=== PATIENT | female | born 1940 | race Caucasian/White ===

== ENCOUNTER → 2018-05-04 17:39 | Outpatient (CLI) | payer MEDICARE, SELFPAY | PROVIDERS: Family Provider Internal Medicine; PCP Internal Medicine; Visit Provider Podiatrist | DX: L97.529 Non-pressure chronic ulcer of other part of left foot with unspecified severity (principal) | CPT/HCPCS: 87070; 87075; 87077; 87186; 87205 ==

== ENCOUNTER 2018-05-08 15:26 | Emergency (ER) | payer MEDICARE, SELFPAY ==
[2018-05-08 15:27] VITALS: BP 144/56; PULSE 60; RESP 16; TEMP 36.9; O2SAT 96; BMI 29.9
[2018-05-08 15:47] VITALS: BP 144/56; PULSE 60; RESP 16; TEMP 36.9; O2SAT 96
--- NOTE | 2018-05-08 16:20 | RAD_ITS ---
STUDY: X-RAY - LEFT FOOT CLINICAL: Female, 77 years old. Pain and swelling TECHNIQUE: 3 view(s) of the foot. COMPARISON: None. FINDINGS: Normal talus, calcaneus, and tarsal bones. Normal visualized subtalar, talonavicular, calcaneocuboid, tarsal and tarsometatarsal articulations. Normal metatarsi. There is degenerative arthrosis of the metatarsophalangeal joint of the hallux . Normal tibial and fibular sesamoid bones. Normal interphalangeal joint of the great toe. Normal phalanges of the great toe. Normal second through fifth metatarsophalangeal joints. PIP and DIP joint arthrosis The soft tissue structures are unremarkable. RAD/Foot min 3 Views IMPRESSION: Degenerative arthrosis Electronically Signed: Scooter Weiner MD at 17:01 EST , Service support ,
[2018-05-08 16:24] LABS: Absolute Lymphocyte Count 3.02 X10^3/ul (0.83-4.51); Absolute Neutrophil Count 4.9 X10^3/uL (2.0-7.7); Basophil# 0.08 X10^3/uL; Basophil% 0.9 % (0-1); Eosinophil# 0.19 X10^3/uL; Eosinophils% 2.1 % (0-5); Hematocrit 37.6 % (37-47); Hemoglobin 11.6 g/dl (12.0-15.0); Lymphocyte # 3.02 X10^3/ul (4.0); Lymphocyte % 34.1 % (19-41); Mean Corp Hgb Conc 30.9 g/gl (32-36); Mean Corpuscular Hgb 28.2 pg (27.0-32.0); Mean Corpuscular Volume 91.3 fL (81-99); Mean Platelet Vol. 11.5 fl (6.2-12.0); Monocyte# 0.64 X10^3/uL; Monocyte% 7.2 % (0-10); Neutrophil # 4.91 X10^3/uL (2.7-7.7); Neutrophil % 55.6 % (47-70); Platelet Count 170 K/mm3 (150-450); RBC Distribution Width CV 14.9 % (11.6-14.6); RBC Distribution Width SD 49.7 fl (35.1-43.9); Red Blood Count 4.12 M/mm3 (4.2-5.4); White Blood Count 8.9 K/mm3 (4.4-11.0)
[2018-05-08 16:33] LABS: POSITIVE COUNT NO; POSITIVE DIFFERENTIAL NO; POSITIVE MORPHOLOGY NO
[2018-05-08 16:36] LABS: Anion Gap 11 (5-15); BUN 24 mg/dL (7-18); BUN/Creat Ratio 22.9 RATIO (10-20); Chloride 98 mmol/L (98-107); Creatinine, Serum 1.05 mg/dL (0.55-1.02); EST Glomerular Filtration Rate 54 mL/min (>60); Est Glom Filt Rate - Afr Amer 65 mL/min (>60); Estimated Creatinine Clearance 39.73 ml/min; Glucose 331 mg/dL (74-106); Potassium 5.2 mmol/L (3.5-5.1); Sodium Level 136 mmol/L (136-145)
--- NOTE | 2018-05-08 16:39 | ED.VISSUMM ---
- ER Visit Summary Date of Service: 05/08/18 Chief Complaint: Left foot wound History of Present Illness: The patient is a 77 F who presents with left foot wound that has been gradually getting worse over the past few weeks. Patient has been seeing a pediatric dermatologist who put a dressing on it that is supposed to help it heal faster. Family states it appears to be getting worse. Patient denies any fevers or chills. Patient admits to some mild drainage from the area. Patient denies any pain over the area. Patient denies any paresthesias or weakness. Physical Examination: Vital signs are stable. Patient is afebrile. Patient is in no acute distress. Skin is warm and dry. There is a 1 cm x 0.5 cm ulceration over the medial aspect of the first MTP joint of the left foot. There is no bleeding noted. There is no discharge or drainage. Is no fluctuance noted. There is good range of motion of the first MTP joint. Sensation was intact to light touch in all digits. Capillary refill was less than 2 seconds in all digits. There is no ankle or calf tenderness. Heart was regular rate and rhythm. Lungs are clear and equal bilateral. Abdomen is soft and nontender. The remaining physical exam is within normal limits. Test Results: CBC was normal. Metabolic profile was essentially within normal limits. X-rays of the left foot were obtained. There is no evidence of osteomyelitis. Emergency Department Course and Treatment: Patient was given a dose of Unasyn here in the emergency department. I discussed the case with the patient's pediatric dermatologist. He called in a prescription for Bactroban cream and doxycycline. Patient was instructed to stop taking the cefadroxil and start taking doxycycline instead. Patient has an appoint with her pediatric dermatologist in 4 days. Patient was instructed to continue that appointment. Patient was instructed on signs and symptoms that should prompt return to the emergency department. Patient and family understood and were agreeable with the plan. All questions were answered. Disposition: Discharge home Impression: Left foot ulceration This note was generated with [employer] dictation software. It may contain incorrect words, spelling, and punctuation that were not noted in review of the chart prior to signing ED Disposition - Plan for ED Patient: Disposition: Home or Assisted Living Diagnosis: Foot ulcer, left Instructions: ED Wound Care Referrals: Malini Dumont MD [Primary Care Provider] -
--- NOTE | 2018-05-08 16:42 | ED.DCSUM_ITS ---
- ER Visit Summary Date of Service: 05/08/18 Chief Complaint: Left foot wound History of Present Illness: The patient is a 77 F who presents with left foot wound that has been gradually getting worse over the past few weeks. Patient has been seeing a dispatcher refinery who put a dressing on it that is supposed to help it heal faster. Family states it appears to be getting worse. Patient denies any fevers or chills. Patient admits to some mild drainage from the area. Patient denies any pain over the area. Patient denies any paresthesias or weakness. Physical Examination: Vital signs are stable. Patient is afebrile. Patient is in no acute distress. Skin is warm and dry. There is a 1 cm x 0.5 cm ulceration over the medial aspect of the first MTP joint of the left foot. There is no bleeding noted. There is no discharge or drainage. Is no fluctuance noted. There is good range of motion of the first MTP joint. Sensation was intact to light touch in all digits. Capillary refill was less than 2 seconds in all digits. There is no ankle or calf tenderness. Heart was regular rate and rhythm. Lungs are clear and equal bilateral. Abdomen is soft and nontender. The remaining physical exam is within normal limits. Test Results: CBC was normal. Metabolic profile was essentially within normal limits. X-rays of the left foot were obtained. There is no evidence of osteomyelitis. Emergency Department Course and Treatment: Patient was given a dose of Unasyn here in the emergency department. I discussed the case with the patient's dispatcher refinery. He called in a prescription for Bactroban cream and doxycycline. Patient was instructed to stop taking the cefadroxil and start taking doxycycline instead. Patient has an appoint with her dispatcher refinery in 4 days. Patient was instructed to continue that appointment. Patient was instructed on signs and symptoms that should prompt return to the emergency department. Patient and family understood and were agreeable with the plan. All questions were answered. Disposition: Discharge home Impression: Left foot ulceration This note was generated with [employer] dictation software. It may contain incorrect words, spelling, and punctuation that were not noted in review of the chart prior to signing ED Disposition - Plan for ED Patient: Disposition: Home or Assisted Living Diagnosis: Foot ulcer, left Instructions: ED Wound Care Referrals: Malini Dumont MD [Primary Care Provider] -
[2018-05-08 17:35] VITALS: BP 148/64; PULSE 62; PULSE 64; RESP 16; O2SAT 94
== END 2018-05-08 18:01 | disposition home or self-care (01) ==
PROVIDERS: Emergency Provider Emergency Medicine; Family Provider Internal Medicine; PCP Internal Medicine
DX: E11.621 Type 2 diabetes mellitus with foot ulcer (principal); L97.529 Non-pressure chronic ulcer of other part of left foot with unspecified severity; F03.90 Unspecified dementia, unspecified severity, without behavioral disturbance, psychotic disturbance, mood disturbance, and anxiety; Z79.4 Long term (current) use of insulin; Z79.82 Long term (current) use of aspirin; Z79.899 Other long term (current) drug therapy
CPT/HCPCS: 73630; 80048; 85025; 96365; 99284; J7050; A4216; J0295

== ENCOUNTER → 2018-10-01 14:15 | Outpatient (CLI) | payer MEDICARE, SELFPAY ==
--- NOTE | 2018-10-01 15:02 | VDLE_ITS ---
Reason For Study: DVT/Calf pain RIGHT GSV is normal. CFV is compressible, spontaneous, phasic, competent and demonstrates normal augmentation. FV is compressible, spontaneous, phasic, competent and demonstrates normal augmentation. POP V is compressible, spontaneous, phasic, competent and demonstrates normal augmentation. T/P Trunk is compressible. PTV is compressible. RT PerV is compressible. Procedure Exam performed in department. A preliminary report was called and/or faxed to [facility]. Interpretation Summary Deep veins of the right lower extremity are patent and compressible segmentally. There is no evidence of right lower extremity deep vein thrombosis. Valvular competence appears intact within the proximal deep venous system on the right . The right greater saphenous vein appears patent and compressible segmentally. Ordering Physician: Siva Ruiz Referring Physician: Malini Dumont M.D. Performed By: Alida Hernandez RVT
== END ==
PROVIDERS: Family Provider Internal Medicine; PCP Internal Medicine; Referring Provider Podiatrist; Visit Provider Podiatrist
DX: M79.661 Pain in right lower leg (principal); I82.4Z1 Acute embolism and thrombosis of unspecified deep veins of right distal lower extremity
CPT/HCPCS: 93971

== ENCOUNTER → 2018-10-14 | Outpatient (CLI) | payer MEDICARE, SELFPAY ==
--- NOTE | 2018-10-14 10:49 | ART_ITS ---
Reason For Study: Foot Ulcer Procedure A bilateral lower extremity continuous wave Doppler with analog waveform analysis,segmental pressures,and ankle brachial indexes without exercise. Left Segmental Pressures Left brachial= 158mmHg. Left posterior tibial artery = 200mmHg. Left dorsalis pedis artery = 185mmHg. Left digit = 151 mmHg. Right Segmental Pressures Right brachial= 162mmHg. Right posterior tibial artery = 194mmHg. Right dorsalis pedis artery = 182mmHg. Right digit = 138 mmHg. Indices The right ankle brachial index by the posterior tibial artery is 1.20. The right ankle brachial index by the dorsalis pedis is 1.12. The right digital-brachial index is 0.85. The left ankle brachial index by the posterior tibial artery is 1.23. The left ankle brachial index by the dorsalis pedis is 1.14. The left digital-brachial index is 0.93. Interpretation Summary Triphasic Doppler waveforms are noted at ankle level bilaterally. Pulse-volume recording waveform amplitudes are satisfactory at all levels bilaterally, including low-thigh, calf, ankle, and digital levels. Resting ankle-brachial indices are normal bilaterally. Digital-brachial indices are normal bilaterally. There is no evidence of significant arterial occlusive disease in the lower extremities bilaterally. Ordering Physician: Siva Ruiz Referring Physician: Siva Ruiz Performed By: Suzette Camara RDCS/RVT
== END | disposition home or self-care (01) ==
LOC: CVS 10:46
PROVIDERS: Family Provider Internal Medicine; PCP Internal Medicine; Referring Provider Podiatrist; Visit Provider Podiatrist
DX: E11.621 Type 2 diabetes mellitus with foot ulcer (principal); L97.529 Non-pressure chronic ulcer of other part of left foot with unspecified severity; I73.9 Peripheral vascular disease, unspecified
CPT/HCPCS: 93923

== ENCOUNTER 2019-01-15 12:25 | Observation (INO) | payer MEDICARE, SELFPAY ==
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
[2019-01-15] VITALS (10 sets, daily range): BP systolic 161–185; BP diastolic 70–84; PULSE 63–82; RESP 16; TEMP 36.1–36.7; O2SAT 93–98; BMI 33.0
[2019-01-15] MEDS: Lactated Ringers 1,000 ML 100 ML IV ×2 (09:38→15:35)
[2019-01-15 09:46] LABS: Bedside Glucose 152 mg/dL (70-110)
--- NOTE | 2019-01-15 10:10 | BON_PTH ---
PATIENT: CASSIE SUÁREZ LOC: [facility] U#:[id number] AGE/SX: 78/F ROOM: DC320 RE01/15/[address]: GUDELIA KnightM : 1940 BED: 1 DIS: 01/15/2019 SPEC #: [id number] RECD: 01/18/19 07:25 STATUS: REJI MILADIS #: [id number] LAMBERT: 01/15/19 10:[address]: Siva Ruiz DEPT: SURGICAL PATHOLOGY RECD BY: Siddhartha Bansal ENTERED: 01/18/19 08:44 SP TYPE: Bone OTHR DR: DO Dr. Malini Son MD Tissues: Bone of foot, NOS Procedures: Decalcification bone/plaque Surgery Specimen Level III HEADER OPERATION: Ulcer debridement with simple bunionectomy, bone removal PRE-OP DIAGNOSIS: Chronic diabetic ulcer with bunion deformity TISSUE SUBMITTED: Bone, left foot MICROSCOPIC DIAGNOSIS Bone, left foot: Pieces of bone with reactive changes, clinically bunion. VALERIO:marcelina 01/21/19 MICROSCOPIC DESCRIPTION Slides are reviewed. GROSS DESCRIPTION Received in fixative is one container labeled with the patient's name and designated bone left foot. The specimen consists of multiple pieces of bone that in aggregate measure 4 x 3.5 x 0.5 cm. The entire specimen is submitted in two cassettes after decalcification. / VALERIO:marcelina 01/18/19 TC:5 CPT: 10576, 62301
--- NOTE | 2019-01-15 11:00 | RAD_ITS ---
STUDY: X-RAY - LEFT FOOT CLINICAL: Female, 78 years old. Postop TECHNIQUE: 3 view(s) of the foot. COMPARISON: 05/08/2018 FINDINGS: Bunionectomy changes are present. Postoperative changes in the soft tissues. No acute fractures or osteolytic lesions. RAD/Foot 2 Views IMPRESSION: Bunionectomy changes are present. Electronically Signed: Manny Sahu MD at 17:21 EDT Tel , Service support ,
[2019-01-15] MEDS: Bupivacaine Mpf 0.5% 30 ML VIAL (11:32)
[2019-01-15] MEDS: Cefazolin 2 GM in 0.9% Normal Saline 100 ML IV (11:41)
--- NOTE | 2019-01-15 12:19 | CASEMGMT ---
Social Work Note SW spoke with [employer] who states pt is not up on floor yet. SW spoke with PT/OT and informed them on plan for SNF and that this worker will call them when pt arrives to floor to do PT/OT with pt so pre-cert can be submitted. Plan: TCU pending pre-cert Alida Gongora [employer] F[employer]ION DEVELOPER, INFUSION THERAPY NURSE
--- NOTE | 2019-01-15 12:29 | RAD_ITS ---
STUDY: X-RAY - LEFT FOOT CLINICAL: Female, 78 years old. Postop TECHNIQUE: 3 view(s) of the foot. COMPARISON: 05/08/2018 FINDINGS: Bunionectomy changes are present. Postoperative changes in the soft tissues. No acute fractures or osteolytic lesions. RAD/Foot min 3 Views IMPRESSION: Bunionectomy changes are present. Electronically Signed: Manny Sahu MD at 17:21 EDT Tel , Service support ,
[2019-01-15 12:50] LABS: Bedside Glucose 102 mg/dL (70-110)
--- NOTE | 2019-01-15 14:44 | PCM.OPRPT ---
Report of Operation Date of Procedure: 01/15/19 Pre-Operative Diagnosis: Ulceration left foot medial 1st metatarsal phalangeal joint. Hallux Valgus bunion, left foot. Diabetes with neuropathy Post-Operative Diagnosis: Same Surgery/Procedure Performed:: Bunionectomy left 1st metatarsal phalangeal joint Type of Anesthesia:: Local, MAC Specimen's removed: Bunion from left 1st metatarsal head sent to pathology and microbiology Estimated Blood Loss (mL): 1mL Description of Procedure: Indications: This is a 78 year old female with history of diabetes with peripheral neuropathy as well as dementia who has chronic on and off ulceration to the medial aspect of the left 1st metatarsal phalangeal joint at the bunion site. She has been overall nonadherent with care, but she does have dementia. We have got the ulceration healed on several occasions but keeps coming back as she does not wear her offloading shoe, and she has bunion which keeps rubbing causing break down of the skin. She has diabetic neuropathy. Patient also has a right drop foot and wears an AFO. Due to the chronic nature of this ulceration we discussed bunionectomy to remove the zaid prominence to keep with offloading. This was discussed with the patient as well as with her daughter Marline in great detail. Due to patient's dementia, home situation, as well as peripheral neuropathy and drop foot patient will need to be admitted post op for nursing facility placement. Patient and patient's daughter agreed with this plan. All of the possible benefits vs risks, goals, expectations and estimated healing time was discussed with them in detail. The consent forms were reviewed with them and they were freely signed. All of their questions were answered. No guarentees were given nor implied. Operative Procedure: The patient was brought back to the operating room and was placed on the operating room table in the supine position. Patient was carefully secured to the operating room table with a safety belt around her waist. The patient received 2 grams of intravenous Cephazolin for antibiotic prophylaxis. A timeout was performed and the patient was properly identified and the surgical plan was confirmed. A well padded pneumatic tourniquet was applied around the patient's left ankle. The patient received anesthesia per the anesthesia team. A 1st ray nerve block was given using 10mL of Bupivacaine plain after the overlying skin was cleansed with 70% Isopropyl alcohol. The left foot was scrubbed, prepped, and draped in the usual aseptic fashion. Further attention was directed to the left foot, there was healed ulceration but there was dry flaking skin present at the ulcer site. There was a hallux valgus bunion prominence/eminence present at the ulceration site. There was no evidence of abscess, necrosis, cellulitis, streaking or drainage at this time. The left foot was elevated for 3 minutes and the left ankle pneumatic tourniquet was inflated to 250mmHg. A linea longitudinal skin incision was made overlying the dorsal medial aspect of the 1st metatarsal phalangeal joint, medial to the extensor hallucis longus tendon. The incision was carefully deepened to the dorsal 1st metatarsal phalangeal joint capsule, which was incised and partially reflected exposing the medial 1st metatarsal head and medial aspect of the base of the hallux proximal phalanx which was prominent as well. It was also noted the tibial sesamoid was prominent contributing to the prominence causing the ulceration. The joint was visualized and there was some degenerative changes consistent with osteoarthritis. There was no purulence, no abscess, no necrosis or erosion to the bone or joint at this level. he medial eminence of the 1st metatarsal head as well as the prominent medial condyle of the hallux proximal phalanx were resected using a powered sagittal saw. The prominent tibial sesamoid was resected. The bone was a little soft consistent with patient's age, but no clear or obvious evidence of bone or joint infection. The resected bone was sent to pathology as well as microbiology for further evaluation. The ulcer site was now properly decompressed. The site was flushed out with copious amounts of normal saline solution. The capsule was reapproximated using 4-0 Vicryl, the subcutaneous tissue and skin were reapproximated using 4-0 Vicryl and 4-0 Monocryl. The edges of the skin incision were painted with Cavilon and steristrips were applied across the sutured skin incision. A dressing was applied which consisted of Adaptic, 4x4 gauze, Kerlix and antoinette bandage. The pneumatic tourniquet was deflated (total tourniquet time was 37 minutes) and there was noted to be immediate return of warmth and perfusion to the left foot with CFT < 2 seconds to all toes with normal temperature. The patient tolerated the above procedure well and the anesthesia well with no complications. The patient was transported from the operating room to the recovery room with vital signs stable and in good condition. Post op orders were placed. The patient will be admitted for nursing facility placement. I spoke with Dr. Cheung from the medicine team for medical management. Post operative xrays were obtained and reviewed of the left foot which confirmed bunionectomy as noted above. No complications or other acute findings noted. Grafts/Implants Used: None - Complications None
--- NOTE | 2019-01-15 15:02 | CON.PCM_ITS ---
Reason for Consult Date of Consultation: 01/15/19 Reason for Consultation: Consult requested by Dr. Ruiz for medical mgmt. History of Present Illness: The patient is a 78 year old F who underwent ulcer surgery on her left foot today by Dr. ziegler. Postoperatively, patient feels well. Has no active malaise at this time. [] Past Medical History Past Medical History (Chronic Problems): Chronic Problems Chronic back pain (Chronic) Chronic pain of right lower extremity (Chronic) radicular Type II diabetes mellitus (Chronic) HLD (hyperlipidemia) (Chronic) Foot drop, right foot (Chronic) Dementia (Chronic) Muscle paresis (Chronic) R leg Allergies Iodine and Iodide Containing Produc Allergy (Verified 01/15/19 09:16) Rash venom-honey bee [bee venom (honey bee)] Allergy (Verified 01/15/19 09:16) Swelling Home Medications: Ambulatory Orders Medication Instructions Recorded Ergocalciferol [Vitamin D] 50,000 unit PO SUWE 06/28/14 Simvastatin 20 mg PO QHS 06/28/14 Duloxetine Hcl [Cymbalta] 40 mg PO LUNCH 01/11/19 Hydrocodone/Acetaminophen 1 tab PO TID 01/11/19 [Hydrocodone-Acetamin 10-325 mg] Insulin Degludec [Tresiba] 50 unit SQ DAILY 01/11/19 Levothyroxine [Synthroid] 75 mcg PO DAILY@0600 01/11/19 Metformin HCl 500 mg PO BID 01/11/19 Metoprolol Tartrate [Lopressor 25 mg PO 1200,1800 01/11/19 (beta blayne)] Pregabalin [Lyrica] 50 mg PO 4X/DAY 01/11/19 Quetiapine Fumarate [Seroquel] 25 mg PO QHS 01/11/19 Smoking Status: Never smoker Tobacco Use: Non-smoker - *Family History Paternal History Items: No pertinent history Sibling History Items: Diabetes Review of Systems Constitutional: Denies: Anorexia, Chills, Fever Eyes: Denies: Blurred vision, Conjunctivae Inflammation HEENT: Denies: Head Aches, Sinus Congestion, Sinus Drainage Cardiovascular: Denies: Chest Pain, Palpitations Respiratory: Denies: Cough, Shortness of breath at rest, Sputum production Gastrointestinal: Denies: Abdominal Pain, Nausea, Vomiting Genitourinary: Denies: Dysuria Musculoskeletal: Denies: Joint Pain, Joint Tenderness Skin: Reports: Wounds. Denies: Rash Neurological: Reports: - - Neuropathy in her feet. Denies: Focal weakness, Numbness, Tingling Psychiatric: Denies: Anxiety, Depression Endocrine: Denies: Change in Body Habitus Hematologic/ Lymphatic: Denies: Easy Bruising, Easy Bleeding, Hx of blood clot Comment: All review systems are otherwise negative except for as mentioned above and in the HPI. - Physical Exam Vitals/I&O's: Vital Signs Temp Pulse Resp BP Pulse Ox 36.4 C L 64 16 173/82 H 97 01/15/19 14:05 01/15/19 14:10 01/15/19 14:05 01/15/19 14:05 01/15/19 14:05 Oxygen Delivery Method Room Air Weight: 90.083 kg Body Mass Index (BMI) 33.0 Intake and Output for Last 24 Hours 01/13/19 01/14/19 01/15/19 23:59 23:59 23:59 Intake Total 110 / 110 Balance 110 / 110 General: Alert, No apparent distress HEENT: Atraumatic, Normocephalic Oral: Moist Mucosa, No Gingival or Mucosal Lesions/ Ulcerations Neck: No Nodes, Thyroid Normal Size and Texture Lungs: Clear to auscultation, Normal air movement, No rhonchi, No wheeze, No rales Cardiovascular: Regular rate, Regular Rhythm, Normal S1, Normal S2, No murmurs Abdomen: Bowel Sounds Present, Soft, Non Tender, Non-Distended, No Hepato- splenomegaly Extremities: No edema, No Calf Tenderness, - - left foot wrapped, did not remove. Neurological: - - moves all extremities spontaneously. Psych/Mental Status: Normal Affect, Appropriate Laboratory Results 01/15/19 09:20: POC Glucose 152 H 01/15/19 12:48: POC Glucose 102 Current Medications Hydrocodone Bitart/Acetaminophen ([place] 5mg-325mg) 1 - 2 tablet PO Q6H PRN PRN PRN Reason: Pain Score 1-10/10 Dextrose (D50w Syringe) 0 gm IV X1 PRN; Protocol PRN Reason: Hypoglycemia Duloxetine HCl (Cymbalta) 40 mg PO LUNCH LOR Enoxaparin Sodium (Lovenox) 40 mg SC DAILY@0600 LOR Ergocalciferol (Vitamin D) 50,000 unit PO SUWE [facility] Glucagon () 1 mg IM .X1 PRN PRN Reason: Hypoglycemia Lactated Ringer's () 1,000 mls @ 100 mls/hr IV .Q10H [facility] Last Admin: 01/15/19 09:38 Dose: 100 mls/hr Documented by: Insulin Human Lispro (Humalog Kwikpen (Bkc)) 0 unit SC TIDAC [facility]; Protocol Levothyroxine Sodium (Synthroid) 75 mcg PO DAILY@0600 [facility] Metformin HCl (Glucophage) 500 mg PO BID [facility] Metoprolol Tartrate (Lopressor (Beta Blayne)) 25 mg PO 1200,1800 [facility] Non-Formulary Medication (Insulin Degludec [Tresiba]) 50 unit SQ DAILY [facility] Non-Formulary Medication (Simvastatin) 20 mg PO QHS [facility] Non-Formulary Medication (Hydrocodone/Acetaminophen [Hydrocodone-Acetamin 10-325 Mg]) 1 tab PO TID [facility] Ondansetron HCl (Zofran) 4 mg IV Q8H PRN PRN PRN Reason: Nausea Pregabalin (Lyrica) 50 mg PO 4X/DAY [facility] Quetiapine Fumarate (Seroquel) 25 mg PO QHS [facility] Sodium Chloride () 10 - 40 ml IV UD PRN PRN Reason: SALINE FLUSH Assessment/Plan All Active Problems Syncope and collapse (Acute) Urinary tract infection with pyuria (Acute) Hypothyroidism (Acute) 1. DM2 * continue basal insulin and metformin * add SSI coverage * monitor 2. HTN, accelerated * resume metoprolol and monitor 3. Left foot ulcer * s/p debridement * mgmt per podiatry 4. VTE prophylaxis: LMWH You for the consult. The hospitalist service will continue to follow along during this patient's hospitalization. Code Visit Inpatient E&M: 47745 Init Hosp L2
--- NOTE | 2019-01-15 15:03 | HP.PCM_ITS ---
History of Present Illness Date of Admission: 01/15/19 Chief Complaint: Post op left foot bunionectomy This is a 78 year old female with history of diabetes with peripheral neuropathy as well as dementia who has chronic on and off ulceration to the medial aspect of the left 1st metatarsal phalangeal joint at the bunion site. She has been overall nonadherent with care, but she does have dementia. We have got the ulceration healed on several occasions but keeps coming back as she does not wear her offloading shoe, and she has bunion which keeps rubbing causing break down of the skin. She has diabetic neuropathy. Patient also has a right drop foot and wears an AFO which causes more difficulty with gait. Due to the chronic nature of this ulceration we discussed bunionectomy to remove the zaid prominence to keep with offloading. This was discussed with the patient as well as with her daughter Marline in great detail. Due to patient's dementia, home situation, as well as peripheral neuropathy and drop foot patient will need to be admitted post op for nursing facility placement. The patient had surgery this morning without complication. Past Medical History Past Medical History (Chronic Problems): Chronic Problems Chronic back pain (Chronic) Chronic pain of right lower extremity (Chronic) radicular Type II diabetes mellitus (Chronic) HLD (hyperlipidemia) (Chronic) Foot drop, right foot (Chronic) Dementia (Chronic) Muscle paresis (Chronic) R leg Allergies Iodine and Iodide Containing Produc Allergy (Verified 01/15/19 09:16) Rash venom-honey bee [bee venom (honey bee)] Allergy (Verified 01/15/19 09:16) Swelling Home Medications: Ambulatory Orders Medication Instructions Recorded Ergocalciferol [Vitamin D] 50,000 unit PO SUWE 06/28/14 Simvastatin 20 mg PO QHS 06/28/14 Duloxetine Hcl [Cymbalta] 40 mg PO LUNCH 01/11/19 Hydrocodone/Acetaminophen 1 tab PO TID 01/11/19 [Hydrocodone-Acetamin 10-325 mg] Insulin Degludec [Tresiba] 50 unit SQ DAILY 01/11/19 Levothyroxine [Synthroid] 75 mcg PO DAILY@0600 01/11/19 Metformin HCl 500 mg PO BID 01/11/19 Metoprolol Tartrate [Lopressor 25 mg PO 1200,1800 01/11/19 (beta blayne)] Pregabalin [Lyrica] 50 mg PO 4X/DAY 01/11/19 Quetiapine Fumarate [Seroquel] 25 mg PO QHS 01/11/19 Smoking Status: Never smoker Tobacco Use: Non-smoker - *Family History Paternal History Items: No pertinent history VTE Information - Inpt Only VTE Present on Admission: No - Physical Exam Vitals/I&O's: Vital Signs Temp Pulse Resp BP Pulse Ox 97.5 F L 64 16 173/82 H 97 01/15/19 14:05 01/15/19 14:10 01/15/19 14:05 01/15/19 14:05 01/15/19 14:05 Oxygen Delivery Method Room Air Weight: 90.083 kg Body Mass Index (BMI) 33.0 Intake and Output for Last 24 Hours 01/13/19 01/14/19 01/15/19 23:59 23:59 23:59 Intake Total 110 / 110 Balance 110 / 110 General: Alert, Oriented x3, Cooperative, No apparent distress Extremities: Capillary Refill Less than 3 Seconds, - - Dressing clean, dry and intact to the left foot. Laboratory Results 01/15/19 09:20: POC Glucose 152 H 01/15/19 12:48: POC Glucose 102 Current Medications Hydrocodone Bitart/Acetaminophen (Dyer 5mg-325mg) 1 - 2 tablet PO Q6H PRN PRN PRN Reason: Pain Score 1-10/10 Dextrose (D50w Syringe) 0 gm IV X1 PRN; Protocol PRN Reason: Hypoglycemia Duloxetine HCl (Cymbalta) 40 mg PO LUNCH [facility] Enoxaparin Sodium (Lovenox) 40 mg SC DAILY@0600 [facility] Ergocalciferol (Vitamin D) 50,000 unit PO SUWE [facility] Glucagon () 1 mg IM .X1 PRN PRN Reason: Hypoglycemia Lactated Ringer's () 1,000 mls @ 100 mls/hr IV .Q10H [facility] Last Admin: 01/15/19 09:38 Dose: 100 mls/hr Documented by: Insulin Human Lispro (Humalog Kwikpen (Bkc)) 0 unit SC TIDAC [facility]; Protocol Levothyroxine Sodium (Synthroid) 75 mcg PO DAILY@0600 [facility] Metformin HCl (Glucophage) 500 mg PO BID [facility] Metoprolol Tartrate (Lopressor (Beta Blayne)) 25 mg PO 1200,1800 [facility] Non-Formulary Medication (Insulin Degludec [Tresiba]) 50 unit SQ DAILY [facility] Non-Formulary Medication (Simvastatin) 20 mg PO QHS [facility] Non-Formulary Medication (Hydrocodone/Acetaminophen [Hydrocodone-Acetamin 10-325 Mg]) 1 tab PO TID LOR Ondansetron HCl (Zofran) 4 mg IV Q8H PRN PRN PRN Reason: Nausea Pregabalin (Lyrica) 50 mg PO 4X/DAY LOR Quetiapine Fumarate (Seroquel) 25 mg PO QHS [facility] Sodium Chloride () 10 - 40 ml IV UD PRN PRN Reason: SALINE FLUSH Assessment/Plan All Active Problems Syncope and collapse (Acute) Urinary tract infection with pyuria (Acute) Hypothyroidism (Acute) Chronic on and off ulceration 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 She was admitted for post op monitoring and nursing facility placement. Keep dressing left foot clean, dry and intact. Ok to weightbear on left heel with assistance very short distances, no weight on left forefoot Keep left foot elevated for at least 50 minutes per hour. Pain control: Dyer 5/325mg, 1-2 tabs PO q 6 hours prn pain Medicine team has been consulted for diabetes and further management management. DVT Prophylaxis: Lovenox 40mg subc starting tomorrow am, SCDs.
--- NOTE | 2019-01-15 15:27 | CASEMGMT ---
Addendum entered by Alida Gongora 01/15/19 15:47: PARIS spoke with Dr. Ruiz and informed him that pt can discharge to TCU. Dr. Ruiz states pt is medically cleared for discharge to TCU. PARIS updated Dr. Ruzi that hospitalist was asked to complete discharge paperwork but stated to defer discharge to Dr. Ruiz. PARIS informed Dr. Ruiz of the needed documents (transfer to extended care facility, signed medication list and any scripts). Dr. Ruiz states he is not sure how to complete paperwork. SW asked if this worker could fax transfer to extended care and Dr. Ruiz states he is not around a fax machine. Dr. Aguirre is currently on floor and this worker asked if he would be willing to talk Dr. Ruiz on the phone to complete discharge paperwork. Domonique Aguirre states he will assist with discharge. PARIS placed a call to Marina in TCU and left her a message that pt will be discharged to TCU today. PARIS placed call to pt's daughter and HCPJESSI Mendez and updated her on approval to TCU and discharge today to TCU. Plan: TCU today Original Note: Social Work Note PARIS spoke with PT/OT who are recommending SNF for pt. PARIS placed a call to [facility] and [place] ([phone]) is out of the office today and Friday. PARIS was directed to call Luiza ([phone]). PARIS placed a call to Luiza at [facility] and provided referral. Luiza approved referral for pt to be admitted to TCU and asked for clinicals to be faxed. PARIS faxed clinicals. PARIS placed a call to Marina in TCU and updated her on approval for TCU. Physician updated. PARIS waiting to hear if pt will discharge to TCU today or tomorrow. Plan: TCU once medically cleared Alida Gongora MOTHER SUPERIOR, [employer] BACKING [employer]ENCIL[employer]
--- NOTE | 2019-01-15 15:38 | PCM.TXEXTCAR ---
- Diet 01/15/19 14:55 Diet: Calorie Controlled Is pt able to select menu?: No How many daily calories?: 1800 calorie - Wound(s) LT FOOT Wound Type: Surgical Incision Dressing Change: Keep dressing left foot clean, dry and intact - Therapies Weight Bearing: Partial weight bearing - No weightbearing left toes or forefoot, ok to weight - Allergies/Procedures Done in Hospital Allergies/Adverse Reactions: Allergies Iodine and Iodide Containing Produc Allergy (Verified 01/15/19 09:16) Rash venom-honey bee [bee venom (honey bee)] Allergy (Verified 01/15/19 09:16) Swelling - Dietary and Speech Recommendations Dietitian Recommendations/Changes: Rec CLOVIS to CHO Control Cardiac as medically able. Rec Bull bid to help w/ L foot wound healing if indicated - Follow Up Care Primary Care Physician: Malini Dumont MD [Primary Care Provider] -
--- NOTE | 2019-01-15 15:49 | PCM.TXEXTCAR ---
- Diet 01/15/19 14:55 Diet: Calorie Controlled Is pt able to select menu?: No How many daily calories?: 1800 calorie - Routine Orders/Code Status Routine Lab Work: - - fingerstick blood sugars [facility]-coverage with Humalog SQ per protocol: 200-250: 5 units, 251-300: 8 units, 301-350: 12 units - Wound(s) LT FOOT Wound Type: Surgical Incision Dressing Change: Keep dressing left foot clean, dry and intact - Therapies Weight Bearing: Partial weight bearing - No weightbearing left toes or forefoot, ok to weightbear on left heel with assistance Physical Therapy: Eval and Treat Occupational Therapy: Eval and Treat - Problem/Diagnosis (1) Neuropathic foot ulcer Status: Acute Current Visit: Yes (2) Chronic pain of right lower extremity Status: Chronic Comment: radicular Current Visit: No (3) Type II diabetes mellitus Status: Chronic Current Visit: No (4) Foot drop, right foot Status: Chronic Current Visit: No (5) Dementia Status: Chronic Current Visit: No - Allergies/Procedures Done in Hospital Allergies/Adverse Reactions: Allergies Iodine and Iodide Containing Produc Allergy (Verified 01/15/19 09:16) Rash venom-honey bee [bee venom (honey bee)] Allergy (Verified 01/15/19 09:16) Swelling Procedures: - - bunionectomy left foot - Type of Care/Length of Stay Estimated LOS: Convalescent Care Less Than 30 days Type of Care Needed: Skilled Rehab Potential: Good Prognosis: Good - Additional Orders/Day of Discharge H&P will serve as current which was dated: 01/07/19 Day of Discharge: 01/15/19 - Dietary and Speech Recommendations Dietitian Recommendations/Changes: Rec CLOVIS to CHO Control Cardiac as medically able. Rec Bull bid to help w/ L foot wound healing if indicated - Follow Up Care Primary Care Physician: Malini Dumont MD [Primary Care Provider] - Please Follow Up With: Siva Ruiz DPM When: as directed
[2019-01-15 16:35] LABS: Bedside Glucose 120 mg/dL (70-110)
[2019-01-15] MEDS: Metoprolol Tartrate 25 MG Tablet PO (16:48)
[2019-01-15] MEDS: HYDROcodone Bitartrate/Apap 5/325 Tablet PO (16:48)
[2019-01-15] MEDS: Pregabalin 50 MG Capsule PO (16:49)
[2019-01-15] MEDS: metFORMIN HCl 500 MG Tablet PO (16:49)
== END 2019-01-15 18:05 | disposition skilled nursing facility (03) ==
LOC: SDC 14:01
PROVIDERS: Admitting Provider Podiatrist; Family Provider Internal Medicine; PCP Internal Medicine; Referring Provider Podiatrist; Visit Provider Podiatrist
PROC: (CPT 28292; principal; 2019-01-15 09:55)
DX: M20.12 Hallux valgus (acquired), left foot (principal); M21.612 Bunion of left foot; E11.621 Type 2 diabetes mellitus with foot ulcer; L97.529 Non-pressure chronic ulcer of other part of left foot with unspecified severity; E78.2 Mixed hyperlipidemia; E11.42 Type 2 diabetes mellitus with diabetic polyneuropathy; Z79.899 Other long term (current) drug therapy; Z79.4 Long term (current) use of insulin; M21.371 Foot drop, right foot; F03.90 Unspecified dementia, unspecified severity, without behavioral disturbance, psychotic disturbance, mood disturbance, and anxiety; G89.29 Other chronic pain; E03.9 Hypothyroidism, unspecified; I10 Essential (primary) hypertension
CPT/HCPCS: 28292; 73620; 73630; 76000; 82962; 87015; 87070; 87075; 87102; 87116; 87176; 87205; 87206; 88304; 88305; 88311; 96360; 96361; 97162; 97166; J7120; J2405

== ENCOUNTER 2019-01-15 18:24 | Inpatient (IN) | payer MEDICARE, SELFPAY ==
[2019-01-15 14:09] VITALS: BMI 33.0
[2019-01-15 18:40] VITALS: BP 149/67; PULSE 63; RESP 20; TEMP 36.8; O2SAT 91
--- NOTE | 2019-01-15 20:00 | HP.PCM_ITS ---
Problem List (1) Debility Status: Acute (2) Alzheimer disease Status: Chronic (3) Diabetic foot ulcer Status: Chronic (4) Type II diabetes mellitus Status: Chronic (5) Body mass index (bmi) 33.0-33.9, adult Status: Chronic (6) Bunion, left Status: Chronic (7) Diabetic polyneuropathy Status: Chronic (8) Hypertension Status: Chronic (9) Late onset Alzheimer's disease with behavioral disturbance Status: Chronic (10) Vitamin D deficiency Status: Chronic (11) Chronic pain Status: Chronic (12) Opioid dependence Status: Chronic (13) HLD (hyperlipidemia) Status: Chronic (14) Hypothyroidism Status: Chronic History of Present Illness Date of Admission: 01/15/19 Chief Complaint: Here for rehabilitation, strengthening, prior to discharge home with . The patient is a 78 year old Female with below past medical history with followin EKG Sinus rhythm, right bundle branch block. 01/15/2019 Dr. Ruiz performed bunionectomy left 1st metatarsal phalangeal joint. Okay to bear weight on left heel with assistance very short distances. Due to Alzheimer's Disease, non-compliance, patient will need shelter facility after surgery. 01/15/2019 Admit to TCU with debility, here for rehabilitation, strengthening, prior to discharge home with . Past Medical History Past Medical History (Chronic Problems): Chronic Problems Alzheimer disease (Chronic) Diabetic foot ulcer (Chronic) Body mass index (bmi) 33.0-33.9, adult (Chronic) Bunion, left (Chronic) Diabetic polyneuropathy (Chronic) Hypertension (Chronic) 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) Vitamin D deficiency (Chronic) Chronic pain (Chronic) Opioid dependence (Chronic) Chronic back pain (Chronic) Chronic pain of right lower extremity (Chronic) radicular Type II diabetes mellitus (Chronic) HLD (hyperlipidemia) (Chronic) Foot drop, right foot (Chronic) Hypothyroidism (Chronic) Dementia (Chronic) Muscle paresis (Chronic) R leg Allergies Iodine and Iodide Containing Produc Allergy (Verified 01/15/19 09:16) Rash venom-honey bee [bee venom (honey bee)] Allergy (Verified 01/15/19 09:16) Swelling Home Medications: Ambulatory Orders Medication Instructions Recorded Ergocalciferol [Vitamin D] 50,000 unit PO SUWE 06/28/14 Simvastatin 20 mg PO QHS 06/28/14 Duloxetine Hcl [Cymbalta] 40 mg PO LUNCH 01/11/19 Insulin Degludec [Tresiba] 50 unit SQ DAILY 01/11/19 Levothyroxine [Synthroid] 75 mcg PO DAILY@0600 01/11/19 Metformin HCl 500 mg PO BID 01/11/19 Metoprolol Tartrate [Lopressor 25 mg PO 1200,1800 01/11/19 (beta blayne)] Quetiapine Fumarate [Seroquel] 25 mg PO QHS 01/11/19 Hydrocodone Bitart/Apap 5-325 1 tab PO Q4H PRN PRN 7 Days #15 tab 01/15/19 [Dundas 5/325] Pregabalin [Lyrica] 50 mg PO 4X/DAY 4 Days #14 cap 01/15/19 Surgical History: - - Left bunionectomy. Psychiatric History: Depression POSTAL SORTING OFFICER History: No pertinent POSTAL SORTING OFFICER history Lives: Spouse/ Significant Other Smoking Status: Never smoker Tobacco Use: Non-smoker Alcohol: None Drugs: None - *Family History Sibling History Items: Diabetes Paternal History Items: No pertinent history Review of Systems Constitutional: Denies: Chills, Fever, Weight Change HEENT: Denies: Head Aches, Sinus Congestion, Sinus Drainage Cardiovascular: Denies: Chest Pain, Palpitations Respiratory: Denies: Cough, Shortness of breath at rest, Sputum production Gastrointestinal: Denies: Abdominal Pain, Nausea, Vomiting Genitourinary: Denies: Dysuria Musculoskeletal: Denies: Joint Pain, Joint Tenderness Skin: Denies: Rash, Wounds Neurological: Denies: Numbness, Tingling, Focal weakness Psychiatric: Denies: Anxiety, Depression, Homicidal Ideations, Suicidal Ideations Hematologic/ Lymphatic: Denies: Easy Bruising, Easy Bleeding VTE Information - Inpt Only VTE Present on Admission: No VTE Mechan Device Prophylaxis: Knee High CHANCE Hose VTE Pharm Prophylaxis ordered?: Yes Patient Problems: Active and Suspected Problems Debility (Acute) - Physical Exam Vitals/I&O's: Vital Signs Temp Pulse Resp BP Pulse Ox 98.3 F 63 20 H 149/67 H 91 01/15/19 18:40 01/15/19 18:40 01/15/19 18:40 01/15/19 18:40 01/15/19 18:40 Oxygen Delivery Method Room Air Body Mass Index (BMI) 33.0 General: Alert, Oriented x3, Cooperative HEENT: Atraumatic, PERRLA, EOMI, Normocephalic Neck: Supple, No JVD, Negative Carotid Bruits Lungs: Clear to auscultation, Normal air movement Cardiovascular: Regular rate, No murmurs Abdomen: Bowel Sounds Present, Soft, Non Tender Extremities: No edema, Capillary Refill Less than 3 Seconds, - - Left lower extremity dressed. Skin: No rashes, No breakdown Musculoskeletal: No Tenderness to Palpation of Joints or Extremities Neurological: Cranial nerves II-XII grossly intact Psych/Mental Status: Normal Affect, Appropriate Current Medications Hydrocodone Bitart/Acetaminophen (Dundas 5mg-325mg) 1 tablet PO Q4H PRN PRN PRN Reason: Pain Score 1-10/10 Duloxetine HCl (Cymbalta) 40 mg PO LUNCH [facility] Ergocalciferol (Vitamin D) 50,000 unit PO SUWE [facility] Insulin Human Lispro (Humalog Kwikpen (Bkc)) 0 unit SC [facility]; Protocol Levothyroxine Sodium (Synthroid) 75 mcg PO DAILY@0600 [facility] Metformin HCl (Glucophage) 500 mg PO BIDCM [facility] Metoprolol Tartrate (Lopressor (Beta Blayne)) 25 mg PO 1200,1800 [facility] Non-Formulary Medication (Insulin Degludec [Tresiba]) 50 unit SQ DAILY [facility] Non-Formulary Medication (Simvastatin) 20 mg PO QHS [facility] Nutritional Formula (Bull - Hotevilla Flavor) 1 packet PO BIDCM [facility] Pregabalin (Lyrica) 50 mg PO 4X/DAY [facility] Quetiapine Fumarate (Seroquel) 25 mg PO QHS [facility] Tuberculin PPD (Tubersol, Aplisol, Ppd) 5 tu ID X1 ONE Stop: 01/16/19 10:01 Tuberculin PPD (Tubersol, Aplisol, Ppd) 5 tu ID X1 ONE Stop: 01/23/19 10:01 Assessment/Plan All Active Problems Neuropathic foot ulcer (Acute) Debility (Acute) Syncope and collapse (Acute) Urinary tract infection with pyuria (Acute) 78 year old female with below past medical history hospitalized for bunionectomy left first metatarsal phalangeal joint 01/15/[address] Ruiz, admitted to TCU with debility, here for rehabilitation, strengthening, prior to discharge home with . * Debility - PT/OT. * Pain - Tylenol 1000MG Q6H PRN pain (1-3), Tramadol 50MG Q6H PRN pain (4-5), Oxycodone 5MG Q4H PRN pain (6-10) * Bowel - Miralax 17GM daily, Senna/colace 2 tablets BID, Dulcolax 10MG daily PRN, Magnesium citrate 300ML PO x 1 dose. * Adult immunization - Prevnar 13, Pneumovax 23, Flu vaccination as necessary. * DVT prophylaxis - Lovenox 40MG SC daily. * Diabetic polyneuropathy - Lyrica 50MG 4x/day, Duloxetine 40MG daily. * Vitamin D deficiency - D2 50,000 units 2x/week. * Diabetes Mellitus II - Metformin 500MG BID, Lantus 50 units QHS, add mealtime insulin as needed. * Hypothyroidism - Levothyroxine 50MCG daily. * Hypertension - Metoprolol 25MG BID. * Nutrition - Bull 1 packet BID. * Alzheimer Disease with behavioral disturbance - Seroquel 25MG QHS. * Hyperlipidemia - Atorvastatin 20MG QHS.
[2019-01-15 20:10] VITALS: BMI 32.8
[2019-01-15 20:22] VITALS: BMI 32.8
[2019-01-15 21:31] LABS: Bedside Glucose 223 mg/dL (70-110)
[2019-01-15] MEDS: oxyCODONE 5 MG Tablet PO (22:24)
[2019-01-15] MEDS: QUEtiapine 25 MG Tablet PO (22:29)
[2019-01-15] MEDS: Pregabalin 50 MG Capsule PO (22:29)
[2019-01-15] MEDS: Atorvastatin Calcium 20 MG Tablet PO (22:29)
[2019-01-16] MEDS: Glucerna Shake 120 ML LIQUID PO ×4 (04:18→22:28)
[2019-01-16] MEDS: Magnesium Citrate 300 ML PO (04:19)
[2019-01-16] MEDS: oxyCODONE 5 MG Tablet PO ×3 (04:19→17:17)
[2019-01-16] MEDS: Levothyroxine 75 MCG Tablet PO (04:19)
[2019-01-16] MEDS: Pregabalin 50 MG Capsule PO ×4 (04:19→22:26)
[2019-01-16] MEDS: Senna/Docusate Sodium 1 Tablet 2 TABLET PO ×2 (04:20→16:24)
[2019-01-16] MEDS: Polyethylene Glycol 3350 17 GM PACKET PO (04:20)
[2019-01-16 06:36] LABS: Bedside Glucose 204 mg/dL (70-110)
[2019-01-16 07:04] LABS: Absolute Lymphocyte Count 3.56 X10^3/uL (0.83-4.51); Absolute Neutrophil Count 10.4 X10^3/uL (2.0-7.7); Basophil# 0.09 X10^3/uL; Basophil% 0.6 % (0-1); Eosinophil# 0.06 X10^3/uL; Eosinophils% 0.4 % (0-5); Hematocrit 39.4 % (37-47); Hemoglobin 12.1 g/dL (12.0-15.0); Lymphocyte # 3.56 X10^3/ul (4.0); Lymphocyte % 23.4 % (19-41); Mean Corp Hgb Conc 30.7 g/dL (32-36); Mean Corpuscular Hgb 27.8 pg (27.0-32.0); Mean Corpuscular Volume 90.4 fL (81-99); Mean Platelet Vol. 11.8 fl (6.2-12.0); Monocyte# 1.07 X10^3/uL; NRBC Flagged by Analyzer 0 % (0-5); Neutrophil # 10.38 X10^3/uL (2.7-7.7); Neutrophil % 68.2 % (47-70); Platelet Count 195 K/mm3 (150-450); RBC Distribution Width CV 15.1 % (11.6-14.6); RBC Distribution Width SD 49.9 fl (35.1-43.9); Red Blood Count 4.36 M/mm3 (4.2-5.4); White Blood Count 15.2 K/mm3 (4.4-11.0)
[2019-01-16 07:18] LABS: Anion Gap 9 (5-15); BUN 18 mg/dL (7-18); BUN/Creat Ratio 15.9 RATIO (10-20); Calcium,Total 9.6 mg/dL (8.5-10.1); Chloride 103 mmol/L (98-107); Creatinine, Serum 1.13 mg/dL (0.55-1.02); EST Glomerular Filtration Rate 49 mL/min (>60); Est Glom Filt Rate - Afr Amer 60 mL/min (>60); Estimated Creatinine Clearance 34.86 ml/min; Glucose 200 mg/dL (74-106); Potassium 3.9 mmol/L (3.5-5.1); Sodium Level 137 mmol/L (136-145)
[2019-01-16] MEDS: metFORMIN HCl 500 MG Tablet PO ×2 (07:57→16:25)
[2019-01-16] MEDS: traMADol 50 MG Tablet PO (07:59)
[2019-01-16] MEDS: Enoxaparin 40 MG/0.4 ML Syringe SC (08:00)
[2019-01-16] MEDS: DULoxetine Hcl 20 MG Capsule 40 MG PO (11:11)
[2019-01-16 11:13] VITALS: PULSE 25
[2019-01-16] MEDS: Metoprolol Tartrate 25 MG Tablet PO ×2 (11:13→16:25)
[2019-01-16 11:16] LABS: Bedside Glucose 334 mg/dL (70-110)
[2019-01-16] MEDS: Tuberculin,Purif.prot.deriv. 50 TU/ML Vial 5 ML ID (11:35)
[2019-01-16 15:27] VITALS: BP 128/60; PULSE 67; RESP 18; TEMP 36.8; O2SAT 93
[2019-01-16 16:25] VITALS: PULSE 68
[2019-01-16] MEDS: Acetaminophen 500 MG Tablet 1000 MG PO (17:17)
[2019-01-16 21:15] LABS: Bedside Glucose 274 mg/dL (70-110)
[2019-01-16] MEDS: Atorvastatin Calcium 20 MG Tablet PO (22:16)
[2019-01-16] MEDS: QUEtiapine 25 MG Tablet PO (22:29)
[2019-01-16 22:30] VITALS: PULSE 76; RESP 16; O2SAT 96
[2019-01-16] MEDS: 0.9% Saline Lock 10 ML Syringe IV (22:32)
[2019-01-17] MEDS: Levothyroxine 75 MCG Tablet PO (05:31)
[2019-01-17] MEDS: Senna/Docusate Sodium 1 Tablet 2 TABLET PO ×2 (05:31→17:30)
[2019-01-17] MEDS: Polyethylene Glycol 3350 17 GM PACKET PO (05:31)
[2019-01-17] MEDS: Enoxaparin 40 MG/0.4 ML Syringe SC (05:31)
[2019-01-17] MEDS: Glucerna Shake 120 ML LIQUID PO ×2 (05:40→21:45)
[2019-01-17] MEDS: Pregabalin 50 MG Capsule PO ×4 (05:40→21:24)
[2019-01-17] MEDS: Bisacodyl 5 MG Tablet 10 MG PO (05:41)
[2019-01-17] MEDS: 0.9% Saline Lock 10 ML Syringe IV ×2 (05:42→21:27)
[2019-01-17 06:31] LABS: Bedside Glucose 214 mg/dL (70-110)
[2019-01-17] MEDS: metFORMIN HCl 500 MG Tablet PO ×2 (07:52→17:30)
[2019-01-17] MEDS: oxyCODONE 5 MG Tablet PO ×2 (09:54→23:38)
[2019-01-17] MEDS: Acetaminophen 500 MG Tablet 1000 MG PO ×2 (11:02→23:38)
[2019-01-17] MEDS: traMADol 50 MG Tablet PO (11:03)
[2019-01-17 11:04] VITALS: PULSE 96
[2019-01-17] MEDS: DULoxetine Hcl 20 MG Capsule 40 MG PO (11:04)
[2019-01-17] MEDS: Metoprolol Tartrate 25 MG Tablet PO ×2 (11:04→17:30)
[2019-01-17 16:00] VITALS: BP 161/71; PULSE 65; RESP 18; TEMP 36.4; O2SAT 93
[2019-01-17 16:41] LABS: Bedside Glucose 310 mg/dL (70-110)
[2019-01-17 17:30] VITALS: BP 161/71; PULSE 65
[2019-01-17 21:06] LABS: Bedside Glucose 428 mg/dL (70-110)
[2019-01-17] MEDS: Atorvastatin Calcium 20 MG Tablet PO (21:25)
[2019-01-17] MEDS: QUEtiapine 25 MG Tablet PO (21:26)
[2019-01-17] MEDS: Insulin Lispro 100 UNIT/ML INSULN.PEN 10 UNIT SC (21:46)
--- NOTE | 2019-01-17 21:57 | NURSING ---
Dr Mcknight aware of blood sugar 428, N.O. x1 Humalog.
[2019-01-18 04:06] LABS: Bedside Glucose 211 mg/dL (70-110)
[2019-01-18] MEDS: Pregabalin 50 MG Capsule PO ×4 (04:48→20:49)
[2019-01-18] MEDS: Senna/Docusate Sodium 1 Tablet 2 TABLET PO ×2 (04:48→17:45)
[2019-01-18] MEDS: Levothyroxine 75 MCG Tablet PO (04:48)
[2019-01-18] MEDS: Glucerna Shake 120 ML LIQUID PO ×4 (04:48→20:49)
[2019-01-18] MEDS: Enoxaparin 40 MG/0.4 ML Syringe SC (04:49)
[2019-01-18 06:26] LABS: Bedside Glucose 198 mg/dL (70-110)
[2019-01-18] MEDS: metFORMIN HCl 500 MG Tablet PO ×2 (08:07→17:38)
[2019-01-18] MEDS: Insulin Lispro 100 UNIT/ML INSULN.PEN 10 UNIT SC ×3 (08:08→17:48)
[2019-01-18] MEDS: oxyCODONE 5 MG Tablet PO ×3 (10:21→20:46)
[2019-01-18] MEDS: 0.9% Saline Lock 10 ML Syringe IV (10:25)
[2019-01-18 11:00] LABS: Bedside Glucose 195 mg/dL (70-110)
[2019-01-18 11:32] VITALS: BP 167/78; PULSE 79
[2019-01-18] MEDS: Metoprolol Tartrate 25 MG Tablet PO ×2 (11:32→17:39)
[2019-01-18] MEDS: DULoxetine Hcl 20 MG Capsule 40 MG PO (11:33)
[2019-01-18 11:39] VITALS: BP 167/78; PULSE 79
[2019-01-18 13:00] VITALS: PULSE 74; RESP 18; O2SAT 95
--- NOTE | 2019-01-18 13:21 | NURSING ---
FINE CRACKLES TO PT LEFT LOWER POST LOBE. I.S GIVEN. WILL CONTINUE TO MONITOR. REPORTED TO MEETA TONEY
--- NOTE | 2019-01-18 15:04 | CASEMGMT ---
Social Work Met with patient for initial assessment. Pt lives at home with whom has Dementia. Pt hires [employer] M-F from 8-10 am to assist with morning personal care and bathing as needed. Pt and have MOW M-F for lunch, and states they have a sandwich or other things for dinner and on the weekend. Dtr [facility], but pt reports does not assist with meals; however, does assist with transportation. [employer] assists with laundry and card assembler. Pt has [facility] where a nurse comes to the house to set up medications on a weekly basis. Pt also has CCN and SW aware of admission. All services will be restarted at discharge. Pt reports to having depression for the past several years and some suicidal thoughts, but that medications are helping. Pt stated she went to counseling about 4-5 years ago for depression, and it helped while in the session, but once she left, everything went back to normal, so she stopped and not interested in restarting. Pt explained son committed suicide 10 years ago, which triggered her depression. Pt was able to recount the last conversation with her son verbatim. Provided supportive listening. Inquired what typically helps pt, i.e. talking about feelings, keeping them to herself, etc. Pt stated she usually keeps her feelings to herself, but at home, she finds it helpful to go into her son's bedroom and talk to him through his pictures. Often she expresses her disappointment with his decision, but ends every conversation with I love you. Inquired about pt's suicide plan. Pt explained after my would go to bed, I would go into the garage, start the car engine and wait. Discussed how she feels with her son's decision, and how her would feel if she completed suicide. Pt stated that is what stops me because I know it would kill him. Inquired about pt's jacquie and helping her with these feelings. Pt stated she is involved with her uatsdin, although she does not go anymore, the Deacons visit her once a week, and have visited her while in the hospital. Her jacquie helps tremendously, and knows she will be able to see her son again. Pt also stated her 's father committed suicide, so she knows she cannot complete it, again because it would be hard for her . Redirected to patient's goals while in TCU and pt has hope for rehabilitation. Provided emotional support throughout conversation, and pt very appreciative. Offered follow up visits and reassured pt does not need to express feelings if she does not want to. Pt grateful and agreed to visits along with providing pt with SW name and extension to reach out if she feels discouraged or needs anything. Explained SW will assist with ensuring pt has a safe discharge plan. Will continue to follow. Marisela Diaz, SUPERVISING BROKER [employer]RE[employer] TRUCKER
--- NOTE | 2019-01-18 15:25 | PHA.CONS_ITS ---
<Suzette Hall M - Last Filed: 01/18/19 15:25> Progress Note - Pharmacy Subjective: TCU ADMISSION Objective: Allergies Iodine and Iodide Containing Produc Allergy (Verified 01/15/19 09:16) Rash venom-honey bee [bee venom (honey bee)] Allergy (Verified 01/15/19 09:16) Swelling Current Medications Generic Name Dose Route Start Last Admin Trade Name Freq PRN Reason Stop Dose Admin Acetaminophen 1,000 mg 01/15/19 20:21 01/17/19 23:38 Tylenol PO 1,000 mg Q6H PRN PRN Administration Pain Score 1-3/10 Atorvastatin Calcium 20 mg 01/15/19 22:00 01/17/19 21:25 Lipitor PO 20 mg QHS LOR Administration Bisacodyl 10 mg 01/15/19 20:22 01/17/19 05:41 Dulcolax PO 10 mg DAILY PRN Administration Constipation Calamine/Phenol 1 applic 01/18/19 22:00 Calmoseptine Ointment TOPICAL 0600,2200 [facility] Protocol Duloxetine HCl 40 mg 01/16/19 12:00 01/18/19 11:33 Cymbalta PO 40 mg LUNCH LOR Administration Enoxaparin Sodium 40 mg 01/16/19 08:00 01/18/19 04:49 Lovenox SC 40 mg DAILY@0600 [facility] Administration Ergocalciferol 50,000 unit 01/17/19 10:00 01/17/19 07:52 Vitamin D PO 50,000 unit SUWE LOR Administration Insulin Glargine 50 units 01/15/19 22:00 01/17/19 21:25 Lantus (Bkc) SC 50 u QHS LOR Administration Insulin Human Lispro 10 unit 01/18/19 06:45 01/18/19 11:32 Humalog Kwikpen (Bkc) SC 10 u TIDAC [facility] Administration Levothyroxine Sodium 75 mcg 01/16/19 06:00 01/18/19 04:48 Synthroid PO 75 mcg DAILY@0600 [facility] Administration Metformin HCl 500 mg 01/16/19 08:00 01/18/19 08:07 Glucophage PO 500 mg BIDCM LOR Administration Metoprolol Tartrate 25 mg 01/16/19 12:00 01/18/19 11:32 Lopressor (Beta Blayne) PO 25 mg 1200,1800 LOR Administration Nutritional Formula 1 packet 01/16/19 08:00 01/18/19 08:08 Bull - [place] Flavor PO 1 packet BIDCM LOR Administration Nutritional Formula (Lactose Free) 120 ml 01/16/19 06:00 01/18/19 11:31 Glucerna Shake PO 120 ml 4X/DAY LOR Administration Oxycodone HCl 5 mg 01/15/19 20:22 01/18/19 10:21 Oxyir PO 5 mg Q4H PRN PRN Administration Pain Score 6-10/10 Polyethylene Glycol 17 gm 01/16/19 06:00 01/18/19 04:48 Miralax PO Not Given DAILY LOR Pregabalin 50 mg 01/15/19 22:00 01/18/19 11:37 Lyrica PO 50 mg 4X/DAY LOR Administration Quetiapine Fumarate 25 mg 01/15/19 22:00 01/17/19 21:26 Seroquel PO 25 mg QHS LOR Administration Senna/Docusate Sodium 2 tablet 01/16/19 06:00 01/18/19 04:48 Senokot-S, Desi-Colace PO 2 tablet BID LOR Administration Sodium Chloride 10 - 40 ml 01/15/19 20:21 01/18/19 10:25 IV 10 ml UD PRN Administration SALINE FLUSH Tramadol HCl 50 mg 01/15/19 20:21 01/17/19 11:03 Ultram PO 50 mg Q6H PRN PRN Administration Pain Score 4-5/10 Tuberculin PPD 5 tu 01/23/19 10:00 Tubersol, Aplisol, Ppd ID 01/23/19 10:01 X1 ONE Problem List Debility (Acute) Alzheimer disease (Chronic) Diabetic foot ulcer (Chronic) Body mass index (bmi) 33.0-33.9, adult (Chronic) Bunion, left (Chronic) Diabetic polyneuropathy (Chronic) Hypertension (Chronic) 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) Vitamin D deficiency (Chronic) Chronic pain (Chronic) Opioid dependence (Chronic) Vital Signs Temp Pulse Resp BP Pulse Ox 97.6 F L 74 18 167/78 H 95 01/17/19 16:00 01/18/19 13:00 01/18/19 13:00 01/18/19 11:39 01/18/19 13:00 Oxygen Delivery Method Room Air Weight: 89.3 kg Body Mass Index (BMI) 32.8 Sodium 137 mmol/L (136-145) 01/16/19 06:34 Potassium 3.9 mmol/L (3.5-5.1) 01/16/19 06:34 Chloride 103 mmol/L (98-107) 01/16/19 06:34 Carbon Dioxide 25.0 mmol/L (21.0-32.0) 01/16/19 06:34 Anion Gap 9 (5-15) 01/16/19 06:34 BUN 18 mg/dL (7-18) 01/16/19 06:34 Creatinine 1.13 mg/dL (0.55-1.02) H 01/16/19 06:34 Est GFR (MDRD) Af Amer 60 mL/min (>60) 01/16/19 06:34 Est GFR (MDRD) Non-Af 49 mL/min (>60) L 01/16/19 06:34 BUN/Creatinine Ratio 15.9 RATIO (10-20) 01/16/19 06:34 Glucose 200 mg/dL (74-106) H 01/16/19 06:34 Assessment/Plan: 1. Pain: Tylenol 1000mg PO Q6H PRN pain (1-3), Tramadol 50mg PO Q6H PRN pain (4- 5), Oxycodone 5mg PO Q4H PRN pain (6-10). Please continue to monitor for PRN use, increased/decreased symptoms of pain 2. DVT prophylaxis: Lovenox 40mg SC daily. Please continue to monitor for bleeding, bruising, and renal function 3. Vitamin D deficiency: Ergocalciferol 50,000 units PO 2x/week. Please continue to monitor vitamin d levels as clinically indicated 4. Diabetes Mellitus II: Metformin 500mg PO BID, Lantus 50 units SC QHS, Humalog 10 units SC TIDCM. Please continue to monitor BG, A1C, and for S/S of hyper/hypoglycemia 5. Hypothyroidism: Levothyroxine 50mcg PO daily. Please continue to monitor for S/S hyper/hypothyroidism and Thyroid panel labs as clinically indicated 6. Hypertension: Metoprolol Tartrate 25mg PO BID. Please continue to monitor BP and pulse 7. Hyperlipidemia: Atorvastatin 20mg PO QHS. Please continue to monitor lipid panels as clinically indicated Psychotropic Medications: 1. Alzheimer Disease with behavioral disturbance - Seroquel 25mg PO QHS. Per H/P, pt stable, GDR clinically contraindicated *2. Diabetic polyneuropathy: Lyrica 50mg PO 4x/day, Duloxetine 40mg PO daily. Please consider a GDR by 07/2019 if clinically appropriate Unnecessary Medications: None Bowel Regimen: Miralax 17g PO daily, Senna/Docusate 2 tablets PO BID, Dulcolax 10mg PO daily PRN. Please continue to monitor PRN use, and for S/S of constipation and/or diarrhea Date of Note:: 01/18/19 - Provider Comments Provider responsibility: Provider responsible to enter orders to implement recommendations <Demetrio Mcknight Chi - Last Filed: 01/18/19 17:46> Progress Note - Pharmacy Subjective: [] Objective: Allergies Iodine and Iodide Containing Produc Allergy (Verified 01/15/19 09:16) Rash venom-honey bee [bee venom (honey bee)] Allergy (Verified 01/15/19 09:16) Swelling Current Medications Generic Name Dose Route Start Last Admin Trade Name Freq PRN Reason Stop Dose Admin Acetaminophen 1,000 mg 01/15/19 20:21 01/17/19 23:38 Tylenol PO 1,000 mg Q6H PRN PRN Administration Pain Score 1-3/10 Atorvastatin Calcium 20 mg 01/15/19 22:00 01/17/19 21:25 Lipitor PO 20 mg QHS LOR Administration Bisacodyl 10 mg 01/15/19 20:22 01/17/19 05:41 Dulcolax PO 10 mg DAILY PRN Administration Constipation Calamine/Phenol 1 applic 01/18/19 22:00 Calmoseptine Ointment TOPICAL 0600,2200 [facility] Protocol Duloxetine HCl 40 mg 01/16/19 12:00 01/18/19 11:33 Cymbalta PO 40 mg LUNCH LOR Administration Enoxaparin Sodium 40 mg 01/16/19 08:00 01/18/19 04:49 Lovenox SC 40 mg DAILY@0600 LOR Administration Ergocalciferol 50,000 unit 01/17/19 10:00 01/17/19 07:52 Vitamin D PO 50,000 unit SUWE LOR Administration Insulin Glargine 50 units 01/15/19 22:00 11/03/19 21:25 Lantus ([facility]) SC 50 u QHS [facility] Administration Insulin Human Lispro 10 unit 01/18/19 06:45 01/18/19 11:32 Humalog Kwikpen ([facility]) SC 10 u TIDAC [facility] Administration Levothyroxine Sodium 75 mcg 01/16/19 06:00 01/18/19 04:48 Synthroid PO 75 mcg DAILY@0600 [facility] Administration Metformin HCl 500 mg 01/16/19 08:00 01/18/19 08:07 Glucophage PO 500 mg BIDCM [facility] Administration Metoprolol Tartrate 25 mg 01/16/19 12:00 01/18/19 11:32 Lopressor (Beta Blayne) PO 25 mg 1200,1800 [facility] Administration Nutritional Formula 1 packet 01/16/19 08:00 01/18/19 08:08 Bull - [place] Flavor PO 1 packet BIDCM [facility] Administration Nutritional Formula (Lactose Free) 120 ml 01/16/19 06:00 01/18/19 11:31 Glucerna Shake PO 120 ml 4X/DAY [facility] Administration Oxycodone HCl 5 mg 01/15/19 20:22 01/18/19 16:13 Oxyir PO 5 mg Q4H PRN PRN Administration Pain Score 6-10/10 Polyethylene Glycol 17 gm 01/16/19 06:00 01/18/19 04:48 Miralax PO Not Given DAILY [facility] Pregabalin 50 mg 01/15/19 22:00 01/18/19 11:37 Lyrica PO 50 mg 4X/DAY [facility] Administration Quetiapine Fumarate 25 mg 01/15/19 22:00 01/17/19 21:26 Seroquel PO 25 mg QHS [facility] Administration Senna/Docusate Sodium 2 tablet 01/16/19 06:00 01/18/19 04:48 Senokot-S, Desi-Colace PO 2 tablet BID [facility] Administration Sodium Chloride 10 - 40 ml 01/15/19 20:21 01/18/19 10:25 IV 10 ml UD PRN Administration SALINE FLUSH Tramadol HCl 50 mg 01/15/19 20:21 01/17/19 11:03 Ultram PO 50 mg Q6H PRN PRN Administration Pain Score 4-5/10 Tuberculin PPD 5 tu 01/23/19 10:00 Tubersol, Aplisol, Ppd ID 01/23/19 10:01 X1 ONE Problem List Debility (Acute) Alzheimer disease (Chronic) Diabetic foot ulcer (Chronic) Body mass index (bmi) 33.0-33.9, adult (Chronic) Bunion, left (Chronic) Diabetic polyneuropathy (Chronic) Hypertension (Chronic) 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) Vitamin D deficiency (Chronic) Chronic pain (Chronic) Opioid dependence (Chronic) Vital Signs Temp Pulse Resp BP Pulse Ox 98.2 F 74 16 185/61 H 92 01/18/19 15:38 01/18/19 15:38 01/18/19 15:38 01/18/19 15:38 01/18/19 15:38 Oxygen Delivery Method Room Air Weight: 89.3 kg Body Mass Index (BMI) 32.8 Sodium 137 mmol/L (136-145) 01/16/19 06:34 Potassium 3.9 mmol/L (3.5-5.1) 01/16/19 06:34 Chloride 103 mmol/L (98-107) 01/16/19 06:34 Carbon Dioxide 25.0 mmol/L (21.0-32.0) 01/16/19 06:34 Anion Gap 9 (5-15) 01/16/19 06:34 BUN 18 mg/dL (7-18) 01/16/19 06:34 Creatinine 1.13 mg/dL (0.55-1.02) H 01/16/19 06:34 Est GFR (MDRD) Af Amer 60 mL/min (>60) 01/16/19 06:34 Est GFR (MDRD) Non-Af 49 mL/min (>60) L 01/16/19 06:34 BUN/Creatinine Ratio 15.9 RATIO (10-20) 01/16/19 06:34 Glucose 200 mg/dL (74-106) H 01/16/19 06:34 Assessment/Plan: Psychotropic Medications: Unnecessary Medications: Bowel Regimen: - Provider Comments Provider responsibility: Provider responsible to enter orders to implement recommendations Provider Comments to Recommendations by Pharmacy: Agree
--- NOTE | 2019-01-18 15:25 | CHAPLAIN ---
brief introduction and offer of support; patient had visitors
[2019-01-18 15:38] VITALS: BP 185/61; PULSE 74; RESP 16; TEMP 36.8; O2SAT 92
[2019-01-18 17:39] VITALS: BP 185/61; PULSE 74
[2019-01-18 17:46] LABS: Bedside Glucose 123 mg/dL (70-110)
[2019-01-18] MEDS: QUEtiapine 25 MG Tablet PO (20:50)
[2019-01-18] MEDS: Atorvastatin Calcium 20 MG Tablet PO (20:50)
[2019-01-18] MEDS: Menthol/Lanolin/Calamine/Znox 113 GM Tube 1 APPLIC TOPICAL (20:51)
[2019-01-18 21:21] LABS: Bedside Glucose 226 mg/dL (70-110)
[2019-01-19] MEDS: Menthol/Lanolin/Calamine/Znox 113 GM Tube 1 APPLIC TOPICAL ×2 (04:02→19:59)
[2019-01-19] MEDS: Acetaminophen 500 MG Tablet 1000 MG PO ×2 (04:02→22:22)
[2019-01-19] MEDS: Enoxaparin 40 MG/0.4 ML Syringe SC (04:03)
[2019-01-19] MEDS: Polyethylene Glycol 3350 17 GM PACKET PO (04:04)
[2019-01-19] MEDS: Senna/Docusate Sodium 1 Tablet 2 TABLET PO ×2 (04:04→16:57)
[2019-01-19] MEDS: Levothyroxine 75 MCG Tablet PO (04:04)
[2019-01-19] MEDS: Glucerna Shake 120 ML LIQUID PO ×4 (04:07→20:00)
[2019-01-19] MEDS: Pregabalin 50 MG Capsule PO ×4 (04:07→20:01)
[2019-01-19 06:30] LABS: Bedside Glucose 137 mg/dL (70-110)
[2019-01-19] MEDS: Insulin Lispro 100 UNIT/ML INSULN.PEN 10 UNIT SC ×3 (08:28→16:58)
[2019-01-19] MEDS: metFORMIN HCl 500 MG Tablet PO ×2 (08:28→16:57)
[2019-01-19 08:30] VITALS: BP 148/77; PULSE 77; RESP 16; O2SAT 93
[2019-01-19 08:46] LABS: Bedside Glucose 199 mg/dL (70-110)
--- NOTE | 2019-01-19 09:17 | PN_ITS ---
Patient Problems: Active and Suspected Problems Debility (Acute) Subjective: Patient was seen this morning for follow up on left foot, s/p bunionectomy. She was resting in bed. She relates she is tired, didn't sleep well last night. She does not relate to any fever, chills, nausea or vomiting. She does not complain of pain to the foot. - Physical Exam Vitals/I&O's: Vital Signs Temp Pulse Resp BP Pulse Ox 98.2 F 74 16 185/61 H 92 01/18/19 15:38 01/18/19 17:39 01/18/19 15:38 01/18/19 17:39 01/18/19 15:38 Oxygen Delivery Method Room Air Weight: 89.3 kg Body Mass Index (BMI) 32.8 Intake and Output for Last 24 Hours 01/17/19 01/18/19 01/19/19 23:59 23:59 23:59 Intake Total 1140 / 1140 240 / 240 Balance 1140 / 1140 240 / 240 Extremities: Capillary Refill Less than 3 Seconds, No Calf Tenderness, Peripheral Pulses Normal, - - s/p bunionectomy left foot with incision site healing, sutures intact, no drainage, no cellulitis, no erythema, no visible abscess, no evidence of infection, there is some ecchymosis and some edema c/w normal post op course. No open lesions or tissue break down to the left foot. No POP or pain on ROM to the left foot or ankle. Laboratory Results 01/18/19 10:48: POC Glucose 195 H 01/18/19 17:37: POC Glucose 123 H 01/18/19 21:03: POC Glucose 226 H 01/19/19 06:23: POC Glucose 137 H 01/19/19 08:39: POC Glucose 199 H Current Medications Acetaminophen (Tylenol) 1,000 mg PO Q6H PRN PRN PRN Reason: Pain Score 1-3/10 Last Admin: 01/19/19 04:02 Dose: 1,000 mg Documented by: Atorvastatin Calcium (Lipitor) 20 mg PO QHS LOR Last Admin: 01/18/19 20:50 Dose: 20 mg Documented by: Bisacodyl (Dulcolax) 10 mg PO DAILY PRN PRN Reason: Constipation Last Admin: 01/17/19 05:41 Dose: 10 mg Documented by: Calamine/Phenol (Calmoseptine Ointment) 1 applic TOPICAL 0600,2200 [facility]; Protocol Last Admin: 01/19/19 04:02 Dose: 1 applicatio Documented by: Duloxetine HCl (Cymbalta) 40 mg PO LUNCH [facility] Last Admin: 01/18/19 11:33 Dose: 40 mg Documented by: Enoxaparin Sodium (Lovenox) 40 mg SC DAILY@0600 [facility] Last Admin: 01/19/19 04:03 Dose: 40 mg Documented by: Ergocalciferol (Vitamin D) 50,000 unit PO SUWE [facility] Last Admin: 01/17/19 07:52 Dose: 50,000 unit Documented by: Insulin Glargine (Lantus ([facility])) 50 units SC QHS [facility] Last Admin: 01/18/19 21:06 Dose: 50 u Documented by: Insulin Human Lispro (Humalog Kwikpen ([facility])) 10 unit SC TIDAC [facility] Last Admin: 01/19/19 08:28 Dose: 10 u Documented by: Levothyroxine Sodium (Synthroid) 75 mcg PO DAILY@0600 [facility] Last Admin: 01/19/19 04:04 Dose: 75 mcg Documented by: Metformin HCl (Glucophage) 500 mg PO BIDCM [facility] Last Admin: 01/19/19 08:28 Dose: 500 mg Documented by: Metoprolol Tartrate (Lopressor (Beta Blayne)) 25 mg PO 1200,1800 [facility] Last Admin: 01/18/19 17:39 Dose: 25 mg Documented by: Nutritional Formula (Bull - [place] Flavor) 1 packet PO BIDCM [facility] Last Admin: 01/19/19 08:27 Dose: 1 packet Documented by: Nutritional Formula (Lactose Free) (Glucerna Shake) 120 ml PO 4X/DAY [facility] Last Admin: 01/19/19 04:07 Dose: 120 ml Documented by: Oxycodone HCl (Oxyir) 5 mg PO Q4H PRN PRN PRN Reason: Pain Score 6-10/10 Last Admin: 01/18/19 20:46 Dose: 5 mg Documented by: Polyethylene Glycol (Miralax) 17 gm PO DAILY [facility] Last Admin: 01/19/19 04:04 Dose: 17 gm Documented by: Pregabalin (Lyrica) 50 mg PO 4X/DAY [facility] Last Admin: 01/19/19 04:07 Dose: 50 mg Documented by: Quetiapine Fumarate (Seroquel) 25 mg PO QHS [facility] Last Admin: 01/18/19 20:50 Dose: 25 mg Documented by: Senna/Docusate Sodium (Senokot-S, Desi-Colace) 2 tablet PO BID [facility] Last Admin: 01/19/19 04:04 Dose: 2 tablet Documented by: Sodium Chloride () 10 - 40 ml IV UD PRN PRN Reason: SALINE FLUSH Last Admin: 01/18/19 10:25 Dose: 10 ml Documented by: Tramadol HCl (Ultram) 50 mg PO Q6H PRN PRN PRN Reason: Pain Score 4-5/10 Last Admin: 01/17/19 11:03 Dose: 50 mg Documented by: Tuberculin PPD (Tubersol, Aplisol, Ppd) 5 tu ID X1 ONE Stop: 01/23/19 10:01 Medical Necessity - Tobacco Use Smoking Status: Never smoker Tobacco Use: Non-smoker Assessment/Plan All Active Problems Neuropathic foot ulcer (Acute) Debility (Acute) Syncope and collapse (Acute) Urinary tract infection with pyuria (Acute) s/p bunionectomy left foot due to recurrent ulceration Diabetes with peripheral neuropathy Changed dressing today. Applied new steristrips, with overlying gauze, kerlix and antoinette bandage. Keep clean, dry and intact. Ok to weightbear on left foot, no weightbearing on left forefoot. Keep foot elevated as well. Diabetes and other medical management per Dr. Mcknight. Podiatry will follow up with 1-2 times weekly, please call sooner if needed.
--- NOTE | 2019-01-19 09:45 | NURSING ---
THIS NURSE INTO PT ROOM AND FOUND PT WITH FOOD IN MOUTH AND SLEEPING. GOT PT AWAKE AND FOOD OUT OF MOUTH. PT FELL BACK TO SLEEP,TALKING TO PT AND PT CAN BARELY STAY AWAKE. PT CAN NOT TELL ME WEAR SHE WAS JUST STATED SHE WAS SO SLEEPY. ASKED PT IF SHE GOT ANY REST LAST NIGHT PT STATED SHE COULDN'T REMEMBER. VITALS DONE AND BLOOD SUGAR. INTO CHANGE PT DRESSING TO FOOT AND PT DIDNT EVEN KNOW WAS THERE CONTINUE TO SLEEP. CALLED MEETA TENA TO ROOM.
--- NOTE | 2019-01-19 09:57 | NURSING ---
Addendum entered by Maya Maria 01/19/19 19:01: dr godwin updated, bacitracin ordered. seroquel dc'd d/t lethargy this AM. Original Note: SORES TO PT CORNERS OF MOUTH. REPORTED TO MEETA TENA
[2019-01-19 11:06] LABS: Bedside Glucose 252 mg/dL (70-110)
[2019-01-19] MEDS: DULoxetine Hcl 20 MG Capsule 40 MG PO (11:52)
[2019-01-19 11:55] VITALS: BP 153/77; PULSE 85
[2019-01-19] MEDS: Metoprolol Tartrate 25 MG Tablet PO ×2 (11:55→17:00)
[2019-01-19 11:57] VITALS: BP 153/77; PULSE 85
[2019-01-19 15:52] VITALS: BP 171/69; PULSE 70; RESP 18; TEMP 37.1; O2SAT 95
[2019-01-19] MEDS: oxyCODONE 5 MG Tablet PO ×2 (16:55→22:22)
[2019-01-19 16:56] LABS: Bedside Glucose 244 mg/dL (70-110)
[2019-01-19 17:00] VITALS: BP 171/69; PULSE 70
--- NOTE | 2019-01-19 17:18 | NURSING ---
dr Ruiz in this AM and changed drsg to LT foot
[2019-01-19] MEDS: BACITRACIN 15 GM Tube 1 APPLIC TOPICAL (19:57)
[2019-01-19] MEDS: Atorvastatin Calcium 20 MG Tablet PO (20:00)
[2019-01-19 21:36] LABS: Bedside Glucose 238 mg/dL (70-110)
[2019-01-20] MEDS: Levothyroxine 75 MCG Tablet PO (05:29)
[2019-01-20] MEDS: BACITRACIN 15 GM Tube 1 APPLIC TOPICAL ×2 (05:29→17:16)
[2019-01-20] MEDS: Senna/Docusate Sodium 1 Tablet 2 TABLET PO ×2 (05:29→17:15)
[2019-01-20] MEDS: Enoxaparin 40 MG/0.4 ML Syringe SC (05:29)
[2019-01-20] MEDS: Glucerna Shake 120 ML LIQUID PO ×4 (05:30→21:37)
[2019-01-20] MEDS: Polyethylene Glycol 3350 17 GM PACKET PO (05:30)
[2019-01-20] MEDS: Pregabalin 50 MG Capsule PO ×4 (05:31→22:34)
[2019-01-20] MEDS: Menthol/Lanolin/Calamine/Znox 113 GM Tube 1 APPLIC TOPICAL ×2 (05:34→21:40)
[2019-01-20 06:41] LABS: Bedside Glucose 164 mg/dL (70-110)
--- NOTE | 2019-01-20 07:25 | NURSING ---
Dressing to right foot was changed by Dr. Ruiz but when aide took acewrap off last night noticed blood on the dressing. Pt has a moderated amount of sanguineous drainage on the dressing. Rn was made aware and a outline was made around drainage. Drainage remains the same size as of last night and continue to monitor
[2019-01-20] MEDS: metFORMIN HCl 500 MG Tablet PO ×2 (07:41→17:14)
[2019-01-20] MEDS: Insulin Lispro 100 UNIT/ML INSULN.PEN 10 UNIT SC ×3 (07:41→17:13)
--- NOTE | 2019-01-20 10:44 | CASEMGMT ---
Social Work IDT met with patient, daughter and for care plan meeting. Discussed patient's progress in therapy. Pt is mod assist for transfers, doing modified toilet transfers at mod assist, SBA for UE ADLs, max assist bathing and LE ADLs. Pt is drinking Bull for foot healing. Appetite good. Discussed patient's discharge - pt needs to toilet self and no transfer assistance to safely return home. Inquired about increasing times aides are at the house. IDT stressed safety concerns and requiring assistance and reminders at home as pt has a high fall risk. Dtr and goal is pt returning home and will see where pt is physically closer to discharge. Explained insurance update is 02/01, approved through 02/[address] in [address]. Will continue to follow. SONDRA Casper
[2019-01-20 11:00] LABS: Bedside Glucose 248 mg/dL (70-110)
[2019-01-20 11:37] VITALS: BP 157/71; PULSE 79
[2019-01-20] MEDS: DULoxetine Hcl 20 MG Capsule 40 MG PO (11:37)
[2019-01-20] MEDS: Metoprolol Tartrate 25 MG Tablet PO ×2 (11:37→17:48)
--- NOTE | 2019-01-20 13:07 | NURSING ---
more drng present to lt foot drsp to plantar and to dorsum of foot. fifty cent sized extension obs. 2 4x4 covered and reinforced with kurlex. pt rosana well. more awake and alert at this time and converses with nurse and joking. no other needs at this time
[2019-01-20] MEDS: Acetaminophen 500 MG Tablet 1000 MG PO ×2 (14:10→21:39)
[2019-01-20 16:00] VITALS: BP 154/61; PULSE 68; RESP 18; TEMP 36.6; O2SAT 97
--- NOTE | 2019-01-20 16:05 | CHAPLAIN ---
Type of Pastoral Visit ___ Initial Visit _x__ Follow-up Visit ___ On-call Visit ___ General Patient Visit ___ Spiritual Assessment ___ Family Conference ___ Bereavement ___ Rapid Response ___ Code Blue ___ Other (describe below) Pastoral Care Referral From _x__ Patient ___ Family ___ Nurse ___ Physician ___ Inventory Control Coordinator ___ Chief Engineer Waterworks ___ Other (describe below) Sacrament/Intervention _x__ Active listening ___ Anointing ___ Muslim ___ Bereavement ___ Communion _x__ Cele exploration ___ _x__ Life review _x__ Prayer ___ Reconciliation ___ Sacrament of Sick _x__ Supportive presence ___ Wedding ___ Other (describe below) Pastoral Comments patient has strong spiritual interest and sees her judaism family as her greatest source of support; pt spoke of her son's and how she has come through that experience of 10 years ago
[2019-01-20 17:06] LABS: Bedside Glucose 249 mg/dL (70-110)
[2019-01-20 17:48] VITALS: BP 154/61; PULSE 68
[2019-01-20] MEDS: traMADol 50 MG Tablet PO (18:13)
[2019-01-20 19:04] LABS: Bacteria 0 SEEN /hpf (None Seen); Mucous, Urine 0 SEEN /hpf (<or=2+); Red Blood Cells-Urine 0 SEEN /hpf (0-5); Squamous Epithelial Cells - UA 0 SEEN /hpf (5-10); White Blood Cells 0 SEEN /hpf (0-5)
[2019-01-20 20:09] LABS: Color, Urine Yellow (Yellow); Glucose, Dipstick 1000 mg/dl (Normal); Ketone-Dipstick 15 mg/dl (Negative); Leukocyte Esterase-Dipstick Negative /ul (Negative); Nitrite-Dipstick Negative (Negative); Occult Blood-Urine 10 /ul (Negative); Protein-Dipstick 100 mg/dl (Negative); Urine Bilirubin Dipstick Negative (Negative); Urine Clarity Clear (Clear); Urine Urobilinogen Normal (Normal)
[2019-01-20 21:10] LABS: Bedside Glucose 220 mg/dL (70-110)
[2019-01-20] MEDS: oxyCODONE 5 MG Tablet 2.5 MG PO (21:38)
[2019-01-20] MEDS: Atorvastatin Calcium 20 MG Tablet PO (21:41)
--- NOTE | 2019-01-20 22:18 | NURSING ---
Dr Mcknight aware of UA results, NNO
[2019-01-21] MEDS: traMADol 50 MG Tablet PO ×2 (00:48→20:00)
[2019-01-21] MEDS: Polyethylene Glycol 3350 17 GM PACKET PO (06:04)
[2019-01-21] MEDS: Levothyroxine 75 MCG Tablet PO (06:07)
[2019-01-21] MEDS: Pregabalin 50 MG Capsule PO ×4 (06:07→19:57)
[2019-01-21] MEDS: Enoxaparin 40 MG/0.4 ML Syringe SC (06:07)
[2019-01-21] MEDS: Menthol/Lanolin/Calamine/Znox 113 GM Tube 1 APPLIC TOPICAL ×2 (06:07→20:05)
[2019-01-21] MEDS: Senna/Docusate Sodium 1 Tablet 2 TABLET PO ×2 (06:07→17:44)
[2019-01-21] MEDS: Glucerna Shake 120 ML LIQUID PO ×4 (06:07→20:01)
[2019-01-21] MEDS: BACITRACIN 15 GM Tube 1 APPLIC TOPICAL ×2 (06:08→18:32)
[2019-01-21 06:31] LABS: Bedside Glucose 121 mg/dL (70-110)
[2019-01-21] MEDS: metFORMIN HCl 500 MG Tablet PO ×2 (08:37→17:43)
[2019-01-21] MEDS: Insulin Lispro 100 UNIT/ML INSULN.PEN 10 UNIT SC ×3 (08:38→17:41)
[2019-01-21 10:15] VITALS: PULSE 78; RESP 18; O2SAT 97
[2019-01-21 10:41] LABS: Bedside Glucose 318 mg/dL (70-110)
[2019-01-21] MEDS: DULoxetine Hcl 20 MG Capsule 40 MG PO (11:26)
[2019-01-21 11:29] VITALS: BP 141/72; PULSE 77
[2019-01-21] MEDS: Metoprolol Tartrate 25 MG Tablet PO ×2 (11:29→17:43)
[2019-01-21 11:35] VITALS: BP 141/72; PULSE 77
--- NOTE | 2019-01-21 13:04 | CASEMGMT ---
Social Work Met with patient to follow up. Pt appeared in good spirits. Inquired about patient's mood - pt laughed and stated I don't think you want me to answer that question. Assured pt she does not need to talk about anything if seh doesn't want to, just was following up. Pt thanked SW for the offer, but she is doesn't need to talk right now. Inquired about how therapy was going and if that was still pts goals - pt responded Oh yes, it is going real well. Pt stated she felt safe and had no thoughts of self harm. Will continue to follow. Marisela Diaz, PAVING CONTRACTOR SNOW REMOVAL SUPERVISOR
--- NOTE | 2019-01-21 15:18 | NURSING ---
Addendum entered by Estevan Amador 01/21/19 15:32: CORRECTION, LEFT FOOT Original Note: AT 10;15 THIS MORNING THIS NURSE MARKED ON DRESSING AREA OF DRAINAGE ON RIGHT FOOT, WILL CONTINUE TO MONITOR. REPORTED TO MEETA GEORGE
--- NOTE | 2019-01-21 15:27 | NURSING ---
FINE CRACKLES TO PT RIGHT LOWER POST LOBE. REPORTED TO MEETA GEORGE
[2019-01-21] MEDS: Acetaminophen 500 MG Tablet 1000 MG PO (15:41)
[2019-01-21] MEDS: oxyCODONE 5 MG Tablet 2.5 MG PO (15:41)
[2019-01-21 15:43] VITALS: BP 140/60; PULSE 69; RESP 18; TEMP 36.9; O2SAT 95
[2019-01-21 17:01] LABS: Bedside Glucose 234 mg/dL (70-110)
[2019-01-21 17:43] VITALS: BP 140/60; PULSE 69
[2019-01-21] MEDS: Atorvastatin Calcium 20 MG Tablet PO (19:54)
--- NOTE | 2019-01-21 20:45 | NURSING ---
Patient noted to have increased drainage in left foot since Dr. Ruiz came in and changed dressing on 01/19. Dr. Villalpando notified of this. Orders given to change dressing with dry sterile dressing and Kerlix. They will be in to look at foot tomorrow. Dressing changed at this time. No active drainage noted to be coming out of wound at this time. No signs or symptoms of infection noted to foot.
[2019-01-21 20:50] LABS: Bedside Glucose 270 mg/dL (70-110)
[2019-01-21] MEDS: LORazepam 0.5 MG Tablet PO (22:21)
[2019-01-22] MEDS: Acetaminophen 500 MG Tablet 1000 MG PO ×2 (03:47→21:13)
[2019-01-22] MEDS: Enoxaparin 40 MG/0.4 ML Syringe SC (05:10)
[2019-01-22] MEDS: Menthol/Lanolin/Calamine/Znox 113 GM Tube 1 APPLIC TOPICAL ×2 (05:10→20:02)
[2019-01-22] MEDS: Glucerna Shake 120 ML LIQUID PO ×4 (05:10→20:06)
[2019-01-22] MEDS: Senna/Docusate Sodium 1 Tablet 2 TABLET PO ×2 (05:12→17:23)
[2019-01-22] MEDS: Pregabalin 50 MG Capsule PO ×4 (05:12→20:05)
[2019-01-22] MEDS: Polyethylene Glycol 3350 17 GM PACKET PO (05:12)
[2019-01-22] MEDS: Levothyroxine 75 MCG Tablet PO (05:12)
[2019-01-22] MEDS: BACITRACIN 15 GM Tube 1 APPLIC TOPICAL ×2 (05:15→17:22)
[2019-01-22 06:31] LABS: Bedside Glucose 164 mg/dL (70-110)
[2019-01-22] MEDS: Insulin Lispro 100 UNIT/ML INSULN.PEN 10 UNIT SC ×3 (08:03→17:22)
[2019-01-22] MEDS: metFORMIN HCl 500 MG Tablet PO ×2 (08:04→17:24)
[2019-01-22 10:46] LABS: Bedside Glucose 331 mg/dL (70-110)
[2019-01-22 11:26] VITALS: PULSE 76
[2019-01-22] MEDS: Metoprolol Tartrate 25 MG Tablet PO ×2 (11:26→17:23)
[2019-01-22] MEDS: DULoxetine Hcl 20 MG Capsule 40 MG PO (11:26)
--- NOTE | 2019-01-22 13:31 | PCM.PROGNOTE ---
Patient Problems: Active and Suspected Problems Debility (Acute) Subjective: Patient was seen this afternoon for follow up on left foot, s/p bunionectomy performed on 01/15/2019. She was resting in bed. She does not relate to any fever, chills, nausea, vomiting, shortness of breath, chest pain, foot odor. She does not complain of pain to the foot at this time however reports it gets up to 8 out of 10 at worst which is consistent with her presurgical status. Is noted she has neuropathy. I was contacted yesterday evening in regards to some continued drainage and the dressing was reinforced yesterday evening. She is in bed with her surgical shoe in place. - Physical Exam Vitals/I&O's: Vital Signs Temp Pulse Resp BP Pulse Ox 98.4 F 76 18 140/60 H 95 01/21/19 15:43 01/22/19 11:26 01/21/19 15:43 01/21/19 17:43 01/21/19 15:43 Oxygen Delivery Method Room Air Weight: 87.317 kg Body Mass Index (BMI) 32.8 Intake and Output for Last 24 Hours 01/20/19 01/21/19 01/22/19 23:59 23:59 23:59 Intake Total 540 / 540 1190 / 1190 720 / 720 Balance 540 / 540 1190 / 1190 720 / 720 General: Alert, Oriented x3, Cooperative HEENT: Atraumatic Extremities: No cyanosis, Capillary Refill Less than 3 Seconds, No Calf Tenderness - Negative Dora and Morris sign right, Edema - Mild, - - Status post bunionectomy with rectus hallux right. Compartment soft to palpate right lower extremity. No pain on palpation to surgical site Skin: Incision - This incision is for the most part well aligned without any erythema, streaking, purulence, odor, necrosis. The distal aspect of the incision has some minor dehiscence with some subcutaneous granular tissue noted this was reapproximated well with Steri-Strips. Her skin is hairless and atrophic and there are no other open ulcers or interdigital maceration noted Musculoskeletal: No Tenderness to Palpation of Joints or Extremities, Muscle Wasting Neurological: - - Lack of normal epicritic sensation light touch Psych/Mental Status: Normal Affect, Appropriate Microbiology Past 72 Hours 01/20/19 19:00 Urine Catheter - Catheter Urine Culture - Preliminary Culture exhibits no growth. Laboratory Results 01/21/19 16:52: POC Glucose 234 H 01/21/19 20:38: POC Glucose 270 H 01/22/19 06:25: POC Glucose 164 H 01/22/19 10:32: POC Glucose 331 H Current Medications Acetaminophen (Tylenol) 1,000 mg PO Q6H PRN PRN PRN Reason: Pain Score 1-3/10 Last Admin: 01/22/19 03:47 Dose: 1,000 mg Documented by: Atorvastatin Calcium (Lipitor) 20 mg PO QHS [facility] Last Admin: 01/21/19 19:54 Dose: 20 mg Documented by: Bacitracin (Bacitracin Ointment) 1 applic TOPICAL BID [facility]; Protocol Stop: 01/26/19 18:01 Last Admin: 01/22/19 05:15 Dose: 1 applicatio Documented by: Bisacodyl (Dulcolax) 10 mg PO DAILY PRN PRN Reason: Constipation Last Admin: 01/17/19 05:41 Dose: 10 mg Documented by: Calamine/Phenol (Calmoseptine Ointment) 1 applic TOPICAL 0600,2200 [facility]; Protocol Last Admin: 01/22/19 05:10 Dose: 1 applicatio Documented by: Duloxetine HCl (Cymbalta) 40 mg PO LUNCH [facility] Last Admin: 01/22/19 11:26 Dose: 40 mg Documented by: Enoxaparin Sodium (Lovenox) 40 mg SC DAILY@0600 [facility] Last Admin: 01/22/19 05:10 Dose: 40 mg Documented by: Ergocalciferol (Vitamin D) 50,000 unit PO SUWE [facility] Last Admin: 01/20/19 11:37 Dose: 50,000 unit Documented by: Insulin Glargine (Lantus (Bkc)) 50 units SC QHS [facility] Last Admin: 01/21/19 22:21 Dose: 50 u Documented by: Insulin Human Lispro (Humalog Kwikpen (Bk)) 10 unit SC TIDAC [facility] Last Admin: 01/22/19 11:27 Dose: 10 u Documented by: Levothyroxine Sodium (Synthroid) 75 mcg PO DAILY@0600 [facility] Last Admin: 01/22/19 05:12 Dose: 75 mcg Documented by: Lorazepam (Ativan) 0.5 mg PO Q4H PRN PRN PRN Reason: ANXIETY Last Admin: 01/21/19 22:21 Dose: 0.5 mg Documented by: Metformin HCl (Glucophage) 500 mg PO BIDCM [facility] Last Admin: 01/22/19 08:04 Dose: 500 mg Documented by: Metoprolol Tartrate (Lopressor (Beta Blayne)) 25 mg PO 1200,1800 [facility] Last Admin: 01/22/19 11:26 Dose: 25 mg Documented by: Nutritional Formula (Bull - [place] Flavor) 1 packet PO BIDCM [facility] Last Admin: 01/22/19 08:04 Dose: 1 packet Documented by: Nutritional Formula (Lactose Free) (Glucerna Shake) 120 ml PO 4X/DAY [facility] Last Admin: 01/22/19 11:25 Dose: 120 ml Documented by: Oxycodone HCl (Oxyir) 2.5 mg PO Q4H PRN PRN PRN Reason: Pain Score 6-10/10 Last Admin: 01/21/19 15:41 Dose: 2.5 mg Documented by: Polyethylene Glycol (Miralax) 17 gm PO DAILY [facility] Last Admin: 01/22/19 05:12 Dose: 17 gm Documented by: Pregabalin (Lyrica) 50 mg PO 4X/DAY [facility] Last Admin: 01/22/19 11:25 Dose: 50 mg Documented by: Senna/Docusate Sodium (Senokot-S, Desi-Colace) 2 tablet PO BID [facility] Last Admin: 01/22/19 05:12 Dose: 2 tablet Documented by: Sodium Chloride () 10 - 40 ml IV UD PRN PRN Reason: SALINE FLUSH Last Admin: 01/18/19 10:25 Dose: 10 ml Documented by: Tramadol HCl (Ultram) 50 mg PO Q6H PRN PRN PRN Reason: Pain Score 4-5/10 Last Admin: 01/21/19 20:00 Dose: 50 mg Documented by: Tuberculin PPD (Tubersol, Aplisol, Ppd) 5 tu ID [id number] ONE Stop: 01/23/19 10:01 Medical Necessity - Tobacco Use Smoking Status: Never smoker Tobacco Use: Non-smoker Assessment/Plan All Active Problems Neuropathic foot ulcer (Acute) Debility (Acute) Syncope and collapse (Acute) Urinary tract infection with pyuria (Acute) s/p bunionectomy left foot due to recurrent ulceration (DOS 01/15/2019) Diabetes with peripheral neuropathy I reviewed her case via chart review and discussed her progress today. She is afebrile and her vital signs remained stable. She did not have leukocytosis earlier this week with lab check in order she have any clinical or systemic signs of infection. Her pathology specimen was also negative for osteomyelitis and was consistent with reactive bunion changes. The dressing of the right foot was changed today. Applied new steri strips, with overlying gauze, kerlix and antoinette bandage. Keep clean, dry and intact until her next postoperative podiatry visit while in the transitional care unit within the next week. Ok to weightbear on left foot, no weightbearing on left forefoot. Keep foot elevated as well. To continue surgical shoe. Diabetes and other medical management per Dr. Mcknight is appreciated. Podiatry will follow up with 1 time weekly, please call sooner if needed. Sherin Villalpando DPM, [facility] [phone]
[2019-01-22] MEDS: oxyCODONE 5 MG Tablet 2.5 MG PO ×2 (13:58→21:11)
[2019-01-22 15:30] VITALS: BP 165/68; PULSE 66; RESP 19; TEMP 36.1; O2SAT 95
[2019-01-22 16:46] LABS: Bedside Glucose 222 mg/dL (70-110)
[2019-01-22 17:23] VITALS: PULSE 66
[2019-01-22] MEDS: LORazepam 0.5 MG Tablet PO (19:59)
[2019-01-22] MEDS: Atorvastatin Calcium 20 MG Tablet PO (20:05)
--- NOTE | 2019-01-22 20:10 | NURSING ---
Addendum entered by Tiny Walters 01/22/19 22:46: VM left SW Addendum entered by Tiny Walters 01/22/19 22:46: Late entry 01/22/20197. Medical hx and medication list reviewed with Dr Mcknight. Addendum entered by Tiny Walters 01/22/19 22:17: Dr Mcknight aware. Dr Mcknight notified of increase pain unresolved. N.O. entered Original Note: Pt seeming down this evening, RN spkoe with pt about depression. Pt stated, I am very depressed. Pt informed RN her favorite nephew committed suicide three weeks ago. Pt reported to RN her son 10 years ago from suicide and this is causing a lot of emotion. Will update Dr Mcknight.
[2019-01-22 20:55] LABS: Bedside Glucose 278 mg/dL (70-110)
[2019-01-22] MEDS: DOXEPIN HCL 50 MG CAPSULE PO (22:40)
--- NOTE | 2019-01-23 01:27 | NURSING ---
Pt alarm going off. This nurse promptly into room. Pt requesting to use to the restroom. Pt stand pivot to [facility]. This nurse informed pt numerous times to only apply weight to left heel. Pt noncompliant and refusing to listen to direction. Pt was assisted back into bed with alarm on and call light in place.
[2019-01-23] MEDS: Enoxaparin 40 MG/0.4 ML Syringe SC (06:25)
[2019-01-23] MEDS: Menthol/Lanolin/Calamine/Znox 113 GM Tube 1 APPLIC TOPICAL ×2 (06:25→19:53)
[2019-01-23] MEDS: Glucerna Shake 120 ML LIQUID PO ×4 (06:25→19:46)
[2019-01-23] MEDS: Senna/Docusate Sodium 1 Tablet 2 TABLET PO ×2 (06:25→17:20)
[2019-01-23] MEDS: Levothyroxine 75 MCG Tablet PO (06:25)
[2019-01-23] MEDS: Polyethylene Glycol 3350 17 GM PACKET PO (06:25)
[2019-01-23 06:30] LABS: Bedside Glucose 109 mg/dL (70-110)
[2019-01-23] MEDS: Pregabalin 50 MG Capsule PO ×4 (06:33→21:12)
[2019-01-23 06:37] LABS: Absolute Lymphocyte Count 3.05 X10^3/uL (0.83-4.51); Absolute Neutrophil Count 6.2 X10^3/uL (2.0-7.7); Eosinophil# 0.21 X10^3/uL; Hematocrit 39.8 % (37-47); Hemoglobin 12.4 g/dL (12.0-15.0); Lymphocyte # 3.05 X10^3/ul (4.0); Lymphocyte % 29.1 % (19-41); Mean Corp Hgb Conc 31.2 g/dL (32-36); Mean Corpuscular Hgb 27.9 pg (27.0-32.0); Mean Corpuscular Volume 89.6 fL (81-99); Mean Platelet Vol. 11.5 fl (6.2-12.0); Monocyte# 0.87 X10^3/uL; Monocyte% 8.3 % (0-10); NRBC Flagged by Analyzer 0 % (0-5); Platelet Count 182 K/mm3 (150-450); RBC Distribution Width CV 14.8 % (11.6-14.6); RBC Distribution Width SD 47.9 fl (35.1-43.9); Red Blood Count 4.44 M/mm3 (4.2-5.4); White Blood Count 10.5 K/mm3 (4.4-11.0)
[2019-01-23 06:54] LABS: Anion Gap 5 (5-15); BUN 33 mg/dL (7-18); BUN/Creat Ratio 40.2 RATIO (10-20); Calcium,Total 9.7 mg/dL (8.5-10.1); Chloride 109 mmol/L (98-107); Creatinine, Serum 0.82 mg/dL (0.55-1.02); EST Glomerular Filtration Rate 71 mL/min (>60); Est Glom Filt Rate - Afr Amer 86 mL/min (>60); Estimated Creatinine Clearance 48.04 ml/min; Glucose 124 mg/dL (74-106); Potassium 3.8 mmol/L (3.5-5.1); Sodium Level 140 mmol/L (136-145)
[2019-01-23] MEDS: BACITRACIN 15 GM Tube 1 APPLIC TOPICAL ×2 (06:59→17:20)
[2019-01-23] MEDS: metFORMIN HCl 500 MG Tablet PO ×2 (09:01→17:19)
[2019-01-23] MEDS: Insulin Lispro 100 UNIT/ML INSULN.PEN 10 UNIT SC ×3 (09:01→17:17)
[2019-01-23 10:36] LABS: Bedside Glucose 185 mg/dL (70-110)
[2019-01-23] MEDS: Tuberculin,Purif.prot.deriv. 50 TU/ML Vial 5 ML ID (12:15)
[2019-01-23] MEDS: DULoxetine Hcl 20 MG Capsule 40 MG PO (12:15)
[2019-01-23 14:14] VITALS: BP 142/75; PULSE 91
[2019-01-23] MEDS: Metoprolol Tartrate 25 MG Tablet PO ×2 (14:14→17:22)
[2019-01-23] MEDS: oxyCODONE 5 MG Tablet 2.5 MG PO ×2 (14:17→19:10)
[2019-01-23 15:13] VITALS: BP 137/51; PULSE 62; RESP 16; TEMP 36.6; O2SAT 99
[2019-01-23 15:25] VITALS: BP 116/77; PULSE 84; RESP 16; TEMP 36.6; O2SAT 92
[2019-01-23 17:00] LABS: Bedside Glucose 182 mg/dL (70-110)
[2019-01-23 17:22] VITALS: BP 116/77; PULSE 84
[2019-01-23] MEDS: Atorvastatin Calcium 20 MG Tablet PO (19:46)
[2019-01-23] MEDS: DOXEPIN HCL 50 MG CAPSULE PO (19:46)
[2019-01-23 21:01] LABS: Bedside Glucose 172 mg/dL (70-110)
[2019-01-24] MEDS: Polyethylene Glycol 3350 17 GM PACKET PO (05:57)
[2019-01-24] MEDS: Senna/Docusate Sodium 1 Tablet 2 TABLET PO (05:57)
[2019-01-24] MEDS: BACITRACIN 15 GM Tube 1 APPLIC TOPICAL ×2 (05:57→16:53)
[2019-01-24] MEDS: Enoxaparin 40 MG/0.4 ML Syringe SC (05:58)
[2019-01-24] MEDS: Menthol/Lanolin/Calamine/Znox 113 GM Tube 1 APPLIC TOPICAL ×2 (05:58→19:26)
[2019-01-24] MEDS: Glucerna Shake 120 ML LIQUID PO ×4 (05:58→19:26)
[2019-01-24] MEDS: Levothyroxine 75 MCG Tablet PO (05:58)
[2019-01-24] MEDS: Pregabalin 50 MG Capsule PO ×4 (06:02→21:30)
[2019-01-24 06:46] LABS: Bedside Glucose 128 mg/dL (70-110)
[2019-01-24] MEDS: metFORMIN HCl 500 MG Tablet PO ×2 (08:22→16:52)
[2019-01-24 10:45] LABS: Bedside Glucose 229 mg/dL (70-110)
[2019-01-24 11:28] VITALS: BP 148/65; PULSE 79; RESP 18; TEMP 36.8; O2SAT 96
[2019-01-24 11:34] VITALS: BP 148/65; PULSE 79
[2019-01-24] MEDS: DULoxetine Hcl 20 MG Capsule 40 MG PO (11:34)
[2019-01-24] MEDS: Metoprolol Tartrate 25 MG Tablet PO ×2 (11:34→16:53)
[2019-01-24] MEDS: Insulin Lispro 100 UNIT/ML INSULN.PEN 10 UNIT SC ×2 (11:35→17:52)
[2019-01-24] MEDS: traMADol 50 MG Tablet PO (12:46)
[2019-01-24 14:57] VITALS: BP 114/59; PULSE 69; RESP 16; TEMP 36.8; O2SAT 98
[2019-01-24 16:50] LABS: Bedside Glucose 255 mg/dL (70-110)
[2019-01-24 16:53] VITALS: BP 114/59; PULSE 69
[2019-01-24] MEDS: oxyCODONE 5 MG Tablet 2.5 MG PO (19:24)
[2019-01-24] MEDS: Acetaminophen 500 MG Tablet 1000 MG PO (19:25)
[2019-01-24 21:26] LABS: Bedside Glucose 261 mg/dL (70-110)
[2019-01-24] MEDS: Atorvastatin Calcium 20 MG Tablet PO (21:30)
[2019-01-24] MEDS: DOXEPIN HCL 50 MG CAPSULE PO (21:30)
[2019-01-25] MEDS: BACITRACIN 15 GM Tube 1 APPLIC TOPICAL ×2 (05:17→17:07)
[2019-01-25] MEDS: Senna/Docusate Sodium 1 Tablet 2 TABLET PO ×2 (05:18→17:04)
[2019-01-25] MEDS: Levothyroxine 75 MCG Tablet PO (05:18)
[2019-01-25] MEDS: Polyethylene Glycol 3350 17 GM PACKET PO (05:18)
[2019-01-25] MEDS: Glucerna Shake 120 ML LIQUID PO ×4 (05:18→20:46)
[2019-01-25] MEDS: Menthol/Lanolin/Calamine/Znox 113 GM Tube 1 APPLIC TOPICAL ×2 (05:18→20:44)
[2019-01-25] MEDS: Pregabalin 50 MG Capsule PO ×4 (05:21→20:45)
[2019-01-25] MEDS: Enoxaparin 40 MG/0.4 ML Syringe SC (05:21)
[2019-01-25 06:31] LABS: Bedside Glucose 196 mg/dL (70-110)
[2019-01-25] MEDS: metFORMIN HCl 500 MG Tablet PO ×2 (07:45→17:03)
[2019-01-25] MEDS: Insulin Lispro 100 UNIT/ML INSULN.PEN 10 UNIT SC ×3 (07:46→17:05)
--- NOTE | 2019-01-25 08:03 | CASEMGMT ---
Social Work Received nursing VM about pt. SW has continuously been providing emotional and verbal support as pt allows since admission. Will continue to follow and ensure safe discharge. Marisela Diaz, PAPER CONSERVATOR [employer]IEF [employer]RARIAN [facility]
[2019-01-25 11:35] LABS: Bedside Glucose 271 mg/dL (70-110)
[2019-01-25 12:13] VITALS: BP 155/81; PULSE 76
[2019-01-25] MEDS: Metoprolol Tartrate 25 MG Tablet PO ×2 (12:13→17:04)
[2019-01-25] MEDS: DULoxetine Hcl 20 MG Capsule 40 MG PO (12:14)
[2019-01-25] MEDS: oxyCODONE 5 MG Tablet 2.5 MG PO ×2 (13:32→20:44)
[2019-01-25] MEDS: Acetaminophen 500 MG Tablet 1000 MG PO (13:32)
[2019-01-25 15:28] VITALS: BP 125/64; PULSE 63; RESP 18; TEMP 36.8; O2SAT 96
[2019-01-25 17:01] LABS: Bedside Glucose 211 mg/dL (70-110)
[2019-01-25 17:04] VITALS: BP 125/64; PULSE 63
[2019-01-25] MEDS: Atorvastatin Calcium 20 MG Tablet PO (20:47)
[2019-01-25] MEDS: DOXEPIN HCL 50 MG CAPSULE PO (20:48)
[2019-01-25 21:21] LABS: Bedside Glucose 234 mg/dL (70-110)
[2019-01-26] MEDS: Acetaminophen 500 MG Tablet 1000 MG PO ×2 (01:30→14:18)
[2019-01-26] MEDS: Menthol/Lanolin/Calamine/Znox 113 GM Tube 1 APPLIC TOPICAL ×2 (05:36→19:59)
[2019-01-26] MEDS: BACITRACIN 15 GM Tube 1 APPLIC TOPICAL ×2 (05:36→17:51)
[2019-01-26] MEDS: Enoxaparin 40 MG/0.4 ML Syringe SC (05:37)
[2019-01-26] MEDS: Levothyroxine 75 MCG Tablet PO (05:37)
[2019-01-26] MEDS: Senna/Docusate Sodium 1 Tablet 2 TABLET PO ×2 (05:37→17:50)
[2019-01-26] MEDS: Glucerna Shake 120 ML LIQUID PO ×4 (05:43→19:56)
[2019-01-26] MEDS: Pregabalin 50 MG Capsule PO ×4 (05:43→19:56)
[2019-01-26 06:41] LABS: Bedside Glucose 168 mg/dL (70-110)
[2019-01-26] MEDS: metFORMIN HCl 500 MG Tablet PO ×2 (07:59→17:49)
[2019-01-26] MEDS: Insulin Lispro 100 UNIT/ML INSULN.PEN 10 UNIT SC ×3 (08:00→17:50)
[2019-01-26 09:35] VITALS: PULSE 82; RESP 18; O2SAT 96
[2019-01-26 11:06] LABS: Bedside Glucose 268 mg/dL (70-110)
[2019-01-26] MEDS: DULoxetine Hcl 20 MG Capsule 40 MG PO (11:31)
[2019-01-26 11:34] VITALS: BP 154/77; PULSE 84
[2019-01-26] MEDS: Metoprolol Tartrate 25 MG Tablet PO ×2 (11:34→17:51)
[2019-01-26 11:36] VITALS: BP 154/77; PULSE 84
[2019-01-26 15:24] VITALS: BP 159/74; PULSE 72; RESP 18; TEMP 37.1; O2SAT 95
[2019-01-26 16:51] LABS: Bedside Glucose 143 mg/dL (70-110)
[2019-01-26 17:51] VITALS: BP 159/74; PULSE 72
[2019-01-26] MEDS: DOXEPIN HCL 50 MG CAPSULE PO (19:58)
[2019-01-26] MEDS: Atorvastatin Calcium 20 MG Tablet PO (19:59)
[2019-01-26] MEDS: LORazepam 0.5 MG Tablet PO (20:02)
--- NOTE | 2019-01-26 20:03 | NURSING ---
Nurse went into pt room to give nighttime med and asked pt how was her day today she stated, my anxiety is bothering me. The nurse asked what's going on today she stated, I will tell you but my nephew committed suicided almost a month ago and I was on the phone when he did it. I don't know how to handle it and I lost a son 10 years ago from the same thing and this has brought up emotions again .This nurse asked if she has talked with anyone about her thoughts and feeling she stated, yes I saw the air crew member here it did help me to talk with him. I listened to the patient as she expressed her thoughts and feeling there was no talk of harm to herself or anyone else during this time. Pt thanked me for listening to her during this time. She requested something for anxiety given PRN ativan at this time. Will continue to monitor and make RN aware.
[2019-01-26 21:45] LABS: Bedside Glucose 235 mg/dL (70-110)
[2019-01-27] MEDS: traMADol 50 MG Tablet PO ×2 (02:05→17:32)
[2019-01-27] MEDS: Menthol/Lanolin/Calamine/Znox 113 GM Tube 1 APPLIC TOPICAL ×2 (06:22→21:22)
[2019-01-27] MEDS: Enoxaparin 40 MG/0.4 ML Syringe SC (06:23)
[2019-01-27] MEDS: Levothyroxine 75 MCG Tablet PO (06:28)
[2019-01-27] MEDS: Senna/Docusate Sodium 1 Tablet 2 TABLET PO ×2 (06:28→17:32)
[2019-01-27] MEDS: Pregabalin 50 MG Capsule PO ×4 (06:28→21:19)
[2019-01-27] MEDS: Polyethylene Glycol 3350 17 GM PACKET PO (06:29)
[2019-01-27 06:31] LABS: Bedside Glucose 159 mg/dL (70-110)
[2019-01-27] MEDS: Glucerna Shake 120 ML LIQUID PO (06:34)
[2019-01-27] MEDS: metFORMIN HCl 500 MG Tablet PO ×2 (08:03→17:32)
[2019-01-27] MEDS: Insulin Lispro 100 UNIT/ML INSULN.PEN 10 UNIT SC ×3 (08:03→17:38)
[2019-01-27] MEDS: Acetaminophen 500 MG Tablet 1000 MG PO ×2 (08:07→22:45)
[2019-01-27 11:20] LABS: Bedside Glucose 262 mg/dL (70-110)
[2019-01-27 11:33] VITALS: BP 145/63; PULSE 80
[2019-01-27] MEDS: Metoprolol Tartrate 25 MG Tablet PO ×2 (11:33→17:32)
[2019-01-27 11:42] VITALS: BP 145/63; PULSE 80
[2019-01-27] MEDS: DULoxetine Hcl 60 MG Capsule PO (13:10)
[2019-01-27 15:24] VITALS: BP 135/63; PULSE 68; RESP 18; TEMP 36.6; O2SAT 98
--- NOTE | 2019-01-27 15:47 | PCA ---
This wash oil pump operator helper noticed patient has had increased confusion since admission. Upon hearing chair alarm, patient was found walking around room. When asked what she needed her response was 'Im not quite sure what i need This wash oil pump operator helper helped patient back into her chair and reminded her to use call light when needing help. Call light was placed in reach. Nurse was notified.
[2019-01-27 16:55] LABS: Bedside Glucose 175 mg/dL (70-110)
[2019-01-27 17:32] VITALS: BP 135/63; PULSE 68
[2019-01-27 21:06] LABS: Bedside Glucose 183 mg/dL (70-110)
[2019-01-27] MEDS: DOXEPIN HCL 50 MG CAPSULE PO (21:21)
[2019-01-27] MEDS: Atorvastatin Calcium 20 MG Tablet PO (21:21)
[2019-01-28 06:26] LABS: Bedside Glucose 107 mg/dL (70-110)
[2019-01-28] MEDS: Polyethylene Glycol 3350 17 GM PACKET PO (06:33)
[2019-01-28] MEDS: Pregabalin 50 MG Capsule PO ×4 (06:36→21:24)
[2019-01-28] MEDS: Levothyroxine 75 MCG Tablet PO (06:37)
[2019-01-28] MEDS: Senna/Docusate Sodium 1 Tablet 2 TABLET PO ×2 (06:37→16:42)
[2019-01-28] MEDS: Menthol/Lanolin/Calamine/Znox 113 GM Tube 1 APPLIC TOPICAL ×2 (06:37→21:25)
[2019-01-28] MEDS: Nystatin Powder 15gm Bottle 1 APPLIC TOPICAL ×2 (06:38→21:25)
[2019-01-28] MEDS: Enoxaparin 40 MG/0.4 ML Syringe SC (06:42)
--- NOTE | 2019-01-28 07:16 | MDS.RN ---
Information for the mds was obtained from review of the clinical record, interview of resident, staff, and direct observation of resident's care.
--- NOTE | 2019-01-28 08:45 | NURSING ---
Held humalog this AM Blood sugar 107. dr Mcknight updated and adjusted HS lantus.
[2019-01-28] MEDS: metFORMIN HCl 500 MG Tablet PO ×2 (08:48→16:42)
[2019-01-28] MEDS: traMADol 50 MG Tablet PO (09:21)
[2019-01-28 10:31] LABS: Bedside Glucose 261 mg/dL (70-110)
--- NOTE | 2019-01-28 12:09 | CASEMGMT ---
Social Work Left message with daughter to discuss discharge plans. Insurance update 02/01 and continued stay is not guaranteed. Will await return phone call. Marisela Diaz MSW RUBBER SPLICER
[2019-01-28 12:36] VITALS: BP 132/66; PULSE 82
[2019-01-28] MEDS: DULoxetine Hcl 60 MG Capsule PO (12:36)
[2019-01-28] MEDS: Metoprolol Tartrate 25 MG Tablet PO ×2 (12:36→16:44)
[2019-01-28] MEDS: Insulin Lispro 100 UNIT/ML INSULN.PEN 10 UNIT SC ×2 (12:37→16:44)
[2019-01-28 15:13] VITALS: BP 112/54; PULSE 67; RESP 16; TEMP 37; O2SAT 95
[2019-01-28 16:44] VITALS: PULSE 67
[2019-01-28 16:51] LABS: Bedside Glucose 209 mg/dL (70-110)
[2019-01-28] MEDS: Acetaminophen 500 MG Tablet 1000 MG PO (19:25)
[2019-01-28 21:21] LABS: Bedside Glucose 171 mg/dL (70-110)
[2019-01-28] MEDS: Atorvastatin Calcium 20 MG Tablet PO (21:25)
[2019-01-28] MEDS: DOXEPIN HCL 50 MG CAPSULE PO (21:25)
[2019-01-29] MEDS: Senna/Docusate Sodium 1 Tablet 2 TABLET PO ×2 (05:45→17:17)
[2019-01-29] MEDS: Menthol/Lanolin/Calamine/Znox 113 GM Tube 1 APPLIC TOPICAL ×2 (05:45→22:10)
[2019-01-29] MEDS: Nystatin Powder 15gm Bottle 1 APPLIC TOPICAL ×2 (05:45→22:09)
[2019-01-29] MEDS: Levothyroxine 75 MCG Tablet PO (05:45)
[2019-01-29] MEDS: Polyethylene Glycol 3350 17 GM PACKET PO (05:46)
[2019-01-29] MEDS: Enoxaparin 40 MG/0.4 ML Syringe SC (05:46)
[2019-01-29] MEDS: Pregabalin 50 MG Capsule PO ×4 (05:49→22:12)
[2019-01-29] MEDS: traMADol 50 MG Tablet PO ×2 (05:52→22:09)
[2019-01-29 06:35] LABS: Bedside Glucose 131 mg/dL (70-110)
[2019-01-29] MEDS: metFORMIN HCl 500 MG Tablet PO ×2 (08:32→17:17)
[2019-01-29] MEDS: Insulin Lispro 100 UNIT/ML INSULN.PEN 10 UNIT SC ×2 (08:32→12:21)
[2019-01-29 10:31] LABS: Bedside Glucose 246 mg/dL (70-110)
[2019-01-29 12:19] VITALS: BP 125/71; PULSE 87; RESP 18; TEMP 36.7; O2SAT 96
[2019-01-29 12:22] VITALS: PULSE 87
[2019-01-29] MEDS: Metoprolol Tartrate 25 MG Tablet PO ×2 (12:22→17:16)
[2019-01-29] MEDS: DULoxetine Hcl 60 MG Capsule PO (12:22)
[2019-01-29 15:33] VITALS: BP 141/67; PULSE 75; RESP 18; TEMP 37; O2SAT 96
--- NOTE | 2019-01-29 15:35 | RAD_ITS ---
STUDY: X-RAY - LEFT FOOT CLINICAL: Female, 78 years old. Left foot deformity, ulcer TECHNIQUE: 3 view(s) of the foot. COMPARISON: Prior left foot exam of January 15, 2019, January 15, 2019 and May 08, 2018. FINDINGS: Normal talus, calcaneus, and tarsal bones. Normal visualized subtalar, talonavicular, calcaneocuboid, tarsal and tarsometatarsal articulations. She is status post bunionectomy/removal of bone from the medial aspect of the head of the first metatarsal and removal of the tibial sesamoid. According to the postoperative radiographs of January 15, 2019 there was no removal of bone from the base of the proximal phalanx of the great toe. However, on the postoperative films of the same day there does appear to be loss of the clear cortical edge at the medial side of the base of the first phalanx of the great toe. There is increase in hallux valgus angulation . The fibular sesamoid remains laterally displaced. Mild degenerative changes of the interphalangeal joint of the great toe. There is loss of bone density at the base of the proximal phalanx on the medial side. Normal second through fifth metatarsophalangeal joints. Normal interphalangeal joints and phalanges of the lesser toes. The soft tissue structures are unremarkable. Negative for soft tissue air. RAD/Foot min 3 Views IMPRESSION: Status post bunionectomy including removal of the tibial sesamoid. Increased hallux valgus since preoperative exam. The surgical site of the medial surface of the distal first metatarsal appears to be generally healing without an osteolytic lesion. There is loss of bone density of the medial base of the proximal phalanx of the great toe which appears to be at least partially present on the postoperative radiographs of January 15. Osteolysis versus postsurgical changes. Correlate with known surgical procedure. Electronically Signed: Kaleigh Tyson MD at 16:02 EST , Service support ,
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
[2019-01-29 17:01] LABS: Bedside Glucose 79 mg/dL (70-110)
[2019-01-29 17:16] VITALS: PULSE 71
[2019-01-29 20:51] LABS: Bedside Glucose 219 mg/dL (70-110)
[2019-01-29] MEDS: Atorvastatin Calcium 20 MG Tablet PO (22:11)
[2019-01-29] MEDS: DOXEPIN HCL 50 MG CAPSULE PO (22:11)
[2019-01-30] MEDS: Nystatin Powder 15gm Bottle 1 APPLIC TOPICAL ×2 (05:21→21:19)
[2019-01-30] MEDS: Pregabalin 50 MG Capsule PO ×4 (05:21→21:19)
[2019-01-30] MEDS: Senna/Docusate Sodium 1 Tablet 2 TABLET PO ×2 (05:22→16:57)
[2019-01-30] MEDS: Polyethylene Glycol 3350 17 GM PACKET PO (05:22)
[2019-01-30] MEDS: Enoxaparin 40 MG/0.4 ML Syringe SC (05:22)
[2019-01-30] MEDS: Menthol/Lanolin/Calamine/Znox 113 GM Tube 1 APPLIC TOPICAL ×2 (05:22→21:24)
[2019-01-30] MEDS: Levothyroxine 75 MCG Tablet PO (05:22)
--- NOTE | 2019-01-30 05:29 | NURSING ---
0500- pt up to restroom with RN assist. Attends was wet and falling off of pt and pt leaked urine while ambulating getting some urine on dressing to L foot. Outer ISAURO wrap and Kerlix wrap changed. Dressing underneath dry and intact to be changed by podiatry.
[2019-01-30 06:55] LABS: Bedside Glucose 131 mg/dL (70-110)
[2019-01-30 07:36] LABS: Absolute Lymphocyte Count 2.98 X10^3/uL (0.83-4.51); Absolute Neutrophil Count 6.2 X10^3/uL (2.0-7.7); Basophil# 0.07 X10^3/uL; Basophil% 0.7 % (0-1); Eosinophil# 0.15 X10^3/uL; Eosinophils% 1.5 % (0-5); Hematocrit 37.4 % (37-47); Hemoglobin 11.8 g/dL (12.0-15.0); Lymphocyte # 2.98 X10^3/ul (4.0); Lymphocyte % 29.2 % (19-41); Mean Corp Hgb Conc 31.6 g/dL (32-36); Mean Corpuscular Hgb 28.2 pg (27.0-32.0); Mean Corpuscular Volume 89.3 fL (81-99); Mean Platelet Vol. 11.9 fl (6.2-12.0); Monocyte# 0.79 X10^3/uL; Monocyte% 7.7 % (0-10); NRBC Flagged by Analyzer 0 % (0-5); Neutrophil # 6.16 X10^3/uL (2.7-7.7); Neutrophil % 60.4 % (47-70); Platelet Count 205 K/mm3 (150-450); RBC Distribution Width CV 15.1 % (11.6-14.6); RBC Distribution Width SD 48.7 fl (35.1-43.9); Red Blood Count 4.19 M/mm3 (4.2-5.4); White Blood Count 10.2 K/mm3 (4.4-11.0)
--- NOTE | 2019-01-30 07:54 | PN_ITS ---
Patient Problems: Active and Suspected Problems Bunion, right foot (Acute) Debility (Acute) Subjective: This pleasant 78-year-old female patient was seen this morning for follow up on left foot, s/p bunionectomy performed on 01/15/2019 as a curative procedure to reduce current ulceration formation. She does not relate to any fever, chills, nausea, vomiting, shortness of breath, chest pain, foot odor, or foot pain. She has continued painful rest sensations consistent with her known neuropathy. She has been elevating. Her dressing has been kept clean and intact until this last nursing shift when urine soaked the outer dressing; therefore this was changed. Also, yesterday afternoon or early evening nursing staff noted her toe was in a different position compared to prior days and primary service physician ordered an x-ray. The patient denies any known injury such as stubbing the toe or disrupting it while in bed. She relates her memory is impaired and she would likely not recall any type of injury or event regardless. After speaking with nursing staff from yesterday evening and this morning, there was no known injuries that were identified. - Physical Exam Vitals/I&O's: Vital Signs Temp Pulse Resp BP Pulse Ox 98.6 F 71 18 141/67 H 96 01/29/19 15:33 01/29/19 17:16 01/29/19 15:33 01/29/19 15:33 01/29/19 15:33 Oxygen Delivery Method Room Air Weight: 87.713 kg Body Mass Index (BMI) 32.8 Intake and Output for Last 24 Hours 01/28/19 01/29/19 01/30/19 23:59 23:59 23:59 Intake Total 720 / 720 590 / 590 Balance 720 / 720 590 / 590 General: Alert, Oriented x3, Cooperative HEENT: Atraumatic Extremities: No cyanosis, Capillary Refill Less than 3 Seconds - All digits left foot, No Calf Tenderness - Negative Dora and Morris sign bilateral, Diminished Peripheral Pulses, Edema Skin: Incision - Well aligned and coapted with sutures intact and Steri-Strips. There is no gapping, purulence, erythema, streaking, odor, or infection. There is mild serosanguineous drainage noted on the inner layers of the dressing. Her peripheral skin is hairless and atrophic. Her initial foot ulcer has healed. There is no interdigital maceration or eschar. Musculoskeletal: No Tenderness to Palpation of Joints or Extremities, Muscle Wasting, - - Compartment soft to palpate left foot. There is a new status change with the left hallux position which is now deviating laterally and overlapping the second toe. She has normal hallux dorsiflexion plantarflexion strength. Neurological: - - Lack of normal epicritic sensation light touch foot Psych/Mental Status: Normal Affect, Appropriate Laboratory Results 01/29/19 10:26: POC Glucose 246 H 01/29/19 16:58: POC Glucose 79 01/29/19 20:47: POC Glucose 219 H 01/30/19 05:53: POC Glucose 131 H 01/30/19 06:53: WBC 10.2, RBC 4.19 L, Hgb 11.8 L, Hct 37.4, MCV 89.3, MCH 28.2, MCHC 31.6 L, RDW Std Deviation 48.7 H, RDW Coeff of Sukhwinder 15.1 H, Plt Count 205, MPV 11.9, Immature Gran % (Auto) 0.500, Neut % (Auto) 60.4, Lymph % (Auto) 29.2, [place] % (Auto) 7.7, Eos % (Auto) 1.5, Baso % (Auto) 0.7, Absolute Neuts (auto) 6.2, Absolute Lymphs (auto) 2.98, Nucleated RBC % 0 01/30/19 06:53: Sodium Pending, Potassium Pending, Chloride Pending, Carbon Dioxide Pending, Anion Gap Pending, BUN Pending, Creatinine Pending, Est GFR (MDRD) Af Amer Pending, Est GFR (MDRD) Non-Af Pending, BUN/Creatinine Ratio Pending, Glucose Pending, Calcium Pending Current Medications Acetaminophen (Tylenol) 1,000 mg PO Q6H PRN PRN PRN Reason: Pain Score 1-3/10 Last Admin: 01/28/19 19:25 Dose: 1,000 mg Documented by: Atorvastatin Calcium (Lipitor) 20 mg PO QHS [facility] Last Admin: 01/29/19 22:11 Dose: 20 mg Documented by: Bisacodyl (Dulcolax) 10 mg PO DAILY PRN PRN Reason: Constipation Last Admin: 01/17/19 05:41 Dose: 10 mg Documented by: Calamine/Phenol (Calmoseptine Ointment) 1 applic TOPICAL 0600,2200 [facility]; Protocol Last Admin: 01/30/19 05:22 Dose: 1 applicatio Documented by: Dextrose (D50w Syringe) 0 gm IV X1 PRN; Protocol PRN Reason: Hypoglycemia Doxepin HCl (Doxepin Hcl) 50 mg PO QHS [facility] Last Admin: 01/29/19 22:11 Dose: 50 mg Documented by: Duloxetine HCl (Cymbalta) 60 mg PO LUNCH [facility] Last Admin: 01/29/19 12:22 Dose: 60 mg Documented by: Enoxaparin Sodium (Lovenox) 40 mg SC DAILY@0600 [facility] Last Admin: 01/30/19 05:22 Dose: 40 mg Documented by: Ergocalciferol (Vitamin D) 50,000 unit PO SUWE [facility] Last Admin: 01/27/19 09:08 Dose: 50,000 unit Documented by: Glucagon () 1 mg IM .X1 PRN PRN Reason: Hypoglycemia Insulin Glargine (Lantus (Bk)) 40 units SC QHS [facility] Last Admin: 01/29/19 22:11 Dose: 40 units Documented by: Insulin Human Lispro (Humalog Kwikpen ([facility])) 10 unit SC TIDAC [facility] Last Admin: 01/29/19 17:09 Dose: Not Given Documented by: Levothyroxine Sodium (Synthroid) 75 mcg PO DAILY@0600 [facility] Last Admin: 01/30/19 05:22 Dose: 75 mcg Documented by: Lorazepam (Ativan) 0.5 mg PO Q4H PRN PRN PRN Reason: ANXIETY Last Admin: 01/26/19 20:02 Dose: 0.5 mg Documented by: Metformin HCl (Glucophage) 500 mg PO BIDCM [facility] Last Admin: 01/29/19 17:17 Dose: 500 mg Documented by: Metoprolol Tartrate (Lopressor (Beta Blayne)) 25 mg PO 1200,1800 [facility] Last Admin: 01/29/19 17:16 Dose: 25 mg Documented by: Non-Formulary ( Meloxicam/Lidocaine/Lamotrigine/Prilocaine) 1 applicatio TOPICAL 4X/DAY PRN PRN PRN Reason: leg pain Last Admin: 01/27/19 21:29 Dose: 1 applicatio Documented by: Nutritional Formula (Bull - [place] Flavor) 1 packet PO BIDCM [facility] Last Admin: 01/29/19 17:17 Dose: 1 packet Documented by: Nystatin (Mycostatin Powder) 1 applic TOPICAL 0600,2200 [facility]; Protocol Last Admin: 01/30/19 05:21 Dose: 1 applicatio Documented by: Oxycodone HCl (Oxyir) 2.5 mg PO Q4H PRN PRN PRN Reason: Pain Score 6-10/10 Last Admin: 01/25/19 20:44 Dose: 2.5 mg Documented by: Polyethylene Glycol (Miralax) 17 gm PO DAILY [facility] Last Admin: 01/30/19 05:22 Dose: 17 gm Documented by: Pregabalin (Lyrica) 50 mg PO 4X/DAY [facility] Last Admin: 01/30/19 05:21 Dose: 50 mg Documented by: Senna/Docusate Sodium (Senokot-S, Desi-Colace) 2 tablet PO BID [facility] Last Admin: 01/30/19 05:22 Dose: 2 tablet Documented by: Sodium Chloride () 10 - 40 ml IV UD PRN PRN Reason: SALINE FLUSH Last Admin: 01/18/19 10:25 Dose: 10 ml Documented by: Tramadol HCl (Ultram) 50 mg PO Q6H PRN PRN PRN Reason: Pain Score 4-5/10 Last Admin: 01/29/19 22:09 Dose: 50 mg Documented by: Medical Necessity - Tobacco Use Smoking Status: Never smoker Tobacco Use: Non-smoker Assessment/Plan All Active Problems Bunion, right foot (Acute) Neuropathic foot ulcer (Acute) Debility (Acute) Syncope and collapse (Acute) Urinary tract infection with pyuria (Acute) s/p bunionectomy left foot due to recurrent ulceration (DOS 01/15/2019; Dr. Ruiz), new recurrence noted with potential injury Diabetes with peripheral neuropathy I reviewed her case and discussed her progress today. She is afebrile and her vital signs remained stable. She did not have leukocytosis; white blood cell count 10.2. Her intraoperative pathology specimen was consistent with resected bone unit and there was no evidence of osteomyelitis. There are no systemic or local signs of infection noted today. There is no disruption to the incision site and the Steri-Strips remain intact with a healing incision site without gapping. The dressing of the right foot was changed today with a bolstered gauze and Elijah wrap. An Yves wrap was also applied. I am concerned about her recurrent bunion deformity status this morning. It is unclear if she sustained another injury while transporting or while even in bed. Her memory is impaired. We discussed the potential need for revisional surgery including additional tendon balancing work and potential additional osseous correction to achieve the goal of maintained deformity reduction. This is necessary to prevent continued ulcer formation and to lend her to wear appropriate daily shoe gear. This ballard rgical intervention will be considered next week. Her daughter will be contacted to review this treatment recommendation and option. She was advised to keep weight only on her heel with minimal ambulation. She was also advised to keep the surgical foot elevated as well. I answered all of her questions Diabetes and other medical management per Dr. Mcknigth is appreciated. Please do not hesitate to call if you have any questions. Sherin Villalpando DPM, [facility] [phone]
[2019-01-30 08:00] LABS: Anion Gap 9 (5-15); BUN 37 mg/dL (7-18); BUN/Creat Ratio 38.1 RATIO (10-20); Calcium,Total 9.7 mg/dL (8.5-10.1); Chloride 104 mmol/L (98-107); Creatinine, Serum 0.97 mg/dL (0.55-1.02); EST Glomerular Filtration Rate 59 mL/min (>60); Est Glom Filt Rate - Afr Amer 71 mL/min (>60); Estimated Creatinine Clearance 40.61 ml/min; Glucose 133 mg/dL (74-106); Potassium 3.7 mmol/L (3.5-5.1); Sodium Level 138 mmol/L (136-145)
[2019-01-30] MEDS: metFORMIN HCl 500 MG Tablet PO ×2 (08:21→16:57)
[2019-01-30] MEDS: Insulin Lispro 100 UNIT/ML INSULN.PEN 10 UNIT SC ×3 (08:22→18:02)
--- NOTE | 2019-01-30 08:28 | NURSING ---
DR LUCAS IN TO CHANGE PT DRESSING TO FOOT.
[2019-01-30] MEDS: traMADol 50 MG Tablet PO (08:47)
[2019-01-30 11:21] VITALS: BP 122/61; PULSE 77
[2019-01-30] MEDS: Metoprolol Tartrate 25 MG Tablet PO ×2 (11:21→16:57)
[2019-01-30] MEDS: DULoxetine Hcl 60 MG Capsule PO (11:22)
[2019-01-30 11:25] VITALS: BP 122/61; PULSE 77
[2019-01-30 11:46] LABS: Bedside Glucose 233 mg/dL (70-110)
[2019-01-30 15:34] VITALS: BP 130/58; PULSE 68; RESP 16; TEMP 36.8; O2SAT 95
[2019-01-30 16:57] VITALS: BP 130/58; PULSE 68
[2019-01-30 17:00] VITALS: TEMP 36.9
[2019-01-30 17:00] LABS: Bedside Glucose 165 mg/dL (70-110)
[2019-01-30] MEDS: Atorvastatin Calcium 20 MG Tablet PO (21:19)
[2019-01-30] MEDS: DOXEPIN HCL 50 MG CAPSULE PO (21:19)
[2019-01-30 21:30] LABS: Bedside Glucose 185 mg/dL (70-110)
[2019-01-31] MEDS: Nystatin Powder 15gm Bottle 1 APPLIC TOPICAL ×2 (04:43→22:13)
[2019-01-31] MEDS: Polyethylene Glycol 3350 17 GM PACKET PO (04:44)
[2019-01-31] MEDS: Menthol/Lanolin/Calamine/Znox 113 GM Tube 1 APPLIC TOPICAL ×2 (04:44→20:45)
[2019-01-31] MEDS: Enoxaparin 40 MG/0.4 ML Syringe SC (04:44)
[2019-01-31] MEDS: Senna/Docusate Sodium 1 Tablet 2 TABLET PO ×2 (04:44→17:33)
[2019-01-31] MEDS: Levothyroxine 75 MCG Tablet PO (04:44)
[2019-01-31] MEDS: Pregabalin 50 MG Capsule PO ×4 (04:45→20:47)
[2019-01-31 06:36] LABS: Bedside Glucose 128 mg/dL (70-110)
[2019-01-31] MEDS: metFORMIN HCl 500 MG Tablet PO ×2 (08:05→17:32)
[2019-01-31] MEDS: Insulin Lispro 100 UNIT/ML INSULN.PEN 10 UNIT SC ×3 (08:05→17:33)
[2019-01-31] MEDS: traMADol 50 MG Tablet PO ×2 (08:10→22:12)
[2019-01-31] MEDS: Acetaminophen 500 MG Tablet 1000 MG PO ×2 (08:11→22:12)
[2019-01-31 10:50] VITALS: PULSE 81; RESP 18; O2SAT 96
[2019-01-31 11:37] VITALS: BP 126/58; PULSE 75
[2019-01-31] MEDS: Metoprolol Tartrate 25 MG Tablet PO ×2 (11:37→17:32)
[2019-01-31] MEDS: DULoxetine Hcl 60 MG Capsule PO (11:37)
[2019-01-31 11:40] VITALS: BP 126/58; PULSE 75
[2019-01-31 12:00] LABS: Bedside Glucose 248 mg/dL (70-110)
[2019-01-31 15:37] VITALS: BP 138/54; PULSE 75; RESP 16; TEMP 36.8; O2SAT 97
[2019-01-31 17:15] LABS: Bedside Glucose 219 mg/dL (70-110)
[2019-01-31 17:32] VITALS: BP 138/54; PULSE 75
[2019-01-31] MEDS: Atorvastatin Calcium 20 MG Tablet PO (20:44)
[2019-01-31] MEDS: DOXEPIN HCL 50 MG CAPSULE PO (20:45)
[2019-01-31] MEDS: oxyCODONE 5 MG Tablet 2.5 MG PO (20:48)
[2019-01-31 21:21] LABS: Bedside Glucose 187 mg/dL (70-110)
[2019-02-01 06:31] LABS: Bedside Glucose 135 mg/dL (70-110)
[2019-02-01] MEDS: Enoxaparin 40 MG/0.4 ML Syringe SC (06:59)
[2019-02-01] MEDS: Polyethylene Glycol 3350 17 GM PACKET PO (06:59)
[2019-02-01] MEDS: Menthol/Lanolin/Calamine/Znox 113 GM Tube 1 APPLIC TOPICAL ×2 (06:59→21:45)
[2019-02-01] MEDS: Senna/Docusate Sodium 1 Tablet 2 TABLET PO ×2 (07:00→17:58)
[2019-02-01] MEDS: Levothyroxine 75 MCG Tablet PO (07:00)
[2019-02-01] MEDS: Nystatin Powder 15gm Bottle 1 APPLIC TOPICAL ×2 (07:01→21:44)
[2019-02-01] MEDS: Insulin Lispro 100 UNIT/ML INSULN.PEN 10 UNIT SC ×3 (07:03→17:58)
[2019-02-01] MEDS: Pregabalin 50 MG Capsule PO ×4 (07:05→21:41)
[2019-02-01] MEDS: metFORMIN HCl 500 MG Tablet PO ×2 (08:07→17:58)
[2019-02-01] MEDS: Acetaminophen 500 MG Tablet 1000 MG PO ×2 (08:12→16:00)
[2019-02-01] MEDS: oxyCODONE 5 MG Tablet 2.5 MG PO ×3 (08:13→21:41)
[2019-02-01 11:21] LABS: Bedside Glucose 248 mg/dL (70-110)
[2019-02-01] MEDS: DULoxetine Hcl 60 MG Capsule PO (11:43)
[2019-02-01 11:45] VITALS: BP 126/59; PULSE 76
[2019-02-01] MEDS: Metoprolol Tartrate 25 MG Tablet PO ×2 (11:45→17:58)
[2019-02-01 15:45] VITALS: BP 114/49; PULSE 69; RESP 16; TEMP 37.1; O2SAT 96
[2019-02-01 16:20] LABS: Thyroid Stim Hormone (TSH) 2.89 uIU/mL (0.358-3.74)
[2019-02-01 16:22] LABS: Hemoglobin A1c 9.1 % (4.2-6.3)
[2019-02-01 17:10] LABS: Bedside Glucose 181 mg/dL (70-110)
[2019-02-01 17:58] VITALS: PULSE 69
[2019-02-01 21:16] LABS: Bedside Glucose 235 mg/dL (70-110)
[2019-02-01] MEDS: Atorvastatin Calcium 20 MG Tablet PO (21:42)
[2019-02-01] MEDS: DOXEPIN HCL 50 MG CAPSULE PO (21:42)
[2019-02-02] MEDS: traMADol 50 MG Tablet PO (01:16)
--- NOTE | 2019-02-02 01:20 | NURSING ---
Assisted pt from BSC to bed. Reminded pt several times she is heel weight bearing only to LT foot. Pt non-compliant.
[2019-02-02] MEDS: Pregabalin 50 MG Capsule PO ×3 (05:55→21:06)
[2019-02-02] MEDS: Levothyroxine 75 MCG Tablet PO (05:55)
[2019-02-02 06:21] LABS: Bedside Glucose 132 mg/dL (70-110)
[2019-02-02 11:06] LABS: Bedside Glucose 201 mg/dL (70-110)
[2019-02-02 11:54] VITALS: BP 131/62; PULSE 74
[2019-02-02] MEDS: Metoprolol Tartrate 25 MG Tablet PO ×2 (11:54→18:08)
--- NOTE | 2019-02-02 13:00 | NURSING ---
pt off unit to surgery at this time via bed.
[2019-02-02 16:00] VITALS: BP 159/75; PULSE 79; RESP 16; TEMP 36.9; O2SAT 95
--- NOTE | 2019-02-02 17:52 | NURSING ---
PACU called report, pt will return shortly. pt denies pain or nausea. NWB, keep drsg clean & dry. DR kent will follow on TCU
--- NOTE | 2019-02-02 17:55 | NURSING ---
PT back to floor via bed.
[2019-02-02 18:08] VITALS: BP 159/75; PULSE 79
[2019-02-02] MEDS: Senna/Docusate Sodium 1 Tablet 2 TABLET PO (18:08)
[2019-02-02] MEDS: DULoxetine Hcl 60 MG Capsule PO (18:08)
[2019-02-02] MEDS: metFORMIN HCl 500 MG Tablet PO (18:09)
[2019-02-02] MEDS: Atorvastatin Calcium 20 MG Tablet PO (20:56)
[2019-02-02] MEDS: Nystatin Powder 15gm Bottle 1 APPLIC TOPICAL (20:56)
[2019-02-02] MEDS: DOXEPIN HCL 50 MG CAPSULE PO (20:56)
[2019-02-02] MEDS: Menthol/Lanolin/Calamine/Znox 113 GM Tube 1 APPLIC TOPICAL (20:56)
[2019-02-02] MEDS: oxyCODONE 5 MG Tablet 2.5 MG PO (21:06)
[2019-02-02 21:16] LABS: Bedside Glucose 265 mg/dL (70-110)
--- NOTE | 2019-02-02 21:28 | PCA ---
This DOOR CAPTAIN offered pm care and to wash up patient. She stated I have been through too much today and would like to be left alone. Desi care and skin care was completed.
[2019-02-03] MEDS: Senna/Docusate Sodium 1 Tablet 2 TABLET PO ×2 (03:57→17:39)
[2019-02-03] MEDS: traMADol 50 MG Tablet PO ×3 (03:57→21:24)
[2019-02-03] MEDS: Polyethylene Glycol 3350 17 GM PACKET PO (03:57)
[2019-02-03] MEDS: Nystatin Powder 15gm Bottle 1 APPLIC TOPICAL ×2 (03:58→21:26)
[2019-02-03] MEDS: Menthol/Lanolin/Calamine/Znox 113 GM Tube 1 APPLIC TOPICAL ×2 (03:58→21:26)
[2019-02-03] MEDS: Enoxaparin 40 MG/0.4 ML Syringe SC (04:03)
[2019-02-03] MEDS: Pregabalin 50 MG Capsule PO ×4 (04:03→21:24)
[2019-02-03] MEDS: Levothyroxine 75 MCG Tablet PO (04:05)
[2019-02-03 06:31] LABS: Bedside Glucose 218 mg/dL (70-110)
[2019-02-03] MEDS: metFORMIN HCl 500 MG Tablet PO ×2 (08:54→17:41)
[2019-02-03] MEDS: oxyCODONE 5 MG Tablet 2.5 MG PO (08:54)
[2019-02-03] MEDS: Insulin Lispro 100 UNIT/ML INSULN.PEN 10 UNIT SC ×3 (08:57→17:38)
[2019-02-03 10:00] VITALS: PULSE 86; O2SAT 95
[2019-02-03 11:25] LABS: Bedside Glucose 267 mg/dL (70-110)
[2019-02-03 12:46] VITALS: BP 131/68; PULSE 87
[2019-02-03] MEDS: DULoxetine Hcl 60 MG Capsule PO (12:46)
[2019-02-03] MEDS: Metoprolol Tartrate 25 MG Tablet PO ×2 (12:46→17:39)
[2019-02-03 15:24] VITALS: BP 146/64; PULSE 74; RESP 16; TEMP 37.6; O2SAT 94
[2019-02-03 16:51] LABS: Bedside Glucose 244 mg/dL (70-110)
[2019-02-03 17:39] VITALS: BP 146/64; PULSE 74
[2019-02-03 21:06] LABS: Bedside Glucose 260 mg/dL (70-110)
[2019-02-03] MEDS: DOXEPIN HCL 50 MG CAPSULE PO (21:25)
[2019-02-03] MEDS: Atorvastatin Calcium 20 MG Tablet PO (21:25)
[2019-02-04] MEDS: Pregabalin 50 MG Capsule PO ×4 (05:17→21:48)
[2019-02-04] MEDS: Levothyroxine 75 MCG Tablet PO (05:17)
[2019-02-04] MEDS: Senna/Docusate Sodium 1 Tablet 2 TABLET PO ×2 (05:17→18:00)
[2019-02-04] MEDS: Nystatin Powder 15gm Bottle 1 APPLIC TOPICAL ×2 (05:18→21:49)
[2019-02-04] MEDS: Menthol/Lanolin/Calamine/Znox 113 GM Tube 1 APPLIC TOPICAL ×2 (05:18→21:49)
[2019-02-04] MEDS: Enoxaparin 40 MG/0.4 ML Syringe SC (05:18)
[2019-02-04 06:51] LABS: Bedside Glucose 148 mg/dL (70-110)
[2019-02-04] MEDS: metFORMIN HCl 500 MG Tablet PO ×2 (08:22→17:59)
[2019-02-04] MEDS: Insulin Lispro 100 UNIT/ML INSULN.PEN 10 UNIT SC ×3 (08:22→17:57)
[2019-02-04] MEDS: 0.9% Saline Lock 10 ML Syringe IV (09:27)
--- NOTE | 2019-02-04 09:35 | NURSING ---
PT COMPLAINED OF HER RIGHT EAR HURTING. SEEN HER EAR WAS RED. ASKED PT ABOUT IT AND PT STATED SHE ALWAYS LIES WITH HER HEAD TURNED TO RIGHT. PLACED DUODERM TO AREA. IV FLUSHED, PT TOLERATED WELL. REPORTED TO MEETA GEORGE
[2019-02-04] MEDS: traMADol 50 MG Tablet PO (10:36)
[2019-02-04 10:56] LABS: Bedside Glucose 203 mg/dL (70-110)
[2019-02-04 11:53] VITALS: BP 128/66; PULSE 80
[2019-02-04] MEDS: Metoprolol Tartrate 25 MG Tablet PO ×2 (11:53→18:00)
[2019-02-04] MEDS: DULoxetine Hcl 60 MG Capsule PO (11:56)
[2019-02-04 15:55] VITALS: BP 150/73; PULSE 76; RESP 16; TEMP 36.9; O2SAT 96
[2019-02-04 16:50] LABS: Bedside Glucose 158 mg/dL (70-110)
[2019-02-04 18:00] VITALS: BP 150/73; PULSE 76
[2019-02-04 21:41] LABS: Bedside Glucose 162 mg/dL (70-110)
[2019-02-04] MEDS: DOXEPIN HCL 50 MG CAPSULE PO (21:48)
[2019-02-04] MEDS: Atorvastatin Calcium 20 MG Tablet PO (21:48)
--- NOTE | 2019-02-04 21:55 | NURSING ---
Dr. Mcknight updated on blood sugar being 162 and order for 40 units of Lantus to be given. New order to decrease Lantus to 30units QHS.
[2019-02-05] MEDS: Menthol/Lanolin/Calamine/Znox 113 GM Tube 1 APPLIC TOPICAL ×2 (04:58→21:32)
[2019-02-05] MEDS: Senna/Docusate Sodium 1 Tablet 2 TABLET PO ×2 (04:59→17:32)
[2019-02-05] MEDS: Nystatin Powder 15gm Bottle 1 APPLIC TOPICAL ×2 (04:59→21:37)
[2019-02-05] MEDS: Enoxaparin 40 MG/0.4 ML Syringe SC (04:59)
[2019-02-05] MEDS: Levothyroxine 75 MCG Tablet PO (04:59)
[2019-02-05] MEDS: Pregabalin 50 MG Capsule PO ×4 (05:05→21:40)
[2019-02-05 06:31] LABS: Bedside Glucose 183 mg/dL (70-110)
[2019-02-05] MEDS: Insulin Lispro 100 UNIT/ML INSULN.PEN 10 UNIT SC ×3 (08:41→17:33)
[2019-02-05] MEDS: metFORMIN HCl 500 MG Tablet PO ×2 (08:43→17:33)
[2019-02-05] MEDS: traMADol 50 MG Tablet PO (08:54)
[2019-02-05] MEDS: Acetaminophen 500 MG Tablet 1000 MG PO (08:54)
[2019-02-05 10:30] VITALS: PULSE 82; RESP 18; O2SAT 94
[2019-02-05 11:01] LABS: Bedside Glucose 309 mg/dL (70-110)
[2019-02-05] MEDS: DULoxetine Hcl 60 MG Capsule PO (11:12)
[2019-02-05 11:19] VITALS: BP 139/65; PULSE 80
[2019-02-05] MEDS: Metoprolol Tartrate 25 MG Tablet PO ×2 (11:19→17:32)
[2019-02-05 11:20] VITALS: BP 139/65; PULSE 80
--- NOTE | 2019-02-05 14:50 | PN_ITS ---
Subjective: Resident seen in room. She is sitting with her legs elevated. She feels well and is happy with her progress. She has low back pain, but her pain medications are helpful. She had 1st metatarsal phalangeal joint arthroplasty left foot 02/02/[address] Ruiz. She may need further surgery next week. Vitals/I&O's: Vital Signs Temp Pulse Resp BP Pulse Ox 98.4 F 80 18 139/65 H 94 02/04/19 15:55 02/05/19 11:20 02/05/19 10:30 02/05/19 11:20 02/05/19 10:30 Oxygen Delivery Method Room Air Weight: 87.713 kg Body Mass Index (BMI) 32.8 Intake and Output for Last 24 Hours 02/03/19 02/04/19 02/05/19 23:59 23:59 23:59 Intake Total 840 / 840 870 / 870 510 / 510 Balance 840 / 840 870 / 870 510 / 510 Laboratory Results 02/04/19 16:42: POC Glucose 158 H 02/04/19 21:36: POC Glucose 162 H 02/05/19 06:25: POC Glucose 183 H 02/05/19 10:56: POC Glucose 309 H Past Medical History Past Medical History (Chronic Problems): Chronic Problems Alzheimer disease (Chronic) Diabetic foot ulcer (Chronic) Body mass index (bmi) 33.0-33.9, adult (Chronic) Bunion, left (Chronic) Diabetic polyneuropathy (Chronic) Hypertension (Chronic) 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) Vitamin D deficiency (Chronic) Chronic pain (Chronic) Opioid dependence (Chronic) Chronic back pain (Chronic) Chronic pain of right lower extremity (Chronic) radicular Type II diabetes mellitus (Chronic) HLD (hyperlipidemia) (Chronic) Foot drop, right foot (Chronic) Hypothyroidism (Chronic) Dementia (Chronic) Muscle paresis (Chronic) R leg Allergies Iodine and Iodide Containing Produc Allergy (Verified 02/02/19 14:09) Rash venom-honey bee [bee venom (honey bee)] Allergy (Verified 02/02/19 14:09) Swelling Home Medications: Ambulatory Orders Medication Instructions Recorded Ergocalciferol [Vitamin D] 50,000 unit PO SUWE 06/28/14 Simvastatin 20 mg PO QHS 06/28/14 Duloxetine Hcl [Cymbalta] 40 mg PO LUNCH 01/11/19 Insulin Degludec [Tresiba] 50 unit SQ DAILY 01/11/19 Levothyroxine [Synthroid] 75 mcg PO DAILY@0600 01/11/19 Metformin HCl 500 mg PO BID 01/11/19 Metoprolol Tartrate [Lopressor 25 mg PO 1200,1800 01/11/19 (beta blayne)] Quetiapine Fumarate [Seroquel] 25 mg PO QHS 01/11/19 Pregabalin [Lyrica] 50 mg PO 4X/DAY 4 Days #14 cap 01/15/19 Surgical History: - - Left bunionectomy. 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 Lives: Spouse/ Significant Other Smoking Status: Never smoker Tobacco Use: Non-smoker Alcohol: None Drugs: None - *Family History Paternal History Items: No pertinent history Sibling History Items: Diabetes Capacity - Capacity Assessment Tool Can the patient make a choice & communicate that choice?: Yes Can the patient understand benefits, risks and alternatives?: Yes Can the patient make a logical, rational choice?: Yes Is the choice the patient makes consistent w/ their values?: Yes Is there an impending, emergent risk to the patient?: No Does the patient have an Advance Directive?: Yes Is there a Surrogate Available?: Yes i.e. HCPOA: Yes i.e. close relative (spouse, child, parent, sibling)?: Yes Review of Systems Constitutional: Denies: Chills, Fever, Weight Change HEENT: Denies: Head Aches, Sinus Congestion, Sinus Drainage Cardiovascular: Denies: Chest Pain, Palpitations Respiratory: Denies: Cough, Shortness of breath at rest, Sputum production Gastrointestinal: Denies: Abdominal Pain, Nausea, Vomiting Genitourinary: Denies: Dysuria Musculoskeletal: Denies: Joint Pain, Joint Tenderness Skin: Denies: Rash, Wounds Neurological: Denies: Numbness, Tingling, Focal weakness Psychiatric: Denies: Anxiety, Depression, Homicidal Ideations, Suicidal Ideations Hematologic/ Lymphatic: Denies: Easy Bruising, Easy Bleeding Patient Problems: Active and Suspected Problems Bunion, right foot (Acute) Debility (Acute) - Physical Exam Vitals/I&O's: Vital Signs Temp Pulse Resp BP Pulse Ox 98.4 F 80 18 139/65 H 94 02/04/19 15:55 02/05/19 11:20 02/05/19 10:30 02/05/19 11:20 02/05/19 10:30 Oxygen Delivery Method Room Air Weight: 87.713 kg Body Mass Index (BMI) 32.8 Intake and Output for Last 24 Hours 02/03/19 02/04/19 02/05/19 23:59 23:59 23:59 Intake Total 840 / 840 870 / 870 510 / 510 Balance 840 / 840 870 / 870 510 / 510 General: Alert, Oriented x3, Cooperative HEENT: Atraumatic, PERRLA, EOMI, Normocephalic Neck: Supple, No JVD, Negative Carotid Bruits Lungs: Clear to auscultation, Normal air movement Cardiovascular: Regular rate, No murmurs Abdomen: Bowel Sounds Present, Soft, Non Tender Extremities: No edema, Capillary Refill Less than 3 Seconds, - - Left lower extremity dressed. Skin: No rashes, No breakdown Musculoskeletal: No Tenderness to Palpation of Joints or Extremities Neurological: Cranial nerves II-XII grossly intact Psych/Mental Status: Normal Affect, Appropriate Laboratory Results 02/04/19 16:42: POC Glucose 158 H 02/04/19 21:36: POC Glucose 162 H 02/05/19 06:25: POC Glucose 183 H 02/05/19 10:56: POC Glucose 309 H Current Medications Acetaminophen (Tylenol) 1,000 mg PO Q6H PRN PRN PRN Reason: Pain Score 1-3/10 Last Admin: 02/05/19 08:54 Dose: 1,000 mg Documented by: Atorvastatin Calcium (Lipitor) 20 mg PO QHS LOR Last Admin: 02/04/19 21:48 Dose: 20 mg Documented by: Bisacodyl (Dulcolax) 10 mg PO DAILY PRN PRN Reason: Constipation Last Admin: 01/17/19 05:41 Dose: 10 mg Documented by: Calamine/Phenol (Calmoseptine Ointment) 1 applic TOPICAL 0600,2200 [facility]; Protocol Last Admin: 02/05/19 04:58 Dose: 1 applicatio Documented by: Dextrose (D50w Syringe) 0 gm IV X1 PRN; Protocol PRN Reason: Hypoglycemia Doxepin HCl (Doxepin Hcl) 50 mg PO QHS [facility] Last Admin: 02/04/19 21:48 Dose: 50 mg Documented by: Duloxetine HCl (Cymbalta) 60 mg PO LUNCH [facility] Last Admin: 02/05/19 11:12 Dose: 60 mg Documented by: Enoxaparin Sodium (Lovenox) 40 mg SC DAILY@0600 [facility] Last Admin: 02/05/19 04:59 Dose: 40 mg Documented by: Ergocalciferol (Vitamin D) 50,000 unit PO SUWE [facility] Last Admin: 02/03/19 11:57 Dose: 50,000 unit Documented by: Glucagon () 1 mg IM .X1 PRN PRN Reason: Hypoglycemia Insulin Glargine (Lantus (Bkc)) 40 units SC QHS [facility] Insulin Human Lispro (Humalog Kwikpen (Bk)) 10 unit SC TIDAC [facility] Last Admin: 02/05/19 11:12 Dose: 10 u Documented by: Levothyroxine Sodium (Synthroid) 75 mcg PO DAILY@0600 [facility] Last Admin: 02/05/19 04:59 Dose: 75 mcg Documented by: Lorazepam (Ativan) 0.5 mg PO Q4H PRN PRN PRN Reason: ANXIETY Last Admin: 01/26/19 20:02 Dose: 0.5 mg Documented by: Metformin HCl (Glucophage) 500 mg PO BIDCM [facility] Last Admin: 02/05/19 08:43 Dose: 500 mg Documented by: Metoprolol Tartrate (Lopressor (Beta Blayne)) 25 mg PO 1200,1800 [facility] Last Admin: 02/05/19 11:19 Dose: 25 mg Documented by: Non-Formulary ( Meloxicam/Lidocaine/Lamotrigine/Prilocaine) 1 applicatio TOPICAL 4X/DAY PRN PRN PRN Reason: leg pain Last Admin: 01/27/19 21:29 Dose: 1 applicatio Documented by: Nutritional Formula (Bull - [place] Flavor) 1 packet PO BIDCM [facility] Last Admin: 02/05/19 08:45 Dose: 1 packet Documented by: Nystatin (Mycostatin Powder) 1 applic TOPICAL 0600,2200 [facility]; Protocol Last Admin: 02/05/19 04:59 Dose: 1 applicatio Documented by: Oxycodone HCl (Oxyir) 2.5 mg PO Q4H PRN PRN PRN Reason: Pain Score 6-10/10 Last Admin: 02/03/19 08:54 Dose: 2.5 mg Documented by: Polyethylene Glycol (Miralax) 17 gm PO DAILY [facility] Last Admin: 02/05/19 04:59 Dose: Not Given Documented by: Pregabalin (Lyrica) 50 mg PO 4X/DAY [facility] Last Admin: 02/05/19 11:16 Dose: 50 mg Documented by: Senna/Docusate Sodium (Senokot-S, Desi-Colace) 2 tablet PO BID [facility] Last Admin: 02/05/19 04:59 Dose: 2 tablet Documented by: Sodium Chloride () 10 - 40 ml IV UD PRN PRN Reason: SALINE FLUSH Last Admin: 02/04/19 09:27 Dose: 10 ml Documented by: Tramadol HCl (Ultram) 50 mg PO Q6H PRN PRN PRN Reason: Pain Score 4-5/10 Last Admin: 02/05/19 08:54 Dose: 50 mg Documented by: Assessment/Plan All Active Problems Bunion, right foot (Acute) Neuropathic foot ulcer (Acute) Debility (Acute) Syncope and collapse (Acute) Urinary tract infection with pyuria (Acute) 78 year old female with below past medical history hospitalized for bunionectomy left first metatarsal phalangeal joint 01/15/[address] Ruiz, admitted to TCU with debility, here for rehabilitation, strengthening, prior to discharge home with . * Debility - PT/OT. * Pain - Tylenol 1000MG Q6H PRN pain (1-3), Tramadol 50MG Q6H PRN pain (4-5), Oxycodone 2.5MG Q4H PRN pain (6-10) * Bowel - Miralax 17GM daily, Senna/colace 2 tablets BID, Dulcolax 10MG daily PRN. * Adult immunization - Prevnar 13, Pneumovax 23, Flu vaccination as necessary. * DVT prophylaxis - Lovenox 40MG SC daily. * Diabetic polyneuropathy - Lyrica 50MG 4x/day, Duloxetine 40MG daily, Meloxicam/Lidocaine topical 4x/day PRN. * Vitamin D deficiency - D2 50,000 units 2x/week. * Diabetes Mellitus II - Metformin 500MG BID, Lantus 40 units QHS, Humalog 10 units TIDAC. * Hypothyroidism - Levothyroxine 75MCG daily. * Hypertension - Metoprolol 25MG BID. * Nutrition - Bull 1 packet BID. * Hyperlipidemia - Atorvastatin 20MG QHS. * Insomnia - Doxepin 50MG QHS. * Skin irritation - Calmoseptine BID. * Tinea Corporis - Nystatin powder.
[2019-02-05 15:42] VITALS: BP 123/63; PULSE 64; RESP 16; TEMP 36.6; O2SAT 95
[2019-02-05 16:56] LABS: Bedside Glucose 195 mg/dL (70-110)
[2019-02-05 17:32] VITALS: BP 123/63; PULSE 64
[2019-02-05] MEDS: oxyCODONE 5 MG Tablet 2.5 MG PO (17:34)
--- NOTE | 2019-02-05 17:45 | NURSING ---
Dr Ruiz here olesya, changed mago.
--- NOTE | 2019-02-05 19:25 | NURSING ---
Report recieved from Maya TIM. Pt in bed resting with eyes closed. No s/s distress.
--- NOTE | 2019-02-05 19:37 | PCM.PROGNOTE ---
Patient Problems: Active and Suspected Problems Bunion, right foot (Acute) Debility (Acute) Subjective: Patient was seen today for follow up on left foot. She was sitting up in chair with feet elevated. No complaints of pain to the foot. - Physical Exam Vitals/I&O's: Vital Signs Temp Pulse Resp BP Pulse Ox 97.9 F 64 16 123/63 H 95 02/05/19 15:42 02/05/19 17:32 02/05/19 15:42 02/05/19 17:32 02/05/19 15:42 Oxygen Delivery Method Room Air Weight: 87.713 kg Body Mass Index (BMI) 32.8 Intake and Output for Last 24 Hours 02/03/19 02/04/19 02/05/19 23:59 23:59 23:59 Intake Total 840 / 840 870 / 870 660 / 660 Balance 840 / 840 870 / 870 660 / 660 General: Alert, Cooperative, No apparent distress Extremities: - - Left foot s/p bunionectomy and 1st MTPJ arthroplasty with pin intact, incision site healing well with sutures intact, no evidence of complication, no evidence of infection. There is some ecchymosis and edema to the left foot c/w normal post op course. No evidence of pin loosening or failure. Hallux in rectus position. Vascular status intact to the left foot/ankle. Laboratory Results 02/04/19 21:36: POC Glucose 162 H 02/05/19 06:25: POC Glucose 183 H 02/05/19 10:56: POC Glucose 309 H 02/05/19 16:51: POC Glucose 195 H Current Medications Acetaminophen (Tylenol) 1,000 mg PO Q6H PRN PRN PRN Reason: Pain Score 1-3/10 Last Admin: 02/05/19 08:54 Dose: 1,000 mg Documented by: Atorvastatin Calcium (Lipitor) 20 mg PO QHS LOR Last Admin: 02/04/19 21:48 Dose: 20 mg Documented by: Bisacodyl (Dulcolax) 10 mg PO DAILY PRN PRN Reason: Constipation Last Admin: 01/17/19 05:41 Dose: 10 mg Documented by: Calamine/Phenol (Calmoseptine Ointment) 1 applic TOPICAL 0600,2200 [facility]; Protocol Last Admin: 02/05/19 04:58 Dose: 1 applicatio Documented by: Dextrose (D50w Syringe) 0 gm IV X1 PRN; Protocol PRN Reason: Hypoglycemia Doxepin HCl (Doxepin Hcl) 50 mg PO QHS [facility] Last Admin: 02/04/19 21:48 Dose: 50 mg Documented by: Duloxetine HCl (Cymbalta) 60 mg PO LUNCH [facility] Last Admin: 02/05/19 11:12 Dose: 60 mg Documented by: Enoxaparin Sodium (Lovenox) 40 mg SC DAILY@0600 [facility] Last Admin: 02/05/19 04:59 Dose: 40 mg Documented by: Ergocalciferol (Vitamin D) 50,000 unit PO SUWE [facility] Last Admin: 02/03/19 11:57 Dose: 50,000 unit Documented by: Glucagon () 1 mg IM .X1 PRN PRN Reason: Hypoglycemia Insulin Glargine (Lantus (Bkc)) 40 units SC QHS [facility] Insulin Human Lispro (Humalog Kwikpen ([facility])) 10 unit SC TIDAC [facility] Last Admin: 02/05/19 17:33 Dose: 10 u Documented by: Levothyroxine Sodium (Synthroid) 75 mcg PO DAILY@0600 [facility] Last Admin: 02/05/19 04:59 Dose: 75 mcg Documented by: Metformin HCl (Glucophage) 500 mg PO BIDCM [facility] Last Admin: 02/05/19 17:33 Dose: 500 mg Documented by: Metoprolol Tartrate (Lopressor (Beta Blayne)) 25 mg PO 1200,1800 [facility] Last Admin: 02/05/19 17:32 Dose: 25 mg Documented by: Non-Formulary ( Meloxicam/Lidocaine/Lamotrigine/Prilocaine) 1 applicatio TOPICAL 4X/DAY PRN PRN PRN Reason: leg pain Last Admin: 01/27/19 21:29 Dose: 1 applicatio Documented by: Nutritional Formula (Bull - [place] Flavor) 1 packet PO BIDCM [facility] Last Admin: 02/05/19 17:32 Dose: 1 packet Documented by: Nystatin (Mycostatin Powder) 1 applic TOPICAL 0600,2200 [facility]; Protocol Last Admin: 02/05/19 04:59 Dose: 1 applicatio Documented by: Oxycodone HCl (Oxyir) 2.5 mg PO Q4H PRN PRN PRN Reason: Pain Score 6-10/10 Last Admin: 02/05/19 17:34 Dose: 2.5 mg Documented by: Polyethylene Glycol (Miralax) 17 gm PO DAILY [facility] Last Admin: 02/05/19 04:59 Dose: Not Given Documented by: Pregabalin (Lyrica) 50 mg PO 4X/DAY [facility] Last Admin: 02/05/19 17:33 Dose: 50 mg Documented by: Senna/Docusate Sodium (Senokot-S, Desi-Colace) 2 tablet PO BID [facility] Last Admin: 02/05/19 17:32 Dose: 2 tablet Documented by: Sodium Chloride () 10 - 40 ml IV UD PRN PRN Reason: SALINE FLUSH Last Admin: 02/04/19 09:27 Dose: 10 ml Documented by: Tramadol HCl (Ultram) 50 mg PO Q6H PRN PRN PRN Reason: Pain Score 4-5/10 Last Admin: 02/05/19 08:54 Dose: 50 mg Documented by: Medical Necessity - Tobacco Use Smoking Status: Never smoker Tobacco Use: Non-smoker Assessment/Plan All Active Problems Bunion, right foot (Acute) Neuropathic foot ulcer (Acute) Debility (Acute) Syncope and collapse (Acute) Urinary tract infection with pyuria (Acute) s/p bunionectomy left foot due to recurrent ulceration, then revision bunionectomy arthroplasty due to toe contracture deformity Diabetes with peripheral neuropathy Changed dressing today. Site healing well, no evidence of complications. Cleansed pin with 70% isopropyl alcohol. Applied gauze, kerlix and antoinette bandage. Keep clean, dry and intact. No weightbearing on left forefoot. Keep foot elevated as well. Diabetes and other medical management per Dr. Mcknight. Podiatry will follow up with 1-2 times weekly, please call sooner if needed.
[2019-02-05 20:56] LABS: Bedside Glucose 213 mg/dL (70-110)
[2019-02-05] MEDS: Atorvastatin Calcium 20 MG Tablet PO (21:37)
[2019-02-05] MEDS: DOXEPIN HCL 50 MG CAPSULE PO (21:37)
[2019-02-06] MEDS: Menthol/Lanolin/Calamine/Znox 113 GM Tube 1 APPLIC TOPICAL ×2 (05:50→20:52)
[2019-02-06] MEDS: Pregabalin 50 MG Capsule PO ×4 (05:50→20:50)
[2019-02-06] MEDS: Enoxaparin 40 MG/0.4 ML Syringe SC (05:50)
[2019-02-06] MEDS: Levothyroxine 75 MCG Tablet PO (05:50)
[2019-02-06] MEDS: Nystatin Powder 15gm Bottle 1 APPLIC TOPICAL ×2 (05:52→20:52)
[2019-02-06 06:31] LABS: Bedside Glucose 144 mg/dL (70-110)
[2019-02-06] MEDS: Insulin Lispro 100 UNIT/ML INSULN.PEN 10 UNIT SC ×3 (08:45→17:47)
[2019-02-06] MEDS: metFORMIN HCl 500 MG Tablet PO ×2 (08:46→17:46)
[2019-02-06 11:35] LABS: Bedside Glucose 232 mg/dL (70-110)
[2019-02-06 11:56] VITALS: BP 147/70; PULSE 81
[2019-02-06] MEDS: Metoprolol Tartrate 25 MG Tablet PO ×2 (11:56→17:46)
[2019-02-06] MEDS: DULoxetine Hcl 60 MG Capsule PO (11:56)
[2019-02-06] MEDS: Acetaminophen 500 MG Tablet 1000 MG PO ×2 (11:57→17:58)
[2019-02-06 16:00] VITALS: BP 131/65; PULSE 72; RESP 16; TEMP 36.1; O2SAT 93
[2019-02-06] MEDS: traMADol 50 MG Tablet PO (16:06)
[2019-02-06 16:41] LABS: Bedside Glucose 246 mg/dL (70-110)
[2019-02-06 17:46] VITALS: BP 131/65; PULSE 72
[2019-02-06] MEDS: DOXEPIN HCL 50 MG CAPSULE PO (20:50)
[2019-02-06] MEDS: Atorvastatin Calcium 20 MG Tablet PO (20:51)
[2019-02-06 20:55] VITALS: PULSE 80; RESP 16; O2SAT 95
[2019-02-06 20:56] LABS: Bedside Glucose 207 mg/dL (70-110)
[2019-02-07] MEDS: Menthol/Lanolin/Calamine/Znox 113 GM Tube 1 APPLIC TOPICAL ×2 (05:09→19:38)
[2019-02-07] MEDS: Pregabalin 50 MG Capsule PO ×4 (05:09→19:35)
[2019-02-07] MEDS: Nystatin Powder 15gm Bottle 1 APPLIC TOPICAL ×2 (05:09→19:39)
[2019-02-07] MEDS: Enoxaparin 40 MG/0.4 ML Syringe SC (05:10)
[2019-02-07] MEDS: Senna/Docusate Sodium 1 Tablet 2 TABLET PO ×2 (05:10→17:14)
[2019-02-07] MEDS: Levothyroxine 75 MCG Tablet PO (05:10)
[2019-02-07 06:30] LABS: Bedside Glucose 156 mg/dL (70-110)
[2019-02-07] MEDS: Insulin Lispro 100 UNIT/ML INSULN.PEN 10 UNIT SC ×3 (08:46→17:59)
[2019-02-07] MEDS: metFORMIN HCl 500 MG Tablet PO ×2 (08:46→17:14)
[2019-02-07] MEDS: Acetaminophen 500 MG Tablet 1000 MG PO (08:51)
[2019-02-07 10:00] VITALS: O2SAT 95
[2019-02-07 11:01] LABS: Bedside Glucose 276 mg/dL (70-110)
[2019-02-07 11:54] VITALS: BP 151/75; PULSE 76
[2019-02-07] MEDS: DULoxetine Hcl 60 MG Capsule PO (11:54)
[2019-02-07] MEDS: Metoprolol Tartrate 25 MG Tablet PO ×2 (11:54→17:14)
[2019-02-07] MEDS: traMADol 50 MG Tablet PO (12:56)
[2019-02-07] MEDS: oxyCODONE 5 MG Tablet 2.5 MG PO (14:22)
--- NOTE | 2019-02-07 14:43 | NURSING ---
Pt c/o increased pain in right leg. States she has pain shooting from back of knee down to toes. Pt states it feels like something is chewing on her toes. No redness noted. Reported to both RN's on the unit. Jaylin TIM and Claudia RN in to assess pt.
[2019-02-07 15:03] VITALS: BP 142/64; PULSE 70; RESP 16; TEMP 36.6; O2SAT 96
[2019-02-07 17:05] LABS: Bedside Glucose 162 mg/dL (70-110)
[2019-02-07 17:14] VITALS: BP 142/64; PULSE 70
[2019-02-07] MEDS: DOXEPIN HCL 50 MG CAPSULE PO (19:35)
[2019-02-07] MEDS: Atorvastatin Calcium 20 MG Tablet PO (19:36)
[2019-02-07 21:21] LABS: Bedside Glucose 209 mg/dL (70-110)
[2019-02-08] MEDS: Acetaminophen 500 MG Tablet 1000 MG PO ×2 (00:06→15:51)
[2019-02-08] MEDS: oxyCODONE 5 MG Tablet 2.5 MG PO (00:07)
[2019-02-08] MEDS: Menthol/Lanolin/Calamine/Znox 113 GM Tube 1 APPLIC TOPICAL ×2 (05:34→20:09)
[2019-02-08] MEDS: Levothyroxine 75 MCG Tablet PO (05:35)
[2019-02-08] MEDS: Nystatin Powder 15gm Bottle 1 APPLIC TOPICAL ×2 (05:35→20:10)
[2019-02-08] MEDS: Pregabalin 50 MG Capsule PO ×4 (05:35→20:00)
[2019-02-08] MEDS: Senna/Docusate Sodium 1 Tablet 2 TABLET PO ×2 (05:35→17:07)
[2019-02-08 05:43] VITALS: PULSE 68; RESP 16; O2SAT 96
[2019-02-08 06:36] LABS: Bedside Glucose 123 mg/dL (70-110)
[2019-02-08] MEDS: Enoxaparin 40 MG/0.4 ML Syringe SC (06:45)
[2019-02-08] MEDS: traMADol 50 MG Tablet PO (07:49)
[2019-02-08] MEDS: metFORMIN HCl 500 MG Tablet PO ×2 (07:49→17:07)
[2019-02-08] MEDS: Insulin Lispro 100 UNIT/ML INSULN.PEN 10 UNIT SC ×3 (07:50→17:27)
[2019-02-08 10:19] LABS: Mucous, Urine 0 SEEN /hpf (<or=2+); Red Blood Cells-Urine 0 SEEN /hpf (0-5)
[2019-02-08 10:21] LABS: Color, Urine Yellow (Yellow); Glucose, Dipstick Normal (Normal); Ketone-Dipstick Negative (Negative); Leukocyte Esterase-Dipstick 25 /ul (Negative); Nitrite-Dipstick Negative (Negative); Occult Blood-Urine Negative /ul (Negative); Protein-Dipstick 30 mg/dl (Negative); Urine Bilirubin Dipstick Negative (Negative); Urine Clarity Sl. Cloudy (Clear); Urine Urobilinogen Normal (Normal)
[2019-02-08 10:28] LABS: Bacteria 1+ /hpf (None Seen); Squamous Epithelial Cells - UA 0-5 SEEN /hpf (5-10); White Blood Cells 0-5 SEEN /hpf (0-5)
[2019-02-08 11:10] LABS: Bedside Glucose 161 mg/dL (70-110)
[2019-02-08] MEDS: DULoxetine Hcl 60 MG Capsule PO (11:27)
[2019-02-08 11:28] VITALS: BP 135/57; PULSE 80
[2019-02-08] MEDS: Metoprolol Tartrate 25 MG Tablet PO ×2 (11:28→17:07)
[2019-02-08 11:32] VITALS: BP 135/57; PULSE 80
[2019-02-08 15:28] VITALS: BP 145/68; PULSE 67; RESP 16; TEMP 37; O2SAT 95
[2019-02-08 16:45] LABS: Bedside Glucose 138 mg/dL (70-110)
[2019-02-08 17:07] VITALS: BP 145/68; PULSE 67
[2019-02-08] MEDS: DOXEPIN HCL 50 MG CAPSULE PO (20:00)
[2019-02-08] MEDS: Atorvastatin Calcium 20 MG Tablet PO (20:00)
[2019-02-08 21:10] LABS: Bedside Glucose 155 mg/dL (70-110)
[2019-02-09] MEDS: oxyCODONE 5 MG Tablet 2.5 MG PO ×2 (02:28→22:08)
[2019-02-09] MEDS: Acetaminophen 500 MG Tablet 1000 MG PO ×2 (02:29→16:32)
[2019-02-09] MEDS: Pregabalin 50 MG Capsule PO ×4 (04:49→19:49)
[2019-02-09] MEDS: Enoxaparin 40 MG/0.4 ML Syringe SC (04:49)
[2019-02-09] MEDS: Senna/Docusate Sodium 1 Tablet 2 TABLET PO ×2 (04:49→18:06)
[2019-02-09] MEDS: Levothyroxine 75 MCG Tablet PO (04:49)
[2019-02-09] MEDS: Nystatin Powder 15gm Bottle 1 APPLIC TOPICAL ×2 (04:52→19:52)
[2019-02-09] MEDS: Menthol/Lanolin/Calamine/Znox 113 GM Tube 1 APPLIC TOPICAL ×2 (04:52→19:51)
[2019-02-09 06:30] LABS: Bedside Glucose 177 mg/dL (70-110)
[2019-02-09] MEDS: Insulin Lispro 100 UNIT/ML INSULN.PEN 10 UNIT SC ×3 (08:05→16:50)
[2019-02-09] MEDS: metFORMIN HCl 500 MG Tablet PO ×2 (08:05→16:51)
[2019-02-09 10:30] VITALS: PULSE 82; RESP 18; O2SAT 96
[2019-02-09 11:11] LABS: Bedside Glucose 279 mg/dL (70-110)
--- NOTE | 2019-02-09 11:23 | NURSING ---
Duoderm applied to right ear for reddened area.
[2019-02-09] MEDS: DULoxetine Hcl 60 MG Capsule PO (11:26)
[2019-02-09 11:27] VITALS: BP 129/72; PULSE 87
[2019-02-09] MEDS: Metoprolol Tartrate 25 MG Tablet PO ×2 (11:27→18:06)
[2019-02-09] MEDS: traMADol 50 MG Tablet PO (11:32)
--- NOTE | 2019-02-09 15:27 | CASEMGMT ---
Social Work Spoke with patient's daughter to follow up on discharge plans and provide assistance. Spoke at length with dtr as she was noticeably overwhelmed with the idea and expressed blame from her parents of putting them in a intermediate. Provided active listening and emotional support. Referenced previous conversation and tools to assist dtr in having these difficulty conversations. Discussed the cognitive impairment of pt and and the impact on the conversations and decision-making. Discussed pts current health condition as pt is a alaina lift and cannot return home at this time in that state. Offered to set up a meeting with pt, and dtr with physician and/or SW to assist in education of LTP. Dtr agreed. Will speak with physician. Dtr provided facilities for SW to refer to. Insurance update 02/15 and continued stay is not guaranteed. Discussed financial liability at a SNF - private pay or Medicaid. Dtr stated pt would not be eligible for Medicaid and would be pay privately. Referrals made to [place] and [facility]. Will continue to follow. SONDRA CasperW
[2019-02-09 15:50] VITALS: BP 149/80; PULSE 69; RESP 18; TEMP 36.6; O2SAT 96
[2019-02-09 16:45] LABS: Bedside Glucose 186 mg/dL (70-110)
[2019-02-09 18:06] VITALS: BP 130/63; PULSE 74
[2019-02-09] MEDS: Atorvastatin Calcium 20 MG Tablet PO (19:50)
[2019-02-09] MEDS: DOXEPIN HCL 50 MG CAPSULE PO (19:50)
[2019-02-09 22:05] LABS: Bedside Glucose 144 mg/dL (70-110)
[2019-02-10] MEDS: Senna/Docusate Sodium 1 Tablet 2 TABLET PO ×2 (05:34→17:07)
[2019-02-10] MEDS: Pregabalin 50 MG Capsule PO ×4 (05:34→21:32)
[2019-02-10] MEDS: Levothyroxine 75 MCG Tablet PO (05:34)
[2019-02-10] MEDS: Enoxaparin 40 MG/0.4 ML Syringe SC (05:34)
[2019-02-10] MEDS: Menthol/Lanolin/Calamine/Znox 113 GM Tube 1 APPLIC TOPICAL ×2 (05:37→21:35)
[2019-02-10] MEDS: Nystatin Powder 15gm Bottle 1 APPLIC TOPICAL ×2 (05:37→21:35)
[2019-02-10 05:51] LABS: Absolute Lymphocyte Count 3.27 X10^3/uL (0.83-4.51); Absolute Neutrophil Count 5.5 X10^3/uL (2.0-7.7); Eosinophil# 0.32 X10^3/uL; Eosinophils% 3.2 % (0-5); Hematocrit 36.2 % (37-47); Hemoglobin 11.4 g/dL (12.0-15.0); Lymphocyte # 3.27 X10^3/ul (4.0); Lymphocyte % 32.8 % (19-41); Mean Corp Hgb Conc 31.5 g/dL (32-36); Mean Corpuscular Hgb 27.7 pg (27.0-32.0); Mean Corpuscular Volume 87.9 fL (81-99); Mean Platelet Vol. 11.2 fl (6.2-12.0); Monocyte# 0.74 X10^3/uL; Monocyte% 7.4 % (0-10); NRBC Flagged by Analyzer 0 % (0-5); Neutrophil # 5.48 X10^3/uL (2.7-7.7); Neutrophil % 55.1 % (47-70); Platelet Count 233 K/mm3 (150-450); RBC Distribution Width CV 14.6 % (11.6-14.6); Red Blood Count 4.12 M/mm3 (4.2-5.4)
[2019-02-10 06:20] LABS: Anion Gap 6 (5-15); BUN 31 mg/dL (7-18); BUN/Creat Ratio 36.6 RATIO (10-20); Calcium,Total 9.8 mg/dL (8.5-10.1); Chloride 107 mmol/L (98-107); Creatinine, Serum 0.85 mg/dL (0.55-1.02); EST Glomerular Filtration Rate 69 mL/min (>60); Est Glom Filt Rate - Afr Amer 83 mL/min (>60); Estimated Creatinine Clearance 46.34 ml/min; Glucose 134 mg/dL (74-106); Sodium Level 138 mmol/L (136-145)
[2019-02-10 06:31] LABS: Bedside Glucose 148 mg/dL (70-110)
[2019-02-10] MEDS: metFORMIN HCl 500 MG Tablet PO ×2 (07:57→17:07)
[2019-02-10] MEDS: Insulin Lispro 100 UNIT/ML INSULN.PEN 10 UNIT SC ×3 (08:30→17:50)
[2019-02-10] MEDS: traMADol 50 MG Tablet PO (11:04)
[2019-02-10 11:26] LABS: Bedside Glucose 282 mg/dL (70-110)
[2019-02-10 12:15] VITALS: BP 152/79; PULSE 82
[2019-02-10] MEDS: Metoprolol Tartrate 25 MG Tablet PO ×2 (12:15→17:08)
[2019-02-10] MEDS: DULoxetine Hcl 60 MG Capsule PO (12:16)
--- NOTE | 2019-02-10 13:48 | CASEMGMT ---
Social Work [facility] does not have availability, [facility] reviewed referral but dtr requested secure Dementia unit for pt and and will eventually need [facility] - [facility] does not have Medicaid secure Dementia Unit. Spoke with dtr whom requested referrals to [facility] and [facility]. Referrals made. Physician meeting with dtr, pt and 02/15 at 6 pm. SONDRA Casper
[2019-02-10] MEDS: oxyCODONE 5 MG Tablet 2.5 MG PO ×2 (14:58→22:58)
[2019-02-10 15:32] VITALS: BP 141/93; PULSE 85; RESP 16; TEMP 36.4; O2SAT 95
[2019-02-10 16:45] LABS: Bedside Glucose 185 mg/dL (70-110)
[2019-02-10 17:08] VITALS: BP 141/93; PULSE 85
[2019-02-10 21:05] LABS: Bedside Glucose 211 mg/dL (70-110)
[2019-02-10] MEDS: DOXEPIN HCL 50 MG CAPSULE PO (21:32)
[2019-02-10] MEDS: Atorvastatin Calcium 20 MG Tablet PO (21:32)
[2019-02-11] MEDS: Enoxaparin 40 MG/0.4 ML Syringe SC (05:00)
[2019-02-11] MEDS: Levothyroxine 75 MCG Tablet PO (05:00)
[2019-02-11] MEDS: Pregabalin 50 MG Capsule PO ×4 (05:00→20:46)
[2019-02-11] MEDS: Menthol/Lanolin/Calamine/Znox 113 GM Tube 1 APPLIC TOPICAL ×2 (05:00→20:45)
[2019-02-11] MEDS: Nystatin Powder 15gm Bottle 1 APPLIC TOPICAL ×2 (05:01→20:47)
[2019-02-11 06:21] LABS: Bedside Glucose 199 mg/dL (70-110)
[2019-02-11] MEDS: Insulin Lispro 100 UNIT/ML INSULN.PEN 10 UNIT SC ×3 (07:55→17:12)
[2019-02-11] MEDS: metFORMIN HCl 500 MG Tablet PO ×2 (07:55→17:12)
[2019-02-11] MEDS: Acetaminophen 500 MG Tablet 1000 MG PO (07:57)
[2019-02-11] MEDS: traMADol 50 MG Tablet PO ×2 (07:57→17:15)
[2019-02-11 09:45] VITALS: PULSE 86; RESP 18; O2SAT 96
[2019-02-11 11:15] LABS: Bedside Glucose 254 mg/dL (70-110)
[2019-02-11] MEDS: DULoxetine Hcl 60 MG Capsule PO (11:23)
[2019-02-11 11:24] VITALS: BP 126/75; PULSE 85
[2019-02-11] MEDS: Metoprolol Tartrate 25 MG Tablet PO ×2 (11:24→17:12)
[2019-02-11 11:27] VITALS: BP 126/75; PULSE 85
[2019-02-11 15:42] VITALS: BP 127/58; PULSE 64; RESP 16; TEMP 36.4; O2SAT 95
[2019-02-11 16:50] LABS: Bedside Glucose 202 mg/dL (70-110)
[2019-02-11] MEDS: Senna/Docusate Sodium 1 Tablet 2 TABLET PO (17:11)
[2019-02-11 17:12] VITALS: BP 127/58; PULSE 64
[2019-02-11] MEDS: DOXEPIN HCL 50 MG CAPSULE PO (20:46)
[2019-02-11] MEDS: Atorvastatin Calcium 20 MG Tablet PO (20:46)
[2019-02-11 21:05] LABS: Bedside Glucose 287 mg/dL (70-110)
[2019-02-12] MEDS: oxyCODONE 5 MG Tablet 2.5 MG PO (00:29)
[2019-02-12] MEDS: Menthol/Lanolin/Calamine/Znox 113 GM Tube 1 APPLIC TOPICAL ×2 (05:50→20:14)
[2019-02-12] MEDS: Enoxaparin 40 MG/0.4 ML Syringe SC (05:50)
[2019-02-12] MEDS: Nystatin Powder 15gm Bottle 1 APPLIC TOPICAL ×2 (05:51→20:23)
[2019-02-12] MEDS: Pregabalin 50 MG Capsule PO ×4 (05:51→21:25)
[2019-02-12] MEDS: Levothyroxine 75 MCG Tablet PO (05:52)
[2019-02-12 06:45] LABS: Bedside Glucose 227 mg/dL (70-110)
[2019-02-12] MEDS: Insulin Lispro 100 UNIT/ML INSULN.PEN 10 UNIT SC ×3 (08:17→17:40)
[2019-02-12] MEDS: metFORMIN HCl 500 MG Tablet PO ×2 (08:18→17:40)
[2019-02-12] MEDS: traMADol 50 MG Tablet PO ×2 (10:37→20:14)
[2019-02-12 10:46] LABS: Bedside Glucose 272 mg/dL (70-110)
[2019-02-12 12:28] VITALS: BP 158/75; PULSE 86
[2019-02-12] MEDS: Metoprolol Tartrate 25 MG Tablet PO ×2 (12:28→17:40)
[2019-02-12] MEDS: DULoxetine Hcl 60 MG Capsule PO (12:28)
--- NOTE | 2019-02-12 14:03 | NURSING ---
Dr Ruiz in at this time and changed dressing to left foot.
[2019-02-12 16:00] VITALS: BP 128/59; PULSE 64; RESP 16; TEMP 36.8; O2SAT 95
--- NOTE | 2019-02-12 16:20 | PCM.PROGNOTE ---
Patient Problems: Active and Suspected Problems Bunion, right foot (Acute) Debility (Acute) Subjective: Patient was seen today for follow up on left foot. She has no complaints. She was resting comfortably in bed. - Physical Exam Vitals/I&O's: Vital Signs Temp Pulse Resp BP Pulse Ox 97.5 F L 86 16 158/75 H 95 02/11/19 15:42 02/12/19 12:28 02/11/19 15:42 02/12/19 12:28 02/11/19 15:42 Oxygen Delivery Method Room Air Weight: 86.239 kg Body Mass Index (BMI) 32.8 Intake and Output for Last 24 Hours 02/10/19 02/11/19 02/12/19 23:59 23:59 23:59 Intake Total 1020 / 1020 960 / 960 600 / 600 Balance 1020 / 1020 960 / 960 600 / 600 General: Alert, Oriented x3, Cooperative, No apparent distress Extremities: Capillary Refill Less than 3 Seconds, No Calf Tenderness, - - Left foot s/p bunionectomy and 1st MTPJ arthroplasty with pin intact, incision site healing well with sutures intact, no evidence of complication, no evidence of infection, resoled ecchymosis and minimal edema to the left foot c/w normal post op course. No evidence of pin loosening or failure. Hallux in rectus position. Vascular status intact to the left foot/ankle. Microbiology Past 72 Hours 02/08/19 10:05 Urine Catheter - Catheter Urine Culture - Final Aerococcus viridans. Yeast Like Organism Laboratory Results 02/11/19 16:32: POC Glucose 202 H 02/11/19 20:53: POC Glucose 287 H 02/12/19 06:20: POC Glucose 227 H 02/12/19 10:32: POC Glucose 272 H Current Medications Acetaminophen (Tylenol) 1,000 mg PO Q6H PRN PRN PRN Reason: Pain Score 1-3/10 Last Admin: 02/11/19 07:57 Dose: 1,000 mg Documented by: Atorvastatin Calcium (Lipitor) 20 mg PO QHS LOR Last Admin: 02/11/19 20:46 Dose: 20 mg Documented by: Bisacodyl (Dulcolax) 10 mg PO DAILY PRN PRN Reason: Constipation Last Admin: 01/17/19 05:41 Dose: 10 mg Documented by: Calamine/Phenol (Calmoseptine Ointment) 1 applic TOPICAL 0600,2200 [facility]; Protocol Last Admin: 02/12/19 05:50 Dose: 1 applicatio Documented by: Dextrose (D50w Syringe) 0 gm IV X1 PRN; Protocol PRN Reason: Hypoglycemia Doxepin HCl (Doxepin Hcl) 50 mg PO QHS [facility] Last Admin: 02/11/19 20:46 Dose: 50 mg Documented by: Duloxetine HCl (Cymbalta) 60 mg PO LUNCH [facility] Last Admin: 02/12/19 12:28 Dose: 60 mg Documented by: Enoxaparin Sodium (Lovenox) 40 mg SC DAILY@0600 [facility] Last Admin: 02/12/19 05:50 Dose: 40 mg Documented by: Ergocalciferol (Vitamin D) 50,000 unit PO SUWE [facility] Last Admin: 02/10/19 11:02 Dose: 50,000 unit Documented by: Glucagon () 1 mg IM .X1 PRN PRN Reason: Hypoglycemia Insulin Glargine (Lantus (Bkc)) 30 units SC QHS [facility] Last Admin: 02/11/19 20:53 Dose: 30 units Documented by: Insulin Human Lispro (Humalog Kwikpen (Bkc)) 10 unit SC TIDAC [facility] Last Admin: 02/12/19 12:27 Dose: 10 u Documented by: Levothyroxine Sodium (Synthroid) 75 mcg PO DAILY@0600 [facility] Last Admin: 02/12/19 05:52 Dose: 75 mcg Documented by: Metformin HCl (Glucophage) 500 mg PO BIDCM [facility] Last Admin: 02/12/19 08:18 Dose: 500 mg Documented by: Metoprolol Tartrate (Lopressor (Beta Blayne)) 25 mg PO 1200,1800 [facility] Last Admin: 02/12/19 12:28 Dose: 25 mg Documented by: Non-Formulary ( Meloxicam/Lidocaine/Lamotrigine/Prilocaine) 1 applicatio TOPICAL 4X/DAY PRN PRN PRN Reason: leg pain Last Admin: 02/12/19 12:32 Dose: 1 applicatio Documented by: Nystatin (Mycostatin Powder) 1 applic TOPICAL 0600,2200 [facility]; Protocol Last Admin: 02/12/19 05:51 Dose: 1 applicatio Documented by: Oxycodone HCl (Oxyir) 2.5 mg PO Q4H PRN PRN PRN Reason: Pain Score 6-10/10 Last Admin: 02/12/19 00:29 Dose: 2.5 mg Documented by: Polyethylene Glycol (Miralax) 17 gm PO DAILY [facility] Last Admin: 02/12/19 05:52 Dose: Not Given Documented by: Pregabalin (Lyrica) 50 mg PO 4X/DAY [facility] Last Admin: 02/12/19 12:27 Dose: 50 mg Documented by: Senna/Docusate Sodium (Senokot-S, Desi-Colace) 2 tablet PO BID [facility] Last Admin: 02/12/19 05:52 Dose: Not Given Documented by: Sodium Chloride () 10 - 40 ml IV UD PRN PRN Reason: SALINE FLUSH Last Admin: 02/04/19 09:27 Dose: 10 ml Documented by: Tramadol HCl (Ultram) 50 mg PO Q6H PRN PRN PRN Reason: Pain Score 4-5/10 Last Admin: 02/12/19 10:37 Dose: 50 mg Documented by: Medical Necessity - Tobacco Use Smoking Status: Never smoker Tobacco Use: Non-smoker Assessment/Plan All Active Problems Bunion, right foot (Acute) Neuropathic foot ulcer (Acute) Debility (Acute) Syncope and collapse (Acute) Urinary tract infection with pyuria (Acute) s/p bunionectomy left foot due to recurrent ulceration, then revision bunionectomy arthroplasty due to toe contracture deformity Diabetes with peripheral neuropathy Changed dressing today. Site continues to heal well, no evidence of complications. Cleansed pin with 70% isopropyl alcohol. Applied gauze, kerlix and antoinette bandage. Keep clean, dry and intact. No weightbearing on left forefoot, but ok to start putting weight on left heel next week. Keep foot elevated as well. Diabetes and other medical management per Dr. Mcknight. Podiatry will follow up weekly, please call sooner if needed.
[2019-02-12 17:11] LABS: Bedside Glucose 209 mg/dL (70-110)
[2019-02-12 17:40] VITALS: BP 128/59; PULSE 64
[2019-02-12] MEDS: Senna/Docusate Sodium 1 Tablet 2 TABLET PO (17:41)
[2019-02-12] MEDS: DOXEPIN HCL 50 MG CAPSULE PO (20:15)
[2019-02-12] MEDS: Atorvastatin Calcium 20 MG Tablet PO (20:15)
[2019-02-12 20:45] LABS: Bedside Glucose 181 mg/dL (70-110)
[2019-02-13] MEDS: Nystatin Powder 15gm Bottle 1 APPLIC TOPICAL ×2 (06:00→20:23)
[2019-02-13] MEDS: Menthol/Lanolin/Calamine/Znox 113 GM Tube 1 APPLIC TOPICAL ×2 (06:00→20:23)
[2019-02-13] MEDS: Pregabalin 50 MG Capsule PO ×4 (06:00→20:24)
[2019-02-13] MEDS: Senna/Docusate Sodium 1 Tablet 2 TABLET PO (06:00)
[2019-02-13] MEDS: traMADol 50 MG Tablet PO ×2 (06:00→14:51)
[2019-02-13] MEDS: Levothyroxine 75 MCG Tablet PO (06:00)
[2019-02-13] MEDS: Enoxaparin 40 MG/0.4 ML Syringe SC (06:01)
[2019-02-13 07:25] LABS: Bedside Glucose 134 mg/dL (70-110)
[2019-02-13] MEDS: Insulin Lispro 100 UNIT/ML INSULN.PEN 10 UNIT SC ×3 (08:23→17:59)
[2019-02-13] MEDS: metFORMIN HCl 500 MG Tablet PO ×2 (08:23→18:00)
[2019-02-13 11:15] LABS: Bedside Glucose 186 mg/dL (70-110)
[2019-02-13] MEDS: DULoxetine Hcl 60 MG Capsule PO (11:49)
[2019-02-13 11:51] VITALS: BP 131/62; PULSE 74
[2019-02-13] MEDS: Metoprolol Tartrate 25 MG Tablet PO ×2 (11:51→18:00)
[2019-02-13 15:17] VITALS: BP 127/61; PULSE 69; RESP 18; TEMP 36.9; O2SAT 95
[2019-02-13] MEDS: Calcium Carbonate 500 MG Tablet 1000 MG PO (16:07)
[2019-02-13 17:05] LABS: Bedside Glucose 141 mg/dL (70-110)
[2019-02-13 18:00] VITALS: BP 127/61; PULSE 69
[2019-02-13] MEDS: Acetaminophen 500 MG Tablet 1000 MG PO (18:04)
[2019-02-13] MEDS: Atorvastatin Calcium 20 MG Tablet PO (20:23)
[2019-02-13] MEDS: DOXEPIN HCL 50 MG CAPSULE PO (20:23)
[2019-02-13 20:51] LABS: Bedside Glucose 179 mg/dL (70-110)
[2019-02-14] MEDS: traMADol 50 MG Tablet PO ×2 (03:14→20:55)
[2019-02-14] MEDS: Senna/Docusate Sodium 1 Tablet 2 TABLET PO ×2 (04:48→17:36)
[2019-02-14] MEDS: Pregabalin 50 MG Capsule PO ×4 (04:48→20:56)
[2019-02-14] MEDS: Nystatin Powder 15gm Bottle 1 APPLIC TOPICAL ×2 (04:48→20:56)
[2019-02-14] MEDS: Menthol/Lanolin/Calamine/Znox 113 GM Tube 1 APPLIC TOPICAL ×2 (04:48→20:55)
[2019-02-14] MEDS: Levothyroxine 75 MCG Tablet PO (04:48)
[2019-02-14] MEDS: Enoxaparin 40 MG/0.4 ML Syringe SC (04:49)
[2019-02-14 06:31] LABS: Bedside Glucose 103 mg/dL (70-110)
[2019-02-14] MEDS: metFORMIN HCl 500 MG Tablet PO ×2 (08:06→17:37)
[2019-02-14] MEDS: Insulin Lispro 100 UNIT/ML INSULN.PEN 10 UNIT SC ×3 (08:06→17:37)
[2019-02-14] MEDS: Acetaminophen 500 MG Tablet 1000 MG PO ×2 (08:10→22:20)
[2019-02-14 10:15] VITALS: PULSE 79; RESP 18; O2SAT 94
[2019-02-14 11:04] VITALS: BP 123/66; PULSE 72
[2019-02-14] MEDS: Metoprolol Tartrate 25 MG Tablet PO ×2 (11:04→17:37)
[2019-02-14] MEDS: DULoxetine Hcl 60 MG Capsule PO (11:04)
[2019-02-14 11:11] LABS: Bedside Glucose 204 mg/dL (70-110)
[2019-02-14 15:26] VITALS: BP 136/72; PULSE 63; RESP 16; TEMP 37.3; O2SAT 97
[2019-02-14 16:46] LABS: Bedside Glucose 127 mg/dL (70-110)
[2019-02-14 17:37] VITALS: BP 136/72; PULSE 63
[2019-02-14] MEDS: DOXEPIN HCL 50 MG CAPSULE PO (20:56)
[2019-02-14] MEDS: Atorvastatin Calcium 20 MG Tablet PO (20:56)
[2019-02-14 21:06] LABS: Bedside Glucose 253 mg/dL (70-110)
[2019-02-14] MEDS: oxyCODONE 5 MG Tablet 2.5 MG PO (22:20)
[2019-02-15] MEDS: Pregabalin 50 MG Capsule PO ×4 (04:42→23:18)
[2019-02-15] MEDS: Enoxaparin 40 MG/0.4 ML Syringe SC (04:43)
[2019-02-15] MEDS: Levothyroxine 75 MCG Tablet PO (04:43)
[2019-02-15] MEDS: Senna/Docusate Sodium 1 Tablet 2 TABLET PO ×2 (04:43→17:37)
[2019-02-15] MEDS: Nystatin Powder 15gm Bottle 1 APPLIC TOPICAL ×2 (04:46→23:18)
[2019-02-15] MEDS: Menthol/Lanolin/Calamine/Znox 113 GM Tube 1 APPLIC TOPICAL ×2 (04:46→23:18)
[2019-02-15 06:26] LABS: Bedside Glucose 129 mg/dL (70-110)
[2019-02-15] MEDS: Insulin Lispro 100 UNIT/ML INSULN.PEN 10 UNIT SC ×3 (08:30→17:36)
[2019-02-15] MEDS: Acetaminophen 500 MG Tablet 1000 MG PO ×2 (08:31→18:02)
[2019-02-15] MEDS: oxyCODONE 5 MG Tablet 2.5 MG PO ×2 (08:31→18:02)
[2019-02-15] MEDS: metFORMIN HCl 500 MG Tablet PO ×2 (08:31→17:37)
[2019-02-15 11:15] LABS: Bedside Glucose 234 mg/dL (70-110)
[2019-02-15 11:51] VITALS: BP 130/66; PULSE 84
[2019-02-15] MEDS: Metoprolol Tartrate 25 MG Tablet PO ×2 (11:51→17:37)
[2019-02-15] MEDS: DULoxetine Hcl 60 MG Capsule PO (11:51)
[2019-02-15 15:32] VITALS: BP 126/69; PULSE 66; RESP 16; TEMP 36.7; O2SAT 96
[2019-02-15] MEDS: traMADol 50 MG Tablet PO (16:22)
[2019-02-15 17:10] LABS: Bedside Glucose 181 mg/dL (70-110)
[2019-02-15 17:37] VITALS: BP 126/69; PULSE 66
[2019-02-15 21:11] LABS: Bedside Glucose 236 mg/dL (70-110)
[2019-02-15] MEDS: DOXEPIN HCL 50 MG CAPSULE PO (23:20)
[2019-02-15] MEDS: Atorvastatin Calcium 20 MG Tablet PO (23:20)
[2019-02-16] MEDS: Enoxaparin 40 MG/0.4 ML Syringe SC (05:18)
[2019-02-16] MEDS: Menthol/Lanolin/Calamine/Znox 113 GM Tube 1 APPLIC TOPICAL ×2 (05:18→21:14)
[2019-02-16] MEDS: Nystatin Powder 15gm Bottle 1 APPLIC TOPICAL ×2 (05:19→21:14)
[2019-02-16] MEDS: Pregabalin 50 MG Capsule PO ×4 (05:20→21:13)
[2019-02-16] MEDS: Levothyroxine 75 MCG Tablet PO (05:20)
[2019-02-16] MEDS: Senna/Docusate Sodium 1 Tablet 2 TABLET PO ×2 (05:20→17:19)
[2019-02-16] MEDS: Acetaminophen 500 MG Tablet 1000 MG PO (05:20)
[2019-02-16 06:31] LABS: Bedside Glucose 149 mg/dL (70-110)
[2019-02-16] MEDS: Insulin Lispro 100 UNIT/ML INSULN.PEN 10 UNIT SC ×3 (08:58→17:44)
[2019-02-16] MEDS: metFORMIN HCl 500 MG Tablet PO ×2 (09:01→17:18)
[2019-02-16] MEDS: traMADol 50 MG Tablet PO (09:36)
[2019-02-16 09:40] VITALS: PULSE 91; RESP 18; O2SAT 97
[2019-02-16 11:00] LABS: Bedside Glucose 249 mg/dL (70-110)
[2019-02-16 11:09] VITALS: BP 127/59; PULSE 87
[2019-02-16] MEDS: Metoprolol Tartrate 25 MG Tablet PO ×2 (11:09→17:19)
[2019-02-16] MEDS: DULoxetine Hcl 60 MG Capsule PO (11:10)
[2019-02-16 11:15] VITALS: BP 127/59; PULSE 87
--- NOTE | 2019-02-16 14:04 | NURSING ---
DR. LUCAS IN TO SEE PT AND CHANGE DRESSING TO LEFT FOOT.
--- NOTE | 2019-02-16 14:24 | PN_ITS ---
Patient Problems: Active and Suspected Problems Bunion, right foot (Acute) Debility (Acute) Subjective: This 78-year-old female with multiple comorbidities was seen this afternoon in the transitional care unit status post left foot bunionectomy as a curative procedure for an adjacent delayed healing ulcer. Her surgical intervention was performed on February 02, [address] Ruiz. She denies surgical site pain, fever, chill, nausea, vomiting, calf pain, shortness of breath, chest pain. Her pain is consistent with her previous neuropathy in his general extremities. He denies new injuries. She is resting comfortably bedside and is talking with her health academic coach. - Physical Exam Vitals/I&O's: Vital Signs Temp Pulse Resp BP Pulse Ox 98.0 F 87 16 127/59 H 96 02/15/19 15:32 02/16/19 11:15 02/15/19 15:32 02/16/19 11:15 02/15/19 15:32 Oxygen Delivery Method Room Air Weight: 86.239 kg Body Mass Index (BMI) 32.8 Intake and Output for Last 24 Hours 02/14/19 02/15/19 02/16/19 23:59 23:59 23:59 Intake Total 920 / 920 1210 / 1210 480 / 480 Balance 920 / 920 1210 / 1210 480 / 480 General: Alert, Oriented x3, Cooperative HEENT: Atraumatic Extremities: No cyanosis, No edema, Capillary Refill Less than 3 Seconds - All digits left foot, No Calf Tenderness - Negative Homans. Bilateral, Peripheral Pulses Normal Skin: Incision - Well aligned and coapted to the dorsal medial first ray site. There is no necrosis, infection, gapping, erythema, streaking, or signs of infection or maceration. The K wire is in the desired position without any loosening or active drainage. The hallux remains in a rectus Musculoskeletal: No Tenderness to Palpation of Joints or Extremities, Muscle Wasting, - - No pain on palpation to the surgical site Neurological: Sensory exam intact to light touch and pain Psych/Mental Status: Normal Affect, Appropriate Laboratory Results 02/15/19 16:54: POC Glucose 181 H 02/15/19 21:05: POC Glucose 236 H 02/16/19 06:24: POC Glucose 149 H 02/16/19 10:44: POC Glucose 249 H Current Medications Acetaminophen (Tylenol) 1,000 mg PO Q6H PRN PRN PRN Reason: Pain Score 1-3/10 Last Admin: 02/16/19 05:20 Dose: 1,000 mg Documented by: Atorvastatin Calcium (Lipitor) 20 mg PO QHS [facility] Last Admin: 02/15/19 23:20 Dose: 20 mg Documented by: Bisacodyl (Dulcolax) 10 mg PO DAILY PRN PRN Reason: Constipation Last Admin: 01/17/19 05:41 Dose: 10 mg Documented by: Calamine/Phenol (Calmoseptine Ointment) 1 applic TOPICAL 0600,2200 [facility]; Protocol Last Admin: 02/16/19 05:18 Dose: 1 applicatio Documented by: Calcium Carbonate (Tums) 1,000 mg PO Q4H PRN PRN PRN Reason: INDIGESTION Last Admin: 02/13/19 16:07 Dose: 1,000 mg Documented by: Dextrose (D50w Syringe) 0 gm IV X1 PRN; Protocol PRN Reason: Hypoglycemia Doxepin HCl (Doxepin Hcl) 50 mg PO QHS [facility] Last Admin: 02/15/19 23:20 Dose: 50 mg Documented by: Duloxetine HCl (Cymbalta) 60 mg PO LUNCH [facility] Last Admin: 02/16/19 11:10 Dose: 60 mg Documented by: Enoxaparin Sodium (Lovenox) 40 mg SC DAILY@0600 [facility] Last Admin: 02/16/19 05:18 Dose: 40 mg Documented by: Ergocalciferol (Vitamin D) 50,000 unit PO SUWE [facility] Last Admin: 02/14/19 09:37 Dose: 50,000 unit Documented by: Glucagon () 1 mg IM .X1 PRN PRN Reason: Hypoglycemia Insulin Glargine (Lantus (Bkc)) 30 units SC QHS [facility] Last Admin: 02/15/19 23:19 Dose: 30 units Documented by: Insulin Human Lispro (Humalog Kwikpen (Bk)) 10 unit SC TIDAC [facility] Last Admin: 02/16/19 11:13 Dose: 10 u Documented by: Levothyroxine Sodium (Synthroid) 75 mcg PO DAILY@0600 [facility] Last Admin: 02/16/19 05:20 Dose: 75 mcg Documented by: Metformin HCl (Glucophage) 500 mg PO BIDCM [facility] Last Admin: 02/16/19 09:01 Dose: 500 mg Documented by: Metoprolol Tartrate (Lopressor (Beta Blayne)) 25 mg PO 1200,1800 [facility] Last Admin: 02/16/19 11:09 Dose: 25 mg Documented by: Non-Formulary ( Meloxicam/Lidocaine/Lamotrigine/Prilocaine) 1 applicatio TOPICAL 4X/DAY PRN PRN PRN Reason: leg pain Last Admin: 02/14/19 20:58 Dose: 1 applicatio Documented by: Nystatin (Mycostatin Powder) 1 applic TOPICAL 0600,2200 [facility]; Protocol Last Admin: 02/16/19 05:19 Dose: 1 applicatio Documented by: Oxycodone HCl (Oxyir) 2.5 mg PO Q4H PRN PRN PRN Reason: Pain Score 6-10/10 Last Admin: 02/15/19 18:02 Dose: 2.5 mg Documented by: Polyethylene Glycol (Miralax) 17 gm PO DAILY [facility] Last Admin: 02/16/19 05:21 Dose: Not Given Documented by: Pregabalin (Lyrica) 50 mg PO 4X/DAY [facility] Last Admin: 02/16/19 11:12 Dose: 50 mg Documented by: Senna/Docusate Sodium (Senokot-S, Desi-Colace) 2 tablet PO BID [facility] Last Admin: 02/16/19 05:20 Dose: 2 tablet Documented by: Sodium Chloride () 10 - 40 ml IV UD PRN PRN Reason: SALINE FLUSH Last Admin: 02/04/19 09:27 Dose: 10 ml Documented by: Tramadol HCl (Ultram) 50 mg PO Q6H PRN PRN PRN Reason: Pain Score 4-5/10 Last Admin: 02/16/19 09:36 Dose: 50 mg Documented by: Medical Necessity - Tobacco Use Smoking Status: Never smoker Tobacco Use: Non-smoker Assessment/Plan All Active Problems Bunion, right foot (Acute) Neuropathic foot ulcer (Acute) Debility (Acute) Syncope and collapse (Acute) Urinary tract infection with pyuria (Acute) s/p bunionectomy left foot due to recurrent ulceration, then revision bunionectomy arthroplasty due to toe contracture deformity Diabetes with peripheral neuropathy Changed dressing today with dry gauze, abdominal pad, and Elijah, and Yves wrap. Site continues to heal well, no evidence of complications. She was advised to keep clean, dry and intact. Okay to progress to partial heel weightbearing in the left lower extremity with a surgical shoe in place this time. She was also advised to keep foot elevated as well. Diabetes and other medical management per Dr. Mcknight. Podiatry will follow up weekly, please call sooner if needed. Sherin Villalpando DPM, [facility] [phone]
[2019-02-16 15:21] LABS: Bedside Glucose 162 mg/dL (70-110)
[2019-02-16 16:00] VITALS: BP 134/66; PULSE 68; RESP 16; TEMP 36.6; O2SAT 93
--- NOTE | 2019-02-16 16:54 | CASEMGMT ---
Social Work Spoke with patient's daughter and discussed discharge plans. Dtr, pt and her met with physician yesterday. Dtr states she would like pt to DC to [facility] when insurance issues DC date. Dr. Ruiz spoke with SW prior to explain his recommendations on pt remaining in a SNF for about 4 more weeks d/t foot and NWBS. Dtr understands this and states on this date Dr. Ruiz discussed possibly upgrading pts WBS this week. Explained to dtr the cognition and safety concerns with pt returning home and IDTs continued recommendations for LTP. Dtr stated she spoke with insurance on this date to inquire on approval for more time, C.M. explained pt has not made much progress the last several weeks and continued stay is not guaranteed. Discussed with dtr therapy stating that as well and has issued a DC date of 02/23, and regardless of insurance outcome, if pt does not make significant progress and WBS does not change, pt will DC 02/23. Dtr indicated understanding and ended conversation with to call Dr. Ruiz's office to inquire on WBS. Will continue to follow. SONDRA CasperW
[2019-02-16 16:55] LABS: Bedside Glucose 126 mg/dL (70-110)
[2019-02-16 17:00] LABS: Bedside Glucose 118 mg/dL (70-110)
[2019-02-16 17:19] VITALS: BP 134/66; PULSE 68
[2019-02-16] MEDS: Atorvastatin Calcium 20 MG Tablet PO (21:13)
[2019-02-16] MEDS: DOXEPIN HCL 50 MG CAPSULE PO (21:13)
[2019-02-16 21:25] LABS: Bedside Glucose 163 mg/dL (70-110)
[2019-02-17] MEDS: Pregabalin 50 MG Capsule PO ×4 (05:05→21:31)
[2019-02-17] MEDS: Acetaminophen 500 MG Tablet 1000 MG PO ×2 (05:05→21:37)
[2019-02-17] MEDS: Levothyroxine 75 MCG Tablet PO (05:06)
[2019-02-17] MEDS: Senna/Docusate Sodium 1 Tablet 2 TABLET PO ×2 (05:06→17:58)
[2019-02-17] MEDS: Enoxaparin 40 MG/0.4 ML Syringe SC (05:07)
[2019-02-17] MEDS: Menthol/Lanolin/Calamine/Znox 113 GM Tube 1 APPLIC TOPICAL ×2 (05:14→21:33)
[2019-02-17] MEDS: Nystatin Powder 15gm Bottle 1 APPLIC TOPICAL ×2 (05:15→21:34)
[2019-02-17 06:30] LABS: Bedside Glucose 118 mg/dL (70-110)
[2019-02-17 07:20] LABS: Bedside Glucose 153 mg/dL (70-110)
[2019-02-17 07:20] LABS: Bedside Glucose 164 mg/dL (70-110)
[2019-02-17] MEDS: Insulin Lispro 100 UNIT/ML INSULN.PEN 10 UNIT SC ×3 (08:20→17:56)
[2019-02-17] MEDS: metFORMIN HCl 500 MG Tablet PO ×2 (08:21→17:57)
[2019-02-17 11:31] LABS: Bedside Glucose 249 mg/dL (70-110)
[2019-02-17] MEDS: traMADol 50 MG Tablet PO ×2 (11:34→21:31)
[2019-02-17 12:26] VITALS: BP 144/61; PULSE 84
[2019-02-17] MEDS: Metoprolol Tartrate 25 MG Tablet PO ×2 (12:26→17:57)
[2019-02-17] MEDS: DULoxetine Hcl 60 MG Capsule PO (12:27)
[2019-02-17 15:16] VITALS: BP 114/58; PULSE 68; RESP 16; TEMP 36.6; O2SAT 95
[2019-02-17 16:55] LABS: Bedside Glucose 143 mg/dL (70-110)
[2019-02-17 17:57] VITALS: BP 128/70; PULSE 68
[2019-02-17 20:56] LABS: Bedside Glucose 161 mg/dL (70-110)
[2019-02-17] MEDS: Atorvastatin Calcium 20 MG Tablet PO (21:28)
[2019-02-17] MEDS: DOXEPIN HCL 50 MG CAPSULE PO (21:28)
[2019-02-17 21:30] LABS: Bedside Glucose 156 mg/dL (70-110)
[2019-02-18] MEDS: Levothyroxine 75 MCG Tablet PO (06:17)
[2019-02-18] MEDS: Senna/Docusate Sodium 1 Tablet 2 TABLET PO ×2 (06:17→17:10)
[2019-02-18] MEDS: Pregabalin 50 MG Capsule PO ×4 (06:17→22:08)
[2019-02-18] MEDS: Polyethylene Glycol 3350 17 GM PACKET PO (06:18)
[2019-02-18] MEDS: Enoxaparin 40 MG/0.4 ML Syringe SC (06:20)
[2019-02-18] MEDS: Nystatin Powder 15gm Bottle 1 APPLIC TOPICAL ×2 (06:23→22:04)
[2019-02-18] MEDS: Menthol/Lanolin/Calamine/Znox 113 GM Tube 1 APPLIC TOPICAL ×2 (06:23→21:58)
[2019-02-18 06:50] LABS: Bedside Glucose 80 mg/dL (70-110)
[2019-02-18 09:14] VITALS: PULSE 80; RESP 18; O2SAT 98
[2019-02-18] MEDS: metFORMIN HCl 500 MG Tablet PO ×2 (09:50→17:08)
[2019-02-18 11:30] LABS: Bedside Glucose 194 mg/dL (70-110)
[2019-02-18] MEDS: Insulin Lispro 100 UNIT/ML INSULN.PEN 10 UNIT SC ×2 (11:55→17:07)
[2019-02-18 11:56] VITALS: BP 135/65; PULSE 73
[2019-02-18] MEDS: Metoprolol Tartrate 25 MG Tablet PO ×2 (11:56→17:10)
[2019-02-18] MEDS: DULoxetine Hcl 60 MG Capsule PO (11:56)
[2019-02-18 16:00] VITALS: BP 130/58; PULSE 68; RESP 16; TEMP 36.9; O2SAT 95
[2019-02-18] MEDS: Acetaminophen 500 MG Tablet 1000 MG PO (16:22)
[2019-02-18] MEDS: traMADol 50 MG Tablet PO (16:23)
[2019-02-18 16:46] LABS: Bedside Glucose 152 mg/dL (70-110)
[2019-02-18 17:10] VITALS: BP 130/58; PULSE 82
[2019-02-18 21:41] LABS: Bedside Glucose 149 mg/dL (70-110)
[2019-02-18] MEDS: Atorvastatin Calcium 20 MG Tablet PO (21:57)
[2019-02-18] MEDS: DOXEPIN HCL 50 MG CAPSULE PO (22:00)
[2019-02-19] MEDS: Pregabalin 50 MG Capsule PO ×4 (05:41→22:08)
[2019-02-19] MEDS: Enoxaparin 40 MG/0.4 ML Syringe SC (05:42)
[2019-02-19] MEDS: Senna/Docusate Sodium 1 Tablet 2 TABLET PO ×2 (05:42→17:23)
[2019-02-19] MEDS: Nystatin Powder 15gm Bottle 1 APPLIC TOPICAL ×2 (05:43→22:09)
[2019-02-19] MEDS: Polyethylene Glycol 3350 17 GM PACKET PO (05:43)
[2019-02-19] MEDS: Menthol/Lanolin/Calamine/Znox 113 GM Tube 1 APPLIC TOPICAL ×2 (05:43→22:09)
[2019-02-19] MEDS: Levothyroxine 75 MCG Tablet PO (05:44)
[2019-02-19 06:31] LABS: Bedside Glucose 77 mg/dL (70-110)
[2019-02-19 07:15] LABS: Bedside Glucose 119 mg/dL (70-110)
--- NOTE | 2019-02-19 07:16 | NURSING ---
Addendum entered by Ellen Corona 02/19/19 07:20: Sugar rechecked. 119 Original Note: Blood sugar 77. [employer]UCK [employer]IVER instructed to get her juice.
[2019-02-19] MEDS: Insulin Lispro 100 UNIT/ML INSULN.PEN 10 UNIT SC ×3 (08:34→17:25)
--- NOTE | 2019-02-19 08:52 | NURSING ---
WALKED INTO PT ROOM AND FOUND PT LEFT SURGERY FOOT DRESSING WAS OFF. ASKED PT WHAT HAPPENED,STATED SHE DIDNT REMEMBER.HAD DORISRN TO ROOM. FOOT REDRESSED. REMINDED PT NOT TO REMOVE THE ISAURO OR DRESSING TO HER LEFT FOOT. PT STATED SHE WOULD TRY.
[2019-02-19] MEDS: metFORMIN HCl 500 MG Tablet PO ×2 (08:58→17:23)
[2019-02-19] MEDS: Acetaminophen 500 MG Tablet 1000 MG PO (09:04)
[2019-02-19] MEDS: traMADol 50 MG Tablet PO (09:04)
[2019-02-19 09:35] VITALS: PULSE 77; RESP 18; O2SAT 93
[2019-02-19] MEDS: DULoxetine Hcl 60 MG Capsule PO (11:46)
[2019-02-19 11:50] LABS: Bedside Glucose 178 mg/dL (70-110)
[2019-02-19 11:51] VITALS: BP 136/61; PULSE 81
[2019-02-19] MEDS: Metoprolol Tartrate 25 MG Tablet PO ×2 (11:51→17:23)
[2019-02-19 11:53] VITALS: BP 136/61; PULSE 81
[2019-02-19 15:59] VITALS: BP 129/48; PULSE 71; RESP 17; TEMP 36.6; O2SAT 97
[2019-02-19 16:36] LABS: Bedside Glucose 144 mg/dL (70-110)
[2019-02-19 17:23] VITALS: BP 129/48; PULSE 71
[2019-02-19 21:20] LABS: Bedside Glucose 125 mg/dL (70-110)
[2019-02-19] MEDS: DOXEPIN HCL 50 MG CAPSULE PO (22:08)
[2019-02-19] MEDS: Atorvastatin Calcium 20 MG Tablet PO (22:08)
[2019-02-20] MEDS: traMADol 50 MG Tablet PO ×2 (02:33→23:05)
[2019-02-20] MEDS: Menthol/Lanolin/Calamine/Znox 113 GM Tube 1 APPLIC TOPICAL ×2 (05:11→20:48)
[2019-02-20] MEDS: Pregabalin 50 MG Capsule PO ×4 (05:11→20:45)
[2019-02-20] MEDS: Nystatin Powder 15gm Bottle 1 APPLIC TOPICAL ×2 (05:12→20:49)
[2019-02-20] MEDS: Enoxaparin 40 MG/0.4 ML Syringe SC (05:13)
[2019-02-20] MEDS: Senna/Docusate Sodium 1 Tablet 2 TABLET PO ×2 (05:14→16:59)
[2019-02-20] MEDS: Levothyroxine 75 MCG Tablet PO (05:14)
[2019-02-20 07:11] LABS: Bedside Glucose 103 mg/dL (70-110)
[2019-02-20] MEDS: metFORMIN HCl 500 MG Tablet PO ×2 (07:50→16:57)
[2019-02-20 10:21] LABS: Bedside Glucose 188 mg/dL (70-110)
[2019-02-20 10:30] LABS: Bedside Glucose 193 mg/dL (70-110)
[2019-02-20 11:36] VITALS: BP 137/70; PULSE 84
[2019-02-20] MEDS: Insulin Lispro 100 UNIT/ML INSULN.PEN 10 UNIT SC ×2 (11:37→16:57)
[2019-02-20 11:38] VITALS: PULSE 84
[2019-02-20] MEDS: Metoprolol Tartrate 25 MG Tablet PO ×2 (11:38→17:00)
[2019-02-20] MEDS: DULoxetine Hcl 60 MG Capsule PO (11:38)
[2019-02-20 15:49] VITALS: BP 116/61; PULSE 66; RESP 16; TEMP 36.7; O2SAT 97
[2019-02-20 17:00] VITALS: BP 140/66; PULSE 68
[2019-02-20 17:01] LABS: Bedside Glucose 167 mg/dL (70-110)
[2019-02-20 19:55] VITALS: PULSE 69
[2019-02-20 20:06] VITALS: BP 142/53; PULSE 69; RESP 16; TEMP 36.8; O2SAT 96
[2019-02-20] MEDS: Atorvastatin Calcium 20 MG Tablet PO (20:45)
[2019-02-20] MEDS: DOXEPIN HCL 50 MG CAPSULE PO (20:45)
[2019-02-20 21:01] LABS: Bedside Glucose 155 mg/dL (70-110)
[2019-02-21] MEDS: Pregabalin 50 MG Capsule PO ×4 (04:58→20:18)
[2019-02-21] MEDS: Enoxaparin 40 MG/0.4 ML Syringe SC (04:59)
[2019-02-21] MEDS: Menthol/Lanolin/Calamine/Znox 113 GM Tube 1 APPLIC TOPICAL ×2 (04:59→21:31)
[2019-02-21] MEDS: Nystatin Powder 15gm Bottle 1 APPLIC TOPICAL ×2 (05:00→21:30)
[2019-02-21] MEDS: Senna/Docusate Sodium 1 Tablet 2 TABLET PO ×2 (05:02→17:04)
[2019-02-21] MEDS: Levothyroxine 75 MCG Tablet PO (05:02)
[2019-02-21 06:26] LABS: Bedside Glucose 119 mg/dL (70-110)
[2019-02-21] MEDS: metFORMIN HCl 500 MG Tablet PO ×2 (07:39→17:03)
[2019-02-21] MEDS: Insulin Lispro 100 UNIT/ML INSULN.PEN 10 UNIT SC ×3 (07:39→17:03)
[2019-02-21] MEDS: traMADol 50 MG Tablet PO ×2 (07:40→20:20)
[2019-02-21 10:00] VITALS: PULSE 88; RESP 16; O2SAT 98
[2019-02-21 10:31] LABS: Bedside Glucose 205 mg/dL (70-110)
[2019-02-21 11:36] VITALS: BP 136/61; PULSE 89
[2019-02-21] MEDS: Metoprolol Tartrate 25 MG Tablet PO ×2 (11:36→17:04)
[2019-02-21] MEDS: DULoxetine Hcl 60 MG Capsule PO (11:37)
[2019-02-21 15:58] VITALS: BP 135/72; PULSE 70; RESP 16; TEMP 36.7; O2SAT 98
[2019-02-21 16:45] LABS: Bedside Glucose 182 mg/dL (70-110)
--- NOTE | 2019-02-21 16:49 | NURSING ---
Pt transferred her self to the toilet. Pt turned her own alarm off.
[2019-02-21 17:04] VITALS: BP 126/62; PULSE 83
[2019-02-21] MEDS: DOXEPIN HCL 50 MG CAPSULE PO (20:18)
[2019-02-21] MEDS: Atorvastatin Calcium 20 MG Tablet PO (20:18)
[2019-02-21 21:06] LABS: Bedside Glucose 190 mg/dL (70-110)
[2019-02-22] MEDS: Pregabalin 50 MG Capsule PO ×4 (05:49→21:37)
[2019-02-22] MEDS: Senna/Docusate Sodium 1 Tablet 2 TABLET PO ×2 (05:49→17:44)
[2019-02-22] MEDS: Enoxaparin 40 MG/0.4 ML Syringe SC (05:49)
[2019-02-22] MEDS: Menthol/Lanolin/Calamine/Znox 113 GM Tube 1 APPLIC TOPICAL ×2 (05:50→21:38)
[2019-02-22] MEDS: Nystatin Powder 15gm Bottle 1 APPLIC TOPICAL ×2 (05:50→21:39)
[2019-02-22] MEDS: Levothyroxine 75 MCG Tablet PO (05:51)
[2019-02-22 06:31] LABS: Bedside Glucose 128 mg/dL (70-110)
[2019-02-22] MEDS: Insulin Lispro 100 UNIT/ML INSULN.PEN 10 UNIT SC ×3 (08:51→17:46)
[2019-02-22] MEDS: metFORMIN HCl 500 MG Tablet PO ×2 (08:51→17:45)
[2019-02-22] MEDS: traMADol 50 MG Tablet PO (08:53)
[2019-02-22] MEDS: Acetaminophen 500 MG Tablet 1000 MG PO (08:54)
[2019-02-22 10:41] LABS: Bedside Glucose 253 mg/dL (70-110)
[2019-02-22 10:59] VITALS: BP 144/64; PULSE 82
[2019-02-22] MEDS: Metoprolol Tartrate 25 MG Tablet PO ×2 (10:59→17:44)
[2019-02-22] MEDS: DULoxetine Hcl 60 MG Capsule PO (10:59)
[2019-02-22 11:02] VITALS: BP 144/64; PULSE 82
[2019-02-22 15:42] VITALS: BP 112/58; PULSE 67; RESP 16; TEMP 36.6; O2SAT 93
--- NOTE | 2019-02-22 16:24 | CASEMGMT ---
Social Work Several conversations held with patient's dtr POA. Faxed updated clinicals to [facility] - W denied. Dtr would like pt to transfer to [facility]. Dtr provided all patient liability to [facility] - [facility] can accept pt 02/23. Have not heard back from insurance and spoke with therapy 02/19 to ensure no changes have been made and still issuing DC 02/23 - therapy confirmed. Dtr understandable. Dtr to transport pt. PASRR completed. Plan: DC [facility] 02/23 SONDRA CasperW
[2019-02-22 17:06] LABS: Bedside Glucose 136 mg/dL (70-110)
[2019-02-22 17:44] VITALS: BP 112/58; PULSE 67
--- NOTE | 2019-02-22 18:06 | PN_ITS ---
Patient Problems: Active and Suspected Problems Bunion, right foot (Acute) Debility (Acute) Subjective: Patient was seen today for follow up on left foot. She was resting comfortably in bed with no complaints. She relates she has no pain. - Physical Exam Vitals/I&O's: Vital Signs Temp Pulse Resp BP Pulse Ox 97.8 F 67 16 112/58 L 93 02/22/19 15:42 02/22/19 17:44 02/22/19 15:42 02/22/19 17:44 02/22/19 15:42 Oxygen Delivery Method Room Air Weight: 84.459 kg Body Mass Index (BMI) 32.8 Intake and Output for Last 24 Hours 02/20/19 02/21/19 02/22/19 23:59 23:59 23:59 Intake Total 720 / 720 1080 / 1080 640 / 640 Output Total 250 / 250 Balance 720 / 720 830 / 830 640 / 640 General: Alert, Cooperative, No apparent distress Extremities: Capillary Refill Less than 3 Seconds, No Calf Tenderness, - - Left foot s/p bunionectomy and 1st MTPJ arthroplasty with pin intact, incision site healing well with sutures intact, no evidence of complication, no evidence of infection, no edema to the left foot c/w normal post op course. No evidence of pin loosening or failure. Hallux in rectus position. Vascular status intact to the left foot/ankle. Psych/Mental Status: Normal Affect, Alert and oriented to time, place, person, mood and affect Laboratory Results 02/21/19 21:03: POC Glucose 190 H 02/22/19 06:16: POC Glucose 128 H 02/22/19 10:34: POC Glucose 253 H 02/22/19 16:53: POC Glucose 136 H Current Medications Acetaminophen (Tylenol) 1,000 mg PO Q6H PRN PRN PRN Reason: Pain Score 1-3/10 Last Admin: 02/22/19 08:54 Dose: 1,000 mg Documented by: Atorvastatin Calcium (Lipitor) 20 mg PO QHS LOR Last Admin: 02/21/19 20:18 Dose: 20 mg Documented by: Bisacodyl (Dulcolax) 10 mg PO DAILY PRN PRN Reason: Constipation Last Admin: 01/17/19 05:41 Dose: 10 mg Documented by: Calamine/Phenol (Calmoseptine Ointment) 1 applic TOPICAL 0600,2200 [facility]; Protocol Last Admin: 02/22/19 05:50 Dose: 1 applicatio Documented by: Calcium Carbonate (Tums) 1,000 mg PO Q4H PRN PRN PRN Reason: INDIGESTION Last Admin: 02/13/19 16:07 Dose: 1,000 mg Documented by: Dextrose (D50w Syringe) 0 gm IV X1 PRN; Protocol PRN Reason: Hypoglycemia Doxepin HCl (Doxepin Hcl) 50 mg PO QHS [facility] Last Admin: 02/21/19 20:18 Dose: 50 mg Documented by: Duloxetine HCl (Cymbalta) 60 mg PO LUNCH [facility] Last Admin: 02/22/19 10:59 Dose: 60 mg Documented by: Enoxaparin Sodium (Lovenox) 40 mg SC DAILY@0600 [facility] Last Admin: 02/22/19 05:49 Dose: 40 mg Documented by: Ergocalciferol (Vitamin D) 50,000 unit PO SUWE [facility] Last Admin: 02/21/19 10:27 Dose: 50,000 unit Documented by: Glucagon () 1 mg IM .X1 PRN PRN Reason: Hypoglycemia Insulin Glargine (Lantus (Bk)) 30 units SC QHS [facility] Last Admin: 02/21/19 21:31 Dose: 30 units Documented by: Insulin Human Lispro (Humalog Kwikpen (Bk)) 10 unit SC TIDAC [facility] Last Admin: 02/22/19 17:46 Dose: 10 u Documented by: Levothyroxine Sodium (Synthroid) 75 mcg PO DAILY@0600 [facility] Last Admin: 02/22/19 05:51 Dose: 75 mcg Documented by: Metformin HCl (Glucophage) 500 mg PO BIDCM [facility] Last Admin: 02/22/19 17:45 Dose: 500 mg Documented by: Metoprolol Tartrate (Lopressor (Beta Blayne)) 25 mg PO 1200,1800 [facility] Last Admin: 02/22/19 17:44 Dose: 25 mg Documented by: Non-Formulary ( Meloxicam/Lidocaine/Lamotrigine/Prilocaine) 1 applicatio TOPICAL 4X/DAY PRN PRN PRN Reason: leg pain Last Admin: 02/21/19 17:07 Dose: 1 applicatio Documented by: Nystatin (Mycostatin Powder) 1 applic TOPICAL 0600,2200 [facility]; Protocol Last Admin: 02/22/19 05:50 Dose: 1 applicatio Documented by: Oxycodone HCl (Oxyir) 2.5 mg PO Q4H PRN PRN PRN Reason: Pain Score 6-10/10 Last Admin: 02/15/19 18:02 Dose: 2.5 mg Documented by: Polyethylene Glycol (Miralax) 17 gm PO DAILY [facility] Last Admin: 02/22/19 05:49 Dose: Not Given Documented by: Pregabalin (Lyrica) 50 mg PO 4X/DAY [facility] Last Admin: 02/22/19 17:46 Dose: 50 mg Documented by: Senna/Docusate Sodium (Senokot-S, Desi-Colace) 2 tablet PO BID [facility] Last Admin: 02/22/19 17:44 Dose: 2 tablet Documented by: Sodium Chloride () 10 - 40 ml IV UD PRN PRN Reason: SALINE FLUSH Last Admin: 02/04/19 09:27 Dose: 10 ml Documented by: Tramadol HCl (Ultram) 50 mg PO Q6H PRN PRN PRN Reason: Pain Score 4-5/10 Last Admin: 02/22/19 08:53 Dose: 50 mg Documented by: Medical Necessity - Tobacco Use Smoking Status: Never smoker Tobacco Use: Non-smoker Assessment/Plan All Active Problems Bunion, right foot (Acute) Neuropathic foot ulcer (Acute) Debility (Acute) Syncope and collapse (Acute) Urinary tract infection with pyuria (Acute) s/p bunionectomy left foot due to recurrent ulceration, then revision bunionectomy arthroplasty due to toe contracture deformity Diabetes with peripheral neuropathy Changed dressing today. Site continues to heal well, no evidence of complications. Sutures removed without incident. Cleansed pin with 70% isopropyl alcohol. Applied gauze, kerlix, abd pad, and antoinette bandage. Keep clean, dry and intact. Ok to continue weightbearing on left heel Diabetes and other medical management per Dr. Mcknight. Podiatry will follow up weekly, please call sooner if needed.
--- NOTE | 2019-02-22 18:11 | DCINST_ITS ---
Weight Bearing Status: Partial weight bearing - Ok to weightbear on left heel, no weight on left forefoot Call your doctor if your incision/area has: Continuous Slow Oozing, Sudden Increased Bleeding Cleanse incision/area with: Do not get Incision Wet, Keep Dressing Clean & Dry - Keep dressing left foot clean, dry and intact. Allergies/Adverse Reactions: Allergies Iodine and Iodide Containing Produc Allergy (Verified 02/02/19 14:09) Rash venom-honey bee [bee venom (honey bee)] Allergy (Verified 02/02/19 14:09) Swelling Medications to take at Discharge Ergocalciferol [Vitamin D] 50,000 unit PO SUWE 06/28/14 Simvastatin 20 mg PO QHS 06/28/14 Duloxetine Hcl [Cymbalta] 40 mg PO LUNCH 01/11/19 Insulin Degludec [Tresiba] 50 unit SQ DAILY 01/11/19 Levothyroxine [Synthroid] 75 mcg PO DAILY@0600 01/11/19 Metformin HCl 500 mg PO BID 01/11/19 Metoprolol Tartrate [Lopressor (beta koki)] 25 mg PO 1200,1800 01/11/19 Quetiapine Fumarate [Seroquel] 25 mg PO QHS 01/11/19 Pregabalin [Lyrica] 50 mg PO 4X/DAY 4 Days #14 cap 01/15/19 Primary Care Physician: Malini Dumont MD [Primary Care Provider] - Test Results: Test results from this visit will be discussed in further detail at your follow- up appointment, if applicable. Please Follow Up With: Siva Ruiz DPM When: in 7-10 days from TCU discharge, sooner if needed
--- NOTE | 2019-02-22 19:33 | DCINST_ITS ---
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) Vitamin D deficiency (Chronic) Chronic pain (Chronic) Opioid dependence (Chronic) You will use the following diet at home:: No restrictions, Regular Your food should be the consistency of: Regular Your liquids should be the consistency of: Regular/Thin Discharge Activity: Return to Normal Activity, May Shower, Use Walker Weight Bearing Status: Partial weight bearing - Ok to weightbear on left heel, no weight on left forefoot Keep extremity elevated above heart level: Left Leg Call your doctor if your incision/area has: Continuous Slow Oozing, Sudden Increased Bleeding Call your doctor if you observe: Fever of 101 or Higher, Inability to urinate, Inability to have a bowel movement, Shortness of breath, Chest pain, Uncontrolled pain Cleanse incision/area with: Do not get Incision Wet, Keep Dressing Clean & Dry - Keep dressing left foot clean, dry and intact. Allergies/Adverse Reactions: Allergies Iodine and Iodide Containing Produc Allergy (Verified 02/02/19 14:09) Rash venom-honey bee [bee venom (honey bee)] Allergy (Verified 02/02/19 14:09) Swelling Medications to take at Discharge Ergocalciferol [Vitamin D] 50,000 unit PO SUWE 06/28/14 Duloxetine Hcl [Cymbalta] 40 mg PO LUNCH 01/11/19 Levothyroxine [Synthroid] 75 mcg PO DAILY@0600 01/11/19 Metformin HCl 500 mg PO BID 01/11/19 Metoprolol Tartrate [Lopressor (beta koki)] 25 mg PO 1200,1800 01/11/19 Acetaminophen [Tylenol] 1,000 mg PO Q6H PRN PRN tablet 02/22/19 Atorvastatin Calcium [Lipitor] 20 mg PO QHS tablet 02/22/19 Bisacodyl [Dulcolax] 10 mg PO DAILY PRN tablet 02/22/19 Calcium Carbonate [Tums] 1,000 mg PO Q4H PRN PRN tablet 02/22/19 Doxepin HCl 50 mg PO QHS capsule 02/22/19 Insulin Glargine [Lantus SoloStar Pen] 30 units SC QHS pen 02/22/19 Insulin Lispro [Humalog KwikPen] 10 unit SC TIDAC insuln.pen 02/22/19 Menthol/Lanolin/Calamine/Znox [Calmoseptine Ointment] 1 applic TOPICAL 0600,2200 tube 02/22/19 Nystatin Powder [Mycostatin Powder] 1 applic TOPICAL 0600,2200 bottle 02/22/19 Polyethylene Glycol 3350 [Miralax] 17 gm PO DAILY packet 02/22/19 Pregabalin [Lyrica] 50 mg PO 4X/DAY 4 Days #28 cap 02/22/19 Senna/Docusate Sodium [Senokot-S] 2 tablet PO BID tablet 02/22/19 traMADol [Ultram] 50 mg PO Q6H PRN PRN #28 tab 02/22/19 The following prescriptions were given: Pregabalin [Lyrica] 50 mg PO 4X/DAY 4 Days #28 cap Prescription Printed traMADol [Ultram] 50 mg PO Q6H PRN PRN #28 tab PRN Reason: Pain Score 4-5/10 Prescription Printed Primary Care Physician: Malini Dumont MD [Primary Care Provider] - Please follow up with your Primary Care Physician in: 1 week. Test Results: Test results from this visit will be discussed in further detail at your follow- up appointment, if applicable. Please Follow Up With: Siva Ruiz DPM When: in 7-10 days from TCU discharge, sooner if needed Proposed Discharge Date: 02/23/19
--- NOTE | 2019-02-22 19:36 | PCM.DC.SUM ---
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) Vitamin D deficiency (Chronic) Chronic pain (Chronic) Opioid dependence (Chronic) Chronic back pain (Chronic) Chronic pain of right lower extremity (Chronic) radicular Type II diabetes mellitus (Chronic) HLD (hyperlipidemia) (Chronic) Foot drop, right foot (Chronic) Hypothyroidism (Chronic) Dementia (Chronic) Muscle paresis (Chronic) R leg Hospital Course and Treatment Imaging Results: 02/02/19 17:55 Diet: Calorie Controlled Is pt able to select menu?: Yes How many daily calories?: 1800 calorie Clinical Impression(s) from Imaging Studies Foot X-Ray 01/29/19 15:35 IMPRESSION: Status post bunionectomy including removal of the tibial sesamoid. Increased hallux valgus since preoperative exam. The surgical site of the medial surface of the distal first metatarsal appears to be generally healing without an osteolytic lesion. There is loss of bone density of the medial base of the proximal phalanx of the great toe which appears to be at least partially present on the postoperative radiographs of January 15. Osteolysis versus postsurgical changes. Correlate with known surgical procedure. Electronically Signed: Kaleigh Tyson MD at 16:02 EST , Service support , Labs (Last 48 Hours) 02/20/19 02/21/19 02/21/19 20:46 06:20 10:24 POC Glucose 155 H 119 H 205 H 02/21/19 02/21/19 02/22/19 16:42 21:03 06:16 POC Glucose 182 H 190 H 128 H 02/22/19 02/22/19 10:34 16:53 POC Glucose 253 H 136 H Operations: None Procedures: - - Left foot surgery. Summary of Care Provided: The patient is a 78 year old Female with below past medical history hospitalized for bunionectomy left first metatarsal phalangeal joint 01/15/[address] Ruiz, admitted to TCU with debility, here for rehabilitation, strengthening, prior to discharge home with . 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 Patient Problems: Active and Suspected Problems Bunion, right foot (Acute) Debility (Acute) - Physical Exam Vitals/I&O's: Vital Signs Temp Pulse Resp BP Pulse Ox 97.8 F 67 16 112/58 L 93 02/22/19 15:42 02/22/19 17:44 02/22/19 15:42 02/22/19 17:44 02/22/19 15:42 Oxygen Delivery Method Room Air Weight: 84.459 kg Body Mass Index (BMI) 32.8 Intake and Output for Last 24 Hours 02/20/19 02/21/19 02/22/19 23:59 23:59 23:59 Intake Total 720 / 720 1080 / 1080 880 / 880 Output Total 250 / 250 Balance 720 / 720 830 / 830 880 / 880 Laboratory Results 02/21/19 21:03: POC Glucose 190 H 02/22/19 06:16: POC Glucose 128 H 02/22/19 10:34: POC Glucose 253 H 02/22/19 16:53: POC Glucose 136 H Current Medications Acetaminophen (Tylenol) 1,000 mg PO Q6H PRN PRN PRN Reason: Pain Score 1-3/10 Last Admin: 02/22/19 08:54 Dose: 1,000 mg Documented by: Atorvastatin Calcium (Lipitor) 20 mg PO QHS [facility] Last Admin: 02/21/19 20:18 Dose: 20 mg Documented by: Bisacodyl (Dulcolax) 10 mg PO DAILY PRN PRN Reason: Constipation Last Admin: 01/17/19 05:41 Dose: 10 mg Documented by: Calamine/Phenol (Calmoseptine Ointment) 1 applic TOPICAL 0600,2200 [facility]; Protocol Last Admin: 02/22/19 05:50 Dose: 1 applicatio Documented by: Calcium Carbonate (Tums) 1,000 mg PO Q4H PRN PRN PRN Reason: INDIGESTION Last Admin: 02/13/19 16:07 Dose: 1,000 mg Documented by: Dextrose (D50w Syringe) 0 gm IV X1 PRN; Protocol PRN Reason: Hypoglycemia Doxepin HCl (Doxepin Hcl) 50 mg PO QHS [facility] Last Admin: 02/21/19 20:18 Dose: 50 mg Documented by: Duloxetine HCl (Cymbalta) 60 mg PO LUNCH [facility] Last Admin: 02/22/19 10:59 Dose: 60 mg Documented by: Enoxaparin Sodium (Lovenox) 40 mg SC DAILY@0600 [facility] Last Admin: 02/22/19 05:49 Dose: 40 mg Documented by: Ergocalciferol (Vitamin D) 50,000 unit PO SUWE [facility] Last Admin: 02/21/19 10:27 Dose: 50,000 unit Documented by: Glucagon () 1 mg IM .X1 PRN PRN Reason: Hypoglycemia Insulin Glargine (Lantus (Bk)) 30 units SC QHS [facility] Last Admin: 02/21/19 21:31 Dose: 30 units Documented by: Insulin Human Lispro (Humalog Kwikpen ([facility])) 10 unit SC TIDAC [facility] Last Admin: 02/22/19 17:46 Dose: 10 u Documented by: Levothyroxine Sodium (Synthroid) 75 mcg PO DAILY@0600 [facility] Last Admin: 02/22/19 05:51 Dose: 75 mcg Documented by: Metformin HCl (Glucophage) 500 mg PO BIDCM [facility] Last Admin: 02/22/19 17:45 Dose: 500 mg Documented by: Metoprolol Tartrate (Lopressor (Beta Blayne)) 25 mg PO 1200,1800 [facility] Last Admin: 02/22/19 17:44 Dose: 25 mg Documented by: Non-Formulary ( Meloxicam/Lidocaine/Lamotrigine/Prilocaine) 1 applicatio TOPICAL 4X/DAY PRN PRN PRN Reason: leg pain Last Admin: 02/21/19 17:07 Dose: 1 applicatio Documented by: Nystatin (Mycostatin Powder) 1 applic TOPICAL 0600,2200 [facility]; Protocol Last Admin: 02/22/19 05:50 Dose: 1 applicatio Documented by: Oxycodone HCl (Oxyir) 2.5 mg PO Q4H PRN PRN PRN Reason: Pain Score 6-10/10 Last Admin: 02/15/19 18:02 Dose: 2.5 mg Documented by: Polyethylene Glycol (Miralax) 17 gm PO DAILY [facility] Last Admin: 02/22/19 05:49 Dose: Not Given Documented by: Pregabalin (Lyrica) 50 mg PO 4X/DAY [facility] Last Admin: 02/22/19 17:46 Dose: 50 mg Documented by: Senna/Docusate Sodium (Senokot-S, Desi-Colace) 2 tablet PO BID [facility] Last Admin: 02/22/19 17:44 Dose: 2 tablet Documented by: Sodium Chloride () 10 - 40 ml IV UD PRN PRN Reason: SALINE FLUSH Last Admin: 02/04/19 09:27 Dose: 10 ml Documented by: Tramadol HCl (Ultram) 50 mg PO Q6H PRN PRN PRN Reason: Pain Score 4-510 Last Admin: 02/22/19 08:53 Dose: 50 mg Documented by: Discharge Diet: No Restrictions Discharge Activity: Return to Normal Activity, May Shower, Use Walker Weight Bearing Status: Partial weight bearing - Ok to weightbear on left heel, no weight on left forefoot Keep extremity elevated above heart level: Left Leg Call your doctor if your incision/area has: Continuous Slow Oozing, Sudden Increased Bleeding Call your doctor if you observe: Fever of 101 or Higher, Inability to urinate, Inability to have a bowel movement, Shortness of breath, Chest pain, Uncontrolled pain Cleanse incision/area with: Do not get Incision Wet, Keep Dressing Clean & Dry - Keep dressing left foot clean, dry and intact. Home Medications: Medications to take at Discharge Ergocalciferol [Vitamin D] 50,000 unit PO SUWE 06/28/14 Duloxetine Hcl [Cymbalta] 40 mg PO LUNCH 01/11/19 Levothyroxine [Synthroid] 75 mcg PO DAILY@0600 01/11/19 Metformin HCl 500 mg PO BID 01/11/19 Metoprolol Tartrate [Lopressor (beta blayne)] 25 mg PO 1200,1800 01/11/19 Acetaminophen [Tylenol] 1,000 mg PO Q6H PRN PRN tablet 02/22/19 Atorvastatin Calcium [Lipitor] 20 mg PO QHS tablet 02/22/19 Bisacodyl [Dulcolax] 10 mg PO DAILY PRN tablet 02/22/19 Calcium Carbonate [Tums] 1,000 mg PO Q4H PRN PRN tablet 02/22/19 Doxepin HCl 50 mg PO QHS capsule 02/22/19 Insulin Glargine [Lantus SoloStar Pen] 30 units SC QHS pen 02/22/19 Insulin Lispro [Humalog KwikPen] 10 unit SC TIDAC insuln.pen 02/22/19 Menthol/Lanolin/Calamine/Znox [Calmoseptine Ointment] 1 applic TOPICAL 0600,2200 tube 02/22/19 Nystatin Powder [Mycostatin Powder] 1 applic TOPICAL 0600,2200 bottle 02/22/19 Polyethylene Glycol 3350 [Miralax] 17 gm PO DAILY packet 02/22/19 Pregabalin [Lyrica] 50 mg PO 4X/DAY 4 Days #28 cap 02/22/19 Senna/Docusate Sodium [Senokot-S] 2 tablet PO BID tablet 02/22/19 traMADol [Ultram] 50 mg PO Q6H PRN PRN #28 tab 02/22/19 Following Prescrptions Were Given to Patient: Pregabalin [Lyrica] 50 mg PO 4X/DAY 4 Days #28 cap Prescription Printed traMADol [Ultram] 50 mg PO Q6H PRN PRN #28 tab PRN Reason: Pain Score 4-5/10 Prescription Printed Primary Care Physician: Malini Dumont MD [Primary Care Provider] - Please follow up with your Primary Care Physician in: 1 week. Please Follow Up With: Siva Ruiz DPM When: in 7-10 days from TCU discharge, sooner if needed Disposition: Asstd Living/Non-Skill CO Minutes spent on discharge:: 35 Patient Condition:: Stable Medical Necessity - Tobacco Use Smoking Status: Never smoker Tobacco Use: Non-smoker Meaningful Use Info Meaningful Use Diagnoses (Choose all that apply): None applicable
--- NOTE | 2019-02-22 19:37 | PCM.TXEXTCAR ---
- Diet 02/02/19 17:55 Diet: Calorie Controlled Is pt able to select menu?: Yes How many daily calories?: 1800 calorie - Routine Orders/Code Status Suppository Type: Dulcolax 10mg Suppository Frequency: Daily PRN [facility] - Wound(s) left foot Wound Type: Surgical Incision Dressing Change: DSD changed dr. nguyen,02/16/19 Rt ear Wound Type: redness Dressing Change: duoderm 02/07 right foot, 4th toe Wound Type: scabbing - Therapies Weight Bearing: Partial weight bearing - Left lower extremity, heel weight bearing. Extremity Affected:: Left Lower Physical Therapy: Eval and Treat - Problem/Diagnosis (1) Debility Status: Acute Current Visit: Yes (2) Alzheimer disease Status: Chronic Current Visit: Yes (3) Diabetic foot ulcer Status: Chronic Current Visit: Yes (4) Type II diabetes mellitus Status: Chronic Current Visit: No (5) Body mass index (bmi) 33.0-33.9, adult Status: Chronic Current Visit: Yes (6) Bunion, left Status: Chronic Current Visit: Yes (7) Diabetic polyneuropathy Status: Chronic Current Visit: Yes (8) Hypertension Status: Chronic Current Visit: Yes (9) Late onset Alzheimer's disease with behavioral disturbance Status: Chronic Current Visit: Yes (10) Vitamin D deficiency Status: Chronic Current Visit: Yes (11) Chronic pain Status: Chronic Current Visit: Yes (12) Opioid dependence Status: Chronic Current Visit: Yes (13) HLD (hyperlipidemia) Status: Chronic Current Visit: No (14) Hypothyroidism Status: Chronic Current Visit: No - Allergies/Procedures Done in Hospital Allergies/Adverse Reactions: Allergies Iodine and Iodide Containing Produc Allergy (Verified 02/02/19 14:09) Rash venom-honey bee [bee venom (honey bee)] Allergy (Verified 02/02/19 14:09) Swelling - Type of Care/Length of Stay Estimated LOS: More Than 30 Days Type of Care Needed: Intermediate Rehab Potential: Fair Prognosis: Fair - Additional Orders/Day of Discharge Day of Discharge: 02/23/19 - Dietary and Speech Recommendations Dietitian Recommendations/Changes: Rec d/c Ubll bid as no longer indicated - Follow Up Care Primary Care Physician: Malini Dumont MD [Primary Care Provider] - Please follow up with your Primary Care Physician in: 1 week. Please Follow Up With: Siva Ruiz DPM When: in 7-10 days from TCU discharge, sooner if needed
[2019-02-22 21:01] LABS: Bedside Glucose 208 mg/dL (70-110)
[2019-02-22 21:30] VITALS: RESP 16
[2019-02-22] MEDS: Atorvastatin Calcium 20 MG Tablet PO (21:37)
[2019-02-22] MEDS: DOXEPIN HCL 50 MG CAPSULE PO (21:38)
[2019-02-23] MEDS: oxyCODONE 5 MG Tablet 2.5 MG PO (00:43)
[2019-02-23] MEDS: Pregabalin 50 MG Capsule PO (05:18)
[2019-02-23] MEDS: Senna/Docusate Sodium 1 Tablet 2 TABLET PO (05:18)
[2019-02-23] MEDS: Levothyroxine 75 MCG Tablet PO (05:18)
[2019-02-23] MEDS: Enoxaparin 40 MG/0.4 ML Syringe SC (05:18)
[2019-02-23] MEDS: Nystatin Powder 15gm Bottle 1 APPLIC TOPICAL (05:20)
[2019-02-23] MEDS: Menthol/Lanolin/Calamine/Znox 113 GM Tube 1 APPLIC TOPICAL (05:21)
[2019-02-23 06:26] LABS: Bedside Glucose 114 mg/dL (70-110)
[2019-02-23] MEDS: Insulin Lispro 100 UNIT/ML INSULN.PEN 10 UNIT SC (08:13)
[2019-02-23] MEDS: Acetaminophen 500 MG Tablet 1000 MG PO (08:16)
[2019-02-23] MEDS: metFORMIN HCl 500 MG Tablet PO (08:16)
[2019-02-23 08:30] VITALS: PULSE 86; RESP 18; O2SAT 95
--- NOTE | 2019-02-23 09:29 | NURSING ---
report called to Mary Ann at [facility]
[2019-02-23] MEDS: traMADol 50 MG Tablet PO (10:23)
[2019-02-23 12:00] VITALS: BP 118/80; PULSE 70; RESP 18; TEMP 36.8; O2SAT 95
== END 2019-02-23 11:25 | disposition skilled nursing facility (03) | DRG 560 ==
PROVIDERS: Admitting Provider Family Medicine Geriatric Medicine; Family Provider Internal Medicine; PCP Internal Medicine; Visit Provider Family Medicine Geriatric Medicine
DX: Z47.89 Encounter for other orthopedic aftercare (principal); F02.81 Dementia in other diseases classified elsewhere, unspecified severity, with behavioral disturbance; F11.20 Opioid dependence, uncomplicated; Z91.19 Patient's noncompliance with other medical treatment and regimen; G30.1 Alzheimer's disease with late onset; E11.42 Type 2 diabetes mellitus with diabetic polyneuropathy; Z23 Encounter for immunization; I10 Essential (primary) hypertension; E78.5 Hyperlipidemia, unspecified; G89.29 Other chronic pain; E55.9 Vitamin D deficiency, unspecified; E03.9 Hypothyroidism, unspecified; M21.371 Foot drop, right foot; F32.9 Major depressive disorder, single episode, unspecified; F41.9 Anxiety disorder, unspecified
CPT/HCPCS: 36415; 73630; 80048; 81001; 82962; 83036; 84443; 85025; 87077; 87086; 87088; 90732; 93005; 97110; 97116; 97162; 97165; 97530; 97535; 97542; 97802; G0009; A4216

== ENCOUNTER 2019-02-02 13:24 | Day surgery (SDC) | payer MEDICARE, SELFPAY ==
--- NOTE | 2019-02-01 19:24 | EKG12_ITS ---
Test Reason : PRE-OP Blood Pressure : / mmHG Vent. Rate : 080 BPM Atrial Rate : 080 BPM P-R Int : 174 ms QRS Dur : 142 ms QT Int : 410 ms P-R-T Axes : 098 089 037 degrees QTc Int : 472 ms Normal sinus rhythm Right bundle branch block Abnormal ECG Confirmed by RA DAS, VIRA ([id number]), editorial assistant JO ANN CHERRY ([id number] on 02/05/2019 10:46:57 AM Referred By: Siva Ruiz Confirmed By:VIRA KNAPP MD
[2019-02-02 14:11] LABS: Bedside Glucose 186 mg/dL (70-110)
[2019-02-02 14:13] VITALS: BP 122/85; PULSE 71; RESP 5; TEMP 36.8; O2SAT 99; BMI 29.9
[2019-02-02] MEDS: Lactated Ringers 1,000 ML 100 ML IV ×2 (14:24→16:45)
--- NOTE | 2019-02-02 15:00 | BON_PTH ---
PATIENT: CASSIE SUÁREZ [place] [facility] [place][id number] AGE/SX: 78/F ROOM: RE02/02/[address]: Dr. Siva Ruiz DPM : 1940 BED: DIS: 02/02/2019 SPEC #: [id number] RECD: 02/03/19 08:33 STATUS: REJI REKassidy #: [id number] LAMBERT: 02/02/19 15:[address]: Siva Ruiz DEPT: SURGICAL PATHOLOGY RECD BY: Dl Lee ENTERED: 02/03/19 12:02 SP TYPE: Bone OTHR DR: Dr. Malini Dumont MD Tissues: Bone of foot, NOS Procedures: Decalcification bone/plaque Surgery Specimen Level IV HEADER OPERATION: Left first metatarsophalangeal joint arthroplasty PRE-OP DIAGNOSIS: Contracture of first toe TISSUE SUBMITTED: Bone first toe, left MICROSCOPIC DIAGNOSIS Bone of first left toe, excision: Mild reactive and reparative change. AM:marcelina 02/08/19 MICROSCOPIC DESCRIPTION Slides are reviewed. GROSS DESCRIPTION Received in fixative is one container labeled with the patient's name and designated bone of first toe, left. The specimen consists of multiple discoid fragments of light carrillo-yellow bone that in aggregate measure 4 x 3 x 0.2 cm. The specimen is submitted in its entirety in two cassettes after decalcification. / AM:marcelina 02/03/19 TC:5 CPT: 38994, 60066
--- NOTE | 2019-02-02 15:00 | RAD_ITS ---
STUDY: X-RAY - LEFT FOOT CLINICAL: Female, 78 years old. Arthroplasty left foot TECHNIQUE: 2 fluoroscopic spot view(s) of the foot. COMPARISON: None. FINDINGS: Osteotomy and K wire fixation first metatarsal phalangeal joint. RAD/Foot 2 Views IMPRESSION: Please correlate with clinical service Electronically Signed: Curt Martinez MD at 23:03 EST , Service support ,
[2019-02-02] MEDS: Cefazolin 2 GM in 0.9% Normal Saline 100 ML IV (15:26)
[2019-02-02] MEDS: Bupivacaine Mpf 0.5% 30 ML VIAL (15:33)
--- NOTE | 2019-02-02 16:53 | DCINST_ITS ---
Discharge Diet: Light diet - advance as tolerated Discharge Activity: Use Crutches Weight Bearing Status: No weight bearing - No weightbearing left foot Call your doctor if your incision/area has: Continuous Slow Oozing, Sudden Increased Bleeding, Increased Redness, Foul Smelling Discharge Call your doctor if you observe: Fever of 101 or Higher, Shortness of breath, Chest pain, Increased palpitations (irregular heartbeat), Calf discomfort, Uncontrolled pain Cleanse incision/area with: Do not get Incision Wet, Keep Dressing Clean & Dry Allergies/Adverse Reactions: Allergies Iodine and Iodide Containing Produc Allergy (Verified 02/02/19 14:09) Rash venom-honey bee [bee venom (honey bee)] Allergy (Verified 02/02/19 14:09) Swelling Medications to take at Discharge Ergocalciferol [Vitamin D] 50,000 unit PO SUWE 06/28/14 Simvastatin 20 mg PO QHS 06/28/14 Duloxetine Hcl [Cymbalta] 40 mg PO LUNCH 01/11/19 Insulin Degludec [Tresiba] 50 unit SQ DAILY 01/11/19 Levothyroxine [Synthroid] 75 mcg PO DAILY@0600 01/11/19 Metformin HCl 500 mg PO BID 01/11/19 Metoprolol Tartrate [Lopressor (beta koki)] 25 mg PO 1200,1800 01/11/19 Quetiapine Fumarate [Seroquel] 25 mg PO QHS 01/11/19 Pregabalin [Lyrica] 50 mg PO 4X/DAY 4 Days #14 cap 01/15/19 Orders to be completed after discharge: Hemoglobin A1c Time Frame: 02/01/19, Facility: [facility], Location: Laboratory Thyroid Stim Hormone (TSH) Time Frame: 02/01/19, Facility: [facility], Location: Laboratory Primary Care Physician: Malini Dumont MD [Primary Care Provider] - Test Results: Test results from this visit will be discussed in further detail at your follow- up appointment, if applicable. Please Follow Up With: Siva Ruiz DPM When: will follow in TCU
--- NOTE | 2019-02-02 16:55 | PCM.OPRPT ---
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 She underwent bunionectomy procedure on 01/15/19, everything was going well, healing well until end of last week it was noted the 1st toe was significantly deviated laterally overriding the 2nd toe. Due to this we discussed revision procedure - 1st metatarsal phalangeal joint arthroplasty with soft tissue release and excision of bone. This was discussed with the patient as well as with her daughter Marline in great detail. Patient and patient's daughter agreed with this plan. All of the possible benefits vs risks, goals, expectations and estimated healing time was discussed with them in detail. The consent forms were reviewed with them and they were freely signed. All of their questions were answered. No guarantees were given nor implied. Operative Procedure: The patient was brought back to the operating room and was placed on the operating room table in the supine position. Patient was carefully secured to the operating room table with a safety belt around her waist. The patient received 2 grams of intravenous Cephazolin for antibiotic prophylaxis. A timeout was performed and the patient was properly identified and the surgical plan was confirmed. A well padded pneumatic tourniquet was applied around the patient's left ankle. The patient received anesthesia per the anesthesia team. A 1st ray nerve block was given using 10mL of Bupivacaine plain after the overlying skin was cleansed with 70% Isopropyl alcohol. The left foot was scrubbed, prepped, and draped in the usual aseptic fashion. Further attention was directed to the left foot, there was healed ulceration to the medial 1st metatarsal head. The 1st toe was significantly laterally deviated and over ridding the 2nd toe. The incision site was haled.There was no evidence of abscess, necrosis, cellulitis, streaking or drainage at this time. The left foot was exsanguinated with an Esmarch bandage. A linear longitudinal skin incision was made overlying the dorsal medial aspect of the 1st metatarsal phalangeal joint, at the site of the previous incision, located medial to the extensor hallucis longus tendon. The incision was carefully deepened to the dorsal 1st metatarsal phalangeal joint capsule, which was incised and partially reflected exposing the 1st metatarsal head as well as the base of the hallux proximal phalanx. The base of the hallux proximal phalanx was excised but the distal insertion point of the flexor digitorum brevis was left intact. The distal part of the 1st metatarsal head was resected as well. The dorsal aspect of the 1st metatarsal was resected. The adductor hallucis tendon was very tight and the fibular sesamoid was causing lateral deviation of the toe as well. The fibular sesamoid was removed and the adductor hallucis tendon was released using a 15 scalpel blade. The resected bone was sent to pathology for further evaluation. There was no evidence of infect. The toe was now in good alignment. The site was stabilized with a 5/64 in Sandra pin through the 1st toe into the 1st metatarsal. The site was flushed out with copious amounts of normal saline solution. The capsule was reapproximated using 3-0 Vicryl, the subcutaneous tissue was reapproximated using 3-0 Vicryl, and the skin was reapproximated using 3-0 Nylon. A dressing was applied which consisted of Adaptic, 4x4 gauze, Kerlix and antoinette bandage. The pneumatic tourniquet was deflated (total tourniquet time was 51 minutes) and there was noted to be immediate return of warmth and perfusion to the left foot with CFT < 2 seconds to all toes with normal temperature. The patient tolerated the above procedure well and the anesthesia well with no complications. The patient was transported from the operating room to the recovery room with vital signs stable and in good condition. Post op orders were placed. The patient will go back to the transitional care unit. Post operative xrays were obtained and reviewed of the left foot which confirmed bunionectomy and re-alignment of the 1st toe as noted above. No complications or other acute findings noted. Grafts/Implants Used: 1 x 5/64 sandra pin - Complications None
[2019-02-02 17:00] VITALS: BP 122/85; BP 157/71; PULSE 82; RESP 18; TEMP 36.7; O2SAT 94
--- NOTE | 2019-02-02 17:13 | RAD_ITS ---
STUDY: X-RAY - LEFT FOOT CLINICAL: Female, 78 years old. Left foot. TECHNIQUE: 3 view(s) of the foot. COMPARISON: January 29, 2019 FINDINGS: Normal talus, calcaneus, and tarsal bones. Normal visualized subtalar, talonavicular, calcaneocuboid, tarsal and tarsometatarsal articulations. Osteotomy first metatarsal phalangeal joint. There is now a K wire transfixing the first metatarsal phalangeal joint and interphalangeal joint. Osteolysis at the base of the proximal phalanx is again noted. There is associated soft tissue swelling and subcutaneous gas. Normal second through fifth metatarsophalangeal joints. Normal interphalangeal joints and phalanges of the lesser toes. RAD/Foot min 3 Views IMPRESSION: K wire fixation first ray. Soft tissue swelling and subcutaneous gas first metatarsophalangeal joint consistent with postsurgical change although infection and even osteomyelitis is not excluded. Follow-up MRI with contrast may be helpful. Electronically Signed: Curt Martinez MD at 23:11 EST , Service support ,
[2019-02-02 17:15] VITALS: BP 122/85; BP 153/67; PULSE 75; RESP 18; O2SAT 92
[2019-02-02 17:30] VITALS: BP 122/85; BP 145/73; PULSE 77; RESP 18; TEMP 37.1; O2SAT 93
== END 2019-02-02 17:48 ==
LOC: SDC 13:26 → AC 13:28
PROVIDERS: Family Provider Internal Medicine; PCP Internal Medicine; Referring Provider Podiatrist; Visit Provider Podiatrist
PROC: (CPT 28292; principal; 2019-02-02 14:45)
DX: M20.12 Hallux valgus (acquired), left foot (principal); M21.612 Bunion of left foot; E11.42 Type 2 diabetes mellitus with diabetic polyneuropathy; E11.621 Type 2 diabetes mellitus with foot ulcer; L97.529 Non-pressure chronic ulcer of other part of left foot with unspecified severity; G30.1 Alzheimer's disease with late onset; F02.81 Dementia in other diseases classified elsewhere, unspecified severity, with behavioral disturbance; I10 Essential (primary) hypertension; E78.00 Pure hypercholesterolemia, unspecified; E03.9 Hypothyroidism, unspecified; M54.9 Dorsalgia, unspecified; G89.29 Other chronic pain; F32.9 Major depressive disorder, single episode, unspecified; F41.9 Anxiety disorder, unspecified; Z87.440 Personal history of urinary (tract) infections; Z78.0 Asymptomatic menopausal state; Z79.4 Long term (current) use of insulin; Z79.84 Long term (current) use of oral hypoglycemic drugs; Z79.899 Other long term (current) drug therapy
CPT/HCPCS: 28299; 73620; 73630; 76000; 82962; 88304; 88305; 88311; 93005; J7120

== ENCOUNTER → 2019-03-16 15:46 | Outpatient (CLI) | payer MEDICARE, SELFPAY | PROVIDERS: Family Provider Internal Medicine; PCP Internal Medicine; Referring Provider Podiatrist; Visit Provider Podiatrist | DX: L03.031 Cellulitis of right toe (principal) | CPT/HCPCS: 87070; 87075; 87077; 87186; 87205 ==

== ENCOUNTER → 2019-03-19 17:55 | Outpatient (CLI) | payer MEDICARE, SELFPAY | PROVIDERS: Family Provider Internal Medicine; PCP Internal Medicine; Referring Provider Podiatrist; Visit Provider Podiatrist | DX: L03.032 Cellulitis of left toe (principal) | CPT/HCPCS: 87070; 87075; 87205 ==

== ENCOUNTER → 2019-03-30 18:04 | Outpatient (CLI) | payer MEDICARE, SELFPAY | PROVIDERS: Family Provider Internal Medicine; PCP Internal Medicine; Referring Provider Podiatrist; Visit Provider Podiatrist | DX: L03.032 Cellulitis of left toe (principal) | CPT/HCPCS: 87070; 87075; 87077; 87186; 87205 ==

== ENCOUNTER 2019-05-12 13:14 | Observation (INO) | payer MEDICARE, SELFPAY ==
[2019-05-12] VITALS (7 sets, daily range): BP systolic 168–188; BP diastolic 57–86; PULSE 76–98; RESP 14–24; TEMP 36.6–37.1; O2SAT 96–98; BMI 29.9; BMI 30.4
--- NOTE | 2019-05-12 13:19 | EKG12_ITS ---
Test Reason : CP Blood Pressure : / mmHG Vent. Rate : 106 BPM Atrial Rate : 106 BPM P-R Int : 172 ms QRS Dur : 130 ms QT Int : 372 ms P-R-T Axes : 079 154 023 degrees QTc Int : 494 ms Sinus tachycardia with Premature supraventricular complexes Right bundle branch block Abnormal ECG When compared with ECG of 12-MAY-2019 13:28, MANUAL COMPARISON REQUIRED, DATA IS UNCONFIRMED Confirmed by SANJUANITA DAS, JOSÉ MIGUEL ([id number]), editor sound YUE RAMIREZ ([id number]) on 05/17/2019 8:55:04 AM Referred By: SONYA Confirmed By:AGUEDA GANN MD
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
--- NOTE | 2019-05-12 14:16 | EKG12_ITS ---
Test Reason : SOB Blood Pressure : / mmHG Vent. Rate : 076 BPM Atrial Rate : 069 BPM P-R Int : 000 ms QRS Dur : 124 ms QT Int : 420 ms P-R-T Axes : 000 080 033 degrees QTc Int : 472 ms Normal sinus rhythm Right bundle branch block Abnormal ECG Confirmed by SANJUANITA DAS, JOSÉ MIGUEL ([id number]), design editor YUE RAMIREZ ([id number]) on 05/17/2019 8:45:25 AM Referred By: JANET Confirmed By:AGUEDA GANN MD
--- NOTE | 2019-05-12 14:16 | RAD_ITS ---
EXAM DESCRIPTION: PORTABLE AP CHEST CLINICAL HISTORY: 78 years Female, SOB SOB COMPARISON: None FINDINGS: Findings place the mid thoracic spinal canal. The rest of the thorax is intact. The heart and mediastinum appear to be within normal limits. The lungs appear to be well areated without evidence of pneumonic consolidation or pleural effusion. RAD/Chest 1 View (Portable) IMPRESSION: No acute pathology. Electronically Signed: Mic Aria, at 14:45 EST Tel , Service support ,
[2019-05-12 14:48] LABS: Absolute Lymphocyte Count 2.22 X10^3/uL (0.83-4.51); Absolute Neutrophil Count 6.7 X10^3/uL (2.0-7.7); Basophil# 0.12 X10^3/uL; Basophil% 1.2 % (0-1); Eosinophil# 0.44 X10^3/uL; Eosinophils% 4.3 % (0-5); Hematocrit 36.1 % (37-47); Hemoglobin 10.9 g/dL (12.0-15.0); Lymphocyte # 2.22 X10^3/ul (4.0); Lymphocyte % 21.7 % (19-41); Mean Corp Hgb Conc 30.2 g/dL (32-36); Mean Corpuscular Volume 89.4 fL (81-99); Mean Platelet Vol. 11.2 fl (6.2-12.0); Monocyte# 0.72 X10^3/uL; NRBC Flagged by Analyzer 0 % (0-5); Neutrophil # 6.67 X10^3/uL (2.7-7.7); Neutrophil % 65.3 % (47-70); Platelet Count 199 K/mm3 (150-450); RBC Distribution Width CV 17.5 % (11.6-14.6); RBC Distribution Width SD 57.4 fl (35.1-43.9); Red Blood Count 4.04 M/mm3 (4.2-5.4); White Blood Count 10.2 K/mm3 (4.4-11.0)
[2019-05-12 15:01] LABS: Anion Gap 4 (5-15); BUN 20 mg/dL (7-18); BUN/Creat Ratio 22.1 RATIO (10-20); Calcium,Total 9.6 mg/dL (8.5-10.1); Chloride 107 mmol/L (98-107); Creatinine, Serum 0.91 mg/dL (0.55-1.02); EST Glomerular Filtration Rate 64 mL/min (>60); Est Glom Filt Rate - Afr Amer 77 mL/min (>60); Estimated Creatinine Clearance 45.11 ml/min; Glucose 160 mg/dL (74-106); Potassium 4.4 mmol/L (3.5-5.1); Sodium Level 140 mmol/L (136-145)
[2019-05-12 15:30] LABS: Bacteria 0 SEEN /hpf (None Seen); Mucous, Urine 0 SEEN /hpf (<or=2+); Red Blood Cells-Urine 0 SEEN /hpf (0-5)
[2019-05-12] MEDS: Aspirin 81 MG TAB.CHEW 324 MG PO (15:30)
[2019-05-12 15:33] LABS: Color, Urine Yellow (Yellow); Glucose, Dipstick Normal (Normal); Ketone-Dipstick Negative (Negative); Leukocyte Esterase-Dipstick Negative /ul (Negative); Nitrite-Dipstick Negative (Negative); Occult Blood-Urine Negative /ul (Negative); Protein-Dipstick 15 mg/dl (Negative); Specific Gravity, Urine 1.005 (1.002-1.030); Urine Bilirubin Dipstick Negative (Negative); Urine Clarity Clear (Clear); Urine Urobilinogen Normal (Normal)
[2019-05-12 15:39] LABS: Squamous Epithelial Cells - UA 0-5 SEEN /hpf (5-10); White Blood Cells 0-5 SEEN /hpf (0-5)
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
--- NOTE | 2019-05-12 17:26 | ED.VIS.GEN ---
History of Present Illness Chief Complaint: Shortness of Breath Informant: Patient, Family Narrative: Patient is brought by family, apparently she had 2 episodes over the past 2 days of gurgling in her chest which lasted 1 to 2 minutes. She has no shortness of breath with it she has no fever chills cough or congestion. Unfortunately her is also in the emergency department and needs further care, she has dementia and he also cares for her. Past Medical History - Allergies and Home Meds Allergies/Adverse Reactions: Allergies Iodine and Iodide Containing Produc Allergy (Verified 05/12/19 13:18) Rash venom-honey bee [bee venom (honey bee)] Allergy (Verified 05/12/19 13:18) Swelling Primary Care Physician: Malini Dumont MD [Primary Care Provider] - Past Medical History: - - Dementia otherwise reviewed and unremarkable Surgical History: - - Left bunionectomy. Smoking Status: Never smoker - Family History Paternal Family History: Reports: No pertinent history Sibling Family History: Reports: Diabetes Review of Systems General: Denies: Fever Cardiovascular: Reports: - - She says no to chest pain, she does admit to some discomfort and gurgling. Respiratory: Denies: Dyspnea, Cough Gastrointestinal: Denies: Abdominal pain, Nausea Musculoskeletal: Denies: Myalgias, Arthralgias, Neck pain, Back pain Skin: Denies: Rash Neurological: Denies: Headache Endocrine: Denies: Polyuria Hematologic: Denies: Easy bruising Allergy: Denies: Swelling of the mouth Physical Exam Vital Signs/Narrative: Vital Signs Pulse Resp BP Pulse Ox 05/12/19 15:30 76 14 174/75 H 97 General: Well nourished, Well developed Eyes: Perrl ENT: Moist mucous membranes Cardiovascular: Regular rate, Regular rhythm Respiratory: No distress, CTA bilaterally Abdomen: Soft, Nontender Back: Nontender, Normal Inspection Extremities: Nontender Skin: Normal color Neurological: Alert, - - She is oriented x3 however she is forgetful about small details. Psychological: Normal affect Diagnostic/Tx/Re-eval - Rhythm Strip Rhythm Strip: Sinus Rhythm Rate: 76 Ectopy: None - EKG Initial EKG Interpretation: Sinus Rhythm, - - Right bundle branch pattern. Normal HI interval. Slightly prolonged QTc interval at 472. Nonspecific changes otherwise normal EKG Interpreted by emergency doctor - Medical Decision Making Patient has a normal work-up, however I cannot get her placed in an ECF tonight, she cannot go home due to her inability to thrive by herself, she will be admitted for observation. ED Disposition - Plan for ED Patient: Disposition: Acute Care Hospital [facility] Diagnosis: Weakness Referrals: Malini Dumont MD [Primary Care Provider] -
--- NOTE | 2019-05-12 17:39 | NURSING ---
MED SURG OBS SONYA CABELLO, CP
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
[2019-05-12] MEDS: hydrALAZINE 20 MG/ML Vial 10 MG IV (21:05)
[2019-05-12] MEDS: traMADol 50 MG Tablet PO (21:05)
[2019-05-12] MEDS: 0.9% Saline Lock 10 ML Syringe IV (21:06)
[2019-05-12 22:46] LABS: Bedside Glucose 250 mg/dL (70-110)
[2019-05-12 23:16] LABS: Bedside Glucose 326 mg/dL (70-110)
[2019-05-12] MEDS: MELATONIN 3 MG TABLET PO (23:19)
[2019-05-12] MEDS: Insulin Lispro 100 UNIT/ML INSULN.PEN SC (23:19)
[2019-05-12] MEDS: DOXEPIN HCL 50 MG CAPSULE PO (23:20)
[2019-05-12] MEDS: Atorvastatin Calcium 20 MG Tablet PO (23:20)
[2019-05-12] MEDS: Menthol/Lanolin/Calamine/Znox 113 GM Tube 1 APPLIC TOPICAL (23:22)
[2019-05-12] MEDS: Pregabalin 50 MG Capsule PO (23:22)
[2019-05-13] VITALS (8 sets, daily range): BP systolic 149–163; BP diastolic 63–72; PULSE 68–102; RESP 16–18; TEMP 36.6–37.2; O2SAT 95–98
[2019-05-13] MEDS: Acetaminophen 325 MG Tablet 650 MG PO ×2 (00:41→07:06)
[2019-05-13] MEDS: Levothyroxine 75 MCG Tablet PO (06:54)
[2019-05-13] MEDS: Menthol/Lanolin/Calamine/Znox 113 GM Tube 1 APPLIC TOPICAL (06:55)
[2019-05-13] MEDS: Insulin Lispro 100 UNIT/ML INSULN.PEN SC ×3 (06:59→17:12)
[2019-05-13 07:06] LABS: Bedside Glucose 150 mg/dL (70-110)
--- NOTE | 2019-05-13 08:56 | PN_ITS ---
Patient Problems: Active and Suspected Problems Weakness (Acute) Reason for Visit: Failure to thrive. Advanced dementia Objective: Patient blood pressure is elevated, systolic in 160s. Patient does not remember well his cognitive deficit. Patient's also has dementia and is detention. Vitals/I&O's: Vital Signs Temp Pulse Resp BP Pulse Ox 98.4 F 87 18 151/63 H 97 05/13/19 08:30 05/13/19 08:30 05/13/19 08:30 05/13/19 08:30 05/13/19 08:30 Oxygen Delivery Method Room Air Weight: 182 lb 11.2 oz Body Mass Index (BMI) 30.4 Intake and Output for Last 24 Hours 05/11/19 05/12/19 05/13/19 23:59 23:59 23:59 Intake Total 50 / 50 Output Total 1050 / 1050 Balance -1000 / -1000 General: Alert, Oriented x3, Cooperative HEENT: Atraumatic, PERRLA, EOMI, Normocephalic Neck: Supple, No JVD, Negative Carotid Bruits Lungs: Clear to auscultation, Normal air movement, No rhonchi, No wheeze, No rales, Diminished Cardiovascular: Regular rate, No murmurs Abdomen: Bowel Sounds Present, Soft, Non Tender, Non-Distended Extremities: No edema, Capillary Refill Less than 3 Seconds Skin: No rashes, No breakdown Musculoskeletal: No Tenderness to Palpation of Joints or Extremities, Arthritic Changes Neurological: Cranial nerves II-XII grossly intact, Deep Tendon Reflexes 2+/4 and Symmetrical, Neuro grossly intact, - - Chronic weakness of the right lower leg and mild foot drop Psych/Mental Status: Normal Affect, Appropriate Laboratory Results 05/12/19 14:05: Urine Color Yellow, Urine Clarity Clear, Urine pH 7.0, Ur Specific [place] 1.005, Urine Protein 15 H, Urine Glucose (UA) Normal, Urine Ketones Negative, Urine Occult Blood Negative, Urine Nitrite Negative, Urine Bilirubin Negative, Urine Urobilinogen Normal, Ur Leukocyte Esterase Negative, Urine RBC 0 SEEN, Urine WBC 0-5 SEEN, Ur Squamous Epith Cells 0-5 SEEN, Urine Bacteria 0 SEEN, Urine Mucus 0 SEEN 05/12/19 14:33: WBC 10.2, RBC 4.04 L, Hgb 10.9 L, Hct 36.1 L, MCV 89.4, MCH 27.0, MCHC 30.2 L, RDW Std Deviation 57.4 H, RDW Coeff of Sukhwinder 17.5 H, Plt Count 199, MPV 11.2, Immature Gran % (Auto) 0.500, Neut % (Auto) 65.3, Lymph % (Auto) 21.7, [place] % (Auto) 7.0, Eos % (Auto) 4.3, Baso % (Auto) 1.2 H, Absolute Neuts (auto) 6.7, Absolute Lymphs (auto) 2.22, Nucleated RBC % 0 05/12/19 14:33: Sodium 140, Potassium 4.4, Chloride 107, Carbon Dioxide 29.0, Anion Gap 4 L, BUN 20 H, Creatinine 0.91, Estim Creat Clear Calc 45.11, Est GFR (MDRD) Af Amer 77, Est GFR (MDRD) Non-Af 64, BUN/Creatinine Ratio 22.1 H, Glucose 160 H, Calcium 9.6, Troponin I < 0.015 05/12/19 14:33: B-Natriuretic Peptide 233.0 H 05/12/19 21:21: POC Glucose 250 H 05/12/19 22:50: Troponin I < 0.015 05/12/19 23:13: POC Glucose 326 H 05/13/19 01:36: Troponin I 0.018 05/13/19 03:34: Troponin I < 0.015 05/13/19 06:58: POC Glucose 150 H Current Medications Acetaminophen (Tylenol) 650 mg PO Q6H PRN PRN PRN Reason: Pain Score 1-10/Temp > 100.7 F Last Admin: 05/13/19 07:06 Dose: 650 mg Documented by: Albuterol Sulfate (Ventolin Aerosols) 2.5 mg INHALATION Q2H PRN PRN PRN Reason: Shortness of Breath/Wheezing Atorvastatin Calcium (Lipitor) 20 mg PO QHS [facility] Last Admin: 05/12/19 23:20 Dose: 20 mg Documented by: Calamine/Phenol (Calmoseptine Ointment) 1 applic TOPICAL 0600,2200 [facility]; Protocol Last Admin: 05/13/19 06:55 Dose: 1 applicatio Documented by: Calcium Carbonate (Tums) 1,000 mg PO Q4H PRN PRN PRN Reason: INDIGESTION Doxepin HCl (Doxepin Hcl) 50 mg PO QHS [facility] Last Admin: 05/12/19 23:20 Dose: 50 mg Documented by: Duloxetine HCl (Cymbalta) 40 mg PO LUNCH [facility] Enoxaparin Sodium (Lovenox) 40 mg SC DAILY [facility] Glucagon () 1 mg IM .X1 PRN PRN Reason: Hypoglycemia Guaifenesin (Robitussin) 20 ml PO Q4H PRN PRN PRN Reason: COUGH Hydralazine HCl (Apresoline Iv) 10 mg IV Q4H PRN PRN PRN Reason: SBP > 160 Last Admin: 05/12/19 21:05 Dose: 10 mg Documented by: Dextrose (Dextrose 10%-Water) 250 mls @ 999 mls/hr IV .Q16M PRN; Protocol PRN Reason: HYPOGLYCEMIA Insulin Glargine (Lantus (Bkc)) 30 units SC DAILY [facility] Insulin Human Lispro (Humalog Kwikpen (Bk)) 0 unit SC ACHS [facility]; Protocol Last Admin: 05/13/19 06:59 Dose: 1 u Documented by: Levothyroxine Sodium (Synthroid) 75 mcg PO DAILY@0600 [facility] Last Admin: 05/13/19 06:54 Dose: 75 mcg Documented by: Magnesium Hydroxide (Milk Of Magnesia) 30 ml PO DAILY PRN PRN PRN Reason: Constipation Melatonin (Melatonin) 3 mg PO QHS PRN PRN PRN Reason: INSOMNIA Last Admin: 05/12/19 23:19 Dose: 3 mg Documented by: Metoprolol Tartrate (Lopressor (Beta Blayne)) 25 mg PO 1200,1800 [facility] Ondansetron HCl (Zofran) 4 mg IV Q8H PRN PRN PRN Reason: NAUSEA/VOMITING Polyethylene Glycol (Miralax) 17 gm PO DAILY [facility] Pregabalin (Lyrica) 50 mg PO 4X/DAY [facility] Last Admin: 05/12/19 23:22 Dose: 50 mg Documented by: Prochlorperazine Edisylate (Compazine Iv) 5 mg IV Q4H PRN PRN PRN Reason: Breakthrough nausea/vomiting Psyllium Hydrophilic Mucilloid (Metamucil) 1 packet PO DAILY PRN PRN PRN Reason: Constipation Senna/Docusate Sodium (Senokot-S, Desi-Colace) 2 tablet PO BID PRN PRN PRN Reason: Constipation Sodium Chloride () 10 - 40 ml IV UD PRN PRN Reason: SALINE FLUSH Last Admin: 05/12/19 21:06 Dose: 10 ml Documented by: Throat Lozenges (Cepacol Sore Throat Lozenge) 1 lozenge MUCOUS MEM Q2H PRN PRN PRN Reason: SORE THROAT Tramadol HCl (Ultram) 50 mg PO Q6H PRN PRN PRN Reason: Pain Score 4-10/10 Last Admin: 05/12/19 21:05 Dose: 50 mg Documented by: STROKE Vital Signs/Narrative: Vital Signs Temp Pulse Resp BP Pulse Ox 05/13/19 08:30 98.4 F 87 18 151/63 H 97 Medical Necessity - Tobacco Use Smoking Status: Never smoker Tobacco Use: Non-smoker Assessment/Plan All Active Problems Weakness (Acute) Bunion, right foot (Acute) Neuropathic foot ulcer (Acute) Syncope and collapse (Acute) Urinary tract infection with pyuria (Acute) This 78-year-old female admitted with failure to thrive, advanced dementia and could not take care of herself. 1. Generalized debility -business job titles consult. product safety manager consulted for detention placement. Continue PTOT. Mild oropharyngeal dysphagia, speech/swallow therapist to follow. 2. Alzheimers Dementia - not on any meds for this at this time. Need outpatient medication. It seems advanced and Aricept or Namenda is not going to help. 3. Hypertension: Started on HCTZ 12.5 mg daily. Titrate the dose of blood pressure as per blood pressure readings. Hypothyroidism - continue synthroid 4. DMt2 - continue metformin, lantus, SSI 5. Right foot paralysis, 2/2 prior back surgery 6. Depression - doxepin, cymbalta DVT ppx: lovenox DC planning: [facility] Laboratory Results 05/12/19 14:05: Urine Color Yellow, Urine Clarity Clear, Urine pH 7.0, Ur Specific [place] 1.005, Urine Protein 15 H, Urine Glucose (UA) Normal, Urine Ketones Negative, Urine Occult Blood Negative, Urine Nitrite Negative, Urine Bilirubin Negative, Urine Urobilinogen Normal, Ur Leukocyte Esterase Negative, Urine RBC 0 SEEN, Urine WBC 0-5 SEEN, Ur Squamous Epith Cells 0-5 SEEN, Urine Bacteria 0 SEEN, Urine Mucus 0 SEEN 05/12/19 14:33: WBC 10.2, RBC 4.04 L, Hgb 10.9 L, Hct 36.1 L, MCV 89.4, MCH 27.0, MCHC 30.2 L, RDW Std Deviation 57.4 H, RDW Coeff of Sukhwinder 17.5 H, Plt Count 199, MPV 11.2, Immature Gran % (Auto) 0.500, Neut % (Auto) 65.3, Lymph % (Auto) 21.7, [place] % (Auto) 7.0, Eos % (Auto) 4.3, Baso % (Auto) 1.2 H, Absolute Neuts (auto) 6.7, Absolute Lymphs (auto) 2.22, Nucleated RBC % 0 05/12/19 14:33: Sodium 140, Potassium 4.4, Chloride 107, Carbon Dioxide 29.0, Anion Gap 4 L, BUN 20 H, Creatinine 0.91, Estim Creat Clear Calc 45.11, Est GFR (MDRD) Af Amer 77, Est GFR (MDRD) Non-Af 64, BUN/Creatinine Ratio 22.1 H, Glucose 160 H, Calcium 9.6, Troponin I < 0.015 05/12/19 14:33: B-Natriuretic Peptide 233.0 H 05/12/19 21:21: POC Glucose 250 H 05/12/19 22:50: Troponin I < 0.015 05/12/19 23:13: POC Glucose 326 H 05/13/19 01:36: Troponin I 0.018 05/13/19 03:34: Troponin I < 0.015 05/13/19 06:58: POC Glucose 150 H Code Visit Inpatient E&M: 88196 Subs Hosp L2
[2019-05-13] MEDS: Enoxaparin 40 MG/0.4 ML Syringe SC (10:11)
[2019-05-13] MEDS: Pregabalin 50 MG Capsule PO ×3 (10:17→17:12)
--- NOTE | 2019-05-13 10:57 | CASEMGMT ---
Addendum entered by Alida Gongora 05/13/19 14:45: PARIS received call from Karlene at [facility] stating they are able to accept pt. PARIS updated Karlene that this worker will call [facility] and submit for pre-cert. PARIS informed Karlene that pt should be ready for discharge today as long as this worker gets pre-cert. Karlene states understanding. PARIS placed a call to [place] at [facility] [employer] and left message regarding referral. PARIS faxed referral. Plan: [facility] pending pre-cert. Addendum entered by Alida Gongora 05/13/19 13:50: PARIS received call from Karlene at [facility] stating they are having issues with their faxes and request fax be resent to [phone]. PARIS attempted to resend fax to number provided three times but none of the faxes went through. PARIS called Karlene, Karlene provided new fax number [phone]. PARIS faxed referral to new fax number. PARIS updated Karlene that once pt is officially accepted then this worker will submit for pre-cert. Karlene states she still needs the DON to review referral. PARIS waiting for call back from Karlene. Original Note: Social Work Note PARIS reviewed notes, plan is for pt to go to [facility] pending acceptance and pre-cert. PARIS faxed referral to [facility]. PARIS wrote on fax coversheet to let this worker know if able to accept and then this worker can submit for pre-cert. Plan: [facility] pending acceptance and pre-cert Alida Gongora MATERIALS TECHNICIAN, CURRICULUM AND INSTRUCTION SPECIALIST
[2019-05-13 11:46] LABS: Bedside Glucose 290 mg/dL (70-110)
[2019-05-13] MEDS: DULoxetine Hcl 20 MG Capsule 40 MG PO (12:50)
[2019-05-13] MEDS: Metoprolol Tartrate 25 MG Tablet PO ×2 (12:52→17:13)
[2019-05-13] MEDS: traMADol 50 MG Tablet PO (14:45)
--- NOTE | 2019-05-13 15:03 | CHAPLAIN ---
Type of Pastoral Visit _x__ Initial Visit ___ Follow-up Visit ___ On-call Visit ___ General Patient Visit ___ Spiritual Assessment ___ Family Conference ___ Bereavement ___ Rapid Response ___ Code Blue ___ Other (describe below) Pastoral Care Referral From _x__ Patient ___ Family ___ Nurse ___ Physician ___ Agile Qa Tester ___ Embroiderer Hand ___ Other (describe below) Sacrament/Intervention _x__ Active listening ___ Anointing ___ Anglican ___ Bereavement ___ Communion _x__ Cele exploration ___ _x__ Life review _x__ Prayer ___ Reconciliation ___ Sacrament of Sick _x__ Supportive presence ___ Wedding ___ Other (describe below) Pastoral Comments patient remembers this resort manager from her past admission in [facility]; pt states that she cannot continue to live at home due to her 's dementia
[2019-05-13] MEDS: hydroCHLOROthiazide 12.5mg 12.5 MG PO (15:16)
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
--- NOTE | 2019-05-13 16:15 | CASEMGMT ---
Addendum entered by Alida Gongora 05/13/19 16:41: Pt is ready for discharge today. PARIS completed PAS/RR in HENS. PARIS tubed Green sheet and PAS/RR to [facility]3 floor to have staff place on pt's chart. PARIS placed a call to pt'/s daughter Marline and left her a message informing her that pt is medically ready for discharge today and asked if Marline is able to transport pt and if not the only way to transport pt would be via cot and this worker is not sure if pt's insurance will cover cot so pt may get a bill. SW informed Marline to call [facility] number and let staff know how she would like pt to be transported. SW provided [facility] number. SW placed a call to Karlene at [facility] and left message that pre-cert was actually obtained today and pt is medically cleared for discharge. Plan: [facility] today skilled. Addendum entered by Alida Gongora 05/13/19 16:24: PARIS placed a call to Pt's RN and informed her that pre-cert was obtained and RN will check with physician to let this worker know if pt is ready for discharge today. SW waiting for call back. Original Note: Social Work Note SW received message from Virginia at [facility] that pt was approved for [facility]. Per physician note, pt's blood pressure elevated likely discharge tomorrow to SNF. PARIS placed a call to pt's daughter Marline and left message informing her that pt was approved for SNF and should discharge to [facility] tomorrow if medically cleared. Plan: [facility] tomorrow if medically cleared Alida Gongora WASTE TRANSPORTATION TECHNICIAN, NON DESTRUCTIVE TESTER
--- NOTE | 2019-05-13 16:32 | PCM.TXEXTCAR ---
- Diet 05/12/19 19:53 Diet: Calorie Controlled Food consistency:: Regular Liquid Consistency:: Regular/Thin How many daily calories?: 1800 calorie - Routine Orders/Code Status Suppository Type: Dulcolax 10mg Suppository Frequency: Daily PRN Routine Lab Work: CBC, BMP - weekly on diuretic [facility] - Wound(s) L Foot; first and second toe Wound Type: Abrasion big toe/2nd toe L foot Wound Type: Abrasion - Therapies Weight Bearing: Weight bearing as tolerated Physical Therapy: Eval and Treat Occupational Therapy: Eval and Treat Speech Therapy: Eval and Treat - Allergies/Procedures Done in Hospital Allergies/Adverse Reactions: Allergies Iodine and Iodide Containing Produc Allergy (Verified 05/12/19 13:18) Rash venom-honey bee [bee venom (honey bee)] Allergy (Verified 05/12/19 13:18) Swelling - Type of Care/Length of Stay Estimated LOS: Convalescent Care Less Than 30 days Type of Care Needed: Skilled Rehab Potential: Good Prognosis: Good - Additional Orders/Day of Discharge Additional Orders: Left-sided chronic weakness. Wears left foot brace Day of Discharge: 05/13/19 - Follow Up Care Primary Care Physician: Malini Dumont MD [Primary Care Provider] - Please follow up with your Primary Care Physician in: 2 weeks. started on HCTZ
--- NOTE | 2019-05-13 16:42 | PCM.DC.SUM ---
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 1. Generalized debility -transportation specialist consult. health information manager consulted for retirement placement. Continue PTOT. Mild oropharyngeal dysphagia, speech/swallow therapist to follow. 2. Alzheimers Dementia - not on any meds for this at this time. Need outpatient medication. It seems advanced and Aricept or Namenda is not going to help. 3. Hypertension: Started on HCTZ 12.5 mg daily. Follow-up BMP in 1 week with PCP. Hypothyroidism - continue synthroid 4. DMt2 - continue metformin, lantus, SSI 5. Right foot paralysis, 2/2 prior back surgery 6. Depression - doxepin, cymbalta DVT ppx: lovenox Discharge medication reconciliation done. Discharge follow-up instructions completed. Discharge process discussed with the patient and all questions were answered to patient's satisfaction. Total time spent, exact 35 minutes on discharge meds reconciliation, examination, coordination of care with nurses and ancillary staff, review of imaging and blood test and discussion with the patient on follow-up instructions Patient Problems: Active and Suspected Problems Weakness (Acute) Subjective: Patient had mild elevated pressure. Started on HCTZ and blood pressure is controlled. Please see physical exam findings on the progress note of same day. - Physical Exam Vitals/I&O's: Vital Signs Temp Pulse Resp BP Pulse Ox 98.7 F 68 18 163/64 H 95 05/13/19 14:41 05/13/19 14:41 05/13/19 14:41 05/13/19 14:41 05/13/19 14:41 Oxygen Delivery Method Room Air Weight: 182 lb 11.2 oz Body Mass Index (BMI) 30.4 Intake and Output for Last 24 Hours 05/11/19 05/12/19 05/13/19 23:59 23:59 23:59 Intake Total 270 / 270 Output Total 1050 / 1050 Balance -780 / -780 Laboratory Results 05/12/19 21:21: POC Glucose 250 H 05/12/19 22:50: Troponin I < 0.015 05/12/19 23:13: POC Glucose 326 H 05/13/19 01:36: Troponin I 0.018 05/13/19 03:34: Troponin I < 0.015 05/13/19 06:58: POC Glucose 150 H 05/13/19 11:36: POC Glucose 290 H Current Medications Acetaminophen (Tylenol) 650 mg PO Q6H PRN PRN PRN Reason: Pain Score 1-10/Temp > 100.7 F Last Admin: 05/13/19 07:06 Dose: 650 mg Documented by: Albuterol Sulfate (Ventolin Aerosols) 2.5 mg INHALATION Q2H PRN PRN PRN Reason: Shortness of Breath/Wheezing Atorvastatin Calcium (Lipitor) 20 mg PO QHS [facility] Last Admin: 05/12/19 23:20 Dose: 20 mg Documented by: Calamine/Phenol (Calmoseptine Ointment) 1 applic TOPICAL 0600,2200 [facility]; Protocol Last Admin: 05/13/19 06:55 Dose: 1 applicatio Documented by: Calcium Carbonate (Tums) 1,000 mg PO Q4H PRN PRN PRN Reason: INDIGESTION Doxepin HCl (Doxepin Hcl) 50 mg PO QHS [facility] Last Admin: 05/12/19 23:20 Dose: 50 mg Documented by: Duloxetine HCl (Cymbalta) 40 mg PO LUNCH [facility] Last Admin: 05/13/19 12:50 Dose: 40 mg Documented by: Enoxaparin Sodium (Lovenox) 40 mg SC DAILY [facility] Last Admin: 05/13/19 10:11 Dose: 40 mg Documented by: Glucagon () 1 mg IM .X1 PRN PRN Reason: Hypoglycemia Guaifenesin (Robitussin) 20 ml PO Q4H PRN PRN PRN Reason: COUGH Hydralazine HCl (Apresoline Iv) 10 mg IV Q4H PRN PRN PRN Reason: SBP > 180 Hydrochlorothiazide () 12.5 mg PO DAILY [facility] Last Admin: 05/13/19 15:16 Dose: 12.5 mg Documented by: Dextrose (Dextrose 10%-Water) 250 mls @ 999 mls/hr IV .Q16M PRN; Protocol PRN Reason: HYPOGLYCEMIA Insulin Glargine (Lantus ([facility])) 30 units SC DAILY [facility] Last Admin: 05/13/19 10:17 Dose: 30 units Documented by: Insulin Human Lispro (Humalog Kwikpen ([facility])) 0 unit SC ACHS [facility]; Protocol Last Admin: 05/13/19 12:49 Dose: 4 u Documented by: Levothyroxine Sodium (Synthroid) 75 mcg PO DAILY@0600 [facility] Last Admin: 05/13/19 06:54 Dose: 75 mcg Documented by: Magnesium Hydroxide (Milk Of Magnesia) 30 ml PO DAILY PRN PRN PRN Reason: Constipation Melatonin (Melatonin) 3 mg PO QHS PRN PRN PRN Reason: INSOMNIA Last Admin: 05/12/19 23:19 Dose: 3 mg Documented by: Metoprolol Tartrate (Lopressor (Beta Blayne)) 25 mg PO 1200,1800 [facility] Last Admin: 05/13/19 12:52 Dose: 25 mg Documented by: Ondansetron HCl (Zofran) 4 mg IV Q8H PRN PRN PRN Reason: NAUSEA/VOMITING Polyethylene Glycol (Miralax) 17 gm PO DAILY [facility] Last Admin: 05/13/19 10:12 Dose: Not Given Documented by: Pregabalin (Lyrica) 50 mg PO 4X/DAY [facility] Last Admin: 05/13/19 12:55 Dose: 50 mg Documented by: Prochlorperazine Edisylate (Compazine Iv) 5 mg IV Q4H PRN PRN PRN Reason: Breakthrough nausea/vomiting Psyllium Hydrophilic Mucilloid (Metamucil) 1 packet PO DAILY PRN PRN PRN Reason: Constipation Senna/Docusate Sodium (Senokot-S, Desi-Colace) 2 tablet PO BID PRN PRN PRN Reason: Constipation Sodium Chloride () 10 - 40 ml IV UD PRN PRN Reason: SALINE FLUSH Last Admin: 05/12/19 21:06 Dose: 10 ml Documented by: Throat Lozenges (Cepacol Sore Throat Lozenge) 1 lozenge MUCOUS MEM Q2H PRN PRN PRN Reason: SORE THROAT Tramadol HCl (Ultram) 50 mg PO Q6H PRN PRN PRN Reason: Pain Score 4-10/10 Last Admin: 05/13/19 14:45 Dose: 50 mg Documented by: Home Medications: Medications to take at Discharge Ergocalciferol [Vitamin D] 50,000 unit PO SUWE 06/28/14 Duloxetine Hcl [Cymbalta] 40 mg PO LUNCH 01/11/19 Metformin HCl 500 mg PO BID 01/11/19 Metoprolol Tartrate [Lopressor (beta blayne)] 25 mg PO 1200,1800 01/11/19 Acetaminophen [Tylenol] 1,000 mg PO Q6H PRN PRN tab 02/22/19 Calcium Carbonate [Tums] 1,000 mg PO Q4H PRN PRN tab 02/22/19 Pregabalin [Lyrica] 50 mg PO 4X/DAY 4 Days #28 cap 02/22/19 traMADol [Ultram] 50 mg PO Q6H PRN PRN #28 tab 02/22/19 Atorvastatin Calcium [Lipitor] 20 mg PO QHS 05/12/19 Doxepin HCl 50 mg PO QHS 05/12/19 Insulin Glargine [Lantus SoloStar Pen] 30 units SUBCUT DAILY 05/12/19 Levothyroxine Sodium [Synthroid] 75 mcg PO DAILY 05/12/19 Menthol/Lanolin/Calamine/Znox [Calmoseptine Ointment] 1 applic TOPICAL 0600,2200 05/12/19 Polyethylene Glycol 3350 [Miralax] 17 gm PO DAILY 05/12/19 Acetaminophen [Tylenol Tablet] 650 mg PO Q6H PRN PRN tablet 05/13/19 Albuterol Aerosols [Ventolin Aerosols] 2.5 mg INHALATION Q2H PRN PRN vial.neb. 05/13/19 Psyllium [Metamucil] 1 packet PO DAILY PRN PRN packet 05/13/19 Senna/Docusate Sodium [Senokot-S] 2 tablet PO BID PRN PRN tablet 05/13/19 hydroCHLOROthiazide [Hydrochlorothiazide] 12.5 mg PO DAILY capsule 05/13/19 Primary Care Physician: Malini Dumont MD [Primary Care Provider] - Please follow up with your Primary Care Physician in: 2 weeks. started on HCTZ Medical Necessity - Tobacco Use Smoking Status: Never smoker Tobacco Use: Non-smoker Meaningful Use Info Meaningful Use Diagnoses (Choose all that apply): None applicable Code Visit Please cancel the billing charge of the progress note today Inpatient E&M: 40283 Disch Hosp
[2019-05-13 16:45] LABS: Bedside Glucose 254 mg/dL (70-110)
--- NOTE | 2019-05-13 18:39 | NURSING ---
REPORT CALLED TO OMEGA @ [facility]
== END 2019-05-13 18:44 | disposition skilled nursing facility (03) ==
LOC: ED 17:47 → MS3 18:21
PROVIDERS: Student in an Organized Health Care Education/Training Program; Admitting Provider Family Medicine; Emergency Provider Emergency Medicine; PCP Internal Medicine; Visit Provider Internal Medicine
DX: R53.1 Weakness (principal); R62.7 Adult failure to thrive; R06.02 Shortness of breath; R94.31 Abnormal electrocardiogram [ECG] [EKG]; G30.1 Alzheimer's disease with late onset; E03.9 Hypothyroidism, unspecified; F41.9 Anxiety disorder, unspecified; F32.9 Major depressive disorder, single episode, unspecified; E55.9 Vitamin D deficiency, unspecified; F02.80 Dementia in other diseases classified elsewhere, unspecified severity, without behavioral disturbance, psychotic disturbance, mood disturbance, and anxiety; E78.5 Hyperlipidemia, unspecified; E11.42 Type 2 diabetes mellitus with diabetic polyneuropathy; G83.9 Paralytic syndrome, unspecified; R13.12 Dysphagia, oropharyngeal phase; I10 Essential (primary) hypertension; Z79.899 Other long term (current) drug therapy; Z79.4 Long term (current) use of insulin; G89.29 Other chronic pain; I45.10 Unspecified right bundle-branch block
CPT/HCPCS: 36415; 71045; 80048; 81001; 82962; 83880; 84484; 85025; 92610; 93005; 96372; 96374; 97162; 97166; 99218; 99284; A4216; G0378

== ENCOUNTER → 2019-07-30 | Outpatient (CLI) | payer MEDICARE, SELFPAY ==
[2019-05-12 19:06] VITALS: BMI 30.4
== END | disposition home or self-care (01) ==
PROVIDERS: PCP Internal Medicine; Referring Provider Family Medicine; Visit Provider Family Medicine
DX: U07.1 COVID-19 (principal)
CPT/HCPCS: 87635; U0004

== ENCOUNTER 2019-10-01 16:45 | Emergency (ER) | payer MEDICARE, SELFPAY ==
[2019-05-12 19:06] VITALS: BMI 30.4
[2019-10-01 16:46] VITALS: PULSE 68; RESP 19; TEMP 36.8; O2SAT 95; BMI 30.8
--- NOTE | 2019-10-01 17:14 | CT_ITS ---
STUDY: CT BRAIN WITHOUT CONTRAST REASON FOR EXAM: Female, 78 years old. Trauma RADIATION DOSAGE (If Supplied By Facility): CTDIvol = ( 44.99 ) mGy, DLP = ( 812.98 ) mGycm TECHNIQUE: Transaxial CT imaging of the brain was performed without administration of intravenous contrast material. Individualized dose optimization techniques were used for this CT. COMPARISON: February 15, 2017 FINDINGS: Brain parenchyma is without focal lesions, mass effect, acute intracranial hemorrhage, extra parenchymal fluid collections, hydrocephalus or herniation. There are mild marx and white matter age-appropriate involutional changes. The skull is intact. CT/Brain/Head without Contrast IMPRESSION: 1. Normal CT brain. No acute intracranial trauma. Electronically Signed: Lida Ngo, at 17:38 EDT Tel , Service support ,
--- NOTE | 2019-10-01 17:15 | ED.VISSUMM ---
- ER Visit Summary Date of Service: 10/01/19 Chief Complaint: Fall History of Present Illness: The patient is a 78 F who presents after a fall that occurred today. Patient states she got up from the toilet and attempted to walk without her walker. Patient states she fell and landed on her right side. Patient is unsure if she had any loss of consciousness. Patient had x-rays which showed a subacute fracture of her right distal clavicle. Patient describes her pain as sharp and aching. Patient states her pain has resolved at this time. Patient denies any visual changes. Patient denies any nausea or vomiting. Patient denies any neck or back pain. Physical Examination: Vital signs are stable. Patient is afebrile. Patient is in no acute distress. There is some mild tenderness over the right parietal area. There is no edema or ecchymosis. There is no bony crepitance or step-off. Pupils are equal, round, and reactive to light bilaterally. Extraocular muscles are intact. Conjunctiva is clear. Oral mucosa is pink and moist. Neck is supple. Trachea is midline. There is no JVD. Heart was regular rate and rhythm. Lungs are clear and equal bilaterally. Abdomen is soft and nontender. Cranial nerves II through XII are intact. Strength is 5/5 bilateral in the upper and lower extremities. There are no sensory deficits noted. Musculoskeletal exam reveals some mild tenderness over the right distal clavicle. There is no obvious deformity. Test Results: CT scan of the brain was obtained. There is no acute intracranial injury. These were interpreted by the radiologist and reviewed by myself. Emergency Department Course and Treatment: Patient was given a sling for her right arm. Patient was instructed to use ice to the area. Patient was instructed to take Tylenol or ibuprofen as needed for pain. Patient was instructed return if worse in any way. Patient understood and was agreeable with the plan. All questions were answered. Disposition: Discharge home Impression: 1. Closed head injury 2. Right distal clavicle fracture This note was generated with [employer] dictation software. It may contain incorrect words, spelling, and punctuation that were not noted in review of the chart prior to signing ED Disposition - Plan for ED Patient: Disposition: Senior Living Facility Diagnosis: Closed head injury, Right clavicle fracture Instructions: ED Clavicle Fracture, ED Mechanical Fall, ED Head Injury Adult Referrals: Malini Dumont MD [Primary Care Provider] - 5-7 Days
[2019-10-01 18:24] VITALS: BP 139/62; PULSE 78; RESP 18; O2SAT 99
--- NOTE | 2019-10-17 19:26 | ED.RN ---
CHART OPENED TO [employer]ERS FOR [facility]QU[facility] REPORT
== END 2019-10-01 18:24 | disposition skilled nursing facility (03) ==
PROVIDERS: Emergency Provider Emergency Medicine; PCP Internal Medicine
DX: S09.90XA Unspecified injury of head, initial encounter (principal); S42.001A Fracture of unspecified part of right clavicle, initial encounter for closed fracture; W19.XXXA Unspecified fall, initial encounter; E11.9 Type 2 diabetes mellitus without complications
CPT/HCPCS: 70450; 99284

== ENCOUNTER 2019-11-05 22:48 | Emergency (ER) | payer MEDICARE, SELFPAY ==
[2019-11-05 22:49] VITALS: PULSE 72; RESP 16; TEMP 36.8; O2SAT 96; BMI 31.6
[2019-11-05 22:55] VITALS: BP 144/65
--- NOTE | 2019-11-05 23:10 | CT_ITS ---
STUDY: CT BRAIN WITHOUT CONTRAST REASON FOR EXAM: Female, 79 years old. FELL TODAY. - HEAD INJURY - LOC RADIATION DOSAGE (If Supplied By Facility): CTDIvol = ( 44.99 ) mGy, DLP = ( 796.11 ) mGycm TECHNIQUE: Transaxial CT imaging of the brain was performed without administration of intravenous contrast material. Individualized dose optimization techniques were used for this CT. COMPARISON: 10/01/2019 CT head FINDINGS: Normal soft tissue structures. Normal calvarium. There is mild cerebral atrophy with widening of the extra-axial spaces and ventricular dilatation. There are areas of decreased attenuation within the white matter tracts of the supratentorial brain, consistent with microvascular disease changes. Normal basal ganglia and thalami. Normal brainstem. There is mild cerebellar atrophy. There is no intracranial hemorrhage. There are no findings of an acute ischemic infarction. There are bilateral maxillary mucosal retention cyst. CT/Brain/Head without Contrast IMPRESSION: Atrophy. No evidence of acute hemorrhage infarct or edema. Stable head CT Electronically Signed: Fanny Hernández MD at 0:26 EDT Tel , Service support ,
--- NOTE | 2019-11-05 23:10 | CT_ITS ---
STUDY: CT CERVICAL SPINE WITHOUT CONTRAST REASON FOR EXAM: Female, 79 years old. FELL TODAY. - HEAD INJURY - LOC RADIATION DOSAGE (If Supplied By Facility): CTDIvol = ( 17.86 ) mGy, DLP = ( 371.30 ) mGycm TECHNIQUE: High resolution transaxial imaging was performed without contrast material. Sagittal and coronal images were reconstructed. Individualized dose optimization techniques were used for this CT. COMPARISON: None FINDINGS: Normal craniovertebral junction. There is hypertrophy of the transverse ligament of the atlas with mild posterior displacement of the superior and inferior longitudinal fibers of the cruciform ligament, producing minimal ventral thecal sac flattening, but without cervical cord impingement. There are mild degenerative changes in the anterior atlantoaxial articulation. Normal odontoid process. Normal cervical lordosis. Normal vertebral bodies and posterior osseous elements. C2-3: Normal endplates. Normal disc height and morphology. Normal central canal and intervertebral neuroforamina. C3-4: Normal endplates. Normal disc height and morphology. Normal central canal and intervertebral neuroforamina. C4-5: There is slight anterolisthesis. There is facet arthropathy and anterior osteophyte formation. There is no significant neural foramina narrowing central stenosis. C5-6: There is disc space narrowing spondylosis with mild neural foramina narrowing no significant central stenosis. C6-7: There is anterior osteophytosis.. Normal disc height and morphology. Normal central canal and intervertebral neuroforamina. C7-T1: Normal endplates. Normal disc height and morphology. Normal central canal and intervertebral neuroforamina. There is atherosclerotic disease of the aorta. The thyroid gland appears mildly enlarged minimally asymmetric. There is trace calcification of the visualized right side internal carotid artery. CT/Spine Cervical without Contras IMPRESSION: Degenerative change. No visualized acute fracture. Electronically Signed: Fanny Hernández MD at 0:33 EDT Tel , Service support ,
--- NOTE | 2019-11-05 23:10 | RAD_ITS ---
STUDY: X-RAY - LUMBAR SPINE REASON FOR EXAM: Female, 79 years old. FALL, LOW BACK PAIN TECHNIQUE: 32 view(s) of the lumbar spine were obtained. COMPARISON: 07/09/2014 FINDINGS: Normal lumbar lordosis. There is no substantial scoliosis. There is a normal alignment of the vertebrae. There is mild spondylosis. There is disc space narrowing L5-S1. Normal disc space heights. The BACLOFEN-type pump demonstrated the leads enter the spinal canal at the level of T11-T12. There is partially visualized slight loss of height suggested at the level of T11. There is atherosclerotic disease of the aorta. RAD/Lumbar Spine 2 or 3 Views IMPRESSION: BACLOFEN pump, degenerative change. Age-indeterminate slight loss of height at the level of T11. Electronically Signed: Fanny Hernández MD at 0:29 EDT Tel , Service support ,
--- NOTE | 2019-11-05 23:11 | RAD_ITS ---
STUDY: X-RAY - RIGHT TIBIA AND FIBULA REASON FOR EXAM: Female, 79 years old. FALL, RIGHT LEG PAIN TECHNIQUE: 3 view(s) of the tibia and fibula were obtained. COMPARISON: None. FINDINGS: Normal visualized tibia. Normal visualized fibula. There is a suggestion possible trace knee joint effusion. There is mild degenerative change of the patellofemoral compartment. The soft tissue structures are unremarkable. The partially visualized bones of the foot appear osteopenic. RAD/Tibia & Fibula 2 Views IMPRESSION: Bony osteopenia and no visualized acute fracture of the tibia and fibula. Electronically Signed: Fanny Hernández MD at 0:26 EDT Tel , Service support ,
[2019-11-05] MEDS: fentaNYL 100 MCG/2 ML Ampul 50 MCG IM (23:25)
[2019-11-05] MEDS: Ondansetron ODT 4 MG Tablet PO (23:26)
--- NOTE | 2019-11-05 23:30 | RAD_ITS ---
STUDY: X-RAY - RIGHT KNEE REASON FOR EXAM: Female, 79 years old. FALL, RIGHT KNEE PAIN TECHNIQUE: 4 view(s) of the knee. COMPARISON: None. FINDINGS: There is mild demineralization of the visualized distal femur. Normal visualized proximal tibia and fibula. Normal proximal tibiofibular articulation. There is moderate degenerative arthrosis of the medial femorotibial compartment with moderate joint space narrowing. There is mild degenerative arthrosis of the lateral femorotibial compartment. There is mild degenerative arthrosis of the patellofemoral articulation. There is a soft tissue prominence in the suprapatellar region suggesting a small volume joint effusion. There is soft tissue edema especially near the lateral collateral ligament level. There is a subtle focal cortical 3.6 mm defect in the lateral femoral condyle which could represent a possible avulsion injury Richie-Stieda type lesion. There is a small joint effusion. RAD/Knee 4 or More Views IMPRESSION: There is soft tissue edema especially of the lateral collateral ligament or adjacent soft tissue. There is a subtle focal cortical 3.6 mm defect in the lateral femoral condyle which could represent a possible avulsion injury Richie-Stieda type lesion. There is a small joint effusion. Electronically Signed: Fanny Hernández MD at 0:23 EDT Tel , Service support ,
[2019-11-06 00:21] VITALS: BP 174/65; PULSE 73; RESP 16; O2SAT 93
--- NOTE | 2019-11-06 01:06 | ED.DCSUM_ITS ---
- ER Visit Summary Date of Service: 11/06/19 Chief Complaint: Fall History of Present Illness: The patient is a [address] Dumont. 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 She has a difficult time ambulating due to this. States that tonight she got out of bed to go to the bathroom and fell. She did hit her head. No loss of consciousness. She not on anticoagulants. She complains of neck pain that is 4-10 in severity, back pain is 3 out of 10 severity, and right knee pain is 7 out of 10 in severity. Patient denies any shoulder, wrist, or hip pain. Physical Examination: Vitals: Stable. Afebrile. Neck: Mild diffuse tenderness over the C-spine. No point tenderness. Full ROM without difficulty. Back: Mild diffuse tenderness palpation over the lumbar spine. No point tenderness. General: A&O x 3. NAD. Cardiovascular exam: Regular rate and rhythm, no murmur, rub or gallop. Respiratory exam: Chest nontender. No crepitus. Clear to auscultation bilaterally. No wheezes or stridor. Abdominal exam: Soft, nontender, nondistended, normal bowel sounds. No pain in RUQ or LUQ specifically. No peritoneal signs. Extremity: Mild tenderness palpation over the medial side of the knee. Small joint effusion.. No pain with range of motion. Test Results: Clinical Impression(s) from Imaging Studies Brain CT 11/05/19 23:10 IMPRESSION: Atrophy. No evidence of acute hemorrhage infarct or edema. Stable head CT Electronically Signed: Fanny Hernández MD at 0:26 EDT Tel , Service support , Cervical Spine CT 11/05/19 23:10 IMPRESSION: Degenerative change. No visualized acute fracture. Electronically Signed: Fanny Hernández MD at 0:33 EDT Tel , Service support , Lumbar Spine X-Ray 11/05/19 23:10 IMPRESSION: BACLOFEN pump, degenerative change. Age-indeterminate slight loss of height at the level of T11. Electronically Signed: Fanny Hernández MD at 0:29 EDT Tel , Service support , Tibia/Fibula X-Ray 11/05/19 23:11 IMPRESSION: Bony osteopenia and no visualized acute fracture of the tibia and fibula. Electronically Signed: Fanny Hernández MD at 0:26 EDT Tel , Service support , Knee X-Ray 11/05/19 23:30 IMPRESSION: There is soft tissue edema especially of the lateral collateral ligament or adjacent soft tissue. There is a subtle focal cortical 3.6 mm defect in the lateral femoral condyle which could represent a possible avulsion injury Richie-Stieda type lesion. There is a small joint effusion. Electronically Signed: Fanny Hernández MD at 0:23 EDT Tel , Service support , Emergency Department Course and Treatment: Patient was given Zofran p.o. and fentanyl IM. When the knee x-ray returned I palpated the lateral side of her knee. There is no pain at the insertion of the lateral collateral ligament on the femoral condyle. I do not think that this is an acute injury. Treatment Plan: Patient feels well and would like to go home. She refused pain medications for home. She will be discharged instructed to follow-up with her primary care physician 1 week if not improving. Return to the emergency department for any worsening symptoms. Disposition: To home in improved and stable condition. Impression: 1. Fall. 2. Cervical strain. 3. Lumbar strain. 4. Right knee pain, acute. This note was generated with [employer] software. It may contain incorrect words, spelling, and punctuation that were not noted in review of the chart prior to signing ED Disposition - Plan for ED Patient: Disposition: Home or Assisted Living Instructions: ED Knee Pain [facility] Referrals: Malini Dumont MD [Primary Care Provider] - 1 Week if not improving
[2019-11-06 01:33] VITALS: BP 168/88; PULSE 76; RESP 15; O2SAT 96
--- NOTE | 2019-11-06 01:38 | ED.RN ---
SPOKE WITH MEETA FERREIRA AT [facility] AT [phone] AND GAVE PT REPORT. PT D/C WITH FAMILY.
== END 2019-11-06 01:34 | disposition home or self-care (01) ==
PROVIDERS: Emergency Provider Emergency Medicine; PCP Internal Medicine
DX: S16.1XXA Strain of muscle, fascia and tendon at neck level, initial encounter (principal); S39.012A Strain of muscle, fascia and tendon of lower back, initial encounter; M25.561 Pain in right knee; M21.371 Foot drop, right foot; R01.1 Cardiac murmur, unspecified; W19.XXXA Unspecified fall, initial encounter; Y93.9 Activity, unspecified; Y92.9 Unspecified place or not applicable; E11.9 Type 2 diabetes mellitus without complications; E78.00 Pure hypercholesterolemia, unspecified; Z79.84 Long term (current) use of oral hypoglycemic drugs; Z79.899 Other long term (current) drug therapy
CPT/HCPCS: 70450; 72100; 72125; 73564; 73590; 96372; 99284

== ENCOUNTER → 2020-05-08 08:20 | Outpatient (CLI) | payer MEDICARE, SELFPAY ==
--- NOTE | 2020-05-08 08:24 | NM_ITS ---
CLINICAL: Female, 79 years old. Left drop foot after back surgery -- Pain bilateral feet and ankles WHOLE BODY NUCLEAR BONE SCAN TECHNIQUE: Following the IV administration of 26 mCi of Tc MDP, a three-phase bone scan of both feet were obtained. FINDINGS: Three-phase bone scan was obtained. On the blood flow imaging sequence, there is a mild degree of increased flow to the region of the third toe the left foot. On the immediate postflow images, there is slight increased uptake in the region of the left third toe. On the delayed images, there is evidence of increased uptake in the region of the right tibial talar joint as well as the tarsal metatarsal joints. Increased uptake is also seen at the level of the right first metatarsophalangeal joint and distal aspect of the third toe of the left foot. NM/Bone Scan Three Phase IMPRESSION: Findings suggestive of degenerative changes of the right foot as well as the first metatarsophalangeal joint on the left. Increased uptake in the distal phalanx of the third or fourth toe. Osteomyelitis should be ruled out. Electronically Signed: Tio Perez MD at 13:25 EST , Service support ,
== END ==
PROVIDERS: PCP Internal Medicine; Referring Provider Internal Medicine; Visit Provider Internal Medicine
DX: M79.672 Pain in left foot (principal); M79.671 Pain in right foot
CPT/HCPCS: 78315

== ENCOUNTER → 2020-05-25 13:09 | Outpatient (CLI) | payer MEDICARE, SELFPAY ==
--- NOTE | 2020-05-25 13:12 | ART_ITS ---
Reason For Study: atherosclerosis with claudication Procedure A bilateral lower extremity continuous wave Doppler with analog waveform analysis and ankle brachial indexes. No LUE BP due to IV site. Left Segmental Pressures Left posterior tibial artery = 201mmHg. Left dorsalis pedis artery = 197mmHg. The left dorsalis pedis waveforms are triphasic. The left posterior tibial artery waveforms are triphasic. Right Segmental Pressures Right brachial= 179mmHg. Right posterior tibial artery = 199mmHg. Right dorsalis pedis artery = 195mmHg. The right dorsalis pedis waveforms are triphasic. The right posterior tibial artery waveforms are triphasic. Indices The right ankle brachial index by the posterior tibial artery is 1.11. The right ankle brachial index by the dorsalis pedis is 1.09. The left ankle brachial index by the posterior tibial artery is 1.12. The left ankle brachial index by the dorsalis pedis is 1.1. Interpretation Summary Bilateral triphasic flow and JOSSIE 1.11 and 1.12. Ordering Physician: Magen Haley Performed By: ANCA VIDALES RVT
--- NOTE | 2020-05-25 13:12 | ADU_ITS ---
Reason For Study: atherosclerosis with claudication Right Velocities Left Velocities Ext. Iliac Artery, dist = 87.4 cm./sec. Ext Iliac Artery, dist = 134.4 cm./sec. Common Femoral Artery, mid = 88.5 cm./sec. Common Femoral Artery, mid = 121.6 cm./sec. Supf Femoral Artery, prox = 85.6 cm./sec. Supf. Femoral Artery, prox = 117.9 cm./sec. Supf Femoral Artery, mid = 85.6 cm./sec. Supf. Femoral Artery, mid = 106.9 cm./sec. Supf Femoral Artery, dist. = 100.7 cm./sec. Supf. Femoral Artery, dist = 81.4 cm./sec. Profunda Femoral Artery = 66.5 cm./sec. Profunda Femoral Artery = 65.0 cm./sec. Popliteal Artery, prox. = 78.7 cm./sec. Popliteal Artery, proximal, = 70.4 cm./sec. Popliteal Artery, mid = 71.4 cm./sec. Popliteal Artery, mid = 72.2 cm./sec. Popliteal Artery, dist = 82.4 cm./sec. Popliteal Artery, distal = 79.5 cm./sec. Post. Tibial Artery, prox = 99.4 cm./sec. Post. Tibial Artery, prox = 112.4 cm./sec. Post. Tibial Artery, mid = 98.2 cm./sec. Post Tibial Artery, mid = 114.1 cm./sec. Post. Tibial Artery, dist = 105.5 cm./sec. Post Tibial Artery, dist. = 90.3 cm./sec. Peroneal Artery, prox = 73.2 cm./sec. Peroneal Artery, prox = 86.7 cm./sec. Peroneal Artery, mid = 59.6 cm./sec. Peroneal Artery, mid = 44.8 cm./sec. Peroneal Artery,dist = 54.7 cm./sec. Peroneal Artery,dist. = 75.8 cm./sec. Ant. Tibial Artery, prox = 74.4 cm./sec. Ant.Tibial Artery, prox = 63.0 cm./sec. Ant. Tibial Artery, mid = 96.5 cm./sec. Ant Tibial Artery, mid = 86.6 cm./sec. Ant. Tibial Artery, dist = 89.1 cm./sec. Ant. Tibial Artery, distal = 83.0 cm./sec. Procedure The exam was diagnostic. Exam performed in department. Interpretation Summary Bilateral triphasic flow and no stenosis throughout. Ordering Physician: Magen Haley Performed By: Bradley Gonzalez RVT
== END ==
PROVIDERS: PCP Internal Medicine; Referring Provider Surgery Vascular Surgery; Visit Provider Surgery Vascular Surgery
DX: I70.213 Atherosclerosis of native arteries of extremities with intermittent claudication, bilateral legs (principal); I77.1 Stricture of artery; E11.9 Type 2 diabetes mellitus without complications; E78.00 Pure hypercholesterolemia, unspecified; I10 Essential (primary) hypertension
CPT/HCPCS: 93922; 93925

== ENCOUNTER → 2020-05-31 | Outpatient (CLI) | payer MEDICARE, SELFPAY ==
[2020-05-31 19:21] LABS: M R Staph aureus DNA By PCR POSITIVE (Negative); Probe Check PASS; Staph aureus DNA By PCR POSITIVE (Negative)
== END | disposition home or self-care (01) ==
PROVIDERS: Visit Provider Podiatrist Foot & Ankle Surgery
DX: L97.522 Non-pressure chronic ulcer of other part of left foot with fat layer exposed (principal); L03.032 Cellulitis of left toe
CPT/HCPCS: 87070; 87075; 87077; 87186; 87205; 87640

== ENCOUNTER → 2020-09-27 | Outpatient (CLI) | payer MEDICARE, SELFPAY | END | disposition home or self-care (01) | PROVIDERS: Referring Provider Podiatrist; Visit Provider Podiatrist | DX: M86.9 Osteomyelitis, unspecified (principal) | CPT/HCPCS: 87070; 87075; 87077; 87186; 87205 ==

== ENCOUNTER → 2020-09-28 05:00 | Outpatient (REF) | payer MEDICARE, SELFPAY ==
[2020-09-28 07:32] LABS: Absolute Lymphocyte Count 3.74 X10^3/uL (0.83-4.51); Absolute Neutrophil Count 4.4 X10^3/uL (2.0-7.7); Basophil# 0.08 X10^3/uL; Basophil% 0.9 % (0-1); Eosinophil# 0.19 X10^3/uL; Eosinophils% 2.1 % (0-5); Hematocrit 32.6 % (37-47); Lymphocyte # 3.74 X10^3/ul (0.83-4.51); Lymphocyte % 40.9 % (19-41); Mean Corp Hgb Conc 30.7 g/dL (32-36); Mean Corpuscular Volume 91.3 fL (81-99); Mean Platelet Vol. 12.5 fl (6.2-12.0); Monocyte% 7.7 % (0-10); NRBC Flagged by Analyzer 0 % (0-5); Neutrophil % 48.1 % (47-70); Platelet Count 193 K/mm3 (150-450); RBC Distribution Width CV 15.8 % (11.6-14.6); Red Blood Count 3.57 M/mm3 (4.2-5.4); White Blood Count 9.1 K/mm3 (4.4-11.0)
[2020-09-28 07:36] LABS: Erythrocyte Sedimentation Rate 31 mm/hr (0-30)
[2020-09-28 08:06] LABS: ALB/GLOB Ratio 0.8 RATIO (0.9-2.4); AST(SGOT) 16 U/L (15-37); Alanine Aminotransfer ALT/SGPT 15 U/L (13-56); Albumin, Serum 3.1 g/dL (3.2-5.0); Alkaline Phosphatase 74 U/L (45-117); Anion Gap 9 (5-15); BUN 20 mg/dL (7-18); CRP < 2.90 mg/L (0.0-3.0); Calcium,Total 8.7 mg/dL (8.5-10.1); Chloride 104 mmol/L (98-107); Creatinine, Serum 1.05 mg/dL (0.55-1.02); EST Glomerular Filtration Rate 54 mL/min (>60); Est Glom Filt Rate - Afr Amer 65 mL/min (>60); Globulin 3.7 g/dL (2.2-4.2); Glucose 72 mg/dL (74-106); Potassium 3.8 mmol/L (3.5-5.1); Protein, Total 6.8 g/dL (6.4-8.2); Sodium Level 140 mmol/L (136-145)
[2020-10-05 13:24] VITALS: BMI 28.4
== END ==
LOC: OLS.SW400 05:00
PROVIDERS: Visit Provider Internal Medicine
DX: M85.60 Other cyst of bone, unspecified site (principal)
CPT/HCPCS: 36415; 80053; 85025; 85652; 86140

== ENCOUNTER 2020-10-04 13:07 | Inpatient (IN) | payer MEDICARE, SELFPAY ==
[2020-10-04 12:33] VITALS: BMI 28.4
[2020-10-04 12:37] VITALS: BP 130/59; PULSE 83; RESP 16; TEMP 36.7; O2SAT 95
--- NOTE | 2020-10-04 12:56 | RAD_ITS ---
STUDY: X-RAY - LEFT FOOT CLINICAL: Osteomyelitis of the left third toe. TECHNIQUE: 3 view(s) of the foot. COMPARISON: Radiographs 02/02/2019. FINDINGS: Normal talus, calcaneus, and tarsal bones. Normal visualized subtalar, talonavicular, calcaneocuboid, tarsal and tarsometatarsal articulations. Normal metatarsi. There is arthrodesis with osseous bridging of the metatarsophalangeal joint of the great toe. There is resection of the tibial and fibular sesamoid bones. There is an ossicle at the medial aspect of the interphalangeal joint of the great toe. Normal phalanges of the great toe. Normal second through fifth metatarsophalangeal joints. There is osseous erosion of the distal aspect of the third distal phalanx. There is soft tissue swelling of the third toe. RAD/Foot min 3 Views IMPRESSION: Osseous erosion of the distal aspect of the third distal phalanx consistent with osteomyelitis. Arthrodesis of the first metatarsophalangeal joint. Electronically Signed: John Hollins MD at 14:11 EDT Tel , Service support ,
--- NOTE | 2020-10-04 12:59 | CT_ITS ---
STUDY: CT LEFT FOOT REASON FOR EXAM: Osteomyelitis of the left third toe. TECHNIQUE: Thin section transaxial imaging of the foot was obtained, with sagittal and coronal reconstructed images. Individualized dose optimization techniques were used for this CT. COMPARISON: Radiographs 10/04/2020. FINDINGS: There are small posterior and plantar calcaneal enthesophytes (sagittal reconstructions 17, 18). Otherwise, unremarkable talus, calcaneus, and tarsal bones. Normal visualized tibiotalar, subtalar, talonavicular, calcaneocuboid, tarsal and tarsometatarsal articulations. Normal metatarsi. There is arthrodesis with osseous bridging of the metatarsophalangeal joint of the great toe (axial images 56-59). There is resection of the tibial and fibular sesamoid bones with small residual osseous fragments. There is a small ossicle at the medial aspect of the interphalangeal joint of the great toe (axial image 61). Normal phalanges of the great toe. Normal second through fifth metatarsophalangeal joints. There is osseous erosion of the distal aspect of the third distal phalanx (axial image 68; sagittal reconstructions 25) consistent with osteomyelitis. There is no demonstrated bone destruction of the middle and proximal phalanges of the third digit. There is soft tissue swelling of the third toe. CT/Extremity Lower without Contra IMPRESSION: Osseous erosion of the distal aspect of the third distal phalanx consistent with osteomyelitis. Arthrodesis of the first metatarsophalangeal joint. Electronically Signed: John Hollins MD at 14:12 EDT Tel , Service support ,
--- NOTE | 2020-10-04 13:05 | PCM.HP.STD ---
HPI - General General Date of Admission: 10/04/20 HPI Narrative CASSIE SUÁREZ, is a 79 F who presents from office visit today for left 3rd toe wound, swelling and redness which is getting worse despite outpatient oral Doxycycline. Patient had bone scan May 2020 which showed osteomyelitis to the left 3rd or 4th toes - clinically there is evidence of infection to the left 3rd toe. Patient completed course of IV Vancomycin for 17 days by nursing facility physician. Patient presented to my office last week - it was noted there was a wound to the 3rd toe with redness and swelling. A culture was taken which grew MRSA. Patient has been on oral Doxycycline 100mg PO once a day for 1 week, the toe looks worse today. There was also questionable bone changes to the distal 3rd toe on xrays last week. Due to worsening patient was admitted for further workup and management. Patient's daughter Marline has been informed. [facility] Medical History Diabetes Home Medications metoprolol tartrate 25 mg PO BID 01/11/19 [History Last Taken 10/01/19] tramadol 50 mg PO Q6H PRN PRN #28 tab 02/22/19 [Rx Last Taken 10/01/19] atorvastatin 20 mg PO QHS 05/12/19 [History Last Taken 09/30/19] doxepin 50 mg PO QHS 05/12/19 [History Last Taken 09/30/19] levothyroxine 75 mcg PO DAILY 05/12/19 [History Last Taken 10/01/19] acetaminophen 1,000 mg PO Q6H PRN PRN 10/01/19 [History Last Taken 09/29/19] cholecalciferol (vitamin D3) 2,000 unit PO DAILY 10/01/19 [History Last Taken 10/01/19] duloxetine 60 mg PO LUNCH 10/01/19 [History Last Taken 10/01/19] hydrochlorothiazide 12.5 mg PO DAILY 10/01/19 [History Last Taken 10/01/19] insulin glargine 30 unit SQ QHS 10/01/19 [History Last Taken 09/30/19] insulin lispro 5 unit SQ 4X/DAY PRN 10/01/19 [History Last Taken Unknown] metformin 1,000 mg PO BID 10/01/19 [History Last Taken 10/01/19] pregabalin 50 mg PO 4X/DAY 10/01/19 [History Last Taken 10/01/19] Allergy/AdvReac Type Severity Reaction Status Date / Time Iodine and Iodide Containing Allergy Rash Verified 11/05/19 22:49 Produc venom-honey bee Allergy Swelling Verified 11/05/19 22:49 [bee venom (honey bee)] Surgical History (Updated 10/04/20 @ 13:30 by Sylvia Ocasio) Previous back surgery Social History Smoking Status: Never smoker ROS ROS Narrative No fever, chills, nausea or vomiting. Peripheral neuropathy bilateral LE No foot pain at this time. Vital Signs Vital Signs Vital Signs: 10/04/20 12:37 Temperature 98.0 F Temperature Source Oral Pulse Rate 83 Respiratory Rate 16 Blood Pressure 130/59 H Blood Pressure Mean 82 Blood Pressure Source Monitor Blood Pressure Position Sitting Blood Pressure Location Right Arm Pulse Ox 95 Oxygen Delivery Method Room Air Weight Weight: 77.564 kg Body Mass Index (BMI) 28.4 Physical Exam Extremity Extremity Narrative: The left 3rd toe with diffuse ulceration and some purulent drainage - down to the subcutaneous tissue layer, tissues granular, there is erythema and edema to the toe. There is no malia necrosis to the left foot, no visible abscess, no crepitus, no fluctuance either. CFT < 2 seconds to all toes bilateral. No evidence of infection right foot. Pedal pulses intact bilateral foot. Decreased sensation to the foot bilateral - chronic. Diffuse lower extremity weakness noted bilateral. Results Lab / Micro Data Result Diagrams: 10/04/20 13:15 10/04/20 13:15 Assessment & Plan Assessment/Plan (1) Acute osteomyelitis of left calcaneus: (2) Chronic osteomyelitis of left foot: (3) Diabetic foot ulcer: (4) Diabetes mellitus with diabetic polyneuropathy: PLAN: Patient was admitted for further workup on let 3rd toe. Culture was obtained last week and positive for MRSA. Patient has been started on IV antibiotic- Vancomycin - ID / Dr. Carmona was consulted. CT scan of the left foot was ordered (without contrast), patient relates she cannot have MRI due to spinal implant. Patient had LEAS in May 2020 and noted to have good arterial flow to foot. No is no evidence of ischemia to the foot. We discussed surgical options of amputation - reviewed rationale of this, as well as the possible benefits vs risks. I discussed with patient and her daughter Marline - they are on board with proceeding with amputation if needed. Hospital medicine consulted - discussed with Dr. Casas. Appreciate assistance.
[2020-10-04 13:39] LABS: Erythrocyte Sedimentation Rate 49 mm/hr (0-30)
[2020-10-04 13:40] LABS: Absolute Lymphocyte Count 3.37 X10^3/uL (0.83-4.51); Absolute Neutrophil Count 7.3 X10^3/uL (2.0-7.7); Basophil% 0.9 % (0-1); Eosinophil# 0.13 X10^3/uL; Eosinophils% 1.1 % (0-5); Lymphocyte # 3.37 X10^3/ul (0.83-4.51); Lymphocyte % 28.8 % (19-41); Mean Corp Hgb Conc 30.6 g/dL (32-36); Mean Corpuscular Hgb 27.6 pg (27.0-32.0); Mean Corpuscular Volume 90.5 fL (81-99); Mean Platelet Vol. 11.8 fl (6.2-12.0); Monocyte# 0.77 X10^3/uL; Monocyte% 6.6 % (0-10); NRBC Flagged by Analyzer 0 % (0-5); Neutrophil % 62.3 % (47-70); Platelet Count 207 K/mm3 (150-450); RBC Distribution Width CV 15.6 % (11.6-14.6); RBC Distribution Width SD 51.1 fl (35.1-43.9); Red Blood Count 3.98 M/mm3 (4.2-5.4); White Blood Count 11.7 K/mm3 (4.4-11.0)
[2020-10-04 14:01] LABS: Hemoglobin A1c 6.8 % (3.8-5.6)
[2020-10-04 14:06] LABS: ALB/GLOB Ratio 0.8 RATIO (0.9-2.4); AST(SGOT) 23 U/L (15-37); Alanine Aminotransfer ALT/SGPT 21 U/L (13-56); Albumin, Serum 3.4 g/dL (3.2-5.0); Alkaline Phosphatase 69 U/L (45-117); Anion Gap 8 (5-15); BUN 23 mg/dL (7-18); BUN/Creat Ratio 17.4 RATIO (10-20); CRP < 2.90 mg/L (0.0-3.0); Calcium,Total 9.2 mg/dL (8.5-10.1); Chloride 102 mmol/L (98-107); Creatinine, Serum 1.32 mg/dL (0.55-1.02); EST Glomerular Filtration Rate 41 mL/min (>60); Est Glom Filt Rate - Afr Amer 50 mL/min (>60); Estimated Creatinine Clearance 30.59 ml/min; Globulin 4.2 g/dL (2.2-4.2); Glucose 148 mg/dL (74-106); Potassium 3.8 mmol/L (3.5-5.1); Protein, Total 7.6 g/dL (6.4-8.2); Sodium Level 139 mmol/L (136-145)
--- NOTE | 2020-10-04 15:05 | PCM.RX.CS ---
Consult Pharmacy has been consulted to manage selected antiobiotic: Vancomycin Type of Consult: New start Suspected Infection: Osteomyelitis Labs: Sodium 139 mmol/L (136-145) 10/04/20 13:15 Potassium 3.8 mmol/L (3.5-5.1) 10/04/20 13:15 Chloride 102 mmol/L (98-107) 10/04/20 13:15 Carbon Dioxide 29.0 mmol/L (21.0-32.0) 10/04/20 13:15 Anion Gap 8 (5-15) 10/04/20 13:15 BUN 23 mg/dL (7-18) H 10/04/20 13:15 Creatinine 1.32 mg/dL (0.55-1.02) H 10/04/20 13:15 Est GFR (MDRD) Af Amer 50 mL/min (>60) L 10/04/20 13:15 Est GFR (MDRD) Non-Af 41 mL/min (>60) L 10/04/20 13:15 BUN/Creatinine Ratio 17.4 RATIO (10-20) 10/04/20 13:15 Glucose 148 mg/dL (74-106) H 10/04/20 13:15 Weight used for dosin.6 kg Estimated Creatinine Clearance: 35ML/MIN Goal Trough: 15-20 mcg/mL Pharmacy Plan for Drug Dosing: Give initial load dose of 2000mg IV x1, then continue with 1000mg IV q24h. Will order a trough before the 3rd overall dose. The patient's CrCl of 35ml/min was calculated using an adjusted body weight of 65.2kg. Pharmacy Service will continue to monitor and adjust dosing as required. Follow-Up Labs: Trough Vancomycin Labs to be done on [date and time ordered]: 10/06/20 14:30
--- NOTE | 2020-10-04 15:53 | PCM.CONS.GEN ---
Assessment & Plan Assessment/Plan (1) Diabetes mellitus with diabetic polyneuropathy: (2) Chronic osteomyelitis of left foot: PLAN: Recent toe culture with MRSA. CT done. On vanc. May need I&D vs amputation of the toe if recurrent infection not responding well to abx. Will follow, thank you HPI Consult Data Date of Consult: 10/04/20 HPI Narrative HPI Narrative: CASSIE SUÁREZ, is a 79 F who presented with worsening osteo of L toes. Recent put on doxy for past week without improvement. C/o pain, redness. No fever, not sure if any drainage. Has gotten covid shot. Admitted by Dr. Ruiz. Recent wound cx with MRSA. Started on vanc. Full ROS performed and neg except as noted above. [facility] Medical History Diabetes Home Medications metoprolol tartrate 25 mg PO BID 01/11/19 [History Last Taken 10/01/19] tramadol 50 mg PO Q6H PRN PRN #28 tab 02/22/19 [Rx Last Taken 10/01/19] atorvastatin 20 mg PO QHS 05/12/19 [History Last Taken 09/30/19] doxepin 50 mg PO QHS 05/12/19 [History Last Taken 09/30/19] levothyroxine 75 mcg PO DAILY 05/12/19 [History Last Taken 10/01/19] acetaminophen 1,000 mg PO Q6H PRN PRN 10/01/19 [History Last Taken 09/29/19] cholecalciferol (vitamin D3) 2,000 unit PO DAILY 10/01/19 [History Last Taken 10/01/19] duloxetine 60 mg PO LUNCH 10/01/19 [History Last Taken 10/01/19] hydrochlorothiazide 12.5 mg PO DAILY 10/01/19 [History Last Taken 10/01/19] insulin glargine 30 unit SQ QHS 10/01/19 [History Last Taken 09/30/19] insulin lispro 5 unit SQ 4X/DAY PRN 10/01/19 [History Last Taken Unknown] metformin 1,000 mg PO BID 10/01/19 [History Last Taken 10/01/19] pregabalin 50 mg PO 4X/DAY 07/17/20 [History Last Taken 10/01/19] Allergy/AdvReac Type Severity Reaction Status Date / Time Iodine and Iodide Containing Allergy Rash Verified 11/05/19 22:49 Produc venom-honey bee Allergy Swelling Verified 11/05/19 22:49 [bee venom (honey bee)] Surgical History (Updated 10/04/20 @ 13:30 by Sylvia Ocasio) Previous back surgery Social History Smoking Status: Never smoker Physical Exam Const alert and no apparent distress General Appearance: cooperative Exam Limitations: no limitations HEENT normocephalic and head/scalp atraumatic Eyes PERRL and EOMs intact bilaterally Neck supple and No nodes Resp normal air movement and clear to auscultation bilaterally Cardio regular rate and regular rhythm GI normal to inspection, nondistended, normoactive bowel sounds Extremity no clubbing, cyanosis or edema Skin Skin Narrative: L 3rd toes with some erythema, ulceration Neuro CN's II-XII intact bilaterally Lab / Micro Data Result Diagrams: 10/04/20 13:15 10/04/20 13:15 Labs: Laboratory Results - last 24 hr 10/04/20 13:15: WBC 11.7 H, RBC 3.98 L, Hgb 11.0 L, Hct 36.0 L, MCV 90.5, MCH 27.6, MCHC 30.6 L, RDW Std Deviation 51.1 H, RDW Coeff of Sukhwinder 15.6 H, Plt Count 207, MPV 11.8, Immature Gran % (Auto) 0.300, Neut % (Auto) 62.3, Lymph % (Auto) 28.8, [place] % (Auto) 6.6, Eos % (Auto) 1.1, Baso % (Auto) 0.9, Absolute Neuts (auto) 7.3, Absolute Lymphs (auto) 3.37, Nucleated RBC % 0, ESR 49 H 10/04/20 13:15: Sodium 139, Potassium 3.8, Chloride 102, Carbon Dioxide 29.0, Anion Gap 8, BUN 23 H, Creatinine 1.32 H, Estim Creat Clear Calc 30.59, Est GFR (MDRD) Af Amer 50 L, Est GFR (MDRD) Non-Af 41 L, BUN/Creatinine Ratio 17.4, Glucose 148 H, Calcium 9.2, Total Bilirubin 0.30, AST 23, ALT 21, Alkaline Phosphatase 69, C-React Prot Ext Range < 2.90, Total Protein 7.6, Albumin 3.4, Globulin 4.2, Albumin/Globulin Ratio 0.8 L 10/04/20 13:15: Hemoglobin A1c 6.8 H Radiology Impression Foot X-Ray 10/04/20 12:56 IMPRESSION: Osseous erosion of the distal aspect of the third distal phalanx consistent with osteomyelitis. Arthrodesis of the first metatarsophalangeal joint. Electronically Signed: John Hollins MD at 14:11 EDT Tel , Service support , Lower Extremity CT 10/04/20 12:59 IMPRESSION: Osseous erosion of the distal aspect of the third distal phalanx consistent with osteomyelitis. Arthrodesis of the first metatarsophalangeal joint. Electronically Signed: John Hollins MD at 14:12 EDT Tel , Service support ,
[2020-10-04 17:56] VITALS: BP 174/71; PULSE 69; RESP 16; TEMP 36.4; O2SAT 96
--- NOTE | 2020-10-04 18:29 | PN.HOSP_ITS ---
Subjective Subjective Mrs. Hebert is an 79-year-old female who was admitted by podiatry as a direct admission on 10/04/2020 secondary to a left third toe wound which was worsening with increased edema and erythema despite outpatient oral doxycycline. She had a bone scan on May 2020 which showed osteomyelitis of the left third and fou rth toes. She completed an outpatient course of vancomycin for 17 days at a nursing facility. The wound was cultured a week ago by podiatry and again grew MRSA. Given the worsening appearance and bone changes on x-ray last week she was admitted for further work-up and management. It is anticipated that she will go to the OR in the next 24 to 48 hours for amputation. There is been a consultation placed to infectious disease and she was placed on vancomycin. We have been consulted for medical management. Objective Data Objective Data Vital Signs: Vital Signs Temp Pulse Resp BP Pulse Ox 97.5 F L 69 16 174/71 H 96 10/04/20 17:56 10/04/20 17:56 10/04/20 17:56 10/04/20 17:56 10/04/20 17:56 Oxygen Delivery Method Room Air Weight: 77.564 kg Body Mass Index (BMI) 28.4 Intake & Output: Intake and Output for Last 24 Hours 10/02/20 10/03/20 10/04/20 23:59 23:59 23:59 Intake Total 540 / 540 Balance 540 / 540 Lab / Micro Data Result Diagrams: 10/04/20 13:15 10/04/20 13:15 Labs: Laboratory Results - last 24 hr 10/04/20 13:15: WBC 11.7 H, RBC 3.98 L, Hgb 11.0 L, Hct 36.0 L, MCV 90.5, MCH 27.6, MCHC 30.6 L, RDW Std Deviation 51.1 H, RDW Coeff of Sukhwinder 15.6 H, Plt Count 207, MPV 11.8, Immature Gran % (Auto) 0.300, Neut % (Auto) 62.3, Lymph % (Auto) 28.8, [place] % (Auto) 6.6, Eos % (Auto) 1.1, Baso % (Auto) 0.9, Absolute Neuts (auto) 7.3, Absolute Lymphs (auto) 3.37, Nucleated RBC % 0, ESR 49 H 10/04/20 13:15: Sodium 139, Potassium 3.8, Chloride 102, Carbon Dioxide 29.0, Anion Gap 8, BUN 23 H, Creatinine 1.32 H, Estim Creat Clear Calc 30.59, Est GFR (MDRD) Af Amer 50 L, Est GFR (MDRD) Non-Af 41 L, BUN/Creatinine Ratio 17.4, Glucose 148 H, Calcium 9.2, Total Bilirubin 0.30, AST 23, ALT 21, Alkaline Phosphatase 69, C-React Prot Ext Range < 2.90, Total Protein 7.6, Albumin 3.4, Globulin 4.2, Albumin/Globulin Ratio 0.8 L 10/04/20 13:15: Hemoglobin A1c 6.8 H Radiography Diagnostic Testing: Radiology Impression Foot X-Ray 10/04/20 12:56 IMPRESSION: Osseous erosion of the distal aspect of the third distal phalanx consistent with osteomyelitis. Arthrodesis of the first metatarsophalangeal joint. Electronically Signed: John Hollins MD at 14:11 EDT Tel , Service support , Lower Extremity CT 10/04/20 12:59 IMPRESSION: Osseous erosion of the distal aspect of the third distal phalanx consistent with osteomyelitis. Arthrodesis of the first metatarsophalangeal joint. Electronically Signed: John Hollins MD at 14:12 EDT Tel , Service support , Physical Exam Const alert, oriented x3, no apparent distress and average body habitus Constitutional Narrative: Overweight, elderly white female who appears nontoxic, very pleasant, daughter at bedside Exam Limitations: no limitations HEENT head/scalp atraumatic Head and Scalp: normocephalic Resp normal respiratory effort, no retractions, no use of accessory muscles and clear to auscultation bilaterally Auscultation: Negative for crackles, rales, rhonchi or wheezes Cardio regular rate, regular rhythm, S1 normal heart sound, S2 normal heart sound, no murmurs, no rub, no gallops, no clicks and no JVD GI normal to inspection, nondistended, normoactive bowel sounds, soft to palpation, non-tender and non-distended; Negative for hepatosplenomegaly Extremity no clubbing, cyanosis or edema Extremity Narrative: Cap refill is 2+, Peripheral Pulses: Yes pulses 2+ throughout, posterior tibial pulses present and dorsalis pedis pulses present Skin Skin Narrative: Bilateral lower extremities show foot wounds at the distal tips on multiple toes, also right heel shows excoriation with no current signs of infection but open wounds are present Neuro oriented x3 and CN's II-XII intact bilaterally Neuro Narrative: Sensory deficits noted in the distal quarter of bilateral legs Sensorium / Orientation: awake and alert Assessment & Plan Assessment/Plan (1) Diabetes mellitus with diabetic polyneuropathy: (2) MRSA cellulitis of left foot: (3) HLD (hyperlipidemia): (4) Hypothyroidism: (5) Foot drop, right foot: (6) Alzheimer disease: PLAN: Left lower extremity MRSA diabetic wound infection -ID has been consulted and continued patient on vancomycin -CT of her foot is consistent with osteomyelitis of the distal phalanx -Patient has failed outpatient treatment -Planning for OR tomorrow most likely for partial versus full toe amputation -Patient has had vascular studies which show adequate perfusion in May 2020 -Check preop EKG in a.m. DM-2 -Continue home medication regimen at this time -Adjust medications as needed -Currently insulin-dependent with Lantus and log -Continue Metformin -Accu-Cheks Hypertension/hyperlipidemia -Continue atorvastatin -Continue hydrochlorothiazide -Continue metoprolol Depression -Continue duloxetine -Continue doxepin Diabetic neuropathy -Continue Ultram -Continue Lyrica Right-sided foot drop -This is the result of a botched back surgery remotely -AFO with ambulation -Need PT/OT consultation given probable amputation above Overweight -BMI 28.5 -Recommend weight loss DVT prophylaxis -Lovenox Charges/Coding Visit Charges Inpatient E&M: 96517 Subs Hosp L2
[2020-10-04] MEDS: traMADol 50 MG Tablet PO (20:07)
[2020-10-04 21:39] VITALS: BP 138/64; PULSE 86
[2020-10-04] MEDS: Metoprolol Tartrate 25 MG Tablet PO (21:39)
[2020-10-04] MEDS: Atorvastatin Calcium 20 MG Tablet PO (21:39)
[2020-10-04] MEDS: DOXEPIN HCL 50 MG CAPSULE PO (21:40)
[2020-10-04] MEDS: Acetaminophen 500 MG Tablet 1000 MG PO (21:48)
[2020-10-04] MEDS: Pregabalin 50 MG Capsule PO (21:51)
[2020-10-04 22:00] VITALS: BP 138/64; PULSE 86; RESP 16; TEMP 36.6; O2SAT 96
[2020-10-04 22:16] LABS: Bedside Glucose 229 mg/dL (70-110)
[2020-10-05] VITALS (10 sets, daily range): BP systolic 115–142; BP diastolic 59–73; PULSE 63–88; RESP 16–18; TEMP 36.3–37; O2SAT 92–98; BMI 28.4
[2020-10-05] MEDS: Levothyroxine 75 MCG Tablet PO (05:46)
--- NOTE | 2020-10-05 05:55 | EKG12_ITS ---
Test Reason : AM EKG Blood Pressure : / mmHG Vent. Rate : 062 BPM Atrial Rate : 062 BPM P-R Int : 194 ms QRS Dur : 146 ms QT Int : 464 ms P-R-T Axes : 060 068 037 degrees QTc Int : 470 ms Normal sinus rhythm Right bundle branch block Abnormal ECG When compared with ECG of 12-MAY-2019 22:11, Premature supraventricular complexes are no longer Present Vent. rate has decreased BY 44 BPM QRS axis Shifted left Confirmed by MARSHA DSA, ELY ([id number]), photo editor YUE RAMIREZ ([id number]) on 10/06/2020 12:46:17 PM Referred By: Siva Ruiz Confirmed By:ELY LARSON MD
--- NOTE | 2020-10-05 07:00 | PN_ITS ---
Subjective Subjective This person was seen bedside this morning for left third toe osteomyelitis with wound. She is resting. Her pain is mild in the left lower extremity. Nursing staff reports discomfort to her right fifth toe at her skin change site. She denies fever, chill, nausea, vomiting this morning. Objective Data Objective Data Vital Signs: Vital Signs Temp Pulse Resp BP Pulse Ox 97.8 F 63 16 127/62 H 95 10/05/20 04:00 10/05/20 04:00 10/05/20 04:00 10/05/20 04:00 10/05/20 04:00 Oxygen Delivery Method Room Air Weight: 77.564 kg Body Mass Index (BMI) 28.4 Intake & Output: Intake and Output for Last 24 Hours 10/03/20 10/04/20 10/05/20 23:59 23:59 23:59 Intake Total 540 / 540 Balance 540 / 540 Lab / Micro Data Result Diagrams: 10/04/20 13:15 10/04/20 13:15 Labs: Laboratory Results - last 24 hr 10/04/20 13:15: WBC 11.7 H, RBC 3.98 L, Hgb 11.0 L, Hct 36.0 L, MCV 90.5, MCH 27.6, MCHC 30.6 L, RDW Std Deviation 51.1 H, RDW Coeff of Sukhwinder 15.6 H, Plt Count 207, MPV 11.8, Immature Gran % (Auto) 0.300, Neut % (Auto) 62.3, Lymph % (Auto) 28.8, [place] % (Auto) 6.6, Eos % (Auto) 1.1, Baso % (Auto) 0.9, Absolute Neuts (auto) 7.3, Absolute Lymphs (auto) 3.37, Nucleated RBC % 0, ESR 49 H 10/04/20 13:15: Sodium 139, Potassium 3.8, Chloride 102, Carbon Dioxide 29.0, Anion Gap 8, BUN 23 H, Creatinine 1.32 H, Estim Creat Clear Calc 30.59, Est GFR (MDRD) Af Amer 50 L, Est GFR (MDRD) Non-Af 41 L, BUN/Creatinine Ratio 17.4, Glucose 148 H, Calcium 9.2, Total Bilirubin 0.30, AST 23, ALT 21, Alkaline Phosphatase 69, C-React Prot Ext Range < 2.90, Total Protein 7.6, Albumin 3.4, Globulin 4.2, Albumin/Globulin Ratio 0.8 L 10/04/20 13:15: Hemoglobin A1c 6.8 H 10/04/20 21:45: POC Glucose 229 H Radiography Diagnostic Testing: Radiology Impression Foot X-Ray 10/04/20 12:56 IMPRESSION: Osseous erosion of the distal aspect of the third distal phalanx consistent with osteomyelitis. Arthrodesis of the first metatarsophalangeal joint. Electronically Signed: John Hollins MD at 14:11 EDT Tel , Service support , Lower Extremity CT 10/04/20 12:59 IMPRESSION: Osseous erosion of the distal aspect of the third distal phalanx consistent with osteomyelitis. Arthrodesis of the first metatarsophalangeal joint. Electronically Signed: John Hollins MD at 14:12 EDT Tel , Service support , Physical Exam Extremity Extremity Narrative: The left 3rd toe with diffuse ulceration with Scant drainage. Faint erythema to distal half of third toe. There is no malia necrosis to the left foot, no visible abscess, no crepitus, no fluctuance either. CFT < 2 seconds to all toes bilateral. No evidence of infection right foot. Pedal pulses intact bilateral foot. Decreased sensation to the foot bilateral - chronic. Diffuse lower extremity weakness noted bilateral. In general, her skin is atrophic and with minimal hair to the lower extremities. There is a well clear dry eschar without drainage dorsal lateral fifth toe. Assessment & Plan Assessment/Plan (1) Acute osteomyelitis of left calcaneus: (2) Chronic osteomyelitis of left foot: (3) Diabetic foot ulcer: (4) Diabetes mellitus with diabetic polyneuropathy: PLAN: I reviewed this patient's care plan this morning. She is afebrile and vital signs are stable. Culture was obtained last week and positive for MRSA. Foot x-ray and CT scan confirmed diagnosis of osteomyelitis of distal phalanx of left third toe. Patient has been started on IV antibiotic- Vancomycin - ID / Dr. Carmona was consulted. Patient had LEAS in May 2020 and noted to have good arterial flow to foot. No is no evidence of ischemia to the foot. We discussed surgical options of amputation - reviewed rationale of this, as well as the possible benefits vs risks. I discussed with patient and her daughter Marline yesterday afternoon- they are on board with proceeding with amputation if needed. It is noted she has failed oral antibiotics in the ou tpatient setting. Preoperative H&P were reviewed including his diagnostic data. Leukocytosis yesterday noted. EKG planned for this morning. Preoperative indications, planned procedure, benefits, risk, anticipated healing time and management were reviewed yesterday afternoon with both the patient and her daughter, Marline. The patient understands and elects proceed with surgery at this time. No guarantees were made. The patient understands risk and complications include but are not limited to following: pain, swelling, scarring, need for further surgery, tendon contracture, transfer lesion, arthritis, need for further surgery, delayed or nonhealing, infection, blood clot, allergic reaction, loss of limb, function, or life. The informed surgical limb and consent will be signed as the following: left third toe partial versus full amputation. I answered all the patient's questions. Anticipated anesthesia is MAC and local. This is tentatively added on today at 14:00. In regards to her right limb complaints today. Lac-Hydrin ordered for dry skin; to apply daily. I also recommend hydrogel and gauze application to the right fifth toe. No infection noted on right limb. Hospital medicine management noted and appreciated. Please do not hesitate to call if you have any questions. Sherin Villalpando DPM, [facility] [phone]
--- NOTE | 2020-10-05 07:57 | NURSING ---
patient had Pfizer vaccine 03/22 and 04/12 for covid
--- NOTE | 2020-10-05 09:37 | CASEMGMT ---
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 [place] faxed [facility] updates. Casandra Mahan MANAGER MED SURG [facility]
--- NOTE | 2020-10-05 10:14 | PN.HOSP_ITS ---
Documented by User: Mic BENITO 10/05/20 10:24 Subjective Subjective Patient is an 79-year-old female comfortably resting in bed, alert and orient x3. Patient reports subjective improvement from admission and reports no new symptoms in the past 24 hours. Denies chest pain, shortness of breath, palpita tions, hemoptysis, sputum production, fever, chills, N/V/D. Objective Data Objective Data Vital Signs: Vital Signs Temp Pulse Resp BP Pulse Ox 97.8 F 63 16 127/62 H 95 10/05/20 04:00 10/05/20 04:00 10/05/20 04:00 10/05/20 04:00 10/05/20 04:00 Oxygen Delivery Method Room Air Weight: 171 lb Body Mass Index (BMI) 28.4 Intake & Output: Intake and Output for Last 24 Hours 10/03/20 10/04/20 10/05/20 23:59 23:59 23:59 Intake Total 540 / 540 Balance 540 / 540 Lab / Micro Data Result Diagrams: 10/06/20 04:34 10/06/20 04:34 Labs: Laboratory Results - last 24 hr 10/04/20 13:15: WBC 11.7 H, RBC 3.98 L, Hgb 11.0 L, Hct 36.0 L, MCV 90.5, MCH 27.6, MCHC 30.6 L, RDW Std Deviation 51.1 H, RDW Coeff of Sukhwinder 15.6 H, Plt Count 207, MPV 11.8, Immature Gran % (Auto) 0.300, Neut % (Auto) 62.3, Lymph % (Auto) 28.8, [place] % (Auto) 6.6, Eos % (Auto) 1.1, Baso % (Auto) 0.9, Absolute Neuts (auto) 7.3, Absolute Lymphs (auto) 3.37, Nucleated RBC % 0, ESR 49 H 10/04/20 13:15: Sodium 139, Potassium 3.8, Chloride 102, Carbon Dioxide 29.0, Anion Gap 8, BUN 23 H, Creatinine 1.32 H, Estim Creat Clear Calc 30.59, Est GFR (MDRD) Af Amer 50 L, Est GFR (MDRD) Non-Af 41 L, BUN/Creatinine Ratio 17.4, Glucose 148 H, Calcium 9.2, Total Bilirubin 0.30, AST 23, ALT 21, Alkaline Phosphatase 69, C-React Prot Ext Range < 2.90, Total Protein 7.6, Albumin 3.4, Globulin 4.2, Albumin/Globulin Ratio 0.8 L 10/04/20 13:15: Hemoglobin A1c 6.8 H 10/04/20 21:45: POC Glucose 229 H Radiography Diagnostic Testing: Radiology Impression Foot X-Ray 10/04/20 12:56 IMPRESSION: Osseous erosion of the distal aspect of the third distal phalanx consistent with osteomyelitis. Arthrodesis of the first metatarsophalangeal joint. Electronically Signed: John Hollins MD at 14:11 EDT Tel , Service support , Lower Extremity CT 10/04/20 12:59 IMPRESSION: Osseous erosion of the distal aspect of the third distal phalanx consistent with osteomyelitis. Arthrodesis of the first metatarsophalangeal joint. Electronically Signed: John Hollins MD at 14:12 EDT Tel , Service support , Physical Exam Const alert, oriented x3 and no apparent distress HEENT head/scalp atraumatic and moist oral mucous membranes Head and Scalp: normocephalic Eyes PERRL, EOMs intact bilaterally and conjunctivae normal Neck no lymphadenopathy, supple and no JVD Resp normal respiratory effort, no retractions, no use of accessory muscles and clear to auscultation bilaterally Cardio regular rate, regular rhythm, no murmurs and no JVD GI normal to inspection, nondistended, normoactive bowel sounds, soft to palpation and non-tender Extremity Extremity Narrative: Bilateral lower extremity foot wounds on multiple toes and right heel. Skin no rashes or lesions noted, no wounds, skin turgor normal and no jaundice Neuro CN's II-XII intact bilaterally Psych affect normal Assessment & Plan Assessment/Plan (1) HLD (hyperlipidemia): (2) Type II diabetes mellitus: (3) Hypothyroidism: (4) Diabetes mellitus with diabetic polyneuropathy: (5) MRSA cellulitis of left foot: (6) Alzheimer disease: PLAN: Day 2: Patient is an 79-year-old female presents the hospital medicine team on consult from Dr. Villalpando (Podiatry) for left third toe osteomyelitis w/ wound. 1) DM2 with neuropathy Continue Metformin, Lantus, sliding scale with Accu-Cheks, continue all TRAM and Lyrica. 2) HTN Stable, continue hydrochlorothiazide and metoprolol. 3) hyperlipidemia Continue statin 4) depression Continue duloxetine and doxepin. 5) Left lower extremity MRSA diabetic wound infection Management per podiatry and infectious disease: Amputation of left third toe scheduled for today at 1400, continue vancomycin per ID. DVT prophylaxis - Lovenox Patient seen by Mic Rodriguez PA-C, under the supervision of Dr. Arriaza. Documented by User: Dr. Aniyah Arriaza MD 10/06/20 16:17 Objective Data Lab / Micro Data Result Diagrams: 10/06/20 04:34 10/06/20 04:34 Charges/Coding Addendum Addendum: This patient was seen in conjunction with JIGNA Suarez. I have independently interviewed and examined the patient and reviewed pertinent historical, laboratory, and other data. Please refer to JIGNA Suarez's note for his patient's presentation, findings, and recommendations. I have reviewed and his note and concur with his documentation Patient was seen and examined. Denied any new complaints. Physical Exam: Gen: Appears frail, not pale, not jaundiced CVS:HS I +II, regular, no murmurs RESP: Diminished at lung bases GI: BS present and normal, soft, nontender, no palpable organs EXT:No edema ASSESSMENT: 1. Postop day #1 status post partial left third toe amputation 2. MRSA diabetic wound infection 3. Type II DM complicated by polyneuropathy 4. Hypertension 5. Hyperlipidemia 6. Depression Plan: Continue on IV vancomycin Follow-up on podiatry recommendations Follow-up on ID recommendations Visit Charges Inpatient E&M: 40903 Subs Hosp L3
[2020-10-05] MEDS: Ammonium Lactate 225 gm Bottle 1 APPLIC TOPICAL ×2 (11:24→22:40)
--- NOTE | 2020-10-05 13:46 | NURSING ---
Consulted for bilateral toe wounds. pt is currently off unit for surgery.
--- NOTE | 2020-10-05 14:00 | BON_PTH ---
PATIENT: CASSIE SUÁREZ LOC: [facility] U#:[id number] AGE/SX: 79/F ROOM: [facility] RE10/04/[address]: Dr. Aniyah Arriaza MD : [id number] BED: 1 DIS: 10/06/2020 SPEC #: [id number] RECD: 10/06/20 12:38 STATUS: REJI REDDING #: [id number] LAMBERT: 10/05/20 14:[address]: Sherin Villalpando DEPT: SURGICAL PATHOLOGY RECD BY: Siddhartha Bansal ENTERED: 10/06/20 14:10 SP TYPE: Bone OTHR DR: MD Dr. Mine Montgomery MD Dr. Jyothi Gudla, MD Dr. Jeffrey Wunning, DPM Dr. Nikolas Carmona MD Tissues: A - Bone of foot, NOS B - Bone of foot, NOS Procedures: Decalcification bone/plaque Surgery Specimen Level IV HEADER OPERATION: Amputation third toe PRE-OP DIAGNOSIS: Acute osteomyelitis left calcaneus; chronic osteomyelitis left foot; diabetic foot ulcer TISSUE SUBMITTED: A ? Left third toe soft tissue and bone, B ? Clearance fragment MICROSCOPIC DIAGNOSIS A. Soft tissue and bone of left third toe, excision: Chronic reparative and reactive change. B. Clearance fragment bone, biopsy: No evidence of osteomyelitis. AM:marcelina 10/11/2020 MICROSCOPIC DESCRIPTION Slides are reviewed. GROSS DESCRIPTION A - Received in fixative is one container labeled with the patient's name and designated left third toe soft tissue and bone. The specimen consists of a portion of toe measuring 2.5 x 1.5 x 1 cm. A focal area of ulceration is noted at the tip of the toe. The nail is not identified. Pet Sitting sections are submitted in two cassettes after decalcification. B - Received in fixative is one container labeled with the patient's name and designated clearance fragment. The specimen consists of a piece of bone measuring 1 x 1.6 x 0.6 cm. The specimen will be sectioned and submitted entirely in one cassette after decalcification. / VALERIO:marcelina 10/06/20 TC:3 CPT: 36262 x2, 15884 x2
--- NOTE | 2020-10-05 14:14 | RAD_ITS ---
STUDY: X-RAY - LEFT FOOT CLINICAL: Female, 79 years old. The third toe amputation. TECHNIQUE: 2 intraoperative view(s) of the foot.. 3 seconds of fluoroscopy were used. DLP of 0.14 Gy. COMPARISON: Left foot, 10/04/2020. FINDINGS: The provided images demonstrate amputation of the third digit at the level of the head of the proximal phalanx. The remainder of the findings are similar to the previous days'' examination. Please refer to the operative report for further details. RAD/Foot min 3 Views IMPRESSION: Fluoroscopy provided during the application of the third digit of the left foot. Electronically Signed: Milton Salmon DO at 17:08 EDT Tel [phone], Service support ,
[2020-10-05] MEDS: Lidocaine 1% (30 ml sdv) 30 ML Vial (14:56)
[2020-10-05] MEDS: Bupivacaine Mpf 0.5% 30 ML VIAL (14:56)
--- NOTE | 2020-10-05 15:20 | PCM.OPRPT ---
Problems Associated Problem List Diagnoses (1) Chronic osteomyelitis of left foot: (2) MRSA cellulitis of left foot: (3) Hammertoe of left foot: (4) Non-pressure chronic ulcer of other part of left foot with necrosis of bone: Report of Operation Date of Procedure: 10/05/20 Pre-Operative Diagnosis: 1. Osteomyelitis distal phalanx left third toe with chronic ulcer 2. Left third hammer toe Post-Operative Diagnosis: 1. Osteomyelitis distal phalanx left third toe with chronic ulcer 2. Left third hammer toe Surgery/Procedure Performed:: partial left third toe amputation Description of Surgical Findings:: Hemostasis: Well-padded pneumatic left ankle tourniquet, 250 mmHg, 13 minutes Materials: 3-0 Vicryl, 3-0 nylon The patient tolerated the procedure and anesthesia well. The patient was transported to the PACU with vital signs stable and vascular status intact to the surgical limb. To ice and elevate for pain and inflammation management. Postoperative x-rays were reviewed prior to leaving the operating room. There is adequate partial left third toe amputation performed at that level of the head of the proximal phalanx without any acute injuries, foreign body, or soft tissue emphysema. Postoperative orders were entered electronically. Surgeon: Sherin Villalpando barber shop manager: None (Nilesh Santiago dpm pgy 3) Type of Anesthesia: Local (8 cc of one-to-one mixture 1% lidocaine plain and 0.5% Marcaine administered in typical left third ray block fashion of left foot) and MAC Specimen's removed: 1. Soft tissue and bone sent to pathology 2. Soft tissue and bone sent to microbiology (aerobic, anaerobic, acid-fast, fungal) 3. Clearance fragment bone of left third toe sent to pathology 4. Clearance fragment bone of left third toe sent to microbiology (aerobic, anaerobic, acid-fast, fungal) Estimated Blood Loss (mL): <10 mL Description of Procedure: Indications: This 79-year-old female with significant past medical history of diabetes with neuropathy (hemoglobin A1C 6.8%), Alzheimer's disease, hypertension, hyperlipidemia, history of chronic pain and low back issues, history of MRSA, history of limb weakness has been treated for chronic and recurrent toe ulcers. She was previously treated with IV antibiotics for osteomyelitis of the left third toe and has failed outpatient care. She was admitted for further osteomyelitis work-up and surgical intervention. There is osseous destruction to the distal phalanx of the third toe noted on plain x-rays and also confirmed with CT scan. Her ulcer is devitalized there is a bulbous appearance of the distal third toe. There is localized erythema to the distal half of the toe at time of admission with edema. She appears to have intact vascular status with palpable pulses and normal noninvasive vascular studies performed in May 2020. Her most recent wound culture from the clinical setting was MRSA positive. She continues on vancomycin IV renally dosed. The preoperative indications, planned procedure, possible benefits, risks, anticipated healing time and management were discussed in detail with the patient. No guarantees were made. He understands complications and risks may include but are not limited to the following: delayed or nonhealing, pain, scarring, infection, need for revisional surgery, allergy, blood clot, loss of limb, function, life, transfer lesion or new ulcer formation. This is a limb salvage case and is not an elective procedure. I answered all of her questions. It is noted she has Alzheimer's disease and this case and plan were thoroughly discussed with her daughter Marline who also consents to the procedure. The surgical consent and the surgical limb were signed. Her preoperative history and physical exam was reviewed. The preoperative diagnostic data was also reviewed including labs: White blood cell count 11.7, ESR 49, no elevation in C-reactive protein. CMP results were also reviewed in detail. Procedure in detail: The patient was transferred to the operating room via cart and placed on the operating table in the supine position. Final verification of the patient, surgery, and limb designation were performed via the timeout procedure. IV MAC sedation was initiated by the anesthesia team and I administered the local anesthetic. A tourniquet was placed in a well padded manner to the left ankle. The left lower extremity was prepped and draped in the usual aseptic manner. An Esmarch bandage was used to exsanguinate the limb and the tourniquet was inflated at this time. Surgery began as a following: Attention was first directed to the left third toe in which a fishmouth incision was made to allow for removal of the devitalized ulcer with nonviable skin and bone of the third toe. The toe was disarticulated at the proximal interphalangeal joint level. This was removed from the table and sent to pathology and microbiology as noted. The tissues were devitalized with soft bone adjacent to the ulcer. After the resection was performed there was no additional purulence, necrosis or devitalized tissue. The tissues were bleeding and healthy however this was not in a pulsatile manner. This was copiously irrigated with normal saline. At this time clean instrumentation gloves and surrounding drapes were applied. A bone cutting instrument saw was next used to resect the head of the proximal phalanx in which this was sent as a clearance fragment. This clearance fragment was sent to both microbiology and pathology. The resected tissue appeared healthy. Next, gentle no touch technique closure was performed to reapproximate the surgical wound with deep tissue 2-0 Vicryl. The tourniquet was deflated at this time and healthy bleeding tissue was noted. Pressure was applied to maintain hemostasis and minimal electrocauterization was utilized. The capillary fill time is brisk to all margins of the amputation stump site. Intraoperative fluoroscopy was used to obtain the postoperative x-rays at this time as noted. Next, the skin was gently reapproximated utilizing 3-0 nylon with simple suture techniques. A postoperative dressing was applied with dry gauze, Kerlix, and an Yves wrap applied in a noncompressive manner. After procedure: The patient tolerated the procedure and anesthesia well. She was transported to the PACU with vital signs stable and vascular status intact to left lower extremity. She was advised to keep her dressing clean, dry, and intact. She was advised to only put weight on her heel with a surgical shoe and with the use of an assistive device. Shee was advised to ice behind his knee and elevate this limb if needed for pain. I Postoperative x-ray was reviewed as noted. She will be transferred back to the medical surgical floor for continued IV antibiotics. The podiatry team will continue to follow her closely while in house. She is on IV vancomycin at this time. Infectious diseases on consult. Medical management with hospitalist is also noted. Ok to resume all anticoagulation medication. Microbiology and pathology specimen results are pending. Her postoperative orders were entered electronically. Sherin Villalpando DPM, [facility] [place] Grafts/Implants Used: none Complications none Admit VTE Documentation VTE Present on Admission: No VTE Mechan Device Prophylaxis: SCD's VTE Pharm Prophylaxis ordered?: Yes
[2020-10-05] MEDS: traMADol 50 MG Tablet PO ×2 (16:23→22:40)
[2020-10-05] MEDS: Vancomycin IV 1,000 MG/200 ML BAG 200 MG IV (16:24)
[2020-10-05] MEDS: Pregabalin 50 MG Capsule PO ×2 (16:24→22:41)
[2020-10-05] MEDS: metFORMIN HCl 1,000 MG Tablet 1000 MG PO (16:24)
[2020-10-05 16:31] LABS: Bedside Glucose 86 mg/dL (70-110)
[2020-10-05] MEDS: Metoprolol Tartrate 25 MG Tablet PO (22:40)
[2020-10-05] MEDS: Atorvastatin Calcium 20 MG Tablet PO (22:41)
[2020-10-05] MEDS: DOXEPIN HCL 50 MG CAPSULE PO (22:49)
[2020-10-05 23:41] LABS: Bedside Glucose 115 mg/dL (70-110)
[2020-10-06 05:35] LABS: Absolute Lymphocyte Count 3.61 X10^3/uL (0.83-4.51); Absolute Neutrophil Count 7.7 X10^3/uL (2.0-7.7); Basophil# 0.09 X10^3/uL; Basophil% 0.7 % (0-1); Eosinophil# 0.32 X10^3/uL; Eosinophils% 2.5 % (0-5); Hematocrit 36.2 % (37-47); Hemoglobin 10.9 g/dL (12.0-15.0); Lymphocyte # 3.61 X10^3/ul (0.83-4.51); Lymphocyte % 28.3 % (19-41); Mean Corp Hgb Conc 30.1 g/dL (32-36); Mean Corpuscular Hgb 27.8 pg (27.0-32.0); Mean Corpuscular Volume 92.3 fL (81-99); Mean Platelet Vol. 11.6 fl (6.2-12.0); Monocyte# 0.94 X10^3/uL; Monocyte% 7.4 % (0-10); NRBC Flagged by Analyzer 0 % (0-5); Neutrophil # 7.74 X10^3/uL (2.7-7.7); Neutrophil % 60.7 % (47-70); Platelet Count 213 K/mm3 (150-450); RBC Distribution Width CV 15.7 % (11.6-14.6); RBC Distribution Width SD 53.3 fl (35.1-43.9); Red Blood Count 3.92 M/mm3 (4.2-5.4); White Blood Count 12.8 K/mm3 (4.4-11.0)
[2020-10-06 05:57] LABS: ALB/GLOB Ratio 0.8 RATIO (0.9-2.4); AST(SGOT) 17 U/L (15-37); Alanine Aminotransfer ALT/SGPT 19 U/L (13-56); Albumin, Serum 3.3 g/dL (3.2-5.0); Alkaline Phosphatase 56 U/L (45-117); Anion Gap 8 (5-15); BUN 21 mg/dL (7-18); BUN/Creat Ratio 20.8 RATIO (10-20); Calcium,Total 9.1 mg/dL (8.5-10.1); Chloride 103 mmol/L (98-107); Creatinine, Serum 1.01 mg/dL (0.55-1.02); EST Glomerular Filtration Rate 56 mL/min (>60); Est Glom Filt Rate - Afr Amer 68 mL/min (>60); Estimated Creatinine Clearance 39.31 ml/min; Glucose 115 mg/dL (74-106); Potassium 3.9 mmol/L (3.5-5.1); Protein, Total 7.3 g/dL (6.4-8.2); Sodium Level 140 mmol/L (136-145)
[2020-10-06] MEDS: traMADol 50 MG Tablet PO (06:05)
[2020-10-06] MEDS: Levothyroxine 75 MCG Tablet PO (06:05)
[2020-10-06 06:10] VITALS: BP 154/71; PULSE 64; RESP 16; TEMP 36.6; O2SAT 96
[2020-10-06 06:20] LABS: Bedside Glucose 114 mg/dL (70-110)
--- NOTE | 2020-10-06 07:44 | PN_ITS ---
Subjective Subjective Patient seen and examiend bedside resting comfortably. She denies any new pedal complaints. She denies n/f/v/c/cP/SoB, Objective Data Objective Data Vital Signs: Vital Signs Temp Pulse Resp BP Pulse Ox 97.9 F 64 16 154/71 H 96 10/06/20 06:10 10/06/20 06:10 10/06/20 06:10 10/06/20 06:10 10/06/20 06:10 Oxygen Delivery Method Room Air Weight: 77.564 kg Body Mass Index (BMI) 28.4 Intake & Output: Intake and Output for Last 24 Hours 10/04/20 10/05/20 10/06/20 23:59 23:59 23:59 Intake Total 540 / 540 200 / 200 Balance 540 / 540 200 / 200 Medical Nutrition Assessment Dietitian: Nutrition Therapy Diagnosis Start: 10/05/20 13: 39 Freq: Status: Active Protocol: Document 10/05/20 14:08 (Rec: 10/05/20 14:08 [id number]) Nutrition Malnutrition Evidence of Malnutrition Exists No Intake Problem Increased Nutrient Needs (specify) Etiology (protein) r/t wounds Signs/Symptoms as evidenced by diabetic foot ulcers of 3rd, 4th, and 5th toes, heel, and right lateral top of foot. Status Active Problem Inadequate Oral Intake Etiology r/t dislike of hospital food and decreased appetite Signs/Symptoms as evidenced by pt report of consuming ~25% of meals and unintentional weight loss of 4 #/2%. Status Active Problem Clinical Problem Altered Nutrient-Related Laboratory Values Etiology r/t endocrine dysfunction, infection Signs/Symptoms as evidenced by glucose 148, 229 Status Active Problem Recommendation Dietitian Recommendations/Changes Continue carbohydrate controlled diet. Add 1 pkt Bull BID at [facility] for wound healing. Add 120mL glucerna shake if PO intake fails at meals. Lab / Micro Data Result Diagrams: 10/06/20 04:34 10/06/20 04:34 Labs: Laboratory Results - last 24 hr 10/05/20 16:23: POC Glucose 86 10/05/20 22:36: POC Glucose 115 H 10/06/20 04:34: Sodium 140, Potassium 3.9, Chloride 103, Carbon Dioxide 29.0, Anion Gap 8, BUN 21 H, Creatinine 1.01, Estim Creat Clear Calc 39.31, Est GFR (MDRD) Af Amer 68, Est GFR (MDRD) Non-Af 56 L, BUN/Creatinine Ratio 20.8 H, Glucose 115 H, Calcium 9.1, Total Bilirubin 0.30, AST 17, ALT 19, Alkaline Phosphatase 56, Total Protein 7.3, Albumin 3.3, Globulin 4.0, Albumin/Globulin Ratio 0.8 L 10/06/20 04:34: WBC 12.8 H, RBC 3.92 L, Hgb 10.9 L, Hct 36.2 L, MCV 92.3, MCH 27.8, MCHC 30.1 L, RDW Std Deviation 53.3 H, RDW Coeff of Sukhwinder 15.7 H, Plt Count 213, MPV 11.6, Immature Gran % (Auto) 0.400, Neut % (Auto) 60.7, Lymph % (Auto) 28.3, [place] % (Auto) 7.4, Eos % (Auto) 2.5, Baso % (Auto) 0.7, Absolute Neuts (auto) 7.7, Absolute Lymphs (auto) 3.61, Nucleated RBC % 0 10/06/20 06:07: POC Glucose 114 H Radiography Diagnostic Testing: Radiology Impression Foot X-Ray 10/05/20 14:14 IMPRESSION: Fluoroscopy provided during the application of the third digit of the left foot. Electronically Signed: Milton Salmon DO at 17:08 EDT Tel [phone], Service support , Physical Exam Extremity Extremity Narrative: The left 3rd toe partial amputation with Scant drainage and sutures intact. No erythema noted. There is no malia necrosis to the left foot, no visible abscess, no crepitus, no fluctuance either. CFT < 2 seconds to all toes bilateral. No evidence of infection right foot. Pedal pulses intact bilateral foot. Decreased sensation to the foot bilateral - chronic. Diffuse lower extremity weakness noted bilateral with foot drop to right foot. In general, her skin is atrophic and with minimal hair to the lower extremities. There is a well clear dry eschar without drainage dorsal lateral right fifth toe, 5th MPJ and heel. Assessment & Plan Assessment/Plan (1) Chronic osteomyelitis of left foot: (2) MRSA cellulitis of left foot: (3) Hammertoe of left foot: (4) Non-pressure chronic ulcer of other part of left foot with necrosis of bone: PLAN: I reviewed this patient's care plan this morning. She is afebrile and vital signs are stable. Culture was obtained last week and positive for MRSA. Foot x-ray and CT scan confirmed diagnosis of osteomyelitis of distal phalanx of left third toe. Patient has been started on IV antibiotic- Vanco mycin - ID / Dr. Carmona was consulted. Follow ID recs Patient had LEAS in May 2020 and noted to have good arterial flow to foot. No is no evidence of ischemia to the foot. Patient is s/p partial 3rd digit amputation left 10/05/[address] Villalpando. Site is doing well without overt signs of dehisence, necrosis, or infection Continue every other day dressing changes. Patient is noted to be allergic to betadine. To apply Lac-Hydrin ordered for dry skin; to apply daily. I also recommend hydrogel and gauze application to the right foot wounds. No infection noted on right limb. To continue DSD dressing to left foot every other day. Hospital medicine management noted and appreciated. Please do not hesitate to call if you have any questions. Plan to [place] back to facility pending medical clearance and ID d/c recs. Will follow up at [facility] center at [place]
--- NOTE | 2020-10-06 08:26 | NURSING ---
wound photo: right foot
--- NOTE | 2020-10-06 08:27 | NURSING ---
wound photo: right heel
--- NOTE | 2020-10-06 08:27 | NURSING ---
wound photo: left 3rd toe partial amputation
[2020-10-06 08:58] VITALS: BP 117/47; PULSE 68; RESP 16; TEMP 36.6; O2SAT 96
[2020-10-06] MEDS: Enoxaparin 30 MG/0.3 ML Syringe SC (08:59)
[2020-10-06] MEDS: Cholecalciferol (VIT D3) 25 MCG TABLET (1,000 UNITS) 50 MCG PO (09:00)
[2020-10-06] MEDS: hydroCHLOROthiazide 12.5mg 12.5 MG PO (09:00)
[2020-10-06] MEDS: Ammonium Lactate 225 gm Bottle 1 APPLIC TOPICAL (09:01)
[2020-10-06 09:08] VITALS: BP 117/47; PULSE 68
[2020-10-06] MEDS: Acetaminophen 500 MG Tablet 1000 MG PO (09:08)
[2020-10-06] MEDS: metFORMIN HCl 1,000 MG Tablet 1000 MG PO (09:08)
[2020-10-06] MEDS: Metoprolol Tartrate 25 MG Tablet PO (09:08)
[2020-10-06] MEDS: Pregabalin 50 MG Capsule PO ×2 (09:08→13:56)
--- NOTE | 2020-10-06 10:54 | PN.HOSP_ITS ---
Documented by User: Mic BENITO 10/06/20 10:58 Subjective Subjective Patient is an 80-year-old female comfortably resting in chair eating breakfast, alert and oriented x3. Patient denies any change or progression in symptoms from yesterday. Denies chest pain, shortness of breath, palpitations, hemopty sis, sputum production, fever, chills, N/V/D. Objective Data Objective Data Vital Signs: Vital Signs Temp Pulse Resp BP Pulse Ox 97.9 F 68 16 117/47 L 96 10/06/20 08:58 10/06/20 09:08 10/06/20 08:58 10/06/20 09:08 10/06/20 08:58 Oxygen Delivery Method Room Air Weight: 170 lb 15.989 oz Body Mass Index (BMI) 28.4 Intake & Output: Intake and Output for Last 24 Hours 10/04/20 10/05/20 10/06/20 23:59 23:59 23:59 Intake Total 540 / 540 200 / 200 Balance 540 / 540 200 / 200 Medical Nutrition Assessment Dietitian: Nutrition Therapy Diagnosis Start: 10/05/20 13:39 Freq: Status: Active Protocol: Document 10/05/20 14:08 AG (Rec: 10/05/20 14:08 AG [id number]) Nutrition Malnutrition Evidence of Malnutrition Exists No Intake Problem Increased Nutrient Needs (specify) Etiology (protein) r/t wounds Signs/Symptoms as evidenced by diabetic foot ulcers of 3rd, 4th, and 5th toes, heel, and right lateral top of foot. Status Active Problem Inadequate Oral Intake Etiology r/t dislike of hospital food and decreased appetite Signs/Symptoms as evidenced by pt report of consuming ~25% of meals and unintentional weight loss of 4 #/2%. Status Active Problem Clinical Problem Altered Nutrient-Related Laboratory Values Etiology r/t endocrine dysfunction, infection Signs/Symptoms as evidenced by glucose 148, 229 Status Active Problem Recommendation Dietitian Recommendations/Changes Continue carbohydrate controlled diet. Add 1 pkt Bull BID at [facility] for [facility]. Add 120mL glucerna shake if PO intake fails at meals. Lab / Micro Data Result Diagrams: 10/06/20 04:34 10/06/20 04:34 Labs: Laboratory Results - last 24 hr 10/05/20 16:23: POC Glucose 86 10/05/20 22:36: POC Glucose 115 H 10/06/20 04:34: Sodium 140, Potassium 3.9, Chloride 103, Carbon Dioxide 29.0, Anion Gap 8, BUN 21 H, Creatinine 1.01, Estim Creat Clear Calc 39.31, Est GFR (MDRD) Af Amer 68, Est GFR (MDRD) Non-Af 56 L, BUN/Creatinine Ratio 20.8 H, Glucose 115 H, Calcium 9.1, Total Bilirubin 0.30, AST 17, ALT 19, Alkaline Phosphatase 56, Total Protein 7.3, Albumin 3.3, Globulin 4.0, Albumin/Globulin Ratio 0.8 L 10/06/20 04:34: WBC 12.8 H, RBC 3.92 L, Hgb 10.9 L, Hct 36.2 L, MCV 92.3, MCH 27.8, MCHC 30.1 L, RDW Std Deviation 53.3 H, RDW Coeff of Sukhwinder 15.7 H, Plt Count 213, MPV 11.6, Immature Gran % (Auto) 0.400, Neut % (Auto) 60.7, Lymph % (Auto) 28.3, [place] % (Auto) 7.4, Eos % (Auto) 2.5, Baso % (Auto) 0.7, Absolute Neuts (auto) 7.7, Absolute Lymphs (auto) 3.61, Nucleated RBC % 0 10/06/20 06:07: POC Glucose 114 H Radiography Diagnostic Testing: Radiology Impression Foot X-Ray 10/05/20 14:14 IMPRESSION: Fluoroscopy provided during the application of the third digit of the left foot. Electronically Signed: Milton Salmon DO at 17:08 EDT Tel [phone], Service support , Physical Exam Const alert, oriented x3 and no apparent distress HEENT head/scalp atraumatic, moist oral mucous membranes and oropharynx normal Head and Scalp: normocephalic Eyes PERRL, EOMs intact bilaterally and conjunctivae normal Neck no lymphadenopathy, supple and no JVD Resp normal respiratory effort, no retractions, no use of accessory muscles and clear to auscultation bilaterally Cardio regular rate, regular rhythm, no murmurs and no JVD GI normal to inspection, nondistended, normoactive bowel sounds, soft to palpation and non-tender Extremity normal to inspection, full ROM and no clubbing, cyanosis or edema Skin no rashes or lesions noted, no wounds and skin turgor normal Neuro CN's II-XII intact bilaterally Psych affect normal Assessment & Plan Assessment/Plan (1) HLD (hyperlipidemia): (2) Type II diabetes mellitus: (3) Diabetes mellitus with diabetic polyneuropathy: (4) MRSA cellulitis of left foot: (5) Alzheimer disease: PLAN: Day 3: Patient is an 79-year-old female presents the [facility] team on consult from Dr. Villalpando (Podiatry) for left third toe osteomyelitis w/ wound. 1) DM2 with neuropathy Continue Metformin, Lantus, sliding scale with Accu-Cheks, continue all TRAM and Lyrica. 2) HTN Stable, continue hydrochlorothiazide and metoprolol. 3) hyperlipidemia Continue statin 4) depression Continue duloxetine and doxepin. 5) Left lower extremity MRSA diabetic wound infection Management per podiatry and infectious disease: Amputation of left third toe scheduled for today at 1400, continue vancomycin per ID. DVT prophylaxis - Lovenox Patient seen by Mic Rodriguez PA-C, under the supervision of Dr. Arriaza. Documented by User: Dr. Aniyah Arriaza MD 10/06/20 16:19 Objective Data Lab / Micro Data Result Diagrams: 10/06/20 04:34 10/06/20 04:34 Charges/Coding Addendum Addendum: This patient was seen in conjunction with JIGNA Suarez. I have independently interviewed and examined the patient and reviewed pertinent historical, laboratory, and other data. Please refer to JIGNA Suarez's note for his patient's presentation, findings, and recommendations. I have reviewed and his note and concur with his documentation Patient was seen and examined. She complains of slight nausea. Insurance precertification obtained for discharge to [facility]. Physical Exam: Gen: Appears frail, not pale, not jaundiced CVS:HS I +II, regular, no murmurs RESP: Diminished at lung bases GI: BS present and normal, soft, nontender, no palpable organs EXT:No edema ASSESSMENT: 1. Postop day #1 status post partial left third toe amputation 2. MRSA diabetic wound infection 3. Type II DM complicated by polyneuropathy 4. Hypertension 5. Hyperlipidemia 6. Depression Plan: Follow-up on podiatry recommendations Follow-up on ID recommendations -discharge on doxycycline for 7 days Visit Charges Inpatient E&M: 75901 Subs Hosp L2
[2020-10-06] MEDS: DULoxetine Hcl 60 MG Capsule PO (11:27)
--- NOTE | 2020-10-06 11:52 | CASEMGMT ---
SW faxed updates to [facility]. 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
[2020-10-06 12:11] LABS: Bedside Glucose 143 mg/dL (70-110)
--- NOTE | 2020-10-06 12:42 | PN.ID_ITS ---
Physical Exam Narrative Feeling ok, foot throbbing, no fever, no n/v/d Resp normal air movement and clear to auscultation bilaterally Cardio regular rate and regular rhythm Extremity no clubbing, cyanosis or edema Skin no rashes or lesions noted ID ID: Route of nutrition/ use of supplements: [] Nutritional Intake: [] IV Site: [] Hancock Catheter: [] Assessment & Plan Assessment/Plan (1) Diabetes mellitus with diabetic polyneuropathy: (2) Chronic osteomyelitis of left foot: PLAN: Recent toe culture with MRSA. CT done. On vanc. Now s/p partial toe amp. Surg cx neg so far. Ok for d/c to [facility] on 7 days po doxy, will need course extended if clearance cxs show residual infection. Will follow, d/w machine adjuster leader case trim. ID followup as needed.
--- NOTE | 2020-10-06 12:43 | CASEMGMT ---
Infectious Disease saw patient and she will be discharged on pill antibiotics. Staff was going to notify Podiatry to see if patient can be discharged today. SW called [facility] and left them a voice mail letting them know patient will likely be returning today on pill antibiotics. Casandra Mahan PARKING LOT ATTENDANT PATRICIA
--- NOTE | 2020-10-06 12:46 | CASEMGMT ---
[place] did talk with Lissette from [facility] earlier this week and patient is there private pay. She said patient can return whenever she is ready. Casandra GOMEZ
--- NOTE | 2020-10-06 12:59 | DCINST_ITS ---
Discharge Instructions Follow Up Care Test Results: Test results from this visit will be discussed in further detail at your follow-up appointment, if applicable. Discharge Plan Admission Admit Date/Time: 10/04/20 13:07 Primary Reason for Your Visit: toe infection Attending Provider: Aniyah Arriaza Primary Care Provider: Shanika Walker Consulting Providers: Mine Mitchell ; Nikolas Carmona Instructions Additional Instructions / Restrictions: Wash feet with soap and water and do not soak. Change right foot wounds dressed daily with hydrogel. Change left foot toe amputation site dressing biweekly with dry gauze and kerlix and Yves wrap. It is okay to apply Adaptic if this is adhered. Wear bilateral surgical shoes and limit ambulation. Follow-up with the foot and ankle Center at time of discharge. Discharge Orders/Prescriptions Prescriptions: New doxycycline hyclate 100 mg capsule 100 mg PO BID Qty: 14 RF: 0 No Action metoprolol tartrate 25 MG tablet 25 mg PO BID RF: 0 tramadol 50 MG tablet 50 mg PO Q6H PRN PRN (Reason: Pain Score 4-5/10) Qty: 28 RF: 0 levothyroxine 75 MCG tablet 75 mcg PO DAILY RF: 0 doxepin 50 MG capsule 50 mg PO QHS RF: 0 atorvastatin 20 MG tablet 20 mg PO QHS RF: 0 metformin 1,000 MG tablet 1,000 mg PO BID RF: 0 insulin lispro 100 UNIT/ML insulin pen 5 unit SQ 4X/DAY PRN (Reason: BLOOD SUGAR) RF: 0 insulin glargine 100 UNIT/ML insulin pen 30 unit SQ QHS RF: 0 cholecalciferol (vitamin D3) 2,000 UNIT capsule 2,000 unit PO DAILY RF: 0 duloxetine 40 MG capsule,delayed release(DR/EC) 60 mg PO LUNCH RF: 0 acetaminophen 500 MG tablet 1,000 mg PO Q6H PRN PRN (Reason: Pain Or Fever) RF: 0 hydrochlorothiazide 12.5 MG capsule 12.5 mg PO DAILY RF: 0 pregabalin 50 MG capsule 50 mg PO 4X/DAY RF: 0 Referrals / Follow Up: Sherin Villalpando DPM [STAFF PHYSICIAN] - In 1 Week (Follow-up at the foot and ankle Center with any of the physicians within 1 week of discharge. Call [phone].) Shanika Walker MD [Primary Care Provider] - Disposition Disposition (needs filled in before D/C Order can be placed): Detention Facility
--- NOTE | 2020-10-06 13:11 | DS.PCM_ITS ---
Providers Date of Admission: 10/04/20 Primary Care Physician: Dr. Shanika Walker MD Consultations 10/04/20 12:56 Consult: Hospitalist Routine Consulting Provider: Mine Mitchell Reason for Consult: diabetes, and other medial co-morbidites EMERGENT Consult: No Notified: Yes Date Notified: 10/04/20 Time Notified: 12:57 Method of Notification: Page Consult: Infectious Disease Routine Consulting Provider: Nikolas Carmona Reason for Consult: osteomyelitis left 3rd toe EMERGENT Consult: No Notified: Yes Date Notified: 10/04/20 Time Notified: 12:57 Method of Notification: Text 10/05/20 07:09 Consult: Onc/Wound/product development manager Routine Comment: Reason for Consult:: Diabetic foot ulcers, bilateral feet, toe amputation today Reason For Visit: OSTEOMYELITIS LFT THIRD TOE Diagnosis Discharge Diagnosis (1) Diabetes mellitus with diabetic polyneuropathy: Status: Acute Code(s): E11.42 - Type 2 diabetes mellitus with diabetic polyneuropathy (2) Chronic osteomyelitis of left foot: Status: Chronic Code(s): M86.672 - Other chronic osteomyelitis, left ankle and foot Medications at Discharge Home Medications metoprolol tartrate 25 mg PO BID 01/11/19 tramadol 50 mg PO Q6H PRN PRN #28 tab 02/22/19 atorvastatin 20 mg PO QHS 05/12/19 doxepin 50 mg PO QHS 05/12/19 levothyroxine 75 mcg PO DAILY 05/12/19 acetaminophen 1,000 mg PO Q6H PRN PRN 10/01/19 cholecalciferol (vitamin D3) 2,000 unit PO DAILY 10/01/19 duloxetine 60 mg PO LUNCH 10/01/19 hydrochlorothiazide 12.5 mg PO DAILY 10/01/19 insulin glargine 30 unit SQ QHS 10/01/19 insulin lispro 5 unit SQ 4X/DAY PRN 10/01/19 metformin 1,000 mg PO BID 10/01/19 pregabalin 50 mg PO 4X/DAY 10/01/19 doxycycline hyclate 100 mg PO BID #14 cap 10/06/20 Hospital Course Operations - (partial toe amputation, left 3rd toe) Summary of Care Provided Minutes Spent on Discharge: 35 Hospital Course: Patient is a 80-year-old female who presents for worsening chronic ulcerations to the left third digit. Patient has had osteomyelitis on this digit in the past and has did a round of IV antibiotics. Patient presents to the hospital for treatment of this. Patient had internal medicine and infectious disease consulted. Patient started on IV antibiotics. Patient had labs and imaging obtained which demonstrated osteomyelitis of the distal aspect of the third left digit. Discussed with the patient and daughter options. Patient underwent partial surgical amputation of the left third digit. Cultures were obtained and followed. Patient has infectious disease consult. Patient was discharged on oral p.o. doxycycline per infectious disease. Patient is also noted to have chronic wounds. Patient to continue wound care at facility. Patient is to follow-up with podiatry upon discharge. Physical Exam Narrative Extremity Narrative: The left 3rd toe partial amputation with Scant drainage and sutures intact. No erythema noted. There is no malia necrosis to the left foot, no visible abscess, no crepitus, no fluctuance either. CFT < 2 seconds to all toes bilateral. No evidence of infection right foot. Pedal pulses intact bilateral foot. Decreased sensation to the foot bilateral - chronic. Diffuse lower extremity weakness noted bilateral with foot drop to right foot. In general, her skin is atrophic and with minimal hair to the lower extremities. There is a well clear dry eschar without drainage dorsal lateral right fifth toe, 5th MPJ and heel. Medical Records Data Medical Nutrition Assessment Dietitian: Nutrition Therapy Diagnosis Start: 10/05/20 13:39 Freq: Status: Active Protocol: Document 10/05/20 14:08 (Rec: 10/05/20 14:08 [id number]) Nutrition Malnutrition Evidence of Malnutrition Exists No Intake Problem Increased Nutrient Needs (specify) Etiology (protein) r/t wounds Signs/Symptoms as evidenced by diabetic foot ulcers of 3rd, 4th, and 5th toes, heel, and right lateral top of foot. Status Active Problem Inadequate Oral Intake Etiology r/t dislike of hospital food and decreased appetite Signs/Symptoms as evidenced by pt report of consuming ~25% of meals and unintentional weight loss of 4 #/2%. Status Active Problem Clinical Problem Altered Nutrient-Related Laboratory Values Etiology r/t endocrine dysfunction, infection Signs/Symptoms as evidenced by glucose 148, 229 Status Active Problem Recommendation Dietitian Recommendations/Changes Continue carbohydrate controlled diet. Add 1 pkt Bull BID at [facility] for wound healing. Add 120mL glucerna shake if PO intake fails at meals. Weight / BMI Weight Weight: 77.564 kg Body Mass Index (BMI) 28.4 ABG / Lab / Microbiology Data Result Diagrams: 10/06/20 04:34 10/06/20 04:34 Laboratory: Laboratory Results - last 24 hr 10/05/20 16:23: POC Glucose 86 10/05/20 22:36: POC Glucose 115 H 10/06/20 04:34: Sodium 140, Potassium 3.9, Chloride 103, Carbon Dioxide 29.0, Anion Gap 8, BUN 21 H, Creatinine 1.01, Estim Creat Clear Calc 39.31, Est GFR (MDRD) Af Amer 68, Est GFR (MDRD) Non-Af 56 L, BUN/Creatinine Ratio 20.8 H, Glucose 115 H, Calcium 9.1, Total Bilirubin 0.30, AST 17, ALT 19, Alkaline Phosphatase 56, Total Protein 7.3, Albumin 3.3, Globulin 4.0, Albumin/Globulin Ratio 0.8 L 10/06/20 04:34: WBC 12.8 H, RBC 3.92 L, Hgb 10.9 L, Hct 36.2 L, MCV 92.3, MCH 27.8, MCHC 30.1 L, RDW Std Deviation 53.3 H, RDW Coeff of Sukhwinder 15.7 H, Plt Count 213, MPV 11.6, Immature Gran % (Auto) 0.400, Neut % (Auto) 60.7, Lymph % (Auto) 28.3, Worth % (Auto) 7.4, Eos % (Auto) 2.5, Baso % (Auto) 0.7, Absolute Neuts (auto) 7.7, Absolute Lymphs (auto) 3.61, Nucleated RBC % 0 10/06/20 06:07: POC Glucose 114 H 10/06/20 11:24: POC Glucose 143 H Microbiology: Microbiology 10/05/20 15:38 Tissue - 3rd Toe Wound Culture - Preliminary Staphylococcus species 10/05/20 15:22 Tissue - 3rd Toe Wound Culture - Preliminary No growth-Final to follow Radiography Diagnostic Testing: Radiology Impression Foot X-Ray 10/05/20 14:14 IMPRESSION: Fluoroscopy provided during the application of the third digit of the left foot. Electronically Signed: Milton Salmon DO at 17:08 EDT Tel [phone], Service support , D/C Instructions Discharge Diet: No restrictions and Carb Control Diet Discharge Activity: - (surgical shoes) Weight Bearing Status: Partial weight bearing (in surgical shoes) Keep extremity elevated above heart level: Operative Extremity Call your doctor if your incision/area has: Sudden Increased Bleeding, Increased Pain/ Swelling, Foul Smelling Discharge and Swelling at the incision site Call your doctor if you observe: Fever of 101 or Higher, Numbness or Tingling, Shortness of breath, Chest pain, Calf discomfort and Uncontrolled pain Change Dressing in: as stated Cleanse incision/area with: Do not get Incision Wet Please Follow Up With: Sherin Villalpando DPM When: 1-2 week Meaningful Use Info Meaningful Use Diagnoses (Choose all that apply): None applicable Discharge Plan Admission Admit Date/Time: 10/04/20 13:07 Primary Reason for Your Visit: toe infection Attending Provider: Aniyah Arriaza Primary Care Provider: Shanika Walker Consulting Providers: Mine Mitchell ; Nikolas Carmona Instructions Additional Instructions / Restrictions: Wash feet with soap and water and do not soak. Change right foot wounds dressed daily with hydrogel. Change left foot toe amputation site dressing biweekly with dry gauze and kerlix and Yves wrap. It is okay to apply Adaptic if this is adhered. Wear bilateral surgical shoes and limit ambulation. Follow-up with the [facility] at time of discharge. Discharge Orders/Prescriptions Prescriptions: New doxycycline hyclate 100 mg capsule 100 mg PO BID Qty: 14 RF: 0 No Action metoprolol tartrate 25 MG tablet 25 mg PO BID RF: 0 tramadol 50 MG tablet 50 mg PO Q6H PRN PRN (Reason: Pain Score 4-5/10) Qty: 28 RF: 0 levothyroxine 75 MCG tablet 75 mcg PO DAILY RF: 0 doxepin 50 MG capsule 50 mg PO QHS RF: 0 atorvastatin 20 MG tablet 20 mg PO QHS RF: 0 metformin 1,000 MG tablet 1,000 mg PO BID RF: 0 insulin lispro 100 UNIT/ML insulin pen 5 unit SQ 4X/DAY PRN (Reason: BLOOD SUGAR) RF: 0 insulin glargine 100 UNIT/ML insulin pen 30 unit SQ QHS RF: 0 cholecalciferol (vitamin D3) 2,000 UNIT capsule 2,000 unit PO DAILY RF: 0 duloxetine 40 MG capsule,delayed release(DR/EC) 60 mg PO LUNCH RF: 0 acetaminophen 500 MG tablet 1,000 mg PO Q6H PRN PRN (Reason: Pain Or Fever) RF: 0 hydrochlorothiazide 12.5 MG capsule 12.5 mg PO DAILY RF: 0 pregabalin 50 MG capsule 50 mg PO 4X/DAY RF: 0 Referrals / Follow Up: Sherin Villalpando DPM [STAFF PHYSICIAN] - In 1 Week (Follow-up at the [facility] with any of the physicians within 1 week of discharge. Call [phone].) Shanika Walker MD [Primary Care Provider] - Disposition Disposition (needs filled in before D/C Order can be placed): Longterm Facility
--- NOTE | 2020-10-06 13:51 | TREXTCAR_ITS ---
Documented by User: Mic BENITO 10/06/20 13:56 Diet 10/04/20 14:14 Diet: Carbohydrate Controlled Is pt able to select menu?: Yes Wound(s) R heel: Wound Type: thin superficial scab R 5th toe: Wound Type: thin superficial scab R 4th toe: Wound Type: thin superficial scab R lateral top of foot: Wound Type: this superficial scab L 3rd toe: Wound Type: Neuropathic/Diabetic Foot Ulcer left foot: Wound Type: Surgical Incision left 3rd toe: Wound Type: partial amputation Dressing Change: Dry Sterile Dressing Therapies Weight Bearing: Partial weight bearing Physical Therapy: Eval and Treat Occupational Therapy: Eval and Treat Problem/Diagnosis (1) Diabetes mellitus with diabetic polyneuropathy: Status: Acute (2) Chronic osteomyelitis of left foot: Status: Chronic Allergies/Procedures Done in Hospital Allergies Iodine and Iodide Containing Produc Allergy (Verified 11/05/19 22:49) Rash venom-honey bee [bee venom (honey bee)] Allergy (Verified 11/05/19 22:49) Swelling Type of Care/Length of Stay Estimated LOS: Convalescent Care Less Than 30 days Type of Care Needed: Skilled Rehab Potential: Fair Prognosis: Fair Additional Orders/Day of Discharge Additional Orders: Wash feet with soap and water and do not soak. Change right foot wounds dressed daily with hydrogel. Change left foot toe amputation site dressing biweekly with dry gauze and kerlix and Yves wrap. It is okay to apply Adaptic if this is adhered. Wear bilateral surgical shoes and limit ambulation. Follow-up with the [facility] at time of discharge. Day of Discharge: 10/06/20 Dietary and Speech Recommendations Dietitian Recommendations/Changes: Continue carbohydrate controlled diet. Add [address] BID at [facility] for wound healing. Add 120mL glucerna shake if PO intake fails at meals. Follow Up Care Please follow up with your Primary Care Physician in: Within the next tweek Please Follow Up With: Sherin Villalpando DPM Discharge Plan Admission Admit Date/Time: 10/04/20 13:07 Primary Reason for Your Visit: toe infection Attending Provider: Aniyah Arriaza Primary Care Provider: Shanika Walker Consulting Providers: Mine Mitchell ; Nikolas Carmona Instructions Additional Instructions / Restrictions: Wash feet with soap and water and do not soak. Change right foot wounds dressed daily with hydrogel. Change left foot toe amputation site dressing biweekly with dry gauze and kerlix and Yves wrap. It is okay to apply Adaptic if this is adhered. Wear bilateral surgical shoes and limit ambulation. Follow-up with the [facility] at time of discharge. Discharge Orders/Prescriptions Prescriptions: New doxycycline hyclate 100 mg capsule 100 mg PO BID Qty: 14 RF: 0 Continued metoprolol tartrate 25 MG tablet 25 mg PO BID RF: 0 tramadol 50 MG tablet 50 mg PO Q6H PRN PRN (Reason: Pain Score 4-5/10) Qty: 28 RF: 0 levothyroxine 75 MCG tablet 75 mcg PO DAILY RF: 0 doxepin 50 MG capsule 50 mg PO QHS RF: 0 atorvastatin 20 MG tablet 20 mg PO QHS RF: 0 metformin 1,000 MG tablet 1,000 mg PO BID RF: 0 insulin lispro 100 UNIT/ML insulin pen 5 unit SQ 4X/DAY PRN (Reason: BLOOD SUGAR) RF: 0 insulin glargine 100 UNIT/ML insulin pen 30 unit SQ QHS RF: 0 cholecalciferol (vitamin D3) 2,000 UNIT capsule 2,000 unit PO DAILY RF: 0 duloxetine 40 MG capsule,delayed release(DR/EC) 60 mg PO LUNCH RF: 0 acetaminophen 500 MG tablet 1,000 mg PO Q6H PRN PRN (Reason: Pain Or Fever) RF: 0 hydrochlorothiazide 12.5 MG capsule 12.5 mg PO DAILY RF: 0 pregabalin 50 MG capsule 50 mg PO 4X/DAY RF: 0 Referrals / Follow Up: Sherin Villalpando DPM [STAFF PHYSICIAN] - In 1 Week (Follow-up at the [facility] with any of the physicians within 1 week of discharge. Call [phone].) Shanika Walker MD [Primary Care Provider] - Within 2 Weeks Disposition Disposition (needs filled in before D/C Order can be placed): Nursing Home Facility Documented by User: Dr. Aniyah Arriaza MD 10/06/20 14:39 Allergies/Procedures Done in Hospital Allergies Iodine and Iodide Containing Produc Allergy (Verified 11/05/19 22:49) Rash venom-honey bee [bee venom (honey bee)] Allergy (Verified 11/05/19 22:49) Swelling Discharge Plan Admission Admit Date/Time: 10/04/20 13:07 Primary Reason for Your Visit: toe infection Attending Provider: Aniyah Arriaza Primary Care Provider: Shanika Walker Consulting Providers: Mine Mitchell ; Nikolas Carmona Instructions Additional Instructions / Restrictions: Wash feet with soap and water and do not soak. Change right foot wounds dressed daily with hydrogel. Change left foot toe amputation site dressing biweekly with dry gauze and kerlix and Yves wrap. It is okay to apply Adaptic if this is adhered. Wear bilateral surgical shoes and limit ambulation. Follow-up with the [facility] at time of discharge. Discharge Orders/Prescriptions Prescriptions: New doxycycline hyclate 100 mg capsule 100 mg PO BID Qty: 14 RF: 0 Continued metoprolol tartrate 25 MG tablet 25 mg PO BID RF: 0 tramadol 50 MG tablet 50 mg PO Q6H PRN PRN (Reason: Pain Score 4-5/10) Qty: 28 RF: 0 levothyroxine 75 MCG tablet 75 mcg PO DAILY RF: 0 doxepin 50 MG capsule 50 mg PO QHS RF: 0 atorvastatin 20 MG tablet 20 mg PO QHS RF: 0 metformin 1,000 MG tablet 1,000 mg PO BID RF: 0 insulin lispro 100 UNIT/ML insulin pen 5 unit SQ 4X/DAY PRN (Reason: BLOOD SUGAR) RF: 0 insulin glargine 100 UNIT/ML insulin pen 30 unit SQ QHS RF: 0 cholecalciferol (vitamin D3) 2,000 UNIT capsule 2,000 unit PO DAILY RF: 0 duloxetine 40 MG capsule,delayed release(DR/EC) 60 mg PO LUNCH RF: 0 acetaminophen 500 MG tablet 1,000 mg PO Q6H PRN PRN (Reason: Pain Or Fever) RF: 0 hydrochlorothiazide 12.5 MG capsule 12.5 mg PO DAILY RF: 0 pregabalin 50 MG capsule 50 mg PO 4X/DAY RF: 0 Referrals / Follow Up: Sherin Villalpando DPM [STAFF PHYSICIAN] - In 1 Week (Follow-up at the [facility] with any of the physicians within 1 week of discharge. Call [phone].) Shanika Walker MD [Primary Care Provider] - Within 2 Weeks Disposition Disposition (needs filled in before D/C Order can be placed): Nursing Home Facility
[2020-10-06 13:57] VITALS: BP 100/53; PULSE 63; RESP 16; TEMP 36.6; O2SAT 94
--- NOTE | 2020-10-06 14:30 | CASEMGMT ---
[place] has left several messages for [facility] with no return calls. [place] faxed orders and negative COVID test to [facility]. [place]IS spoke with RN who said patient's daughter would be here around 3p. [place]IS called [facility] and left another message letting them know patient will be returning and her daughter will be here around 3p. Plan: d/c back to [facility] under intermediate level of care. Patient's daughter transported her via private vehicle. Casandra GOMEZ
== END 2020-10-06 14:59 | disposition skilled nursing facility (03) | DRG 617 ==
PROVIDERS: Podiatrist; Admitting Provider Podiatrist; PCP Internal Medicine; Referring Provider Podiatrist; Visit Provider Internal Medicine
PROC: 0Y6U0Z0 Detachment at Left 3rd Toe, Complete, Open Approach (ICD-10-PCS; principal; 2020-10-05 13:45)
DX: E11.621 Type 2 diabetes mellitus with foot ulcer (principal); L03.116 Cellulitis of left lower limb; M86.672 Other chronic osteomyelitis, left ankle and foot; E11.69 Type 2 diabetes mellitus with other specified complication; L97.524 Non-pressure chronic ulcer of other part of left foot with necrosis of bone; E03.9 Hypothyroidism, unspecified; E11.42 Type 2 diabetes mellitus with diabetic polyneuropathy; E78.5 Hyperlipidemia, unspecified; F02.80 Dementia in other diseases classified elsewhere, unspecified severity, without behavioral disturbance, psychotic disturbance, mood disturbance, and anxiety; F32.9 Major depressive disorder, single episode, unspecified; G30.9 Alzheimer's disease, unspecified; I10 Essential (primary) hypertension; M21.371 Foot drop, right foot; Z86.14 Personal history of Methicillin resistant Staphylococcus aureus infection; B95.62 Methicillin resistant Staphylococcus aureus infection as the cause of diseases classified elsewhere; Z79.4 Long term (current) use of insulin; Z79.899 Other long term (current) drug therapy
CPT/HCPCS: 36415; 73630; 73700; 76000; 80053; 80202; 82962; 83036; 85025; 85652; 86140; 87015; 87070; 87075; 87077; 87102; 87116; 87186; 87205; 87206; 87426; 88304; 88305; 88311; 93005; J7040; J2405

== ENCOUNTER → 2020-10-07 11:10 | Outpatient (REF) | payer MEDICARE, SELFPAY ==
[2020-10-05 13:24] VITALS: BMI 28.4
[2020-10-07 11:58] LABS: Absolute Lymphocyte Count 2.48 X10^3/uL (0.83-4.51); Absolute Neutrophil Count 6.4 X10^3/uL (2.0-7.7); Basophil# 0.08 X10^3/uL; Basophil% 0.8 % (0-1); Eosinophil# 0.22 X10^3/uL; Eosinophils% 2.2 % (0-5); Erythrocyte Sedimentation Rate 38 mm/hr (0-30); Hematocrit 33.5 % (37-47); Hemoglobin 10.4 g/dL (12.0-15.0); Lymphocyte # 2.48 X10^3/ul (0.83-4.51); Mean Corpuscular Hgb 28.2 pg (27.0-32.0); Mean Corpuscular Volume 90.8 fL (81-99); Mean Platelet Vol. 12.2 fl (6.2-12.0); Monocyte# 0.66 X10^3/uL; Monocyte% 6.7 % (0-10); NRBC Flagged by Analyzer 0 % (0-5); Neutrophil # 6.41 X10^3/uL (2.7-7.7); Neutrophil % 64.7 % (47-70); Platelet Count 175 K/mm3 (150-450); RBC Distribution Width CV 15.4 % (11.6-14.6); RBC Distribution Width SD 51.2 fl (35.1-43.9); Red Blood Count 3.69 M/mm3 (4.2-5.4); White Blood Count 9.9 K/mm3 (4.4-11.0)
[2020-10-07 12:06] LABS: Anion Gap 7 (5-15); BUN 24 mg/dL (7-18); CRP 4.97 mg/L (0.0-3.0); Calcium,Total 9.2 mg/dL (8.5-10.1); Chloride 104 mmol/L (98-107); EST Glomerular Filtration Rate 46 mL/min (>60); Est Glom Filt Rate - Afr Amer 55 mL/min (>60); Glucose 165 mg/dL (74-106); Potassium 3.9 mmol/L (3.5-5.1); Sodium Level 138 mmol/L (136-145)
== END ==
LOC: OLS.SW400 11:10
PROVIDERS: PCP Internal Medicine; Visit Provider Internal Medicine
DX: E05.90 Thyrotoxicosis, unspecified without thyrotoxic crisis or storm (principal); E55.9 Vitamin D deficiency, unspecified; I10 Essential (primary) hypertension; E11.9 Type 2 diabetes mellitus without complications
CPT/HCPCS: 36415; 80048; 85025; 85652; 86140

== ENCOUNTER → 2020-10-20 05:00 | Outpatient (REF) | payer MEDICARE, SELFPAY ==
[2020-10-05 13:24] VITALS: BMI 28.4
[2020-10-20 07:59] LABS: ALB/GLOB Ratio 0.7 RATIO (0.9-2.4); AST(SGOT) 21 U/L (15-37); Alanine Aminotransfer ALT/SGPT 21 U/L (13-56); Albumin, Serum 2.7 g/dL (3.2-5.0); Alkaline Phosphatase 75 U/L (45-117); Anion Gap 5 (5-15); BUN 30 mg/dL (7-18); BUN/Creat Ratio 32.8 RATIO (10-20); CRP 7.07 mg/L (0.0-3.0); Calcium,Total 9.3 mg/dL (8.5-10.1); Chloride 104 mmol/L (98-107); Creatinine, Serum 0.92 mg/dL (0.55-1.02); EST Glomerular Filtration Rate 63 mL/min (>60); Est Glom Filt Rate - Afr Amer 76 mL/min (>60); Glucose 95 mg/dL (74-106); Magnesium 1.6 mg/dL (1.6-2.6); Potassium 4.1 mmol/L (3.5-5.1); Protein, Total 6.7 g/dL (6.4-8.2); Sodium Level 140 mmol/L (136-145)
[2020-10-20 08:08] LABS: Absolute Lymphocyte Count 2.88 X10^3/uL (0.83-4.51); Absolute Neutrophil Count 5.4 X10^3/uL (2.0-7.7); Basophil# 0.07 X10^3/uL; Basophil% 0.8 % (0-1); Eosinophil# 0.22 X10^3/uL; Eosinophils% 2.4 % (0-5); Hematocrit 31.1 % (37-47); Hemoglobin 9.6 g/dL (12.0-15.0); Lymphocyte # 2.88 X10^3/ul (0.83-4.51); Lymphocyte % 31.4 % (19-41); Mean Corp Hgb Conc 30.9 g/dL (32-36); Mean Corpuscular Hgb 28.2 pg (27.0-32.0); Mean Corpuscular Volume 91.5 fL (81-99); Mean Platelet Vol. 12.1 fl (6.2-12.0); Monocyte# 0.53 X10^3/uL; Monocyte% 5.8 % (0-10); NRBC Flagged by Analyzer 0 % (0-5); Neutrophil # 5.41 X10^3/uL (2.7-7.7); Neutrophil % 58.9 % (47-70); Platelet Count 190 K/mm3 (150-450); RBC Distribution Width CV 14.9 % (11.6-14.6); White Blood Count 9.2 K/mm3 (4.4-11.0)
[2020-10-20 09:42] LABS: Erythrocyte Sedimentation Rate 33 mm/hr (0-30)
== END ==
LOC: OLS.SW400 05:00
PROVIDERS: PCP Internal Medicine; Referring Provider Internal Medicine; Visit Provider Internal Medicine
DX: M85.80 Other specified disorders of bone density and structure, unspecified site (principal)
CPT/HCPCS: 36415; 80053; 83735; 85025; 85652; 86140

== ENCOUNTER → 2020-10-25 13:16 | Outpatient (CLI) | payer MEDICARE, SELFPAY ==
[2020-10-05 13:24] VITALS: BMI 28.4
--- NOTE | 2020-10-25 13:18 | CT_ITS ---
STUDY: CT SCAN LOWER EXTREMITY LEFT foot. REASON FOR EXAM: Female, 80 years old. OSTEOMYELITIS L 3RD TOE 2MM SLICES RADIATION DOSAGE (If Supplied By Facility): CTDIvol = ( 15.35 ) mGy, DLP = ( 307.71 ) mGycm. Individualized dose optimization techniques were used for this CT.? TECHNIQUE: Multiple 2.0 millimeter axial tomographic images were obtained. Coronal and sagittal reconstruction was obtained as well. COMPARISON: Comparison is made with prior examination dated 10/04/2020. FINDINGS: Once again, there is evidence of a resection of the tibial and fibular sesamoid bones with small residual osseous fragments. Was not again, there is is arthrodesis of the first metatarsophalangeal degenerative changes. The patient is status post resection of the distal and proximal phalanges of the third toe. There is been resection of the distal portion of the proximal phalanx of the third toe. Mild degree of soft tissue swelling. CT/Extremity Lower without Contra IMPRESSION: Status post resection of the distal and middle phalanges of the third toe as well as the distal portion of the proximal phalange of the third toe. Mild residual soft tissue swelling. Electronically Signed: Tio Perez MD at 15:30 EDT , Service support ,
== END ==
PROVIDERS: PCP Internal Medicine; Referring Provider Podiatrist; Visit Provider Podiatrist
DX: M86.9 Osteomyelitis, unspecified (principal)
CPT/HCPCS: 73700

== ENCOUNTER → 2021-02-06 07:15 | Outpatient (REF) | payer MEDICARE, SELFPAY ==
[2021-02-06 10:04] LABS: Cholesterol 163 mg/dL (200); High Density Lipoprotein 47 mg/dL; Triglycerides 254 mg/dL; Very Low Density Lipoprotein 51 mg/dL (5-40)
== END ==
LOC: OLS.SW400 07:15
PROVIDERS: PCP Internal Medicine; Visit Provider Internal Medicine
DX: E11.9 Type 2 diabetes mellitus without complications (principal)
CPT/HCPCS: 36415; 80061

== ENCOUNTER → 2021-04-03 04:00 | Outpatient (REF) | payer MEDICARE, SELFPAY ==
[2021-04-03 07:54] LABS: Anion Gap 8 (5-15); BUN 28 mg/dL (7-18); BUN/Creat Ratio 26.4 RATIO (10-20); Calcium,Total 9.5 mg/dL (8.5-10.1); Chloride 104 mmol/L (98-107); Creatinine, Serum 1.06 mg/dL (0.55-1.02); EST Glomerular Filtration Rate 53 mL/min (>60); Est Glom Filt Rate - Afr Amer 64 mL/min (>60); Glucose 68 mg/dL (74-106); Magnesium 2.1 mg/dL (1.6-2.6); Potassium 3.7 mmol/L (3.5-5.1); Sodium Level 139 mmol/L (136-145)
== END ==
LOC: OLS.SW400 04:00
PROVIDERS: PCP Internal Medicine; Referring Provider Internal Medicine; Visit Provider Internal Medicine
DX: E11.9 Type 2 diabetes mellitus without complications (principal); I10 Essential (primary) hypertension; E78.5 Hyperlipidemia, unspecified; E03.9 Hypothyroidism, unspecified
CPT/HCPCS: 36415; 80048; 83735

== ENCOUNTER → 2021-04-13 05:00 | Outpatient (REF) | payer MEDICARE, SELFPAY ==
[2021-04-13 07:49] LABS: Uric Acid 8.5 mg/dL (2.6-6.0)
== END ==
LOC: OLS.SW400 05:00
PROVIDERS: PCP Internal Medicine; Visit Provider Internal Medicine
DX: R52 Pain, unspecified (principal)
CPT/HCPCS: 36415; 84550; 86140

== ENCOUNTER → 2021-05-01 | Outpatient (REF) | payer MEDICARE, SELFPAY ==
[2021-05-01 09:02] LABS: Absolute Neutrophil Count 4.3 X10^3/uL (2.0-7.7); Basophil# 0.09 X10^3/uL; Basophil% 1.1 % (0-1); Eosinophil# 0.29 X10^3/uL; Eosinophils% 3.5 % (0-5); Hematocrit 28.9 % (37-47); Hemoglobin 8.8 g/dL (12.0-15.0); Lymphocyte % 36.1 % (19-41); Mean Corp Hgb Conc 30.4 g/dL (32-36); Mean Corpuscular Hgb 27.4 pg (27.0-32.0); Mean Platelet Vol. 12.3 fl (6.2-12.0); Monocyte# 0.57 X10^3/uL; Monocyte% 6.9 % (0-10); NRBC Flagged by Analyzer 0 % (0-5); Neutrophil # 4.33 X10^3/uL (2.7-7.7); Neutrophil % 51.9 % (47-70); Platelet Count 170 K/mm3 (150-450); RBC Distribution Width CV 16.1 % (11.6-14.6); RBC Distribution Width SD 52.9 fl (35.1-43.9); Red Blood Count 3.21 M/mm3 (4.2-5.4); White Blood Count 8.3 K/mm3 (4.4-11.0)
[2021-05-01 09:20] LABS: Anion Gap 4 (5-15); BUN 30 mg/dL (7-18); BUN/Creat Ratio 24.4 RATIO (10-20); Calcium,Total 9.1 mg/dL (8.5-10.1); Chloride 106 mmol/L (98-107); Creatinine, Serum 1.23 mg/dL (0.55-1.02); EST Glomerular Filtration Rate 45 mL/min (>60); Est Glom Filt Rate - Afr Amer 54 mL/min (>60); Glucose 190 mg/dL (74-106); Potassium 4.5 mmol/L (3.5-5.1); Sodium Level 138 mmol/L (136-145)
== END | disposition home or self-care (01) ==
LOC: OLS.SW400 05:00
PROVIDERS: PCP Internal Medicine; Visit Provider Internal Medicine
DX: I10 Essential (primary) hypertension (principal); F03.90 Unspecified dementia, unspecified severity, without behavioral disturbance, psychotic disturbance, mood disturbance, and anxiety; E11.9 Type 2 diabetes mellitus without complications; E78.5 Hyperlipidemia, unspecified; E03.9 Hypothyroidism, unspecified
CPT/HCPCS: 36415; 80048; 85025

== ENCOUNTER → 2021-06-12 | Outpatient (REF) | payer MEDICARE, SELFPAY ==
[2021-06-12 07:28] LABS: Mucous, Urine 0 SEEN /hpf (<or=2+)
[2021-06-12 07:56] LABS: Color, Urine Yellow (Yellow); Glucose, Dipstick Normal (Normal); Ketone-Dipstick Negative (Negative); Leukocyte Esterase-Dipstick 500 /ul (Negative); Nitrite-Dipstick Positive (Negative); Occult Blood-Urine 25 /ul (Negative); Protein-Dipstick 30 mg/dl (Negative); Specific Gravity, Urine 1.015 (1.002-1.030); Urine Bilirubin Dipstick Negative (Negative); Urine Clarity Sl. Cloudy (Clear); Urine Urobilinogen Normal (Normal); Urine pH 6.5 (5.0 - 8.0)
[2021-06-12 08:05] LABS: Bacteria 2+ /hpf (None Seen); Red Blood Cells-Urine 0-5 SEEN /hpf (0-5); Squamous Epithelial Cells - UA 0-5 SEEN /hpf (5-10); White Blood Cells 25-50 SEEN /hpf (0-5)
== END | disposition home or self-care (01) ==
LOC: OLS.SW400 07:27
PROVIDERS: PCP Internal Medicine; Visit Provider Internal Medicine
DX: N39.0 Urinary tract infection, site not specified (principal)
CPT/HCPCS: 81001; 87086; 87088; 87186

== ENCOUNTER → 2021-06-15 | Outpatient (REF) | payer MEDICARE, SELFPAY ==
[2021-06-15 15:37] LABS: Absolute Lymphocyte Count 2.07 X10^3/uL (0.83-4.51); Basophil# 0.09 X10^3/uL; Basophil% 0.8 % (0-1); Eosinophil# 0.25 X10^3/uL; Eosinophils% 2.3 % (0-5); Hematocrit 33.7 % (37-47); Hemoglobin 10.2 g/dL (12.0-15.0); Lymphocyte # 2.07 X10^3/ul (0.83-4.51); Lymphocyte % 18.9 % (19-41); Mean Corp Hgb Conc 30.3 g/dL (32-36); Mean Corpuscular Hgb 27.1 pg (27.0-32.0); Mean Corpuscular Volume 89.6 fL (81-99); Mean Platelet Vol. 12.3 fl (6.2-12.0); Monocyte# 0.54 X10^3/uL; Monocyte% 4.9 % (0-10); NRBC Flagged by Analyzer 0 % (0-5); Neutrophil # 7.96 X10^3/uL (2.7-7.7); Neutrophil % 72.6 % (47-70); Platelet Count 219 K/mm3 (150-450); RBC Distribution Width CV 17.1 % (11.6-14.6); RBC Distribution Width SD 55.7 fl (35.1-43.9); Red Blood Count 3.76 M/mm3 (4.2-5.4)
== END | disposition home or self-care (01) ==
LOC: OLS.SW400 14:15
PROVIDERS: PCP Internal Medicine; Visit Provider Internal Medicine
DX: N39.0 Urinary tract infection, site not specified (principal); R41.0 Disorientation, unspecified
CPT/HCPCS: 36415; 85025

== ENCOUNTER → 2021-07-16 | Outpatient (REF) | payer MEDICARE, SELFPAY ==
[2021-07-16 14:18] LABS: Absolute Lymphocyte Count 3.17 X10^3/uL (0.83-4.51); Absolute Neutrophil Count 6.4 X10^3/uL (2.0-7.7); Basophil# 0.09 X10^3/uL; Basophil% 0.8 % (0-1); Eosinophil# 0.23 X10^3/uL; Eosinophils% 2.2 % (0-5); Hematocrit 31.5 % (37-47); Hemoglobin 9.8 g/dL (12.0-15.0); Lymphocyte # 3.17 X10^3/ul (0.83-4.51); Lymphocyte % 29.7 % (19-41); Mean Corp Hgb Conc 31.1 g/dL (32-36); Mean Corpuscular Hgb 28.2 pg (27.0-32.0); Mean Corpuscular Volume 90.5 fL (81-99); Mean Platelet Vol. 11.7 fl (6.2-12.0); Monocyte# 0.71 X10^3/uL; Monocyte% 6.7 % (0-10); NRBC Flagged by Analyzer 0 % (0-5); Neutrophil # 6.41 X10^3/uL (2.7-7.7); Platelet Count 223 K/mm3 (150-450); RBC Distribution Width CV 16.7 % (11.6-14.6); RBC Distribution Width SD 55.7 fl (35.1-43.9); Red Blood Count 3.48 M/mm3 (4.2-5.4); White Blood Count 10.7 K/mm3 (4.4-11.0)
[2021-07-16 15:01] LABS: Anion Gap 6 (5-15); BUN 40 mg/dL (7-18); BUN/Creat Ratio 24.2 RATIO (10-20); Calcium,Total 9.2 mg/dL (8.5-10.1); Chloride 101 mmol/L (98-107); Creatinine, Serum 1.65 mg/dL (0.55-1.02); EST Glomerular Filtration Rate 32 mL/min (>60); Est Glom Filt Rate - Afr Amer 38 mL/min (>60); Glucose 197 mg/dL (74-106); Potassium 4.5 mmol/L (3.5-5.1); Sodium Level 133 mmol/L (136-145)
== END | disposition home or self-care (01) ==
LOC: OLS.SW400 13:35
PROVIDERS: PCP Internal Medicine; Referring Provider Internal Medicine; Visit Provider Internal Medicine
DX: Z91.81 History of falling (principal)
CPT/HCPCS: 36415; 80048; 85025

== ENCOUNTER → 2021-07-18 | Outpatient (REF) | payer MEDICARE, SELFPAY ==
[2021-07-18 07:52] LABS: Mucous, Urine 0 SEEN /hpf (<or=2+)
[2021-07-18 08:17] LABS: Color, Urine Yellow (Yellow); Glucose, Dipstick Normal (Normal); Ketone-Dipstick Negative (Negative); Leukocyte Esterase-Dipstick 500 /ul (Negative); Nitrite-Dipstick Positive (Negative); Occult Blood-Urine 50 /ul (Negative); Protein-Dipstick 30 mg/dl (Negative); Specific Gravity, Urine 1.015 (1.002-1.030); Urine Bilirubin Dipstick Negative (Negative); Urine Clarity Cloudy (Clear); Urine Urobilinogen Normal (Normal)
[2021-07-18 08:51] LABS: Red Blood Cells-Urine 10-25 SEEN /hpf (0-5); White Blood Cells >100 SEEN /hpf (0-5)
[2021-07-18 08:52] LABS: Bacteria 3+ /hpf (None Seen); Squamous Epithelial Cells - UA 5-10 SEEN /hpf (5-10)
== END | disposition home or self-care (01) ==
LOC: OLS.SW400 03:00
PROVIDERS: PCP Internal Medicine; Referring Provider Internal Medicine; Visit Provider Internal Medicine
DX: E11.42 Type 2 diabetes mellitus with diabetic polyneuropathy (principal); N39.0 Urinary tract infection, site not specified
CPT/HCPCS: 81001; 87077; 87086; 87088; 87186

== ENCOUNTER → 2021-08-15 | Outpatient (REF) | payer MEDICARE, SELFPAY ==
[2021-08-15 10:40] LABS: Bacteria 0 SEEN /hpf (None Seen); Mucous, Urine 0 SEEN /hpf (<or=2+); Red Blood Cells-Urine 0 SEEN /hpf (0-5); Squamous Epithelial Cells - UA 0 SEEN /hpf (5-10)
[2021-08-15 11:09] LABS: Color, Urine Yellow (Yellow); Glucose, Dipstick Normal (Normal); Ketone-Dipstick Negative (Negative); Leukocyte Esterase-Dipstick 500 /ul (Negative); Nitrite-Dipstick Positive (Negative); Occult Blood-Urine 25 /ul (Negative); Protein-Dipstick 30 mg/dl (Negative); Specific Gravity, Urine 1.005 (1.002-1.030); Urine Bilirubin Dipstick Negative (Negative); Urine Clarity Sl. Cloudy (Clear); Urine Urobilinogen Normal (Normal)
[2021-08-15 11:20] LABS: Amorphous Sediment 1+; White Blood Cells >100 SEEN /hpf (0-5)
== END | disposition home or self-care (01) ==
LOC: OLS.SW400
PROVIDERS: PCP Internal Medicine; Visit Provider Internal Medicine
DX: N39.0 Urinary tract infection, site not specified (principal)
CPT/HCPCS: 81001; 87086; 87088; 87186

== ENCOUNTER → 2021-09-01 11:20 | Outpatient (REF) | payer MEDICARE, SELFPAY ==
[2021-09-01 12:11] LABS: Absolute Lymphocyte Count 2.69 X10^3/uL (0.83-4.51); Absolute Neutrophil Count 5.5 X10^3/uL (2.0-7.7); Basophil# 0.11 X10^3/uL; Basophil% 1.2 % (0-1); Eosinophil# 0.32 X10^3/uL; Eosinophils% 3.5 % (0-5); Hematocrit 34.3 % (37-47); Hemoglobin 10.3 g/dL (12.0-15.0); Lymphocyte # 2.69 X10^3/ul (0.83-4.51); Lymphocyte % 29.2 % (19-41); Mean Corpuscular Hgb 27.8 pg (27.0-32.0); Mean Corpuscular Volume 92.5 fL (81-99); Mean Platelet Vol. 11.8 fl (6.2-12.0); Monocyte# 0.56 X10^3/uL; Monocyte% 6.1 % (0-10); NRBC Flagged by Analyzer 0 % (0-5); Neutrophil # 5.49 X10^3/uL (2.7-7.7); Neutrophil % 59.5 % (47-70); Platelet Count 251 K/mm3 (150-450); RBC Distribution Width SD 54.1 fl (35.1-43.9); Red Blood Count 3.71 M/mm3 (4.2-5.4); White Blood Count 9.2 K/mm3 (4.4-11.0)
[2021-09-01 12:12] LABS: Anion Gap 6 (5-15); BUN 37 mg/dL (7-18); Calcium,Total 9.9 mg/dL (8.5-10.1); Chloride 105 mmol/L (98-107); Creatinine, Serum 1.54 mg/dL (0.55-1.02); EST Glomerular Filtration Rate 34 mL/min (>60); Est Glom Filt Rate - Afr Amer 42 mL/min (>60); Glucose 143 mg/dL (74-106); Potassium 5.2 mmol/L (3.5-5.1); Sodium Level 136 mmol/L (136-145)
== END ==
LOC: OLS.SW400 11:20
PROVIDERS: PCP Internal Medicine; Visit Provider Internal Medicine
DX: F03.90 Unspecified dementia, unspecified severity, without behavioral disturbance, psychotic disturbance, mood disturbance, and anxiety (principal); E11.9 Type 2 diabetes mellitus without complications; R42 Dizziness and giddiness
CPT/HCPCS: 36415; 80048; 85025

== ENCOUNTER → 2021-10-09 | Outpatient (REF) | payer MEDICARE, SELFPAY ==
[2021-10-09 09:25] LABS: Cholesterol 149 mg/dL (200); High Density Lipoprotein 35 mg/dL; Triglycerides 279 mg/dL; Very Low Density Lipoprotein 56 mg/dL (5-40)
== END ==
LOC: OLS.SW400 05:00
PROVIDERS: PCP Internal Medicine; Visit Provider Internal Medicine
DX: E78.5 Hyperlipidemia, unspecified (principal)
CPT/HCPCS: 36415; 80061

== ENCOUNTER → 2021-10-26 | Outpatient (REF) | payer MEDICARE, SELFPAY | LOC: OLS.SW400 11:01 | PROVIDERS: PCP Internal Medicine; Visit Provider Internal Medicine | DX: N89.8 Other specified noninflammatory disorders of vagina (principal) | CPT/HCPCS: 87070; 87205 ==

== ENCOUNTER → 2021-10-29 | Outpatient (REF) | payer MEDICARE, SELFPAY ==
[2021-10-29 08:06] LABS: Mucous, Urine 0 SEEN /hpf (<or=2+); Squamous Epithelial Cells - UA 0 SEEN /hpf (5-10)
[2021-10-29 09:07] LABS: Color, Urine Yellow (Yellow); Glucose, Dipstick Normal (Normal); Ketone-Dipstick Negative (Negative); Leukocyte Esterase-Dipstick 500 /ul (Negative); Nitrite-Dipstick Negative (Negative); Occult Blood-Urine 50 /ul (Negative); Protein-Dipstick 100 mg/dl (Negative); Urine Bilirubin Dipstick Negative (Negative); Urine Clarity Turbid (Clear); Urine Urobilinogen Normal (Normal)
[2021-10-29 10:01] LABS: Red Blood Cells-Urine 0-5 SEEN /hpf (0-5); White Blood Cells 25-50 SEEN /hpf (0-5)
[2021-10-29 10:04] LABS: Triple Phosphate Crystals Ur 1+ /hpf (<or=1+)
[2021-10-29 10:07] LABS: Bacteria 4+ /hpf (None Seen)
== END ==
LOC: OLS.SW400 05:00
PROVIDERS: PCP Internal Medicine; Visit Provider Internal Medicine
DX: F03.90 Unspecified dementia, unspecified severity, without behavioral disturbance, psychotic disturbance, mood disturbance, and anxiety (principal); E11.9 Type 2 diabetes mellitus without complications; I10 Essential (primary) hypertension; E78.5 Hyperlipidemia, unspecified; E03.9 Hypothyroidism, unspecified; R41.82 Altered mental status, unspecified
CPT/HCPCS: 81001

== ENCOUNTER → 2021-11-06 | Outpatient (REF) | payer MEDICARE, SELFPAY ==
[2021-11-06 09:50] LABS: Hemoglobin A1c 7.9 % (3.8-5.6)
[2021-11-07 07:23] LABS: Absolute Lymphocyte Count 3.16 X10^3/uL (0.83-4.51); Absolute Neutrophil Count 5.9 X10^3/uL (2.0-7.7); Basophil# 0.11 X10^3/uL; Basophil% 1.1 % (0-1); Eosinophil# 0.24 X10^3/uL; Eosinophils% 2.3 % (0-5); Hematocrit 30.9 % (37-47); Hemoglobin 9.7 g/dL (12.0-15.0); Lymphocyte # 3.16 X10^3/ul (0.83-4.51); Lymphocyte % 30.6 % (19-41); Mean Corp Hgb Conc 31.4 g/dL (32-36); Mean Platelet Vol. 12.4 fl (6.2-12.0); Monocyte# 0.85 X10^3/uL; Monocyte% 8.2 % (0-10); NRBC Flagged by Analyzer 0 % (0-5); Neutrophil # 5.91 X10^3/uL (2.7-7.7); Neutrophil % 57.1 % (47-70); Platelet Count 176 K/mm3 (150-450); RBC Distribution Width CV 16.4 % (11.6-14.6); RBC Distribution Width SD 53.5 fl (35.1-43.9); Red Blood Count 3.47 M/mm3 (4.2-5.4); White Blood Count 10.3 K/mm3 (4.4-11.0)
[2021-11-07 09:09] LABS: Color, Urine Yellow (Yellow); Glucose, Dipstick Normal (Normal); Ketone-Dipstick Negative (Negative); Leukocyte Esterase-Dipstick 500 /ul (Negative); Nitrite-Dipstick Negative (Negative); Occult Blood-Urine Negative /ul (Negative); Protein-Dipstick 30 mg/dl (Negative); Specific Gravity, Urine 1.015 (1.002-1.030); Urine Bilirubin Dipstick Negative (Negative); Urine Clarity Sl. Cloudy (Clear); Urine Urobilinogen Normal (Normal)
== END ==
LOC: OLS.SW400 05:00
PROVIDERS: PCP Internal Medicine; Visit Provider Internal Medicine
DX: R53.83 Other fatigue (principal); R30.0 Dysuria
CPT/HCPCS: 36415; 81002; 83036; 85025; 87086; 87088

== ENCOUNTER → 2021-11-08 | Outpatient (REF) | payer MEDICARE, SELFPAY ==
[2021-11-09 08:22] LABS: Color, Urine Yellow (Yellow); Glucose, Dipstick Normal (Normal); Ketone-Dipstick Negative (Negative); Leukocyte Esterase-Dipstick 500 /ul (Negative); Nitrite-Dipstick Positive (Negative); Occult Blood-Urine Negative /ul (Negative); Protein-Dipstick 500 mg/dl (Negative); Specific Gravity, Urine 1.015 (1.002-1.030); Urine Bilirubin Dipstick Negative (Negative); Urine Clarity Cloudy (Clear); Urine Urobilinogen Normal (Normal)
== END ==
LOC: OLS.SW400 22:00
PROVIDERS: PCP Internal Medicine; Visit Provider Internal Medicine
DX: N39.0 Urinary tract infection, site not specified (principal)
CPT/HCPCS: 81002; 87086; 87088

== ENCOUNTER → 2021-12-04 | Outpatient (REF) | payer MEDICARE, SELFPAY ==
[2021-12-04 08:30] LABS: Anion Gap 10 (5-15); BUN 27 mg/dL (7-18); BUN/Creat Ratio 23.9 RATIO (10-20); Calcium,Total 9.1 mg/dL (8.5-10.1); Chloride 105 mmol/L (98-107); Creatinine, Serum 1.13 mg/dL (0.55-1.02); EST Glomerular Filtration Rate 49 mL/min (>60); Est Glom Filt Rate - Afr Amer 59 mL/min (>60); Glucose 165 mg/dL (74-106); Sodium Level 142 mmol/L (136-145)
== END ==
LOC: OLS.SW400 05:00
PROVIDERS: PCP Internal Medicine; Visit Provider Internal Medicine
DX: E87.5 Hyperkalemia (principal)
CPT/HCPCS: 36415; 80048

== ENCOUNTER → 2021-12-26 | Outpatient (REF) | payer MEDICARE, SELFPAY ==
[2021-12-26 09:11] LABS: T4 Total, Thyroxin 7.3 ug/dL (4.8-13.9); Thyroid Stim Hormone (TSH) 8.35 uIU/mL (0.358-3.74)
== END ==
LOC: OLS.SW400 05:00
PROVIDERS: PCP Internal Medicine; Visit Provider Internal Medicine
DX: E03.9 Hypothyroidism, unspecified (principal)
CPT/HCPCS: 36415; 84436; 84443

== ENCOUNTER → 2022-01-01 | Outpatient (REF) | payer MEDICARE, SELFPAY ==
[2022-01-01 09:40] LABS: T4 Total, Thyroxin 8.2 ug/dL (4.8-13.9); Thyroid Stim Hormone (TSH) 7.27 uIU/mL (0.358-3.74)
== END ==
LOC: OLS.SW400 05:00
PROVIDERS: PCP Internal Medicine; Visit Provider Internal Medicine
DX: E03.9 Hypothyroidism, unspecified (principal)
CPT/HCPCS: 36415; 84436; 84443

== ENCOUNTER → 2022-01-03 | Outpatient (REF) | payer MEDICARE, SELFPAY ==
[2022-01-03 09:20] LABS: T4 Total, Thyroxin 6.3 ug/dL (4.8-13.9); Thyroid Stim Hormone (TSH) 4.44 uIU/mL (0.358-3.74)
== END ==
LOC: OLS.SW400 05:00
PROVIDERS: PCP Internal Medicine; Visit Provider Internal Medicine
DX: E78.5 Hyperlipidemia, unspecified (principal); E11.9 Type 2 diabetes mellitus without complications; I50.33 Acute on chronic diastolic (congestive) heart failure; N17.9 Acute kidney failure, unspecified
CPT/HCPCS: 36415; 84436; 84443

== ENCOUNTER → 2022-02-05 | Outpatient (REF) | payer MEDICARE, MEDICAID, SELFPAY ==
[2022-02-05 10:33] LABS: Hemoglobin A1c 8.1 % (3.8-5.6)
== END ==
LOC: OLS.SW 05:00
PROVIDERS: PCP Internal Medicine; Visit Provider Internal Medicine
DX: E11.9 Type 2 diabetes mellitus without complications (principal)
CPT/HCPCS: 36415; 83036

== ENCOUNTER → 2022-03-05 | Outpatient (REF) | payer MEDICARE, MEDICAID, SELFPAY ==
[2022-03-05 09:31] LABS: Hematocrit 35.5 % (37-47); Hemoglobin 10.7 g/dL (12.0-15.0); Mean Corp Hgb Conc 30.1 g/dL (32-36); Mean Corpuscular Hgb 28.5 pg (27.0-32.0); Mean Corpuscular Volume 94.4 fL (81-99); Mean Platelet Vol. 11.8 fl (6.2-12.0); Platelet Count 176 K/mm3 (150-450); RBC Distribution Width CV 15.7 % (11.6-14.6); RBC Distribution Width SD 54.3 fl (35.1-43.9); Red Blood Count 3.76 M/mm3 (4.2-5.4); White Blood Count 10.2 K/mm3 (4.4-11.0)
[2022-03-05 09:38] LABS: Anion Gap 6 (5-15); BUN 20 mg/dL (7-18); BUN/Creat Ratio 17.4 RATIO (10-20); Chloride 105 mmol/L (98-107); Creatinine, Serum 1.15 mg/dL (0.55-1.02); EST Glomerular Filtration Rate 48 mL/min (>60); Est Glom Filt Rate - Afr Amer 58 mL/min (>60); Glucose 176 mg/dL (74-106); Potassium 4.1 mmol/L (3.5-5.1); Sodium Level 138 mmol/L (136-145)
[2022-03-08 09:52] LABS: Thyroid Stim Hormone (TSH) 6.94 uIU/mL (0.358-3.74)
== END ==
LOC: OLS.SW 05:00
PROVIDERS: PCP Internal Medicine; Visit Provider Internal Medicine
DX: F03.90 Unspecified dementia, unspecified severity, without behavioral disturbance, psychotic disturbance, mood disturbance, and anxiety (principal); E11.9 Type 2 diabetes mellitus without complications; Z79.899 Other long term (current) drug therapy; E03.9 Hypothyroidism, unspecified
CPT/HCPCS: 36415; 80048; 84443; 85027

== ENCOUNTER → 2022-03-12 | Outpatient (REF) | payer MEDICARE, MEDICAID, SELFPAY | LOC: OLS.SW 04:00 | PROVIDERS: PCP Internal Medicine; Referring Provider Internal Medicine; Visit Provider Internal Medicine | DX: E03.9 Hypothyroidism, unspecified (principal) | CPT/HCPCS: 36415; 84443 ==

== ENCOUNTER 2022-04-08 00:17 | Emergency (ER) | payer MEDICARE, MEDICAID, SELFPAY ==
[2022-04-08 00:18] VITALS: BP 156/64; PULSE 94; RESP 16; TEMP 36.7; O2SAT 87; BMI 33.7
--- NOTE | 2022-04-08 00:31 | EKG12_ITS ---
Test Reason : SOB Blood Pressure : / mmHG Vent. Rate : 095 BPM Atrial Rate : 096 BPM P-R Int : 000 ms QRS Dur : 142 ms QT Int : 388 ms P-R-T Axes : 000 117 044 degrees QTc Int : 487 ms Sinus rhythm and Wide QRS rhythm Right bundle branch block Possible Lateral infarct , age undetermined Abnormal ECG Confirmed by MARSHA DAS, ELY ([id number]), senior editor YUE RAMIREZ ([id number]) on 04/08/2022 10:59:19 AM Referred By: Confirmed By:ELY LARSON MD
--- NOTE | 2022-04-08 00:31 | RAD_ITS ---
EXAM: XR CHEST, 1 VIEW CLINICAL INDICATION: cough -- covid + TECHNIQUE: Frontal view of the chest. This report was created using [employer] report generation technology. COMPARISON: 05/12/2019. FINDINGS: LUNGS AND PLEURAL SPACES: Low lung volumes limit the exam. No consolidations. No pneumothorax. No effusion. HEART: Unremarkable. Cardiac silhouette not enlarged. MEDIASTINUM: Central airways and mediastinal contour are unremarkable. BONES/JOINTS: Unremarkable. SOFT TISSUES: Unremarkable. TUBES, LINES AND DEVICES: Neuro stimulator wires overlie the thoracic spinal canal. RAD/Chest 1 View (Portable) IMPRESSION: 1. Low lung volumes limit the exam. No consolidations. 2. No acute cardiopulmonary abnormality. Electronically Signed: Bronson Beverly MD at 1:01 EST ,
--- NOTE | 2022-04-08 00:32 | ED.VIS.DYS ---
HPI History of Present Illness Chief Complaint: Shortness of Breath Informant: patient, EMS and SNF Narrative Narrative: History of Alzheimer dementia sent from custodial facility reporting diagnosed positive COVID 4 days ago. She is placed on oxygen at facility sent here due to hypoxemia. From records DNR [facility]. She cannot recall if she got the COVID vaccination or any COVID infections in the past. She reports cough with dyspnea. Denies any pains. Patient reports ambulates with a walker. [facility] Medical History Dementia Diabetes Home Medications metoprolol tartrate 25 mg tablet 25 mg PO BID BP 01/11/19 [History Last Taken 10/01/19] tramadol 50 mg tablet 50 mg PO Q6H PRN PRN Pain Score 4-5/10 #28 tabs 02/22/19 [Rx Last Taken 10/01/19] atorvastatin 20 mg tablet 20 mg PO QHS cholesterol 05/12/19 [History Last Taken 09/30/19] doxepin 50 mg capsule 50 mg PO QHS sleep 05/12/19 [History Last Taken 09/30/19] levothyroxine 75 mcg tablet 75 mcg PO DAILY thyroid 05/12/19 [History Last Taken 10/01/19] acetaminophen 500 mg tablet 1,000 mg PO Q6H PRN PRN Pain Or Fever 10/01/19 [History Last Taken 09/29/19] cholecalciferol (vitamin D3) 50 mcg (2,000 unit) capsule 2,000 unit PO DAILY SUPPLEMENT 10/01/19 [History Last Taken 10/01/19] duloxetine 40 mg capsule,delayed release 60 mg PO LUNCH MOOD 10/01/19 [History Last Taken 10/01/19] hydrochlorothiazide 12.5 mg capsule 12.5 mg PO DAILY FLUID 10/01/19 [History Last Taken 10/01/19] insulin glargine 100 unit/mL (3 mL) subcutaneous pen 30 unit SQ QHS DM 10/01/19 [History Last Taken 09/30/19] insulin lispro 100 unit/mL subcutaneous pen 5 unit SQ 4X/DAY PRN BLOOD SUGAR 10/01/19 [History Last Taken Unknown] metformin 1,000 mg tablet 1,000 mg PO BID DM 10/01/19 [History Last Taken 07/17/20] pregabalin 50 mg capsule 50 mg PO 4X/DAY pain 10/01/19 [History Last Taken 10/01/19] doxycycline hyclate 100 mg capsule 100 mg PO BID #14 caps 10/06/20 [Rx Last Taken Unknown] allopurinol 100 mg tablet 100 mg PO DAILY 01/01/22 [History Last Taken Unknown] aspirin 81 mg tablet,delayed release (Adult Aspirin Regimen) 81 mg PO DAILY 01/01/22 [History Last Taken Unknown] clobetasol 0.05 % topical ointment 1 applic topical .COMPLEX #15 grams 01/01/22 [Rx Last Taken Unknown] Allergy/AdvReac Type Severity Reaction Status Date / Time Iodine and Iodide Containing Allergy Rash Verified 04/08/22 00:24 Produc venom-honey bee Allergy Swelling Verified 04/08/22 00:24 [bee venom (honey bee)] Surgical History Previous back surgery Social History Smoking Status: Never smoker substance use type: does not use ROS ROS ED Review of Systems ROS Unobtainable: other Details: Limited due to dementia Constitutional Constitutional ED: Denies chills or fever(s) Cardiovascular Cardiovascular: Denies chest pain, leg edema, palpitations or racing heartbeat Respiratory/Chest Respiratory/Chest: Reports cough; Denies dyspnea or dyspnea on exertion Gastrointestinal Gastrointestinal: Denies abdominal pain, diarrhea, nausea or vomiting Musculoskeletal Musculoskeletal: Denies neck pain or other Neurologic Neurologic: Denies headache(s) EXAM Physical Exam Const Vital Signs: 04/08/22 00:18 04/08/22 00:39 04/08/22 00:31 Temperature 98.0 F Temperature Source Temporal Pulse Rate 94 Respiratory Rate 16 Blood Pressure 156/64 H Blood Pressure Mean 94 Pulse Ox 87 Oxygen Delivery Method Room Air Nasal Cannula Nasal Cannula Oxygen Flow Rate (L/min) 3 3 04/08/22 01:44 Temperature Temperature Source Pulse Rate 95 Respiratory Rate 20 H Blood Pressure 158/76 H Blood Pressure Mean Pulse Ox 96 Oxygen Delivery Method Oxygen Flow Rate (L/min) Positive well nourished and well developed Constitutional Narrative: Answering some questions following commands move all 4 extremities. General Appearance ED: well developed and NAD HEENT Reports moist mucous membranes normocephalic and atraumatic Eyes PERRL, EOMs intact bilaterally and conjunctivae normal General Eye ED: Yes normal appearance of both eyes Neck no lymphadenopathy and supple General: Negative for tenderness Chest Wall Chest: Negative for tenderness Resp normal respiratory effort and normal air movement Effort and Inspection: symmetric chest movement; Negative for respiratory distress Cardio regular rate, regular rhythm and no murmurs Peripheral Pulses: pulses 2+ throughout GI normal to inspection, nondistended, normoactive bowel sounds and non-tender Palpation: Negative for guarding or rebound tenderness present Back/Spine no CVA tenderness and no thoracic nor lumbar tenderness Extremity normal to inspection General Extremety ED: Negative for edema or tenderness General Extremity: Negative for edema Neuro no sensory deficits noted Neuro Narrative: Alert and oriented to person reports she is at a assisted. Cannot tell me the year. History of dementia. Sensorium / Orientation: awake and alert Skin no rashes or lesions noted and no wounds MDM MDM MDM Narrative Medical decision making narrative: Patient history of dementia. COVID diagnosis reported. Therefore differential COVID infection versus COVID-pneumonia. Viral syndrome. Patient was hypoxic she required 3 L of oxygen. She is DNR [facility] with her dementia history. On work-up chest x-ray 1 view interpreted myself and read by radiology shows no acute process labs White count 16.7 hemoglobin 11.2 sodium 132 with potassium 5.1 creatinine 1.18. Patient is DNR [facility] at a custodial facility. Nursing discussed with the facility stating they do not will know when her symptoms started as they test there patrons every Friday and she was tested with positive on would been 5 days ago. They have the capabilities of providing oxygen as she is only requiring 3 L of oxygen. She is in no respiratory distress. Patient receiving care at custodial facility and capabilities of providing oxygen, therefore I do not feel hospitalization is required. Patient be transported back to custodial facility for continued outpatient management. Lab Data Attestation: I reviewed the patient's lab results. Labs: Laboratory Results - last 24 hr 04/08/22 04/08/22 00:25 00:25 WBC 16.7 H RBC 3.96 L Hgb 11.2 L Hct 38.8 MCV 98.0 MCH 28.3 MCHC 28.9 L RDW Std Deviation 57.1 H RDW Coeff of Sukhwinder 16.1 H Plt Count 188 MPV 11.6 Immature Gran % (Auto) 0.700 Neut % (Auto) 80.9 H Lymph % (Auto) 10.2 L [place] % (Auto) 6.7 Eos % (Auto) 0.8 Baso % (Auto) 0.7 Absolute Neuts (auto) 13.5 H Absolute Lymphs (auto) 1.71 Nucleated RBC % 0 Sodium 132 L Potassium 5.1 Chloride 103 Carbon Dioxide 23.0 Anion Gap 6 BUN 28 H Creatinine 1.18 H Estim Creat Clear Calc 33.08 Est GFR (MDRD) Af Amer 56 L Est GFR (MDRD) Non-Af 47 L BUN/Creatinine Ratio 23.7 H Glucose 175 H Calcium 9.2 Radiography Diagnostic Testing: Clinical Impression(s) from Imaging Studies Chest X-Ray 04/08/22 00:31 IMPRESSION: 1. Low lung volumes limit the exam. No consolidations. 2. No acute cardiopulmonary abnormality. Electronically Signed: Bronson Beverly MD at 1:01 EST , EKG Initial EKG: Attestation: I personally reviewed and interpreted this EKG as follows: Comments: Sinus rate of 95. No ST changes. Right bundle branch block. Similar findings from September 2020. Discharge Plan Triage Chief Complaint: Shortness of Breath ED Provider: Silviano Harris Dx/Rx/DC Orders Clinical Impression: COVID-19 virus infection, Dementia, Hypoxia, DNR (do not resuscitate) Instructions: Caring for Someone Who Has COVID-19 Prescriptions: No Action allopurinol 100 mg tablet 100 mg PO DAILY aspirin [Adult Aspirin Regimen] 81 mg tablet,delayed release (DR/EC) 81 mg PO DAILY clobetasol 0.05 % ointment 1 applic topical .COMPLEX Qty: 15 2RF Rx Instructions: 1 applic topical apply bid X 2 weeks, daily X 2 weeks then prn. Small amount and massge in; metoprolol tartrate 25 MG tablet 25 mg PO BID tramadol 50 MG tablet 50 mg PO Q6H PRN PRN (Reason: Pain Score 4-5/10) Qty: 28 0RF levothyroxine 75 MCG tablet 75 mcg PO DAILY doxepin 50 MG capsule 50 mg PO QHS atorvastatin 20 MG tablet 20 mg PO QHS metformin 1,000 MG tablet 1,000 mg PO BID insulin lispro 100 UNIT/ML insulin pen 5 unit SQ 4X/DAY PRN (Reason: BLOOD SUGAR) insulin glargine 100 UNIT/ML insulin pen 30 unit SQ QHS cholecalciferol (vitamin D3) 2,000 UNIT capsule 2,000 unit PO DAILY duloxetine 40 MG capsule,delayed release(DR/EC) 60 mg PO LUNCH acetaminophen 500 MG tablet 1,000 mg PO Q6H PRN PRN (Reason: Pain Or Fever) hydrochlorothiazide 12.5 MG capsule 12.5 mg PO DAILY pregabalin 50 MG capsule 50 mg PO 4X/DAY doxycycline hyclate 100 mg capsule 100 mg PO BID Qty: 14 0RF Primary Care Provider: Shanika Walker Referrals: Shanika Walker MD [Primary Care Provider] - 3-5 Days Activity Restrictions/Additional Instructions: Currently needing 3 L of oxygen. Continue oxygenation. No pneumonia on x-ray. DNR [facility] arrest. Disposition Disposition: Senior Care Facility Discharge Location: [facility]
[2022-04-08 00:42] LABS: Absolute Lymphocyte Count 1.71 X10^3/uL (0.83-4.51); Absolute Neutrophil Count 13.5 X10^3/uL (2.0-7.7); Basophil# 0.12 X10^3/uL; Basophil% 0.7 % (0-1); Eosinophil# 0.13 X10^3/uL; Eosinophils% 0.8 % (0-5); Hematocrit 38.8 % (37-47); Hemoglobin 11.2 g/dL (12.0-15.0); Lymphocyte # 1.71 X10^3/ul (0.83-4.51); Lymphocyte % 10.2 % (19-41); Mean Corp Hgb Conc 28.9 g/dL (32-36); Mean Corpuscular Hgb 28.3 pg (27.0-32.0); Mean Platelet Vol. 11.6 fl (6.2-12.0); Monocyte# 1.12 X10^3/uL; Monocyte% 6.7 % (0-10); NRBC Flagged by Analyzer 0 % (0-5); Neutrophil % 80.9 % (47-70); Platelet Count 188 K/mm3 (150-450); RBC Distribution Width CV 16.1 % (11.6-14.6); RBC Distribution Width SD 57.1 fl (35.1-43.9); Red Blood Count 3.96 M/mm3 (4.2-5.4); White Blood Count 16.7 K/mm3 (4.4-11.0)
[2022-04-08 01:08] LABS: Anion Gap 6 (5-15); BUN 28 mg/dL (7-18); BUN/Creat Ratio 23.7 RATIO (10-20); Calcium,Total 9.2 mg/dL (8.5-10.1); Chloride 103 mmol/L (98-107); Creatinine, Serum 1.18 mg/dL (0.55-1.02); EST Glomerular Filtration Rate 47 mL/min (>60); Est Glom Filt Rate - Afr Amer 56 mL/min (>60); Estimated Creatinine Clearance 33.08 ml/min; Glucose 175 mg/dL (74-106); Potassium 5.1 mmol/L (3.5-5.1); Sodium Level 132 mmol/L (136-145)
[2022-04-08 01:44] VITALS: BP 158/76; PULSE 95; RESP 20; O2SAT 96
== END 2022-04-08 04:47 | disposition skilled nursing facility (03) ==
PROVIDERS: Emergency Provider Emergency Medicine; PCP Internal Medicine; Visit Provider Emergency Medicine
DX: U07.1 COVID-19 (principal); G30.9 Alzheimer's disease, unspecified; F02.80 Dementia in other diseases classified elsewhere, unspecified severity, without behavioral disturbance, psychotic disturbance, mood disturbance, and anxiety; E11.9 Type 2 diabetes mellitus without complications; Z79.4 Long term (current) use of insulin; R09.02 Hypoxemia; Z79.84 Long term (current) use of oral hypoglycemic drugs; Z66 Do not resuscitate
CPT/HCPCS: 71045; 80048; 85025; 87811; 93005; 99285; A4216

== ENCOUNTER → 2022-04-08 | Outpatient (REF) | payer MEDICARE, MEDICAID, SELFPAY ==
[2022-04-08 08:39] LABS: Absolute Neutrophil Count 13.1 X10^3/uL (2.0-7.7); Basophil# 0.11 X10^3/uL; Basophil% 0.6 % (0-1); Eosinophil# 0.05 X10^3/uL; Eosinophils% 0.3 % (0-5); Hematocrit 32.7 % (37-47); Hemoglobin 10.3 g/dL (12.0-15.0); Lymphocyte % 17.4 % (19-41); Mean Corp Hgb Conc 31.5 g/dL (32-36); Mean Corpuscular Hgb 28.5 pg (27.0-32.0); Mean Corpuscular Volume 90.6 fL (81-99); Mean Platelet Vol. 12.2 fl (6.2-12.0); Monocyte# 1.42 X10^3/uL; NRBC Flagged by Analyzer 0 % (0-5); Neutrophil # 13.05 X10^3/uL (2.7-7.7); Neutrophil % 73.2 % (47-70); Platelet Count 183 K/mm3 (150-450); RBC Distribution Width SD 53.1 fl (35.1-43.9); Red Blood Count 3.61 M/mm3 (4.2-5.4); White Blood Count 17.8 K/mm3 (4.4-11.0)
[2022-04-08 09:01] LABS: Anion Gap 6 (5-15); BUN 27 mg/dL (7-18); BUN/Creat Ratio 20.5 RATIO (10-20); Calcium,Total 9.2 mg/dL (8.5-10.1); Chloride 103 mmol/L (98-107); Creatinine, Serum 1.32 mg/dL (0.55-1.02); EST Glomerular Filtration Rate 41 mL/min (>60); Est Glom Filt Rate - Afr Amer 50 mL/min (>60); Glucose 144 mg/dL (74-106); Potassium 4.6 mmol/L (3.5-5.1); Sodium Level 133 mmol/L (136-145)
== END ==
LOC: OLS.SW 06:20
PROVIDERS: PCP Internal Medicine; Visit Provider Internal Medicine
DX: F03.90 Unspecified dementia, unspecified severity, without behavioral disturbance, psychotic disturbance, mood disturbance, and anxiety (principal); E11.9 Type 2 diabetes mellitus without complications
CPT/HCPCS: 36415; 80048; 85025; 86140

== ENCOUNTER → 2022-04-15 | Outpatient (REF) | payer MEDICARE, MEDICAID, SELFPAY ==
[2022-04-15 09:33] LABS: Anion Gap 8 (5-15); BUN 46 mg/dL (7-18); BUN/Creat Ratio 41.1 RATIO (10-20); Calcium,Total 9.3 mg/dL (8.5-10.1); Chloride 106 mmol/L (98-107); Creatinine, Serum 1.12 mg/dL (0.55-1.02); EST Glomerular Filtration Rate 49 mL/min (>60); Est Glom Filt Rate - Afr Amer 60 mL/min (>60); Glucose 131 mg/dL (74-106); Potassium 3.7 mmol/L (3.5-5.1); Sodium Level 139 mmol/L (136-145)
[2022-04-15 09:52] LABS: Hematocrit 31.8 % (37-47); Mean Corp Hgb Conc 31.4 g/dL (32-36); Mean Corpuscular Hgb 28.6 pg (27.0-32.0); Mean Corpuscular Volume 90.9 fL (81-99); Mean Platelet Vol. 11.1 fl (6.2-12.0); POSITIVE COUNT YES; POSITIVE MORPHOLOGY YES; Platelet Count 301 K/mm3 (150-450); RBC Distribution Width CV 15.7 % (11.6-14.6); RBC Distribution Width SD 52.3 fl (35.1-43.9); White Blood Count 17.5 K/mm3 (4.4-11.0)
[2022-04-15 10:02] LABS: Differential Indicated MANUAL DIFF
[2022-04-15 10:49] LABS: Eosinophil 2 % (0-5); Lymphocyte 28 % (19-41); Metamyelocyte 4 % (0-1); Monocyte 4 % (0-10); Neutrophil-Band 2 % (0-5); Neutrophil-Segmented 56 % (47-70); Promyelocyte 4 % (0-0); Total Cells Counted 100 (MANUAL DIFF)
[2022-04-15 10:59] LABS: Platelet Estimate ADEQUATE (ADEQ); Red Cell Morphology NORM C+C NORMAL (NORM C&C)
[2022-04-15 11:00] LABS: Absolute Neutrophil Count 10.2 X10^3/uL (2.0-7.7)
[2022-04-16 12:25] LABS: Pathologist Review Reviewed
== END ==
LOC: OLS.SW 05:00
PROVIDERS: PCP Internal Medicine; Visit Provider Internal Medicine
DX: F03.90 Unspecified dementia, unspecified severity, without behavioral disturbance, psychotic disturbance, mood disturbance, and anxiety (principal); Z79.899 Other long term (current) drug therapy
CPT/HCPCS: 36415; 80048; 85025; 86140

== ENCOUNTER → 2022-04-22 | Outpatient (REF) | payer MEDICARE, MEDICAID, SELFPAY ==
[2022-04-22 08:37] LABS: Absolute Lymphocyte Count 3.57 X10^3/uL (0.83-4.51); Absolute Neutrophil Count 5.7 X10^3/uL (2.0-7.7); Basophil# 0.11 X10^3/uL; Eosinophil# 0.27 X10^3/uL; Eosinophils% 2.6 % (0-5); Hematocrit 32.9 % (37-47); Hemoglobin 10.2 g/dL (12.0-15.0); Lymphocyte # 3.57 X10^3/ul (0.83-4.51); Lymphocyte % 33.9 % (19-41); Mean Corpuscular Hgb 28.3 pg (27.0-32.0); Mean Corpuscular Volume 91.1 fL (81-99); Mean Platelet Vol. 11.4 fl (6.2-12.0); Monocyte# 0.78 X10^3/uL; Monocyte% 7.4 % (0-10); NRBC Flagged by Analyzer 0 % (0-5); Neutrophil # 5.67 X10^3/uL (2.7-7.7); Platelet Count 237 K/mm3 (150-450); RBC Distribution Width SD 53.2 fl (35.1-43.9); Red Blood Count 3.61 M/mm3 (4.2-5.4); White Blood Count 10.5 K/mm3 (4.4-11.0)
[2022-04-22 08:57] LABS: Anion Gap 7 (5-15); BUN 28 mg/dL (7-18); BUN/Creat Ratio 25.7 RATIO (10-20); Calcium,Total 8.8 mg/dL (8.5-10.1); Chloride 104 mmol/L (98-107); Creatinine, Serum 1.09 mg/dL (0.55-1.02); EST Glomerular Filtration Rate 51 mL/min (>60); Est Glom Filt Rate - Afr Amer 62 mL/min (>60); Glucose 112 mg/dL (74-106); Potassium 4.1 mmol/L (3.5-5.1); Sodium Level 139 mmol/L (136-145)
== END ==
LOC: OLS.SW 04:00
PROVIDERS: PCP Internal Medicine; Referring Provider Internal Medicine; Visit Provider Internal Medicine
DX: F03.90 Unspecified dementia, unspecified severity, without behavioral disturbance, psychotic disturbance, mood disturbance, and anxiety (principal); E11.9 Type 2 diabetes mellitus without complications
CPT/HCPCS: 36415; 80048; 85025; 86140

== ENCOUNTER → 2022-05-07 | Outpatient (REF) | payer MEDICARE, MEDICAID, SELFPAY ==
[2022-05-07 10:27] LABS: Hemoglobin A1c 8.2 % (3.8-5.6)
[2022-05-08 05:29] LABS: Thyroid Stim Hormone (TSH) 3.82 uIU/mL (0.358-3.74)
== END ==
LOC: OLS.SW 05:00
PROVIDERS: PCP Internal Medicine; Visit Provider Internal Medicine
DX: E11.9 Type 2 diabetes mellitus without complications (principal); Z79.899 Other long term (current) drug therapy
CPT/HCPCS: 36415; 83036; 84443

== ENCOUNTER → 2022-08-06 | Outpatient (REF) | payer MEDICARE, MEDICAID, SELFPAY | LOC: OLS.SW 05:00 | PROVIDERS: PCP Internal Medicine; Visit Provider Internal Medicine | DX: E11.9 Type 2 diabetes mellitus without complications (principal) | CPT/HCPCS: 36415; 83036 ==

== ENCOUNTER → 2022-08-15 | Outpatient (REF) | payer MEDICARE, MEDICAID, SELFPAY ==
[2022-08-16 07:55] LABS: Mucous, Urine 0 SEEN /hpf (<or=2+)
[2022-08-16 08:33] LABS: Color, Urine Yellow (Yellow); Glucose, Dipstick Normal (Normal); Ketone-Dipstick Negative (Negative); Leukocyte Esterase-Dipstick 500 /ul (Negative); Nitrite-Dipstick Negative (Negative); Occult Blood-Urine 50 /ul (Negative); Protein-Dipstick 100 mg/dl (Negative); Urine Bilirubin Dipstick Negative (Negative); Urine Clarity Sl. Cloudy (Clear); Urine Urobilinogen Normal (Normal)
[2022-08-16 08:40] LABS: Bacteria 2+ /hpf (None Seen); Red Blood Cells-Urine 0-5 SEEN /hpf (0-5); Squamous Epithelial Cells - UA 0-5 SEEN /hpf (5-10); Transitional Epithelial - Ur 0-5 SEEN /hpf (0-5); White Blood Cells 25-50 SEEN /hpf (0-5)
== END ==
LOC: OLS.SW 02:30
PROVIDERS: PCP Internal Medicine; Visit Provider Internal Medicine
DX: R30.0 Dysuria (principal); N39.0 Urinary tract infection, site not specified
CPT/HCPCS: 81001; 87077; 87086; 87088; 87186

== ENCOUNTER → 2022-08-26 05:00 | Outpatient (REF) | payer MEDICARE, MEDICAID, SELFPAY ==
[2022-08-26 08:11] LABS: Absolute Lymphocyte Count 2.81 X10^3/uL (0.83-4.51); Absolute Neutrophil Count 4.4 X10^3/uL (2.0-7.7); Basophil# 0.08 X10^3/uL; Eosinophil# 0.31 X10^3/uL; Eosinophils% 3.7 % (0-5); Hematocrit 32.5 % (37-47); Lymphocyte # 2.81 X10^3/ul (0.83-4.51); Lymphocyte % 33.8 % (19-41); Mean Corp Hgb Conc 27.7 g/dL (32-36); Mean Corpuscular Hgb 27.1 pg (27.0-32.0); Mean Corpuscular Volume 97.9 fL (81-99); Mean Platelet Vol. 11.4 fl (6.2-12.0); Monocyte# 0.67 X10^3/uL; Monocyte% 8.1 % (0-10); NRBC Flagged by Analyzer 0 % (0-5); Neutrophil # 4.41 X10^3/uL (2.7-7.7); Neutrophil % 52.9 % (47-70); Platelet Count 199 K/mm3 (150-450); RBC Distribution Width CV 17.2 % (11.6-14.6); RBC Distribution Width SD 61.8 fl (35.1-43.9); Red Blood Count 3.32 M/mm3 (4.2-5.4); White Blood Count 8.3 K/mm3 (4.4-11.0)
[2022-08-26 08:33] LABS: Anion Gap 6 (5-15); BUN 31 mg/dL (7-18); BUN/Creat Ratio 19.9 RATIO (10-20); Calcium,Total 8.9 mg/dL (8.5-10.1); Chloride 108 mmol/L (98-107); Creatinine, Serum 1.56 mg/dL (0.55-1.02); EST Glomerular Filtration Rate 34 mL/min (>60); Est Glom Filt Rate - Afr Amer 41 mL/min (>60); Glucose 90 mg/dL (74-106); Potassium 4.4 mmol/L (3.5-5.1); Sodium Level 139 mmol/L (136-145)
== END ==
LOC: OLS.SW 05:00
PROVIDERS: PCP Internal Medicine; Visit Provider Internal Medicine
DX: I82.409 Acute embolism and thrombosis of unspecified deep veins of unspecified lower extremity (principal); E03.9 Hypothyroidism, unspecified; F03.90 Unspecified dementia, unspecified severity, without behavioral disturbance, psychotic disturbance, mood disturbance, and anxiety; E11.9 Type 2 diabetes mellitus without complications
CPT/HCPCS: 36415; 80048; 85025

== ENCOUNTER → 2022-09-09 05:00 | Outpatient (REF) | payer MEDICARE, MEDICAID, SELFPAY ==
[2022-09-09 09:18] LABS: Cholesterol 175 mg/dL (200); High Density Lipoprotein 34 mg/dL; Triglycerides 617 mg/dL
== END ==
LOC: OLS.SW 05:00
PROVIDERS: PCP Internal Medicine; Visit Provider Internal Medicine
DX: E78.5 Hyperlipidemia, unspecified (principal); E11.9 Type 2 diabetes mellitus without complications
CPT/HCPCS: 36415; 80061

== ENCOUNTER → 2022-09-10 05:00 | Outpatient (REF) | payer MEDICARE, MEDICAID, SELFPAY ==
[2022-09-10 10:01] LABS: Cholesterol 195 mg/dL (200); High Density Lipoprotein 35 mg/dL; Triglycerides 674 mg/dL
== END ==
LOC: OLS.SW 05:00
PROVIDERS: PCP Internal Medicine; Visit Provider Internal Medicine
DX: E11.9 Type 2 diabetes mellitus without complications (principal)
CPT/HCPCS: 36415; 80061

== ENCOUNTER → 2022-10-04 08:24 | Outpatient (REF) | payer MEDICARE, MEDICAID, SELFPAY ==
[2022-10-04 08:25] LABS: Mucous, Urine 0 SEEN /hpf (<or=2+); Red Blood Cells-Urine 0 SEEN /hpf (0-5); Squamous Epithelial Cells - UA 0 SEEN /hpf (5-10)
[2022-10-04 08:57] LABS: Color, Urine Straw (Yellow); Glucose, Dipstick Normal (Normal); Ketone-Dipstick Negative (Negative); Leukocyte Esterase-Dipstick 500 /ul (Negative); Nitrite-Dipstick Positive (Negative); Occult Blood-Urine 25 /ul (Negative); Protein-Dipstick 15 mg/dl (Negative); Urine Bilirubin Dipstick Negative (Negative); Urine Clarity Sl. Cloudy (Clear); Urine Urobilinogen Normal (Normal); Urine pH 6.5 (5.0 - 8.0)
[2022-10-04 09:08] LABS: Bacteria 1+ /hpf (None Seen); White Blood Cells 10-25 SEEN /hpf (0-5)
== END ==
LOC: OLS.SW 08:24
PROVIDERS: PCP Internal Medicine; Visit Provider Internal Medicine
DX: N39.0 Urinary tract infection, site not specified (principal); R30.0 Dysuria
CPT/HCPCS: 81001; 87077; 87086; 87088; 87186

== ENCOUNTER → 2022-10-10 07:45 | Outpatient (REF) | payer MEDICARE, MEDICAID, SELFPAY ==
[2022-10-10 11:11] LABS: Cholesterol 164 mg/dL (200); High Density Lipoprotein 45 mg/dL; Triglycerides 374 mg/dL; Very Low Density Lipoprotein 75 mg/dL (5-40)
== END ==
LOC: OLS.SW 07:45
PROVIDERS: PCP Internal Medicine; Visit Provider Internal Medicine
DX: E78.5 Hyperlipidemia, unspecified (principal)
CPT/HCPCS: 36415; 80061

== ENCOUNTER 2022-10-26 20:29 | Emergency (ER) | payer MEDICARE, MEDICAID, SELFPAY ==
[2022-10-26 20:30] VITALS: BP 145/58; PULSE 86; RESP 16; TEMP 37.3; O2SAT 96; BMI 33.0
--- NOTE | 2022-10-26 20:39 | CT_ITS ---
INDICATION: fall, pain EXAMINATION: CT CERVICAL SPINE - CT Spine Cervical W/O Contrast Injection COMPARISON: 11/05/[address] A radiation dose optimization technique was used for this scan. Findings: Serial CT axial images through the cervical spine, with coronal and sagittal reformatted series. BONES: No evidence of cervical spine fracture or subluxation. No concerning bony lesion or abnormal sclerosis to suggest lesion. DISCS/JOINTS: Moderate left C5-C6 neuroforaminal narrowing. SOFT TISSUES: Soft tissue structures are unremarkable. CT/Spine Cervical without Contras IMPRESSION: Cervical spine without evidence of acute fracture. Neuroforaminal narrowing. Electronically Signed: Tera Link MD at 21:49 EDT ,
--- NOTE | 2022-10-26 20:39 | CT_ITS ---
INDICATION: fall, head injury EXAMINATION: CT BRAIN - CT Head or Brain W/O Contrast Injection TECHNIQUE: Serial CT axial images were obtained of the head without intravenous contrast. A radiation dose optimization technique was used for this scan. COMPARISON: Head CT 11/05/2019. Findings: Serial CT axial images of the head without contrast. BRAIN PARENCHYMA: Diffuse periventricular hypoattenuation likely chronic white matter ischemic changes. Significant diffuse volume loss. No evidence of intraparenchymal hemorrhage or hyperattenuating extra-axial fluid collection. VASCULAR STRUCTURES: Atherosclerotic vascular calcifications. BONES: Bilateral maxillary sinus retention cysts with frontoethmoid sinus mucosal thickening. SCALP/REMAINING SOFT TISSUES: Left frontal scalp large hematoma. ASPECTS Score for Acute Strokes, if applicable: 10 CT/Brain/Head without Contrast IMPRESSION: Age-related changes as above, without evidence of acute intracranial hemorrhage in this noncontrast head CT. Sinus disease. Electronically Signed: Tera Link MD at 21:27 EDT ,
--- NOTE | 2022-10-26 20:44 | EX.ED.GENINJ ---
HPI <JIGNA Barbosa - Last Filed: 10/26/22 22:22> History of Present Illness Chief Complaint: Fall Narrative Narrative: Patient presenting today due to a fall that occurred this evening. Patient is unable to tell me what happened. Family members in the room and spoke to the group home facility and reports that patient was sitting in her wheelchair when she fell forward and hit her head on the ground. There was no loss of consciousness. Patient has a history of Alzheimer's disease and is coming from [facility]. She denies pain to her head. She reports a history of chronic pain all over but does not feel that her pain is any worse than usual. She has a history of right foot drop and difficulty ambulating. [facility] <JIGNA Barbosa - Last Filed: 10/26/22 22:22> [facility] Medical History Dementia Diabetes Home Medications metoprolol tartrate 25 mg tablet 25 mg PO BID BP 01/11/19 [History Last Taken 10/01/19] tramadol 50 mg tablet 50 mg PO Q6H PRN PRN Pain Score 4-5/10 #28 tabs 02/22/19 [Rx Last Taken 10/01/19] atorvastatin 20 mg tablet 40 mg PO QHS cholesterol 05/12/19 [History Last Taken 09/30/19] levothyroxine 75 mcg tablet 100 mcg PO DAILY thyroid 05/12/19 [History Last Taken 10/01/19] acetaminophen 500 mg tablet 1,000 mg PO Q6H PRN PRN Pain Or Fever 10/01/19 [History Last Taken 09/29/19] cholecalciferol (vitamin D3) 50 mcg (2,000 unit) capsule 2,000 unit PO DAILY SUPPLEMENT 10/01/19 [History Last Taken 10/01/19] duloxetine 40 mg capsule,delayed release 30 mg PO BID MOOD 10/01/19 [History Last Taken 10/01/19] insulin glargine 100 unit/mL (3 mL) subcutaneous pen 52 unit SQ QHS DM 10/01/19 [History Last Taken 09/30/19] insulin lispro 100 unit/mL subcutaneous pen 5 unit SQ 4X/DAY PRN BLOOD SUGAR 10/01/19 [History Last Taken Unknown] pregabalin 50 mg capsule 50 mg PO 4X/DAY pain 10/01/19 [History Last Taken 10/01/19] allopurinol 100 mg tablet 100 mg PO DAILY 01/01/22 [History Last Taken Unknown] aspirin 81 mg tablet,delayed release (Adult Aspirin Regimen) 81 mg PO DAILY 01/01/22 [History Last Taken Unknown] clobetasol 0.05 % topical ointment 1 applic topical .COMPLEX #15 grams 01/01/22 [Rx Last Taken Unknown] dulaglutide 4.5 mg/0.5 mL subcutaneous pen injector 4.5 mg subcut QWEEK 10/26/22 [History Last Taken Unknown] furosemide 20 mg tablet (Lasix) 20 mg PO DAILY 10/26/22 [History Last Taken Unknown] melatonin 5 mg capsule 5 mg PO QHS 10/26/22 [History Last Taken Unknown] mirtazapine 15 mg tablet (Remeron) 15 mg PO QHS 10/26/22 [History Last Taken Unknown] multivitamin (Daily Multi-Vitamin tablet) 1 tab PO DAILY 10/26/22 [History Last Taken Unknown] sennosides 8.6 mg capsule (senna) 8.6 mg PO BID 10/26/22 [History Last Taken Unknown] sertraline 100 mg tablet (Zoloft) 100 mg PO DAILY 10/26/22 [History Last Taken Unknown] trazodone 50 mg tablet 50 mg PO QHS PRN sleep 10/26/22 [History Last Taken Unknown] Allergy/AdvReac Type Severity Reaction Status Date / Time Iodine and Iodide Containing Allergy Rash Verified 04/08/22 00:24 Produc venom-honey bee Allergy Swelling Verified 04/08/22 00:24 [bee venom (honey bee)] Surgical History Previous back surgery Social History Smoking Status: Never smoker substance use type: does not use ROS <JIGNA Barbosa - Last Filed: 10/26/22 22:22> ROS ED Constitutional Constitutional ED: Denies chills or fever(s) Eyes Eyes: Denies change in vision Cardiovascular Cardiovascular: Denies chest pain or palpitations Respiratory/Chest Respiratory/Chest: Denies cough or dyspnea Gastrointestinal Gastrointestinal: Denies abdominal pain, nausea or vomiting Genitourinary Genitourinary ED: Denies dysuria, hematuria or urinary frequency Musculoskeletal Musculoskeletal: Reports neck pain; Denies arthralgias, back pain or myalgias Integumentary Reports Abrasions Neurologic Neurologic: Denies paresthesias or weakness EXAM <JIGNA Barbosa - Last Filed: 10/26/22 22:22> Physical Exam Const Vital Signs: 10/26/22 20:30 10/26/22 20:38 10/26/22 22:05 Temperature 99.2 F H 98.1 F Temperature Source Temporal Pulse Rate 86 96 Respiratory Rate 16 16 Respiratory Effort Normal Respiratory Depth Normal Blood Pressure 145/58 H 150/85 H Blood Pressure Mean 87 Pulse Ox 96 93 Oxygen Delivery Method Room Air Room Air Positive well nourished, well developed and no apparent distress General Appearance ED: well developed HEENT Reports normocephalic, head/scalp atraumatic and TM's clear HEENT Narrative: Hematoma to the left forehead. Tympanic Membrane ED: Yes TM's clear Mouth ED: Yes moist mucous membranes normal Eyes PERRL and EOMs intact bilaterally Neck full ROM and supple Neck Narrative: Patient does report minimal midline cervical tenderness to palpation. Chest Wall inspection of chest normal Resp normal respiratory effort and clear to auscultation bilaterally Cardio regular rate and regular rhythm GI soft to palpation, non-tender, non-distended and no masses Back/Spine normal ROM and normal to inspection Extremity normal to inspection and full ROM Extremity Narrative: No pain to palpation to the hips, knees, upper or lower extremities. Negative logroll bilaterally. Neuro oriented x3, CN's II-XII intact bilaterally, moves all extremities, no focal motor deficits and no sensory deficits noted Sensorium / Orientation: awake and alert Psych mental status grossly normal and thought process normal Skin no rashes or lesions noted and no wounds <Dr. Nikolas Dixon DO - Last Filed: 10/26/22 23:46> Physical Exam Const Vital Signs: 10/26/22 20:30 10/26/22 20:38 10/26/22 22:05 Temperature 99.2 F H 98.1 F Temperature Source Temporal Pulse Rate 86 96 Respiratory Rate 16 16 Respiratory Effort Normal Respiratory Depth Normal Blood Pressure 145/58 H 150/85 H Blood Pressure Mean 87 Pulse Ox 96 93 Oxygen Delivery Method Room Air Room Air MDM <Jayla Coronado PA - Last Filed: 10/26/22 22:22> [facility] Narrative Medical decision making narrative: Patient presenting today due to a mechanical fall that occurred today at her group home. They report that she was trying to get out of her wheelchair and does have a history of right dropfoot with poor ambulation and she lost her balance and fell forward hitting her head on the ground. She does have a significant sized hematoma to the left forehead. She reports she has chronic pain but does not have any acute pain anywhere. There is no pain to her hips or extremities. Head and neck CTs will be obtained to rule out intracranial bleed and cervical fracture and are negative for acute findings. Patient has been given Tylenol here and is instructed to ice her forehead several times a day for the next few days. She will be discharged home in stable condition and is comfortable with plan. She will be given ice for her forehead here. Radiography Diagnostic Testing: Clinical Impression(s) from Imaging Studies Brain CT 10/26/22 20:39 IMPRESSION: Age-related changes as above, without evidence of acute intracranial hemorrhage in this noncontrast head CT. Sinus disease. Electronically Signed: Tera Link MD at 21:27 EDT , Cervical Spine CT 10/26/22 20:39 IMPRESSION: Cervical spine without evidence of acute fracture. Neuroforaminal narrowing. Electronically Signed: Tera Link MD at 21:49 EDT , <Dr. Nikolas Dixon, DO - Last Filed: 10/26/22 23:46> [facility] Radiography Diagnostic Testing: Clinical Impression(s) from Imaging Studies Brain CT 10/26/22 20:39 IMPRESSION: Age-related changes as above, without evidence of acute intracranial hemorrhage in this noncontrast head CT. Sinus disease. Electronically Signed: Tera Link MD at 21:27 EDT , Cervical Spine CT 10/26/22 20:39 IMPRESSION: Cervical spine without evidence of acute fracture. Neuroforaminal narrowing. Electronically Signed: Tera Link MD at 21:49 EDT , Treatment and Re-Evaluation Narrative: I have personally performed a face to face assessment of the patient and have reviewed the CHASITY Note. I performed a substantive portion of the visit including all aspects of the following. My abdullahi findings include: History: Patient presents after a fall that occurred today. Patient was getting out of her wheelchair when she fell forward and hit her head on the floor. Patient denies any loss of consciousness. Daughter states that the nurse at the facility was helping her roommate and was right there and witnessed the fall. Staff denies any loss of consciousness either. Patient denies any visual changes. Patient denies any nausea or vomiting. Patient denies any paresthesias or weakness. Patient denies any other injuries. Exam: Vital signs are stable. Patient is febrile patient no acute distress. Pupils are equal, round, and reactive to light bilaterally. Extraocular muscles are intact. There is a large hematoma over the left forehead. There is a superficial abrasion over this area. There is no active bleeding noted. There is no bony crepitance or step-off. Cranial nerves II through XII are grossly intact. There are no focal motor or sensory deficits noted. Heart was regular rate and rhythm. Lungs are clear and equal bilaterally. Abdomen is soft and nontender. Medical Decision Making: Differential diagnosis includes intracranial bleeding, concussion, forehead contusion, closed head injury, and cervical spine fracture. CT scan of the brain will be obtained to assess for intracranial bleeding. CT scan of the cervical spine will be obtained to assess for cervical spine fracture or dislocation. CT scan of the brain was obtained. There is no acute intracranial injury. There are chronic changes noted. This was interpreted by the radiologist and results independently reviewed by myself. CT scan of the cervical spine with the pain. There is no acute fracture or dislocation noted. There are degenerative changes noted. There is neuroforaminal narrowing. This was interpreted by the radiologist and was also independently reviewed by myself. Patient was given a dose of Tylenol here. Patient was advised of her findings. Patient was instructed to use ice to her forehead. Patient was instructed to follow-up with her primary care physician in 5 to 7 days. Patient understood and was agreeable with the plan. All questions were answered. Discharge Plan Triage Chief Complaint: Fall ED Midlevel Provider: Jayla Coronado ED Provider: Nikolas Dixon Dx/Rx/DC Orders Clinical Impression: Facial hematoma, Head injury, Fall Instructions: ED Facial Contusion, ED Head Injury (Adult) Prescriptions: No Action allopurinol 100 mg tablet 100 mg PO DAILY aspirin [Adult Aspirin Regimen] 81 mg tablet,delayed release (DR/EC) 81 mg PO DAILY clobetasol 0.05 % ointment 1 applic topical .COMPLEX Qty: 15 2RF Rx Instructions: 1 applic topical apply bid X 2 weeks, daily X 2 weeks then prn. Small amount and massge in; metoprolol tartrate 25 MG tablet 25 mg PO BID tramadol 50 MG tablet 50 mg PO Q6H PRN PRN (Reason: Pain Score 4-5/10) Qty: 28 0RF levothyroxine 75 MCG tablet 100 mcg PO DAILY atorvastatin 20 MG tablet 40 mg PO QHS insulin lispro 100 UNIT/ML insulin pen 5 unit SQ 4X/DAY PRN (Reason: BLOOD SUGAR) insulin glargine 100 UNIT/ML insulin pen 52 unit SQ QHS cholecalciferol (vitamin D3) 2,000 UNIT capsule 2,000 unit PO DAILY duloxetine 40 MG capsule,delayed release(DR/EC) 30 mg PO BID acetaminophen 500 MG tablet 1,000 mg PO Q6H PRN PRN (Reason: Pain Or Fever) pregabalin 50 MG capsule 50 mg PO 4X/DAY furosemide [Lasix] 20 mg tablet 20 mg PO DAILY melatonin 5 mg capsule 5 mg PO QHS multivitamin [Daily Multi-Vitamin] Tablet 1 tab PO DAILY mirtazapine [Remeron] 15 mg tablet 15 mg PO QHS senna 8.6 mg capsule 8.6 mg PO BID trazodone 50 mg tablet 50 mg PO QHS PRN (Reason: sleep) dulaglutide 4.5 mg/0.5 mL pen injector 4.5 mg subcut QWEEK sertraline [Zoloft] 100 mg tablet 100 mg PO DAILY Primary Care Provider: Shanika Walker Referrals: Shanika Walker MD [Primary Care Provider] - 3-5 Days Activity Restrictions/Additional Instructions: Please follow-up with your PCP and return for any worsening of symptoms. Please ice your forehead 5-6 times a day for the next few days. Disposition Disposition: [facility] Discharge Location: [facility] Discharge Date/Time: 10/26/22 23:10
[2022-10-26 22:05] VITALS: BP 150/85; PULSE 96; RESP 16; TEMP 36.7; O2SAT 93
--- NOTE | 2022-10-26 22:18 | NURSING ---
[facility] called and notified of pt returning.
[2022-10-26] MEDS: Acetaminophen 325 MG Tablet 650 MG PO (23:01)
== END 2022-10-26 23:10 | disposition skilled nursing facility (03) ==
PROVIDERS: Emergency Provider Emergency Medicine; PCP Internal Medicine; Visit Provider Emergency Medicine
DX: S00.83XA Contusion of other part of head, initial encounter (principal); G30.9 Alzheimer's disease, unspecified; F02.80 Dementia in other diseases classified elsewhere, unspecified severity, without behavioral disturbance, psychotic disturbance, mood disturbance, and anxiety; E11.9 Type 2 diabetes mellitus without complications; Z79.4 Long term (current) use of insulin; S09.90XA Unspecified injury of head, initial encounter; W05.0XXA Fall from non-moving wheelchair, initial encounter; Y92.129 Unspecified place in nursing home as the place of occurrence of the external cause; Z79.85 Long-term (current) use of injectable non-insulin antidiabetic drugs
CPT/HCPCS: 70450; 72125; 99284

== ENCOUNTER → 2022-11-05 05:00 | Outpatient (REF) | payer MEDICARE, MEDICAID, SELFPAY ==
[2022-11-05 10:20] LABS: Hemoglobin A1c 7.1 % (3.8-5.6)
== END ==
LOC: OLS.SW 05:00
PROVIDERS: PCP Internal Medicine; Visit Provider Internal Medicine
DX: E11.42 Type 2 diabetes mellitus with diabetic polyneuropathy (principal)
CPT/HCPCS: 36415; 83036

== ENCOUNTER → 2022-11-06 05:00 | Outpatient (REF) | payer MEDICARE, MEDICAID, SELFPAY ==
[2022-11-06 09:23] LABS: Absolute Neutrophil Count 6.9 X10^3/uL (2.0-7.7); Basophil# 0.09 X10^3/uL; Basophil% 0.8 % (0-1); Eosinophil# 0.34 X10^3/uL; Eosinophils% 3.2 % (0-5); Hematocrit 31.4 % (37-47); Hemoglobin 9.3 g/dL (12.0-15.0); Lymphocyte % 25.2 % (19-41); Mean Corp Hgb Conc 29.6 g/dL (32-36); Mean Corpuscular Hgb 27.1 pg (27.0-32.0); Mean Corpuscular Volume 91.5 fL (81-99); Mean Platelet Vol. 10.7 fl (6.2-12.0); Monocyte# 0.63 X10^3/uL; Monocyte% 5.9 % (0-10); NRBC Flagged by Analyzer 0 % (0-5); Neutrophil # 6.87 X10^3/uL (2.7-7.7); Platelet Count 278 K/mm3 (150-450); RBC Distribution Width CV 16.6 % (11.6-14.6); RBC Distribution Width SD 55.1 fl (35.1-43.9); Red Blood Count 3.43 M/mm3 (4.2-5.4); White Blood Count 10.7 K/mm3 (4.4-11.0)
[2022-11-06 09:35] LABS: Anion Gap 5 (5-15); BUN 27 mg/dL (7-18); BUN/Creat Ratio 21.3 RATIO (10-20); Chloride 109 mmol/L (98-107); Creatinine, Serum 1.27 mg/dL (0.55-1.02); EST Glomerular Filtration Rate 43 mL/min (>60); Est Glom Filt Rate - Afr Amer 52 mL/min (>60); Glucose 77 mg/dL (74-106); Potassium 4.2 mmol/L (3.5-5.1); Sodium Level 141 mmol/L (136-145)
== END ==
LOC: OLS.SW 05:00
PROVIDERS: PCP Internal Medicine; Visit Provider Internal Medicine
DX: M62.81 Muscle weakness (generalized) (principal); F02.818 Dementia in other diseases classified elsewhere, unspecified severity, with other behavioral disturbance
CPT/HCPCS: 36415; 80048; 85025

== ENCOUNTER → 2023-01-08 | Outpatient (REF) | payer MEDICARE, MEDICAID, SELFPAY ==
[2023-01-08 09:36] LABS: Absolute Lymphocyte Count 3.74 X10^3/uL (0.83-4.51); Absolute Neutrophil Count 5.5 X10^3/uL (2.0-7.7); Basophil# 0.12 X10^3/uL; Basophil% 1.1 % (0-1); Eosinophil# 0.38 X10^3/uL; Eosinophils% 3.6 % (0-5); Hematocrit 33.1 % (37-47); Hemoglobin 9.7 g/dL (12.0-15.0); Lymphocyte # 3.74 X10^3/ul (0.83-4.51); Lymphocyte % 35.6 % (19-41); Mean Corp Hgb Conc 29.3 g/dL (32-36); Mean Corpuscular Hgb 25.6 pg (27.0-32.0); Mean Corpuscular Volume 87.3 fL (81-99); Mean Platelet Vol. 11.1 fl (6.2-12.0); Monocyte# 0.71 X10^3/uL; Monocyte% 6.7 % (0-10); NRBC Flagged by Analyzer 0 % (0-5); Neutrophil % 52.3 % (47-70); Platelet Count 238 K/mm3 (150-450); RBC Distribution Width SD 54.2 fl (35.1-43.9); Red Blood Count 3.79 M/mm3 (4.2-5.4); White Blood Count 10.5 K/mm3 (4.4-11.0)
[2023-01-08 09:49] LABS: Anion Gap 6 (5-15); BUN 34 mg/dL (7-18); BUN/Creat Ratio 26.8 RATIO (10-20); Calcium,Total 9.2 mg/dL (8.5-10.1); Chloride 109 mmol/L (98-107); Creatinine, Serum 1.27 mg/dL (0.55-1.02); EST Glomerular Filtration Rate 43 mL/min (>60); Est Glom Filt Rate - Afr Amer 52 mL/min (>60); Glucose 75 mg/dL (74-106); Potassium 3.8 mmol/L (3.5-5.1); Sodium Level 142 mmol/L (136-145)
== END ==
LOC: OLS.SW 07:00
PROVIDERS: PCP Internal Medicine; Visit Provider Internal Medicine
DX: L03.115 Cellulitis of right lower limb (principal); E11.9 Type 2 diabetes mellitus without complications
CPT/HCPCS: 36415; 80048; 85025; 87070; 87075; 87077; 87186; 87205

== ENCOUNTER → 2023-01-20 | Outpatient (REF) | payer MEDICARE, MEDICAID, SELFPAY ==
[2023-01-20 09:20] LABS: Absolute Lymphocyte Count 3.86 X10^3/uL (0.83-4.51); Absolute Neutrophil Count 5.1 X10^3/uL (2.0-7.7); Basophil# 0.11 X10^3/uL; Basophil% 1.1 % (0-1); Eosinophil# 0.39 X10^3/uL; Eosinophils% 3.8 % (0-5); Hematocrit 32.2 % (37-47); Hemoglobin 9.2 g/dL (12.0-15.0); Lymphocyte # 3.86 X10^3/ul (0.83-4.51); Lymphocyte % 37.6 % (19-41); Mean Corp Hgb Conc 28.6 g/dL (32-36); Mean Corpuscular Hgb 25.3 pg (27.0-32.0); Mean Corpuscular Volume 88.5 fL (81-99); Mean Platelet Vol. 11.8 fl (6.2-12.0); Monocyte# 0.71 X10^3/uL; Monocyte% 6.9 % (0-10); NRBC Flagged by Analyzer 0 % (0-5); Neutrophil # 5.14 X10^3/uL (2.7-7.7); Platelet Count 229 K/mm3 (150-450); RBC Distribution Width CV 17.7 % (11.6-14.6); RBC Distribution Width SD 57.9 fl (35.1-43.9); Red Blood Count 3.64 M/mm3 (4.2-5.4); White Blood Count 10.3 K/mm3 (4.4-11.0)
[2023-01-20 09:33] LABS: Anion Gap 5 (5-15); BUN 50 mg/dL (7-18); BUN/Creat Ratio 34.2 RATIO (10-20); Calcium,Total 8.8 mg/dL (8.5-10.1); Chloride 105 mmol/L (98-107); Creatinine, Serum 1.46 mg/dL (0.55-1.02); EST Glomerular Filtration Rate 36 mL/min (>60); Est Glom Filt Rate - Afr Amer 44 mL/min (>60); Glucose 92 mg/dL (74-106); Potassium 3.8 mmol/L (3.5-5.1); Sodium Level 137 mmol/L (136-145)
== END ==
LOC: OLS.SW 06:40
PROVIDERS: PCP Internal Medicine; Visit Provider Internal Medicine
DX: F03.90 Unspecified dementia, unspecified severity, without behavioral disturbance, psychotic disturbance, mood disturbance, and anxiety (principal); E11.9 Type 2 diabetes mellitus without complications
CPT/HCPCS: 36415; 80048; 85025

== ENCOUNTER → 2023-01-21 | Outpatient (REF) | payer MEDICARE, MEDICAID, SELFPAY ==
[2023-01-21 10:27] LABS: Absolute Lymphocyte Count 3.64 X10^3/uL (0.83-4.51); Absolute Neutrophil Count 6.9 X10^3/uL (2.0-7.7); Basophil% 0.9 % (0-1); Eosinophil# 0.36 X10^3/uL; Eosinophils% 3.1 % (0-5); Hematocrit 34.9 % (37-47); Hemoglobin 10.1 g/dL (12.0-15.0); Lymphocyte # 3.64 X10^3/ul (0.83-4.51); Lymphocyte % 31.2 % (19-41); Mean Corp Hgb Conc 28.9 g/dL (32-36); Mean Corpuscular Hgb 25.3 pg (27.0-32.0); Mean Corpuscular Volume 87.5 fL (81-99); Mean Platelet Vol. 11.8 fl (6.2-12.0); Monocyte# 0.66 X10^3/uL; Monocyte% 5.7 % (0-10); NRBC Flagged by Analyzer 0 % (0-5); Neutrophil # 6.85 X10^3/uL (2.7-7.7); Neutrophil % 58.7 % (47-70); Platelet Count 246 K/mm3 (150-450); RBC Distribution Width CV 17.7 % (11.6-14.6); RBC Distribution Width SD 56.6 fl (35.1-43.9); Red Blood Count 3.99 M/mm3 (4.2-5.4); White Blood Count 11.7 K/mm3 (4.4-11.0)
[2023-01-21 11:12] LABS: Anion Gap 9 (5-15); BUN 42 mg/dL (7-18); BUN/Creat Ratio 31.3 RATIO (10-20); Calcium,Total 9.2 mg/dL (8.5-10.1); Chloride 106 mmol/L (98-107); Creatinine, Serum 1.34 mg/dL (0.55-1.02); EST Glomerular Filtration Rate 40 mL/min (>60); Est Glom Filt Rate - Afr Amer 49 mL/min (>60); Glucose 128 mg/dL (74-106); Potassium 4.2 mmol/L (3.5-5.1); Sodium Level 138 mmol/L (136-145)
== END ==
LOC: OLS.SW 07:55
PROVIDERS: PCP Internal Medicine; Visit Provider Internal Medicine
DX: E11.42 Type 2 diabetes mellitus with diabetic polyneuropathy (principal)
CPT/HCPCS: 36415; 80048; 85025

== ENCOUNTER → 2023-01-23 | Outpatient (REF) | payer MEDICARE, MEDICAID, SELFPAY ==
[2023-01-23 09:01] LABS: T4 Total, Thyroxin 3.8 ug/dL (4.8-13.9); Thyroid Stim Hormone (TSH) 7.24 uIU/mL (0.358-3.74)
== END ==
LOC: OLS.SW 05:00
PROVIDERS: PCP Internal Medicine; Visit Provider Internal Medicine
DX: E03.9 Hypothyroidism, unspecified (principal)
CPT/HCPCS: 36415; 84436; 84443

== ENCOUNTER → 2023-02-04 | Outpatient (REF) | payer MEDICARE, MEDICAID, SELFPAY ==
[2023-02-04 09:33] LABS: Hemoglobin A1c 7.1 % (3.8-5.6)
== END ==
LOC: OLS.SW 05:00
PROVIDERS: PCP Internal Medicine; Visit Provider Internal Medicine
DX: E11.9 Type 2 diabetes mellitus without complications (principal)
CPT/HCPCS: 36415; 83036

== ENCOUNTER → 2023-03-18 06:00 | Outpatient (REF) | payer MEDICARE, MEDICAID, SELFPAY ==
[2023-03-18 08:01] LABS: Absolute Lymphocyte Count 4.15 X10^3/uL (0.83-4.51); Absolute Neutrophil Count 7.1 X10^3/uL (2.0-7.7); Basophil# 0.06 X10^3/uL; Basophil% 0.5 % (0-1); Eosinophil# 0.38 X10^3/uL; Hematocrit 33.1 % (37-47); Hemoglobin 9.5 g/dL (12.0-15.0); Lymphocyte # 4.15 X10^3/ul (0.83-4.51); Lymphocyte % 32.5 % (19-41); Mean Corp Hgb Conc 28.7 g/dL (32-36); Mean Corpuscular Hgb 24.4 pg (27.0-32.0); Mean Corpuscular Volume 84.9 fL (81-99); Monocyte# 0.85 X10^3/uL; Monocyte% 6.7 % (0-10); NRBC Flagged by Analyzer 0 % (0-5); Neutrophil # 7.14 X10^3/uL (2.7-7.7); Platelet Count 204 K/mm3 (150-450); RBC Distribution Width CV 18.3 % (11.6-14.6); RBC Distribution Width SD 56.8 fl (35.1-43.9); White Blood Count 12.8 K/mm3 (4.4-11.0)
[2023-03-18 08:25] LABS: Anion Gap 3 (5-15); BUN 36 mg/dL (7-18); BUN/Creat Ratio 32.4 RATIO (10-20); Calcium,Total 9.3 mg/dL (8.5-10.1); Chloride 109 mmol/L (98-107); Creatinine, Serum 1.11 mg/dL (0.55-1.02); EST Glomerular Filtration Rate 50 mL/min (>60); Est Glom Filt Rate - Afr Amer 60 mL/min (>60); Glucose 69 mg/dL (74-106); Potassium 3.7 mmol/L (3.5-5.1); Sodium Level 141 mmol/L (136-145)
== END ==
LOC: OLS.SW 06:00
PROVIDERS: PCP Internal Medicine; Visit Provider Internal Medicine
DX: E11.42 Type 2 diabetes mellitus with diabetic polyneuropathy (principal); I10 Essential (primary) hypertension
CPT/HCPCS: 36415; 80048; 85025; 86140

== ENCOUNTER → 2023-03-20 | Outpatient (REF) | payer MEDICARE, MEDICAID, SELFPAY ==
--- OUTSIDE RECORDS SUMMARY | 2023-03-20 04:46 | XMS RPT_ITS | CCD ---
Author Name Unknown Address [address] [place] [address] [place] [id number] Organization [facility] Care Team Providers Care Policy Writer Name Role Phone Bronson Kwon Attending Unavailable Talampas, Malini Primary Care Unavailable Daren Salcido Attending Unavailable Talampas, Malini Primary Care Unavailable Daren Salcido Attending Unavailable Talampas, Malini Primary Care Unavailable Bronson Kwon Attending Unavailable Talampas, Malini Primary Care Unavailable Bronson Kwon Attending Unavailable Talampas, Malini Primary Care Unavailable Bronson Kwon Attending Unavailable Talampas, Malini Primary Care Unavailable Bronson Kwon Attending Unavailable Talampas, Malini Primary Care Unavailable Encounters Encounter Date Encounter Type Care Provider Facility Start: 07-20-2018 Patient encounter procedure Bronson Kwon Facility:[facility] Start: 05-29-2018 Patient encounter procedure Bronson Kwon Facility:[facility] Start: 04-16-2018 Patient encounter procedure Bronson Kwon Facility:[facility] Start: 02-09-2018 Patient encounter procedure Bronson Kwon Facility:[facility] Start: 12-22-2017 Patient encounter procedure Daren Salcido Facility:[facility] Start: 11-05-2017 Patient encounter procedure Daren Salcido Facility:[facility] Start: 08-07-2017 Patient encounter procedure Bronson Kwon Facility:[facility] Procedures Date Procedure Procedure Detail Performing Clinician Start: 08-07-2017 Follow-up visit FOLLOW UP Bronson Kwon Payers Date Payer Category Payer Policy ID Unknown [id number] Unknown [id number] 2.16.8 [id number] Unknown [id number] 2.16.8 [id number] Unknown [id number] 2.16.8 [id number] Unknown [id number] 2.16.8 [id number] Unknown [id number] 2.16.8 [id number] Unknown [id number] 2.16.8 [id number] Unknown [id number] 2.16.8 [id number] Summary Purpose Family History No Family History Records Found Advance Directives No Advanced Directives Records Found Additional Source Comments INFORMATION SOURCE (unrecogn ized section and content) FOR RECORDS PERTAINING TO PATIENTS WHO ARE OR HAVE BEEN ENROLLED IN A CHEMICAL DEPENDENCY/SUBSTANCEABUSE PROGRAM, SOME INFORMATION MAY BE OMITTED. This clinical summary was aggregated from multiple sources. Caution should be exercised in using it in the provision of clinical care. This summary normalizes information from multiple sources, and as a consequence, information in this document may materially change the coding, format and clinical context of patient data. In addition, data may be omitted in some cases. CLINICAL DECISIONS SHOULD BE BASED ON THE PRIMARY CLINICAL RECORDS. [employer] [facility]. provides no warranty or guarantee of the accuracy or completeness of information in this document.
[2023-03-20 07:52] LABS: Absolute Lymphocyte Count 3.61 X10^3/uL (0.83-4.51); Absolute Neutrophil Count 6.8 X10^3/uL (2.0-7.7); Basophil# 0.09 X10^3/uL; Basophil% 0.7 % (0-1); Eosinophil# 0.72 X10^3/uL; Eosinophils% 5.9 % (0-5); Hematocrit 34.9 % (37-47); Hemoglobin 10.1 g/dL (12.0-15.0); Lymphocyte # 3.61 X10^3/ul (0.83-4.51); Lymphocyte % 29.6 % (19-41); Mean Corp Hgb Conc 28.9 g/dL (32-36); Mean Corpuscular Hgb 24.5 pg (27.0-32.0); Mean Corpuscular Volume 84.7 fL (81-99); Mean Platelet Vol. 11.4 fl (6.2-12.0); Monocyte# 0.78 X10^3/uL; Monocyte% 6.4 % (0-10); NRBC Flagged by Analyzer 0 % (0-5); Neutrophil # 6.82 X10^3/uL (2.7-7.7); Neutrophil % 55.8 % (47-70); Platelet Count 218 K/mm3 (150-450); RBC Distribution Width CV 18.3 % (11.6-14.6); Red Blood Count 4.12 M/mm3 (4.2-5.4); White Blood Count 12.2 K/mm3 (4.4-11.0)
== END ==
LOC: OLS.SW 05:00
PROVIDERS: PCP Internal Medicine; Visit Provider Internal Medicine
DX: D72.829 Elevated white blood cell count, unspecified (principal)
CPT/HCPCS: 36415; 85025

== ENCOUNTER → 2023-03-26 | Outpatient (REF) | payer MEDICARE, MEDICAID, SELFPAY ==
--- OUTSIDE RECORDS SUMMARY | 2023-03-26 05:19 | XMS RPT_ITS | CCD ---
Author Name Unknown Address [address] [place] [address] [address] [place] [id number] Organization [facility] Care Team Providers Care Cast Associate Name Role Phone Bronson Kwon Attending Unavailable [...] Date Payer Category Payer Policy ID Unknown [id number] Unknown [id number] 2.16.8 [id number] Unknown [id number] 2.16.8 [id number] Unknown [id number] 2.16.8 [id number] Unknown [id number] 2.16.8 40.1.788405.3.579.2.273 Unknown [id number] 2.16.8 [id number] Unknown [id number] 2.16.8 40.1.149251.3.579.2.273 Unknown [id number] 2.16.8 [id number] Summary Purpose Family History No Family History [...] BE BASED ON THE PRIMARY CLINICAL RECORDS. [employer] [facility]. provides no warranty or guarantee of the accuracy or completeness of information in this document.
[2023-03-26 08:55] LABS: Thyroid Stim Hormone (TSH) 0.11 uIU/mL (0.358-3.74)
== END ==
LOC: OLS.SW 05:00
PROVIDERS: PCP Internal Medicine; Visit Provider Internal Medicine
DX: E03.9 Hypothyroidism, unspecified (principal)
CPT/HCPCS: 36415; 84443

== ENCOUNTER → 2023-04-02 05:00 | Outpatient (REF) | payer MEDICARE, MEDICAID, SELFPAY ==
--- OUTSIDE RECORDS SUMMARY | 2023-04-02 04:31 | XMS RPT_ITS | CCD ---
Author Name Unknown Address [address] [place] [address] [place] [id number] Organization [facility] Care Team Providers Care Director Client Name Role Phone Bronson Kwon Attending Unavailable [...] Start: 07-20-2018 Patient encounter procedure Bronson Kwon Facility:[facility] Start: 05-29-2018 Patient encounter procedure Bronson Kwon Facility:[facility] Start: 04-16-2018 Patient encounter procedure Bronson Kwon Facility:[facility] Start: 02-09-2018 Patient encounter procedure Bronson Kwon Facility:[facility] Start: 12-22-2017 Patient encounter procedure Daren Salcido Facility:[facility] Start: 11-05-2017 Patient encounter procedure Daren Salcido Facility:[facility] Start: 08-07-2017 Patient encounter procedure Bronson Kwon Facility:[facility] Procedures Date Procedure Procedure Detail Performing Clinician Start: 08-07-2017 Follow-up visit FOLLOW UP Bronson Kwon Payers Date Payer Category Payer Policy ID Unknown [id number] Unknown [id number] 2.16.8 [id number] Unknown [id number] 2.16.8 [id number] Unknown [id number] 2.16.8 40.1.584960.3.579.2.273 Unknown [id number] 2.16.8 40.1.843854.3.579.2.273 Unknown [id number] 2.16.8 40.1.580691.3.579.2.273 Unknown [id number] 2.16.8 40.1.963007.3.579.2.273 Unknown [id number] 2.16.8 [id number] Summary Purpose Family History No Family History [...] BE BASED ON THE PRIMARY CLINICAL RECORDS. [employer] [facility]. provides no warranty or guarantee of the accuracy or completeness of information in this document.
[2023-04-02 09:39] LABS: Hematocrit 35.6 % (37-47); Hemoglobin 10.5 g/dL (12.0-15.0); Mean Corp Hgb Conc 29.5 g/dL (32-36); Mean Corpuscular Hgb 24.9 pg (27.0-32.0); Mean Corpuscular Volume 84.4 fL (81-99); Mean Platelet Vol. 11.8 fl (6.2-12.0); Platelet Count 157 K/mm3 (150-450); RBC Distribution Width CV 19.1 % (11.6-14.6); RBC Distribution Width SD 58.4 fl (35.1-43.9); Red Blood Count 4.22 M/mm3 (4.2-5.4); White Blood Count 10.9 K/mm3 (4.4-11.0)
[2023-04-02 10:59] LABS: ALB/GLOB Ratio 0.5 RATIO (0.9-2.4); AST(SGOT) 36 U/L (15-37); Alanine Aminotransfer ALT/SGPT 26 U/L (13-56); Albumin, Serum 2.2 g/dL (3.2-5.0); Alkaline Phosphatase 147 U/L (45-117); Anion Gap 5 (5-15); BUN 31 mg/dL (7-18); BUN/Creat Ratio 28.2 RATIO (10-20); Calcium,Total 9.2 mg/dL (8.5-10.1); Chloride 108 mmol/L (98-107); EST Glomerular Filtration Rate 50 mL/min (>60); Est Glom Filt Rate - Afr Amer 61 mL/min (>60); Globulin 4.7 g/dL (2.2-4.2); Glucose 96 mg/dL (74-106); Potassium 4.1 mmol/L (3.5-5.1); Prealbumin 11.2 mg/dL (20.0-40.0); Protein, Total 6.9 g/dL (6.4-8.2); Sodium Level 140 mmol/L (136-145)
== END ==
LOC: OLS.SW 05:00
PROVIDERS: PCP Internal Medicine; Visit Provider Internal Medicine
DX: E11.9 Type 2 diabetes mellitus without complications (principal)
CPT/HCPCS: 36415; 80053; 84134; 85027

== ENCOUNTER → 2023-04-22 | Outpatient (REF) | payer MEDICARE, MEDICAID, SELFPAY ==
[2023-04-22 09:57] LABS: Hematocrit 33.5 % (37-47); Hemoglobin 9.7 g/dL (12.0-15.0); Mean Corpuscular Hgb 24.4 pg (27.0-32.0); Mean Corpuscular Volume 84.2 fL (81-99); Mean Platelet Vol. 11.3 fl (6.2-12.0); Platelet Count 308 K/mm3 (150-450); RBC Distribution Width SD 61.1 fl (35.1-43.9); Red Blood Count 3.98 M/mm3 (4.2-5.4); White Blood Count 13.5 K/mm3 (4.4-11.0)
== END ==
LOC: OLS.SW 05:00
PROVIDERS: PCP Internal Medicine; Visit Provider Internal Medicine
DX: R41.0 Disorientation, unspecified (principal)
CPT/HCPCS: 36415; 85027